=== PATIENT | female | born 1950 | race Caucasian/White ===

== ENCOUNTER 2020-12-05 05:53 | Emergency (ER) | payer OTHER, SELFPAY ==
[2020-12-05] VITALS (9 sets, daily range): BP systolic 111–188; BP diastolic 53–83; PULSE 81–104; RESP 21–40; TEMP 36.4; O2SAT 94–100; BMI 38.0
--- NOTE | 2020-12-05 06:01 | ED.ALLEREA ---
HPI - Allergic Reaction General Chief complaint: Allergic Reaction Stated complaint: sob, swelling tongue, itching/burning Time Seen by Provider: 12/05/20 05:59 History of Present Illness HPI narrative: 70-year-old female nonsmoker with history of severe asthma presents with her son in the chief complaint of allergic reaction, likely to cats. She is visiting from out of town and woke up about an hour and 20 minutes ago and felt like her tongue was swelling, itching and scratchy. Additionally she has wheezing and has been using her albuterol at home. She took 4 puffs prior to her arrival with little to minimal help and 100 mg of Benadryl. She denies any rash and has had no chest pain or GI symptoms such as nausea, vomiting or diarrhea. She denies any other new medications or foods. Related Data Previous Rx's Medication Instructions Recorded prednisone 10 mg tablet See Rx Instructions .ROUTE 12/05/20 .COMPLEX #30 tab Allergies Allergy/AdvReac Type Severity Reaction Status Date / Time cat dander Allergy Wheezing Verified 12/05/20 06:34 hydrochlorothiazide Allergy Rash Verified 12/05/20 06:34 levothyroxine Allergy Vomiting Verified 12/05/20 06:34 melon Allergy ITCHING Verified 12/05/20 06:34 nitrofurantoin Allergy Vomiting Verified 12/05/20 06:34 [From Macrobid] peanut Allergy Anaphylaxis Verified 12/05/20 06:34 pravastatin Allergy Muscle Pain Verified 12/05/20 06:34 zolpidem [From Ambien] Allergy Anxiety Verified 12/05/20 06:34 Review of Systems Review of Systems Narrative: GENERAL: Denies chills, fatigue, malaise, fever, sweats. HEENT: See HPI RESPIRATORY: See HPI CARDIOVASCULAR: Denies chest pain, palpitations, orthopnea, edema, GASTROINTESTINAL: Denies nausea, vomiting, abdominal pain, diarrhea, constipation, melena. : Denies dysuria, frequency, incontinence, hematuria, urinary retention. MUSCULOSKELETAL: denies weakness, joint pain, or bony pain SKIN: Denies rash, skin lesions, or other NEUROLOGIC: Denies weakness, headache, numbness, change in speech, confusion, seizures, incoordination. PSYCHIATRIC: No concerning psychosocial issues. 12 point review of systems is negative except for those stated above Patient History Social History Smoking Status: Never smoker Exam Narrative Exam Narrative: GENERAL: 70 [] year old patient appears stated age. Well-developed patient, in mild distress. Walks in under her own power HEAD: Atraumatic. Normocephalic. EYES: Pupils equal round and reactive. Extraocular motions intact. No scleral icterus. No injection or drainage. ENT: Nose without bleeding, purulent drainage. Throat without erythema, tonsillar hypertrophy or exudate. Airway patent. No obvious tongue swelling though patient feels as if it is. NECK: Trachea midline. Non tender CARDIOVASCULAR: Regular rate and rhythm without murmurs, gallops, or rubs. RESPIRATORY: Clear to auscultation. Breath sounds equal bilaterally. No wheezes, rales, or rhonchi. GASTROINTESTINAL: Abdomen soft, non-tender, nondistended. EXTREMITIES: No edema or joint tenderness. BACK: Nontender without deformity or crepitance. No flank tenderness. NEURO: AOx3. SKIN: No rash or erythema of visible areas Initial Vital Signs Initial Vital Signs: Vital Signs Temperature 97.5 F L 12/05/20 05:54 Pulse Rate 104 H 12/05/20 05:54 Respiratory Rate 30 H 12/05/20 05:54 Blood Pressure 188/83 H 12/05/20 05:54 Pulse Oximetry 96 12/05/20 05:54 Course Orders Ordered: Discontinued Medications Albuterol/Ipratropium (Albuterol/Ipratropium 3 Ml Ampul) 3 ml INH NOW ONE Stop: 12/05/20 06:12 Last Admin: 12/05/20 06:15 Dose: 3 ml Documented by: BEST Dexamethasone (Dexamethasone 10 Mg/Ml Vial) 10 mg IV NOW ONE Stop: 12/05/20 06:00 Last Admin: 12/05/20 06:07 Dose: 10 mg Documented by: SURJIT Epinephrine HCl (Epinephrine 1 Mg/Ml) 0.5 mg IM NOW ONE Stop: 12/05/20 06:00 Last Admin: 12/05/20 06:07 Dose: 0.5 mg Documented by: SURJIT Famotidine (Famotidine 20 Mg/2 Ml Vial) 20 mg IV NOW ONE Stop: 12/05/20 06:00 Last Admin: 12/05/20 06:07 Dose: 20 mg Documented by: SURJIT Sodium Chloride (Normal Saline 0.9%) 1,000 mls @ 150 mls/hr IV CONT GEOFF Last Infusion: 12/05/20 07:22 Dose: 0 mls/hr Documented by: Admin: 12/05/20 06:07 Dose: 150 mls/hr Documented by: SURJIT Magnesium Sulfate (Magnesium Sulfate) 2 gm in 50 mls @ 150 mls/hr IV NOW ONE Stop: 12/05/20 06:44 Last Infusion: 12/05/20 07:00 Dose: 0 mls/hr Documented by: SURJIT Cosigned by: CHARLES Admin: 12/05/20 06:36 Dose: 150 mls/hr Documented by: SURJIT Cosigned by: ALEIDA Reevaluation(s) Reevaluation #1: Patient moving a bit more air and starting to feel a bit jittery. She is not having any difficulty swallowing at this point. Peak flow just prior to the initiation of bronchodilators is 220 with a predicted of 515 MDM - Allergic Reaction MDM Narrative Medical decision making narrative: Patient presents with a constellation of symptoms concerning for allergic reaction versus asthma exacerbation. She had a significant and complete resolution of symptoms with above-stated therapies. Work of breathing greatly improved. Return precautions discussed and questions answered to her apparent satisfaction Discharge Plan Departure Patient Disposition: Home Clinical Impression: Allergic reaction, Asthma Instructions: DI for Asthma -- Adult Activity Restrictions/Additional Instructions: *You have been diagnosed with [asthma exacerbation and possible allergic reaction *What to do: *Please continue to take your regular medications as directed. [x ] New medication prescriptions sent to your pharmacy: [ [facility]] [ ] New medication written as a paper prescription [ ] No new medications given *Please follow up with your primary care provider in 2-3 days, call for an appointment. Let them know you were seen in the Emergency Department and that we ask that you be seen in follow up. We will electronically transmit a record of today's note if your PCP is in our system *If you do not have a primary care provider please contact the [facility] Resource line at [phone]. They will ask some questions about your medical history and help get you set up with a doctor in the community. *Return to Emergency Department if you should have any new, worsening or concerning symptoms, such as [fever greater than 101 F, shaking chills, worsening pain, persistent vomiting or other bothersome symptoms] Prescriptions: New prednisone 10 mg tablet See Rx Instructions .ROUTE .COMPLEX Qty: 30 RF: 0
[2020-12-05] MEDS: DEXAMETHASONE 10 MG/ML VIAL IV (06:07)
[2020-12-05] MEDS: FAMOTIDINE 20 MG/2 ML VIAL IV (06:07)
[2020-12-05] MEDS: EPINEPHrine 1 MG/ML 0.5 MG IM (06:07)
[2020-12-05] MEDS: SODIUM CHLORIDE 0.9% 1,000 ML 150 ML IV (06:07)
[2020-12-05] MEDS: ALBUTEROL/IPRATROPIUM 3 ML AMPUL INH (06:15)
[2020-12-05] MEDS: MAGNESIUM SULFATE 2 GM/50 ML PIGGYBACK IV (06:36)
--- NOTE | 2020-12-05 07:20 | PC.NURSE ---
Pt appears and states that she is feeling much better after the medications. Pts respirations have slowed, able to take deeper breaths, speaking in full complete sentences. VSS, HR NSR, satting well on RA.
== END 2020-12-05 07:27 | disposition home or self-care (01) ==
PROVIDERS: Emergency Provider Emergency Medicine
DX: J45.901 Unspecified asthma with (acute) exacerbation (principal); J30.89 Other allergic rhinitis
CPT/HCPCS: 94150; 94640; 96360; 96365; 96372; 96374; 99284; J0171; J1100; J3475

== ENCOUNTER → 2021-08-08 11:52 | Outpatient (CLI) | payer OTHER, MEDICARE, SELFPAY ==
[2021-08-08 13:34] LABS: Add Manual Diff / Slide Review NO; Basophils Absolute Auto 100 /uL (0-100); Basophils Percent Auto 0.9 % (0-2); Eosinophils Absolute Auto 1000 /uL (0-450); Eosinophils Percent Auto 11.3 % (2-4); Hematocrit 39.1 % (36-46); Hemoglobin 12.8 g/dL (12.0-16.0); Lymphocytes Absolute Auto 2400 /uL (1100-4500); Lymphocytes Percent Auto 26.8 % (25-40); Mean Corpuscular HGB Conc 32.8 % (30-36); Mean Corpuscular Hemoglobin 26.7 PG (26-34); Mean Corpuscular Volume 81.5 fL (80-100); Monocytes Absolute Auto 500 /uL (0-900); Monocytes Percent Auto 5.3 % (3-14); Neutrophils Absolute Auto 5000 /uL (1500-7000); Neutrophils Percent Auto 55.7 % (50-75); Platelet Count 252 X10^3/uL (150-400); Red Cell Distribution Width 14.7 % (11.6-14.8); White Blood Cell Count 9.1 X10^3/uL (4.5-11.0)
[2021-08-08 14:11] LABS: Alanine Aminotransferase 23 IU/L (<35); Albumin 4.4 g/dL (3.5-5.0); Albumin Globulin Ratio 1.5 (1.0-2.8); Alkaline Phosphatase 112 U/L (38-126); Aspartate Aminotransferase 29 IU/L (14-36); BUN Creatinine Ratio 19.3 (6-22); Bilirubin Total 0.3 mg/dL (0.2-1.3); Blood Urea Nitrogen 22 mg/dL (7-17); Calcium 9.2 mg/dL (8.4-10.2); Carbon Dioxide 29 mmol/L (22-32); Chloride 104 mmol/L (98-107); Estimated Glomerular Filt Rate 51 mL/min (>60); Globulin 2.9 g/dL (1.7-4.1); Glucose 106 mg/dL (80-110); HEMOLYSIS < 15 (0-50); Potassium 4.6 mmol/L (3.4-5.1); Sodium 139 mmol/L (137-145); Total Protein 7.3 g/dL (6.3-8.2)
[2021-08-08 14:49] LABS: TSH w/ Reflex to FT4 < 0.02 uIU/mL (0.47-4.68)
[2021-08-08 15:22] LABS: Folate 15.5 ng/mL (2.76-20.0); Vitamin B12 803 pg/mL (239-931)
== END ==
PROVIDERS: PCP Physician Assistant; Referring Provider Physician Assistant; Visit Provider Physician Assistant
DX: E03.9 Hypothyroidism, unspecified (principal); R26.81 Unsteadiness on feet; R41.3 Other amnesia
CPT/HCPCS: 36415; 80053; 82607; 82746; 84439; 84443; 85025

== ENCOUNTER → 2021-09-27 18:30 | Outpatient (CLI) | payer OTHER, SELFPAY ==
[2021-09-27 18:55] LABS: Appearance Urine UA CLEAR; Bilirubin Urine UA NEGATIVE (NEGATIVE); Color Urine UA YELLOW; Glucose Urine UA NEGATIVE (Negative); Ketones Urine UA NEGATIVE (NEGATIVE); Leukocyte Esterase Urine UA TRACE (NEGATIVE); Nitrite Urine UA NEGATIVE (Negative); Occult Blood Urine UA 3+ (Negative); Protein Urine UA NEGATIVE (Negative); Specific Gravity Urine UA 1.015 (1.000-1.035); Urobilinogen Urine UA 0.2 E.U./dL (0.2)
[2021-09-27 19:26] LABS: Amorphous Sediment Urine 1+; Bacteria Urine Occasional (0-1); Culture Indicated Urine Specimen Cultured; RBC Urine 10-30/HPF (0-5/HPF); Transitional Epi Cells Urine 1-5/HPF (0-5/HPF); WBC Urine 5-10/HPF (0-5/HPF)
== END ==
PROVIDERS: PCP Family Medicine; Referring Provider Family Medicine; Visit Provider Family Medicine
DX: R31.0 Gross hematuria (principal)
CPT/HCPCS: 81001; 87086

== ENCOUNTER → 2021-10-04 12:40 | Outpatient (CLI) | payer OTHER, SELFPAY ==
--- NOTE | 2021-10-04 | DI.US.S_ITS ---
PROCEDURE: US RENAL COMPLETE INDICATIONS: Gross hematuria TECHNIQUE: Real-time scanning was performed of the kidneys and bladder, with image documentation. COMPARISON: None. FINDINGS: Kidneys: Kidneys are normal in size. Right kidney measures 11.2 cm long; left kidney measures 10.5 cm long. Right renal cortical thickness is 1.4 cm; left renal cortical thickness is 1.4 cm. Renal cortical echotexture is normal. No hydronephrosis or nephrolithiasis. No suspicious solid mass lesions. Bladder: Pre-void bladder volume is 97 mL. Post-void residual is 0 mL. Pre-void images demonstrate no intraluminal masses or stones. On pre-void images, no ureteral jets are noted with color Doppler interrogation. (Of note, ureteral jets may not be detectable in up to 25% of cases due to insufficient differences in specific gravity between ureteral and bladder urine). Miscellaneous: No free pelvic fluid. IMPRESSION: No hydronephrosis or evidence of nephrolithiasis. Dictated by: Cory Gallardo M.D. on 10/04/2021 at 21:01 Approved by: Cory Gallardo M.D. on 10/04/2021 at 21:03
== END ==
PROVIDERS: PCP Family Medicine; Referring Provider Family Medicine; Visit Provider Family Medicine
DX: R31.0 Gross hematuria (principal)
CPT/HCPCS: 76770

== ENCOUNTER → 2021-10-24 11:08 | Outpatient (CLI) | payer OTHER, SELFPAY ==
[2021-10-24 12:31] LABS: Add Manual Diff / Slide Review NO; Basophils Absolute Auto 100 /uL (0-100); Basophils Percent Auto 0.6 % (0-2); Eosinophils Absolute Auto 900 /uL (0-450); Hematocrit 42.9 % (36-46); Hemoglobin 14.1 g/dL (12.0-16.0); Lymphocytes Absolute Auto 2200 /uL (1100-4500); Lymphocytes Percent Auto 21.5 % (25-40); Mean Corpuscular Hemoglobin 26.8 PG (26-34); Mean Corpuscular Volume 81.2 fL (80-100); Monocytes Absolute Auto 500 /uL (0-900); Neutrophils Absolute Auto 6600 /uL (1500-7000); Neutrophils Percent Auto 63.9 % (50-75); Platelet Count 269 X10^3/uL (150-400); Red Blood Cell Count 5.28 X10^6/uL (4.0-5.2); White Blood Cell Count 10.3 X10^3/uL (4.5-11.0)
[2021-10-24 12:55] LABS: Alanine Aminotransferase 28 IU/L (<35); Albumin 4.6 g/dL (3.5-5.0); Albumin Globulin Ratio 1.3 (1.0-2.8); Alkaline Phosphatase 141 U/L (38-126); Aspartate Aminotransferase 29 IU/L (14-36); BUN Creatinine Ratio 22.4 (6-22); Bilirubin Total 0.4 mg/dL (0.2-1.3); Blood Urea Nitrogen 24 mg/dL (7-17); Calcium 9.4 mg/dL (8.4-10.2); Carbon Dioxide 29 mmol/L (22-32); Chloride 103 mmol/L (98-107); Cholesterol 254 mg/dL (140-199); Estimated Glomerular Filt Rate 55 mL/min (>60); Globulin 3.5 g/dL (1.7-4.1); Glucose 137 mg/dL (80-110); HDL Cholesterol 49 mg/dL (40-60); HEMOLYSIS < 15 (0-50); LDL Cholesterol Calculated 158 mg/dL (<100); Potassium 4.1 mmol/L (3.4-5.1); Sodium 140 mmol/L (137-145); Total Protein 8.1 g/dL (6.3-8.2); Triglycerides 236 mg/dL (35-150)
[2021-10-24 13:11] LABS: Hemoglobin A1C% w Est Avg Glu 6.4 % (4.0-6.0)
[2021-10-24 13:25] LABS: Free T3, Triiodothyronine Free 2.82 pg/mL (2.77-5.27); Free T4, Direct Thyroxine 1.49 ng/dL (0.78-2.19)
[2021-10-24 13:39] LABS: Thyroid Stimulating Hormone 0.119 uIU/mL (0.47-4.68)
[2021-10-24 16:00] LABS: Creatinine Urine Random 123.6 mg/dL
[2021-10-24 16:06] LABS: Microalbumi Creatinin Ratio Ur 19.4 ug/mg CR (<30); Microalbumin Urine Random 2.4 mg/dL (0-1.6)
== END ==
PROVIDERS: PCP Family Medicine; Referring Provider Family Medicine; Visit Provider Family Medicine
DX: E11.22 Type 2 diabetes mellitus with diabetic chronic kidney disease (principal); E03.9 Hypothyroidism, unspecified; I10 Essential (primary) hypertension; G43.109 Migraine with aura, not intractable, without status migrainosus; N18.30 Chronic kidney disease, stage 3 unspecified; R31.0 Gross hematuria
CPT/HCPCS: 36415; 80053; 80061; 82043; 82570; 83036; 84439; 84443; 84481; 85025

== ENCOUNTER → 2021-11-14 11:22 | Outpatient (CLI) | payer OTHER, SELFPAY ==
--- NOTE | 2021-11-14 11:44 | DI.CT.S_ITS ---
PROCEDURE: CT IVP A/P W/WO INDICATIONS: hematuria TECHNIQUE: Optional 5 mm thick noncontrast images acquired from the diaphragm to the symphysis pubis. After the administration of intravenous contrast, 5 mm thick images acquired from the diaphragm to the symphysis pubis after a 10-minute delay. 2 mm thick coronal and sagittal reformats were then performed of the kidneys and ureters. For radiation dose reduction, the following was used: automated exposure control, adjustment of mA and/or kV according to patient size. COMPARISON: [facility], , RENAL COMPLETE, 10/04/2021, 12:56. FINDINGS: Image quality: Excellent. Lung bases: Lung bases are clear. Heart size is normal. Urinary system: Both kidneys are normal in size, without hydronephrosis or nephrolithiasis on pre-contrast images. No perinephric fat stranding. There is normal bilateral renal enhancement. Renal calyces appear normal in morphology when filled with contrast. The opacified portions of both ureters demonstrate normal caliber. Bladder wall thickness is normal. No calcified bladder stones. Other solid organs: Liver is normal in size and enhancement. Gallbladder wall is not thickened. Biliary system is non dilated. Pancreas enhances normally. Spleen is normal in size and enhancement. No adrenal nodules. Peritoneum and bowel: Bowel loops demonstrate normal wall thickness and caliber. No free fluid or air. Minimal distal colonic diverticulosis is seen, without findings of active diverticulitis. Nodes and vessels: No retroperitoneal or mesenteric adenopathy by size criteria. Aorta and inferior vena cava are normal in size. Abdominal wall: No ventral hernias. Pelvis: No pathologic free pelvic fluid. No inguinal hernias or adenopathy. The uterus appears normal for age. No adnexal masses are seen. Bones: No suspicious bony lesions. No vertebral body compression fractures. Moderate levoconvex lumbar scoliosis is seen. Degenerative changes are seen throughout, which are worst involving the lumbar spine. IMPRESSION: A cause of hematuria is not seen. No stones, renal masses, ureteral masses, or bladder masses are detected. Incidental note is made of: Moderate levoconvex scoliosis Lumbar spine degenerative change Diverticulosis, without active diverticulitis Dictated by: Judd Decker M.D. on 11/14/2021 at 13:21 Approved by: Judd Decker M.D. on 11/14/2021 at 13:24
== END ==
PROVIDERS: PCP Family Medicine; Referring Provider Specialist; Visit Provider Specialist
DX: R31.9 Hematuria, unspecified (principal); M41.86 Other forms of scoliosis, lumbar region; M47.816 Spondylosis without myelopathy or radiculopathy, lumbar region
CPT/HCPCS: 74178

== ENCOUNTER → 2021-12-14 15:00 | Outpatient (CLI) | payer OTHER, SELFPAY ==
--- NOTE | 2021-12-14 15:05 | DI.RAD.S_ITS ---
PROCEDURE: XR CHEST 2V INDICATIONS: Cough, unspecified TECHNIQUE: 2 views of the chest were acquired. COMPARISON: None. FINDINGS: Surgical changes and devices: None. Lungs and pleura: Mild bronchial wall thickening is seen bilaterally. No focal infiltrate. No pleural effusions or pneumothorax. Mediastinum: Mediastinal contours are normal. Heart size is normal. Bones and chest wall: No suspicious bony abnormalities. Soft tissues appear unremarkable. IMPRESSION: Finding is suggestive of mild reactive airway disease. No focal infiltrate, pleural effusion or pneumothorax. Dictated by: Kris Salcido M.D. on 12/14/2021 at 15:29 Approved by: Kris Salcido M.D. on 12/14/2021 at 15:39
== END ==
PROVIDERS: PCP Family Medicine; Referring Provider Family Medicine; Visit Provider Family Medicine
DX: R05.9 Cough, unspecified (principal)
CPT/HCPCS: 71046

== ENCOUNTER → 2021-12-25 16:59 | Outpatient (CLI) | payer OTHER, SELFPAY ==
[2021-12-25 19:40] LABS: Thyroid Stimulating Hormone 0.023 uIU/mL (0.47-4.68)
== END ==
PROVIDERS: PCP Family Medicine; Referring Provider Family Medicine; Visit Provider Family Medicine
DX: E03.9 Hypothyroidism, unspecified (principal)
CPT/HCPCS: 36415; 84443

== ENCOUNTER 2022-01-17 20:07 | Emergency (ER) | payer OTHER, SELFPAY ==
[2022-01-17 20:15] VITALS: BP 161/76; PULSE 93; RESP 22; TEMP 36.1; O2SAT 97; BMI 37.2
--- NOTE | 2022-01-17 20:21 | DI.RAD.S_ITS ---
PROCEDURE: XR CHEST 2V INDICATIONS: cough, SOB TECHNIQUE: 2 views of the chest were acquired. COMPARISON: [facility], CR, XR CHEST 2V, 12/14/2021, 15:20. FINDINGS: Surgical changes and devices: None. Lungs and pleura: A few linear opacities in the lung bases likely represent atelectasis or scarring. No acute consolidation. No pleural effusions or pneumothorax. Mediastinum: Mediastinal contours are normal. Heart size is normal. Bones and chest wall: No suspicious bony abnormalities. Soft tissues appear unremarkable. IMPRESSION: 1. Probable mild atelectasis or scarring in the lung bases redemonstrated. No definite evidence of pneumonia. Dictated by: Zheng Castillo M.D. on 01/17/2022 at 22:49 Approved by: Zheng Castillo M.D. on 01/17/2022 at 22:50 the
[2022-01-17 21:08] LABS: Influenza A - CEPHEID Flu A POSITIVE (NEGATIVE); Influenza B - CEPHEID Flu B NEGATIVE (NEGATIVE); Respiratory Syncytial Virus Negative (Negative)
[2022-01-17 21:17] VITALS: PULSE 99; RESP 18; TEMP 36.1; O2SAT 96
[2022-01-17 21:22] LABS: COVID-19 CEPHEID 4-PLEX PCR Negative (Negative)
--- NOTE | 2022-01-17 21:36 | ED_ITS ---
HPI - SOB/Dyspnea General Chief Complaint: Shortness of Breath/Dyspnea Stated Complaint: difficulty breathing Time Seen by Provider: 01/17/22 20:44 Source: patient Mode of arrival: Ambulatory Limitations: no limitations History of Present Illness HPI Narrative: 71-year-old female nonsmoker with history of hypertension, hypothyroid, severe asthma presents with her family in the chief complaint of various upper res piratory symptoms including nasal congestion, runny nose, mild headache and sore throat with a dry hacking cough. She has had minimal if any nausea and denies vomiting, abdominal pain or diarrhea. She denies any obvious known exposure to persons with similar symptoms. She denies recent travel or history of blood clot. Related Data Home Medications Medication Instructions Recorded Confirmed B-complex with vitamin C 1 cap PO DAILY 12/07/21 12/07/21 albuterol sulfate 90 mcg/actuation 2 inh inhalation Q4-6H PRN 12/07/21 12/07/21 breath activated powder inhaler amlodipine 5 mg tablet 5 mg PO DAILY 12/07/21 12/07/21 calcium 167 mg-vitamin D3 1.67 cap PO 12/07/21 12/07/21 mcg-magnesium 83 mg capsule cetirizine 10 mg capsule (Zyrtec) 10 mg PO DAILY PRN 12/07/21 12/07/21 coenzyme Q10 75 mg capsule (Ultra 150 mg PO DAILY 12/07/21 12/07/21 CoQ10) fluticasone propionate 250 1 inh inhalation BID 12/07/21 12/07/21 mcg/actuation blister powder for inhalation (Flovent Diskus) levothyroxine 175 mcg capsule 175 mcg PO DAILY 12/07/21 12/07/21 metformin 500 mg tablet 500 mg PO BID 12/07/21 12/07/21 montelukast 10 mg tablet 10 mg PO DAILY 12/07/21 12/07/21 (Singulair) sertraline 25 mg tablet (Zoloft) 25 mg PO DAILY 12/07/21 12/07/21 Previous Rx's Medication Instructions Recorded prednisone 10 mg tablet See Rx Instructions .Route 12/05/20 .COMPLEX #30 tabs benzonatate 200 mg capsule 200 mg PO BID PRN cough #20 caps 01/17/22 codeine 6.3 mg-guaifenesin 100 8 ml PO Q6H PRN flu symptoms #473 01/17/22 mg/5 mL oral liquid mL oseltamivir 75 mg capsule (Tamiflu) 75 mg PO BID 5 days #10 caps 01/17/22 Allergies Allergy/AdvReac Type Severity Reaction Status Date / Time cat dander Allergy Wheezing Verified 01/17/22 20:14 hydrochlorothiazide Allergy Rash Verified 01/17/22 20:14 levothyroxine Allergy Vomiting Verified 01/17/22 20:14 melon Allergy ITCHING Verified 01/17/22 20:14 nitrofurantoin Allergy Vomiting Verified 01/17/22 20:14 [From Macrobid] peanut Allergy Anaphylaxis Verified 01/17/22 20:14 pravastatin Allergy Muscle Pain Verified 01/17/22 20:14 zolpidem [From Ambien] Allergy Anxiety Verified 01/17/22 20:14 Review of Systems Review of Systems Narrative: GENERAL: See HPI HEENT: See HPI RESPIRATORY: See HPI CARDIOVASCULAR: See HPI GASTROINTESTINAL: Denies nausea, vomiting, abdominal pain, diarrhea, constipation, melena. : Denies dysuria, frequency, incontinence, hematuria, urinary retention. MUSCULOSKELETAL: denies weakness, joint pain, or bony pain SKIN: Denies rash, skin lesions, or other NEUROLOGIC: Denies weakness, headache, numbness, change in speech, confusion, seizures, incoordination. PSYCHIATRIC: No concerning psychosocial issues. 12 point review of systems is negative except for those stated above Patient History Medical History Asthma Chest pain Disease of thyroid gland FH: migraine headache High blood pressure Postmenopausal bleeding Surgical History H/O adenoidectomy H/O section H/O tubal ligation History of appendectomy History of carpal tunnel surgery Hx of tonsillectomy Family History Brother Family history of BPH Kidney stones Mother Hypertension Diabetes mellitus Thyroid disease Father Cancer Diabetes mellitus CAD in [place] artery Social History marital status: number of children: 2 Smoking Status: Never smoker Type(s) of exercise: walking frequency: 1-2 times per week Smoking Status: Never smoker alcohol intake frequency: 0-2 drinks per day Substance Use Type: does not use Exam Narrative Exam Narrative: GENERAL: [71] year old patient appears stated age. Well-developed patient, in mild distress. HEAD: Atraumatic. Normocephalic. EYES: Pupils equal round and reactive. Extraocular motions intact. No scleral icterus. No injection or drainage. ENT: Nose without bleeding, purulent drainage. Throat without erythema, tonsillar hypertrophy or exudate. Airway patent. NECK: Trachea midline. Non tender CARDIOVASCULAR: Regular rate and rhythm without murmurs, gallops, or rubs. RESPIRATORY: Clear to auscultation. Breath sounds equal bilaterally. No wheezes, rales, or rhonchi. Occasional harsh sounding cough, no evidence of hypoxemia, use of accessory muscles or tachypnea GASTROINTESTINAL: Abdomen soft, non-tender, nondistended. EXTREMITIES: No edema or joint tenderness. BACK: Nontender without deformity or crepitance. No flank tenderness. NEURO: AOx3. SKIN: No rash or erythema of visible areas Initial Vital Signs Initial Vital Signs: Vital Signs Temperature 97.0 F L 01/17/22 20:15 Pulse Rate 93 H 01/17/22 20:15 Respiratory Rate 22 01/17/22 20:15 Blood Pressure 161/76 H 01/17/22 20:15 Pulse Oximetry 97 01/17/22 20:15 Oxygen Delivery Method 01/17/22 20:15 Course Orders Ordered: ED Orders 01/17/22 20:21 XR chest 2V Stat 01/17/22 20:22 Covid-19 + FLU A/B + RSV - PCR Stat EKG-12 Lead Stat Discontinued Medications Acetaminophen/Codeine Phosphate (Acetaminophen/Codeine Soln 5 Ml Solution) 10 ml PO NOW ONE Stop: 01/17/22 21:58 Last Admin: 01/17/22 22:14 Dose: 5 ml Documented By: ACE Acetaminophen/Codeine Phosphate (Acetaminophen/Codeine Soln 5 Ml Solution) 5 ml PO NOW ONE Stop: 01/17/22 22:12 Last Admin: 01/17/22 22:16 Dose: 5 ml Documented By: ACE Vital Signs Vital signs: Vital Signs - 8 hr 01/17/22 20:15 01/17/22 21:17 01/17/22 22:46 Temperature 97.0 F L 96.9 F L Pulse Rate 93 H 99 H 88 Respiratory Rate 22 18 16 Blood Pressure 161/76 H 152/80 H Pulse Oximetry 97 96 97 Oxygen Delivery Method Room Air Room Air Room Air MDM - SOB/Dyspnea Lab Data Labs: Lab Results 01/17/22 Range/Units 20:22 SARS-CoV-2 (PCR) Negative (Negative) Influenza A (RT-PCR) Flu a positive H (NEGATIVE) Influenza B (RT-PCR) Flu b negative (NEGATIVE) RSV (PCR) Negative (Negative) Imaging Data Chest x-ray: Radiologist's Impression: [address] [address] XRay Report Signed Patient: Jenna Culp MR#: [id number] : 1950 Acct:[id number] Age/Sex: 71 / F Date of Service: 01/17/22 Loc: ED Accession Number: [id number] ?? Procedure: XR chest 2V Ordering Provider: Cristofer Vaughn D.O. PROCEDURE:? XR CHEST 2V ? INDICATIONS:? cough, SOB ? TECHNIQUE:? 2 views of the chest were acquired.? ? COMPARISON:? [facility], CR, XR CHEST 2V, 12/14/2021, 15:20. ? FINDINGS:? ? Surgical changes and devices:? None.? ? Lungs and pleura:? A few linear opacities in the lung bases likely represent ate lectasis or scarring.? No acute consolidation.? No pleural effusions or pneumothorax.? ? Mediastinum:? Mediastinal contours are normal.? Heart size is normal.? ? Bones and chest wall:? No suspicious bony abnormalities.? Soft tissues appear unremarkable.? ? IMPRESSION:? ? 1. Probable mild atelectasis or scarring in the lung bases redemonstrated.? No definite evidence of pneumonia.? ? Dictated by: Zheng Castillo M.D. on 01/17/2022 at 22:49 ? ? Approved by: Zheng Castillo M.D. on 01/17/2022 at 22:50 ? Discharge Plan Departure Patient Disposition: Home Clinical Impression: Flu Instructions: DI for Influenza -- Adult Activity Restrictions/Additional Instructions: *You have been diagnosed with [influenza a] *What to do: *Please continue to take your regular medications as directed. [x ] New medication prescriptions sent to your pharmacy: [ [facility]] [x ] New medication written as a paper prescription (Tamiflu only) [ ] No new medications given *Please follow up with your primary care provider in 2-3 days, call for an appointment. Let them know you were seen in the Emergency Department and that we ask that you be seen in follow up. We will electronically transmit a record of today's note if your PCP is in our system *If you do not have a primary care provider please contact the [facility] Resource line at [phone]. They will ask some questions about your medical history and help get you set up with a doctor in the community. *Return to Emergency Department if you should have any new, worsening or concerning symptoms, such as [fever greater than 101 F, shaking chills, worsening pain, persistent vomiting or other bothersome symptoms] Radiographic study has been interpreted by an emergency physician. The official diagnosis by radiology will be performed within the next 24 hours and should there be any change in outcome we will notify you of how to proceed. Prescriptions: New benzonatate 200 mg capsule 200 mg PO BID PRN (Reason: cough) Qty: 20 0RF oseltamivir [Tamiflu] 75 mg capsule 75 mg PO BID 5 Days Qty: 10 0RF codeine-guaifenesin 6.3-100 mg/5 mL liquid 8 ml PO Q6H PRN (Reason: flu symptoms) Qty: 473 0RF No Action prednisone 10 mg tablet See Rx Instructions .ROUTE .COMPLEX Qty: 30 0RF Rx Instructions: Day 1,2,3: 40mg PO Daily Day 4,5,6: 30mg PO Daily Day 7,8,9: 20mg PO Daily Day 10,11,12: 10mg PO Daily #30 levothyroxine 175 mcg capsule 175 mcg PO DAILY metformin 500 mg tablet 500 mg PO BID sertraline [Zoloft] 25 mg tablet 25 mg PO DAILY Zyrtec 10 mg capsule 10 mg PO DAILY PRN amlodipine 5 mg tablet 5 mg PO DAILY montelukast [Singulair] 10 mg tablet 10 mg PO DAILY Flovent Diskus 250 mcg/actuation blister with device 1 inh inhalation BID albuterol sulfate 90 mcg/actuation aerosol powdr breath activated 2 inh inhalation Q4-6H PRN B-complex with vitamin C Capsule 1 cap PO DAILY Ultra CoQ10 75 mg capsule 150 mg PO DAILY calcium 26-vit D3-magnesium 15 167 mg calcium- 1.67 mcg-83 mg capsule PO Referrals: Maryuri Mtz ARNP [Primary Care Provider] - Visit Report Forms: Patient Portal/API
[2022-01-17] MEDS: ACETAMINOPHEN/CODEINE SOLN 5 ML SOLUTION 10 ML PO (22:14)
[2022-01-17] MEDS: ACETAMINOPHEN/CODEINE SOLN 5 ML SOLUTION PO (22:16)
[2022-01-17 22:46] VITALS: BP 152/80; PULSE 88; RESP 16; O2SAT 97
== END 2022-01-17 22:47 | disposition home or self-care (01) ==
PROVIDERS: Emergency Provider Emergency Medicine; PCP Family Medicine
DX: J10.1 Influenza due to other identified influenza virus with other respiratory manifestations (principal); Z20.822 Contact with and (suspected) exposure to COVID-19; Z79.899 Other long term (current) drug therapy
CPT/HCPCS: 0241U; 71046; 93005; 99283; 99284

== ENCOUNTER 2022-02-25 21:25 | Emergency (ER) | payer OTHER, SELFPAY ==
[2022-02-25] VITALS (8 sets, daily range): BP systolic 131–164; BP diastolic 60–75; PULSE 90–112; RESP 20–35; TEMP 36.6; O2SAT 93–96; BMI 37.2
--- NOTE | 2022-02-25 21:28 | ED_ITS ---
HPI - SOB/Dyspnea General Chief Complaint: Allergic Reaction Stated Complaint: ALLERGIC REACTION, DIFFICULTY BREATHING Time Seen by Provider: 02/25/22 21:28 History of Present Illness HPI Narrative: 71-year-old female nonsmoker with history of hypothyroid and multiple environmental allergies presents with family after eating [employer] [place], apple juice and some other food items and then developing symptoms consistent with allergies soon thereafter. She had a fullness and difficulty swallowing in her throat, she developed some hives on her anterior neck and felt like she could not breathe. She had no vomiting or diarrhea. She denies any facial lip or tongue swelling. She took an epinephrine pen at home as well as Benadryl 50 mg p.o. and presented here. By her arrival she felt significant improvement and no longer had trouble in her throat or the rash but did have some faint wheeze. She denies any other new medications or dietary change Related Data Home Medications Medication Instructions Recorded Confirmed B-complex with vitamin C 1 cap PO DAILY 12/07/21 12/07/21 albuterol sulfate 90 mcg/actuation 2 inh inhalation Q4-6H PRN 12/07/21 12/07/21 breath activated powder inhaler amlodipine 5 mg tablet 5 mg PO DAILY 12/07/21 12/07/21 calcium 167 mg-vitamin D3 1.67 cap PO 12/07/21 12/07/21 mcg-magnesium 83 mg capsule cetirizine 10 mg capsule (Zyrtec) 10 mg PO DAILY PRN 12/07/21 12/07/21 coenzyme Q10 75 mg capsule (Ultra 150 mg PO DAILY 12/07/21 12/07/21 CoQ10) fluticasone propionate 250 1 inh inhalation BID 12/07/21 12/07/21 mcg/actuation blister powder for inhalation (Flovent Diskus) levothyroxine 175 mcg capsule 175 mcg PO DAILY 12/07/21 12/07/21 metformin 500 mg tablet 500 mg PO BID 12/07/21 12/07/21 montelukast 10 mg tablet 10 mg PO DAILY 12/07/21 12/07/21 (Singulair) sertraline 25 mg tablet (Zoloft) 25 mg PO DAILY 12/07/21 12/07/21 Previous Rx's Medication Instructions Recorded prednisone 10 mg tablet See Rx Instructions .Route 12/05/20 .COMPLEX #30 tabs benzonatate 200 mg capsule 200 mg PO BID PRN cough #20 caps 01/17/22 codeine 6.3 mg-guaifenesin 100 8 ml PO Q6H PRN flu symptoms #473 01/17/22 mg/5 mL oral liquid mL epinephrine 0.3 mg/0.3 mL 0.3 mg (0.3 mL) IM Q5-15M PRN 02/26/22 injection, auto-injector (EpiPen anaphylaxis #2 ea 2-Rivera) prednisone 20 mg tablet 20 mg PO DAILY #5 tabs 02/26/22 Allergies Allergy/AdvReac Type Severity Reaction Status Date / Time cat dander Allergy Wheezing Verified 01/17/22 20:14 hydrochlorothiazide Allergy Rash Verified 01/17/22 20:14 levothyroxine Allergy Vomiting Verified 01/17/22 20:14 melon Allergy ITCHING Verified 01/17/22 20:14 nitrofurantoin Allergy Vomiting Verified 01/17/22 20:14 [From Macrobid] peanut Allergy Anaphylaxis Verified 01/17/22 20:14 pravastatin Allergy Muscle Pain Verified 01/17/22 20:14 zolpidem [From Ambien] Allergy Anxiety Verified 01/17/22 20:14 Review of Systems Review of Systems Narrative: GENERAL: See HPI HEENT: See HPI RESPIRATORY: See HPI CARDIOVASCULAR: Denies chest pain, palpitations, orthopnea, edema, GASTROINTESTINAL: Denies nausea, vomiting, abdominal pain, diarrhea, constipation, melena. : Denies dysuria, frequency, incontinence, hematuria, urinary retention. MUSCULOSKELETAL: denies weakness, joint pain, or bony pain SKIN: See HPI NEUROLOGIC: Denies weakness, headache, numbness, change in speech, confusion, seizures, incoordination. PSYCHIATRIC: No concerning psychosocial issues. 12 point review of systems is negative except for those stated above Patient History Medical History Asthma Chest pain Disease of thyroid gland FH: migraine headache High blood pressure Postmenopausal bleeding Surgical History H/O adenoidectomy H/O section H/O tubal ligation History of appendectomy History of carpal tunnel surgery Hx of tonsillectomy Family History Brother Family history of BPH Kidney stones Mother Hypertension Diabetes mellitus Thyroid disease Father Cancer Diabetes mellitus CAD in [place] artery Social History marital status: number of children: 2 Smoking Status: Never smoker Type(s) of exercise: walking frequency: 1-2 times per week Smoking Status: Never smoker alcohol intake frequency: 0-2 drinks per day Substance Use Type: does not use Exam Narrative Exam Narrative: GENERAL: [71] year old patient appears stated age. Well-developed patient, in mild distress. HEAD: Atraumatic. Normocephalic. EYES: Pupils equal round and reactive. Extraocular motions intact. No scleral icterus. No injection or drainage. ENT: No face, tongue, lip or throat swelling Nose without bleeding, purulent drainage. Throat without erythema, tonsillar hypertrophy or exudate. Airway patent. NECK: Trachea midline. Non tender CARDIOVASCULAR: Regular rate and rhythm without murmurs, gallops, or rubs. RESPIRATORY: No increased work of breathing or use of accessory muscles very faint end expiratory wheeze in apices GASTROINTESTINAL: Abdomen soft, non-tender, nondistended. EXTREMITIES: No edema or joint tenderness. BACK: Nontender without deformity or crepitance. No flank tenderness. NEURO: AOx3. SKIN: No rash or erythema of visible areas Initial Vital Signs Initial Vital Signs: Vital Signs Temperature 97.8 F 02/25/22 21:34 Pulse Rate 108 H 02/25/22 21:34 Respiratory Rate 22 02/25/22 21:34 Blood Pressure 164/75 H 02/25/22 21:34 Pulse Oximetry 94 02/25/22 21:34 Oxygen Delivery Method 02/25/22 21:34 Course Orders Ordered: Famotidine (Famotidine 20 Mg/2 Ml Vial) 20 mg IV NOW GEOFF Last Admin: 02/25/22 21:47 Dose: 20 mg Documented By: CHUN Discontinued Medications Dexamethasone (Dexamethasone 10 Mg/Ml Vial) 10 mg IV NOW ONE Stop: 02/25/22 21:32 Last Admin: 02/25/22 21:47 Dose: 10 mg Documented By: CHUN Diphenhydramine HCl (Diphenhydramine 50 Mg/Ml Vial) 25 mg IV NOW ONE Stop: 02/25/22 23:49 Last Admin: 02/26/22 00:02 Dose: 25 mg Documented By: QUINTON Vital Signs Vital signs: Vital Signs - 8 hr 02/25/22 21:34 02/25/22 21:36 02/25/22 21:40 Temperature 97.8 F Pulse Rate 108 H 112 H 108 H Respiratory Rate 22 27 H Blood Pressure 164/75 H Pulse Oximetry 94 93 93 Oxygen Delivery Method Room Air Room Air Room Air 02/25/22 21:40 02/25/22 21:57 02/25/22 21:57 Temperature Pulse Rate 101 H Respiratory Rate 20 Blood Pressure 156/60 H 148/68 H Pulse Oximetry 96 Oxygen Delivery Method Room Air 02/25/22 22:00 02/25/22 22:00 Temperature Pulse Rate 100 H Respiratory Rate 24 Blood Pressure 148/69 H Pulse Oximetry 95 Oxygen Delivery Method Room Air MDM - SOB/Dyspnea MDM Narrative Medical decision making narrative: CC: Allergic reaction, possibly to food. Urticaria was present prior to arrival, wheeze on arrival and patient did report some odd sensation in her throat after taking Benadryl describing scratchy but not full. Complicating co-morbidities: BMI greater than 37, extensive history of allergies and asthma Data collected from: Patient and family Medical records reviewed: Prior ER visits for similar complaints Differential considered: Allergic reaction versus other Exam documented above, pertinent findings include: Faint end expiratory wheeze noted, urticaria had resolved, airway patent, no facial, tongue, lip or throat swelling Treatments: Pepcid, Decadron, diphenhydramine Re-evaluations: Patient had significant, complete resolution of symptoms and was observed for 4 hours without any recurrence of symptoms Discussion: Patient with extensive allergic history and exposure to multiple food items developed sudden-onset allergic-type complaints including wheezing, scratchy sensation in her throat and urticaria. She self-treated with diphenhydramine and epinephrine and had significant improvement prior to her arrival. She was given steroids and H2 blockers here as well as a repeat dose of diphenhydramine observed for 4 hours with no return of symptoms Diagnosis: Allergic reaction Disposition: see below, along with detailed discharge instructions that have been reviewed with patient as well as indications for ED re-evaluation and additional outpatient follow up Discharge Plan Departure Patient Disposition: Home Clinical Impression: Allergic reaction Instructions: DI for General Allergic Reactions Activity Restrictions/Additional Instructions: *You have been diagnosed with [allergic reaction] *What to do: *Please continue to take your regular medications as directed. [x ] New medication prescriptions sent to your pharmacy: [ [facility]] [ ] New medication written as a paper prescription [ ] No new medications given *Please consider the routine use of over the counter antihistamines over the next few days 1. H1 blockers: Benadryl (Diphenhydramine), Zyrtec (Cetirizine), Chanel (Fexofenadine) or Claritin (Loratadine) along with, 2. H2 blockers: Famotidine or Cimetidine *If you can please avoid what triggered your reaction today *Please follow up with your primary care provider in 2-3 days, call for an appoi ntment. Let them know you were seen in the Emergency Department and that we ask that you be seen in follow up. We will electronically transmit a record of today's note if your PCP is in our system *If you do not have a primary care provider please contact the [facility] Resource line at [phone]. They will ask some questions about your medical history and help get you set up with a doctor in the community. *Return to Emergency Department if you should have any new, worsening or concerning symptoms, such as swelling of tongue, throat, trouble breathing, or other concerning symptoms Prescriptions: New prednisone 20 mg tablet 20 mg PO DAILY Qty: 5 0RF Rx Instructions: administer with food or milk epinephrine [EpiPen 2-Rivera] 0.3 mg/0.3 mL auto-injector 0.3 mg IM Q5-15M PRN (Reason: anaphylaxis) Qty: 2 0RF Rx Instructions: do not exceed 3 doses per episode No Action benzonatate 200 mg capsule 200 mg PO BID PRN (Reason: cough) Qty: 20 0RF codeine-guaifenesin 6.3-100 mg/5 mL liquid 8 ml PO Q6H PRN (Reason: flu symptoms) Qty: 473 0RF prednisone 10 mg tablet See Rx Instructions .ROUTE .COMPLEX Qty: 30 0RF Rx Instructions: Day 1,2,3: 40mg PO Daily Day 4,5,6: 30mg PO Daily Day 7,8,9: 20mg PO Daily Day 10,11,12: 10mg PO Daily #30 levothyroxine 175 mcg capsule 175 mcg PO DAILY metformin 500 mg tablet 500 mg PO BID sertraline [Zoloft] 25 mg tablet 25 mg PO DAILY Zyrtec 10 mg capsule 10 mg PO DAILY PRN amlodipine 5 mg tablet 5 mg PO DAILY montelukast [Singulair] 10 mg tablet 10 mg PO DAILY Flovent Diskus 250 mcg/actuation blister with device 1 inh inhalation BID albuterol sulfate 90 mcg/actuation aerosol powdr breath activated 2 inh inhalation Q4-6H PRN B-complex with vitamin C Capsule 1 cap PO DAILY Ultra CoQ10 75 mg capsule 150 mg PO DAILY calcium 26-vit D3-magnesium 15 167 mg calcium- 1.67 mcg-83 mg capsule PO Referrals: Maryuri Mtz ARNP [Primary Care Provider] - Stand Alone Forms: Patient Portal/API
[2022-02-25] MEDS: DEXAMETHASONE 10 MG/ML VIAL IV (21:47)
[2022-02-25] MEDS: FAMOTIDINE 20 MG/2 ML VIAL IV (21:47)
[2022-02-26] VITALS: BP 145/69; PULSE 91; RESP 16; O2SAT 95
[2022-02-26] MEDS: diphenhydrAMINE 50 MG/ML VIAL 25 MG IV (00:02)
[2022-02-26 00:30] VITALS: BP 132/63; PULSE 82; RESP 17; O2SAT 92
[2022-02-26 01:00] VITALS: BP 147/73; PULSE 81; RESP 20; O2SAT 93
[2022-02-26 01:30] VITALS: BP 169/78; PULSE 79; RESP 19; O2SAT 96
[2022-02-26 01:45] VITALS: BP 169/78; PULSE 84; RESP 18; TEMP 36.3
== END 2022-02-26 01:45 | disposition home or self-care (01) ==
PROVIDERS: Emergency Provider Emergency Medicine; PCP Family Medicine
DX: T78.40XA Allergy, unspecified, initial encounter (principal); L50.9 Urticaria, unspecified; R06.00 Dyspnea, unspecified
CPT/HCPCS: 36415; 96374; 96375; 99284; J1100; J1200

== ENCOUNTER → 2022-03-01 12:51 | Outpatient (CLI) | payer OTHER, SELFPAY ==
[2022-03-01 14:06] LABS: Alanine Aminotransferase 23 IU/L (<35); Albumin 4.3 g/dL (3.5-5.0); Albumin Globulin Ratio 1.3 (1.0-2.8); Alkaline Phosphatase 120 U/L (38-126); Aspartate Aminotransferase 20 IU/L (14-36); BUN Creatinine Ratio 31.6 (6-22); Bilirubin Total 0.4 mg/dL (0.2-1.3); Blood Urea Nitrogen 25 mg/dL (7-17); Calcium 9.1 mg/dL (8.4-10.2); Carbon Dioxide 31 mmol/L (22-32); Chloride 100 mmol/L (98-107); Cholesterol 263 mg/dL (140-199); Estimated Glomerular Filt Rate > 60 mL/min (>60); Globulin 3.3 g/dL (1.7-4.1); Glucose 126 mg/dL (80-110); HDL Cholesterol 53 mg/dL (40-60); HEMOLYSIS < 15 (0-50); LDL Cholesterol Calculated 161 mg/dL (<100); Potassium 4.2 mmol/L (3.4-5.1); Sodium 139 mmol/L (137-145); Total Protein 7.6 g/dL (6.3-8.2); Triglycerides 247 mg/dL (35-150)
[2022-03-01 14:10] LABS: Hemoglobin A1C% w Est Avg Glu 7.1 % (4.0-6.0)
[2022-03-01 18:51] LABS: Creatinine Urine Random 97.3 mg/dL
[2022-03-01 18:56] LABS: Microalbumi Creatinin Ratio Ur 11.3 ug/mg CR (<30); Microalbumin Urine Random 1.1 mg/dL (0-1.6)
[2022-03-03 07:35] LABS: Triiodothyronine T3 Total 61 ng/dL (71-180)
== END ==
PROVIDERS: PCP Family Medicine; Referring Provider Family Medicine; Visit Provider Family Medicine
DX: E11.22 Type 2 diabetes mellitus with diabetic chronic kidney disease (principal); E03.9 Hypothyroidism, unspecified; I10 Essential (primary) hypertension; N18.30 Chronic kidney disease, stage 3 unspecified; E78.2 Mixed hyperlipidemia; R74.8 Abnormal levels of other serum enzymes
CPT/HCPCS: 36415; 80053; 80061; 82043; 82570; 83036; 84443; 84480

== ENCOUNTER → 2022-04-05 09:55 | Outpatient (CLI) | payer OTHER, SELFPAY ==
[2022-04-05 10:29] LABS: Hemoglobin A1C% w Est Avg Glu 6.9 % (4.0-6.0)
[2022-04-05 10:36] LABS: BUN Creatinine Ratio 24.2 (6-22); Blood Urea Nitrogen 22 mg/dL (7-17); Calcium 9.3 mg/dL (8.4-10.2); Carbon Dioxide 30 mmol/L (22-32); Chloride 100 mmol/L (98-107); Estimated Glomerular Filt Rate > 60 mL/min (>60); Glucose 126 mg/dL (80-110); HEMOLYSIS < 15 (0-50); Potassium 4.2 mmol/L (3.4-5.1); Sodium 139 mmol/L (137-145)
[2022-04-05 10:37] LABS: Alanine Aminotransferase 24 IU/L (<35); Albumin 4.4 g/dL (3.5-5.0); Albumin Globulin Ratio 1.3 (1.0-2.8); Alkaline Phosphatase 133 U/L (38-126); Aspartate Aminotransferase 27 IU/L (14-36); BUN Creatinine Ratio 24.7 (6-22); Bilirubin Total 0.5 mg/dL (0.2-1.3); Blood Urea Nitrogen 22 mg/dL (7-17); Calcium 9.2 mg/dL (8.4-10.2); Carbon Dioxide 30 mmol/L (22-32); Chloride 100 mmol/L (98-107); Cholesterol 257 mg/dL (140-199); Estimated Glomerular Filt Rate > 60 mL/min (>60); Globulin 3.3 g/dL (1.7-4.1); Glucose 126 mg/dL (80-110); HDL Cholesterol 48 mg/dL (40-60); HEMOLYSIS < 15 (0-50); LDL Cholesterol Calculated 160 mg/dL (<100); Potassium 4.3 mmol/L (3.4-5.1); Sodium 139 mmol/L (137-145); Total Protein 7.7 g/dL (6.3-8.2); Triglycerides 245 mg/dL (35-150)
[2022-04-05 11:28] LABS: Creatinine Urine Random 77.7 mg/dL
[2022-04-05 11:33] LABS: Microalbumi Creatinin Ratio Ur 122.2 ug/mg CR (<30); Microalbumin Urine Random 9.5 mg/dL (0-1.6)
[2022-04-05 12:36] LABS: TSH w/ Reflex to FT4 6.39 uIU/mL (0.47-4.68)
== END ==
PROVIDERS: Specialist; PCP Family Medicine; Referring Provider Family Medicine; Visit Provider Family Medicine
DX: E11.22 Type 2 diabetes mellitus with diabetic chronic kidney disease (principal); E03.9 Hypothyroidism, unspecified; N18.30 Chronic kidney disease, stage 3 unspecified; I10 Essential (primary) hypertension; E78.2 Mixed hyperlipidemia; R31.9 Hematuria, unspecified
CPT/HCPCS: 36415; 80048; 80053; 80061; 82043; 82570; 83036; 84439; 84443

== ENCOUNTER 2022-05-06 15:53 | Emergency (ER) | payer OTHER, SELFPAY ==
[2022-05-06 16:10] VITALS: BP 156/75; PULSE 85; RESP 16; TEMP 36.7; O2SAT 93; BMI 37.4
[2022-05-06 16:19] VITALS: O2SAT 96
[2022-05-06] MEDS: predniSONE 20 MG TABLET 60 MG PO (16:54)
--- NOTE | 2022-05-06 17:35 | ED.ALLEREA ---
HPI - Allergic Reaction General Chief complaint: Allergic Reaction Stated complaint: itchy face/mouth/throat sob Time Seen by Provider: 05/06/22 16:19 Source: patient Mode of arrival: Ambulatory Related Data Home Medications Medication Instructions Recorded Confirmed B-complex with vitamin C 1 cap PO DAILY 12/07/21 12/07/21 albuterol sulfate 90 mcg/actuation 2 inh inhalation Q4-6H PRN 12/07/21 12/07/21 breath activated powder inhaler amlodipine 5 mg tablet 5 mg PO DAILY 12/07/21 12/07/21 calcium 167 mg-vitamin D3 1.67 cap PO 12/07/21 12/07/21 mcg-magnesium 83 mg capsule cetirizine 10 mg capsule (Zyrtec) 10 mg PO DAILY PRN 12/07/21 12/07/21 coenzyme Q10 75 mg capsule (Ultra 150 mg PO DAILY 12/07/21 12/07/21 CoQ10) fluticasone propionate 250 1 inh inhalation BID 12/07/21 12/07/21 mcg/actuation blister powder for inhalation (Flovent Diskus) levothyroxine 175 mcg capsule 175 mcg PO DAILY 12/07/21 12/07/21 metformin 500 mg tablet 500 mg PO BID 12/07/21 12/07/21 montelukast 10 mg tablet 10 mg PO DAILY 12/07/21 12/07/21 (Singulair) sertraline 25 mg tablet (Zoloft) 25 mg PO DAILY 12/07/21 12/07/21 Previous Rx's Medication Instructions Recorded prednisone 10 mg tablet See Rx Instructions .Route 12/05/20 .COMPLEX #30 tabs benzonatate 200 mg capsule 200 mg PO BID PRN cough #20 caps 01/17/22 codeine 6.3 mg-guaifenesin 100 8 ml PO Q6H PRN flu symptoms #473 01/17/22 mg/5 mL oral liquid mL epinephrine 0.3 mg/0.3 mL 0.3 mg (0.3 mL) IM Q5-15M PRN 02/26/22 injection, auto-injector (EpiPen anaphylaxis #2 ea 2-Rivera) prednisone 20 mg tablet 20 mg PO DAILY #5 tabs 02/26/22 prednisone 20 mg tablet 40 mg PO DAILY #8 tabs 05/06/22 Allergies Allergy/AdvReac Type Severity Reaction Status Date / Time cat dander Allergy Wheezing Verified 01/17/22 20:14 hydrochlorothiazide Allergy Rash Verified 01/17/22 20:14 levothyroxine Allergy Vomiting Verified 01/17/22 20:14 melon Allergy ITCHING Verified 01/17/22 20:14 nitrofurantoin Allergy Vomiting Verified 01/17/22 20:14 [From Macrobid] peanut Allergy Anaphylaxis Verified 01/17/22 20:14 pravastatin Allergy Muscle Pain Verified 01/17/22 20:14 zolpidem [From Ambien] Allergy Anxiety Verified 01/17/22 20:14 Patient History Medical History Asthma Chest pain Disease of thyroid gland FH: migraine headache High blood pressure Postmenopausal bleeding Surgical History H/O adenoidectomy H/O section H/O tubal ligation History of appendectomy History of carpal tunnel surgery Hx of tonsillectomy Family History Brother Family history of BPH Kidney stones Mother Hypertension Diabetes mellitus Thyroid disease Father Cancer Diabetes mellitus CAD in [place] artery Social History marital status: number of children: 2 Smoking Status: Never smoker Type(s) of exercise: walking frequency: 1-2 times per week Smoking Status: Never smoker alcohol intake frequency: 0-2 drinks per day Substance Use Type: does not use Exam Initial Vital Signs Initial Vital Signs: Vital Signs Temperature 98.1 F 05/06/22 16:10 Pulse Rate 85 05/06/22 16:10 Respiratory Rate 16 05/06/22 16:10 Blood Pressure 156/75 H 05/06/22 16:10 Pulse Oximetry 93 05/06/22 16:10 Oxygen Delivery Method Room Air 05/06/22 16:10 Course Course Course Narrative: Patient appears to be having some sort of an allergic reaction but no wheezing. No angioedema identified. No significant rash. She has a blotchy erythematous patchy rash at the back of her soft palate but the palate is widely patent. She reports mainly itching in the eyes and ears and in the mouth. I do not think further treatment is required. We did give her prednisone here orally she says she feels no worse after about an hour. I think prednisone at home is a reasonable course of action see discharge instructions for further details. Orders Ordered: Discontinued Medications Prednisone (Prednisone 20 Mg Tablet) 60 mg PO NOW ONE Stop: 05/06/22 16:21 Last Admin: 05/06/22 16:54 Dose: 60 mg Documented By: CTS Vital Signs Vital signs: Vital Signs - 8 hr 05/06/22 16:10 05/06/22 16:19 Temperature 98.1 F Pulse Rate 85 Respiratory Rate 16 Blood Pressure 156/75 H Pulse Oximetry 93 96 Oxygen Delivery Method Room Air Room Air Discharge Plan Departure Patient Disposition: Home Clinical Impression: Allergic reaction Activity Restrictions/Additional Instructions: I think her symptoms can be attributed to an allergic reaction but I do not suspect anaphylaxis or life-threatening allergic reaction. I think it is safe to continue taking Benadryl 50 mg every 6 hours, famotidine 20 mg daily, prednisone 40 mg daily. Follow-up with your doctor later this week. Return to the ER for worsening symptoms especially if he can not swallow or breathe properly. Prescriptions: New prednisone 20 mg tablet 40 mg PO DAILY Qty: 8 0RF No Action benzonatate 200 mg capsule 200 mg PO BID PRN (Reason: cough) Qty: 20 0RF codeine-guaifenesin 6.3-100 mg/5 mL liquid 8 ml PO Q6H PRN (Reason: flu symptoms) Qty: 473 0RF prednisone 20 mg tablet 20 mg PO DAILY Qty: 5 0RF Rx Instructions: administer with food or milk epinephrine [EpiPen 2-Rivera] 0.3 mg/0.3 mL auto-injector 0.3 mg IM Q5-15M PRN (Reason: anaphylaxis) Qty: 2 0RF Rx Instructions: do not exceed 3 doses per episode prednisone 10 mg tablet See Rx Instructions .ROUTE .COMPLEX Qty: 30 0RF Rx Instructions: Day 1,2,3: 40mg PO Daily Day 4,5,6: 30mg PO Daily Day 7,8,9: 20mg PO Daily Day 10,11,12: 10mg PO Daily #30 levothyroxine 175 mcg capsule 175 mcg PO DAILY metformin 500 mg tablet 500 mg PO BID sertraline [Zoloft] 25 mg tablet 25 mg PO DAILY Zyrtec 10 mg capsule 10 mg PO DAILY PRN amlodipine 5 mg tablet 5 mg PO DAILY montelukast [Singulair] 10 mg tablet 10 mg PO DAILY Flovent Diskus 250 mcg/actuation blister with device 1 inh inhalation BID albuterol sulfate 90 mcg/actuation aerosol powdr breath activated 2 inh inhalation Q4-6H PRN B-complex with vitamin C Capsule 1 cap PO DAILY Ultra CoQ10 75 mg capsule 150 mg PO DAILY calcium 26-vit D3-magnesium 15 167 mg calcium- 1.67 mcg-83 mg capsule PO Referrals: Maryuri Mtz ARNP [Primary Care Provider] - Stand Alone Forms: Patient Portal/API
[2022-05-06 17:42] VITALS: O2SAT 96
== END 2022-05-06 17:42 | disposition home or self-care (01) ==
PROVIDERS: Emergency Provider Family Medicine Addiction Medicine; PCP Family Medicine
DX: T78.40XA Allergy, unspecified, initial encounter (principal)
CPT/HCPCS: 99283

== ENCOUNTER → 2022-06-11 11:40 | Outpatient (CLI) | payer OTHER, SELFPAY ==
[2022-06-11 13:07] LABS: TSH w/ Reflex to FT4 1.35 uIU/mL (0.47-4.68)
== END ==
PROVIDERS: PCP Nurse Practitioner Family; Referring Provider Nurse Practitioner Family; Visit Provider Nurse Practitioner Family
DX: E03.9 Hypothyroidism, unspecified (principal)
CPT/HCPCS: 36415; 84443

== ENCOUNTER 2022-07-01 00:58 | Observation (INO) | payer OTHER, SELFPAY ==
[2022-07-01] VITALS (31 sets, daily range): BP systolic 103–147; BP diastolic 53–69; PULSE 84–107; RESP 17–44; TEMP 35.9–36.8; O2SAT 77–96; BMI 38.0; BMI 40.2
[2022-07-01] MEDS: ALBUTEROL 2.5 MG/3 ML NEB (ADULT) INH ×3 (01:07→23:04)
[2022-07-01] MEDS: ALBUTEROL 1.25 MG/3 ML NEB (PEDIATRIC) INH (01:07)
[2022-07-01] MEDS: methylPREDNISolone 125 MG/2 ML VIAL IV (01:11)
--- NOTE | 2022-07-01 01:15 | DI.RAD.S_ITS ---
PROCEDURE: XR CHEST 1V INDICATIONS: Shortness of breath TECHNIQUE: One view of the chest was acquired. COMPARISON: [facility], CR, XR CHEST 2V, 01/17/2022, 20:51. FINDINGS: Surgical changes and devices: None. Lungs and pleura: Mild bibasilar airspace opacity. No pleural effusions or pneumothorax. Mediastinum: Mediastinal contours appear normal. Heart size is normal. Bones and chest wall: No suspicious bony lesions. Overlying soft tissues appear unremarkable. IMPRESSION: Bibasilar atelectasis versus pneumonia. Dictated by: Savannah Vaughn M.D. on 07/01/2022 at 7:44 Approved by: Savannah Vaughn M.D. on 07/01/2022 at 7:45
--- NOTE | 2022-07-01 01:19 | ED_ITS ---
HPI - SOB/Dyspnea General Chief Complaint: Shortness of Breath/Dyspnea Stated Complaint: SOB, Dyspnea Time Seen by Provider: 07/01/22 01:19 History of Present Illness HPI Narrative: Patient is 72-year-old female history of asthma multiple environmental allergies presenting today with sudden onset shortness of breath. She reports that her asthma has been acting up somewhat over the last 1 week. No fever chills or cough. Tonight she had significant difficulty in breathing. She is noted to be hypoxic at 77% on room air. She denies any chest pain. No history of congestive heart failure.. She reports that she took a home COVID test that was negative. Related Data Home Medications Medication Instructions Recorded Confirmed B-complex with vitamin C 1 cap PO DAILY 12/07/21 12/07/21 albuterol sulfate 90 mcg/actuation 2 inh inhalation Q4-6H PRN 12/07/21 12/07/21 breath activated powder inhaler amlodipine 5 mg tablet 5 mg PO DAILY 12/07/21 12/07/21 calcium 167 mg-vitamin D3 1.67 cap PO 12/07/21 12/07/21 mcg-magnesium 83 mg capsule cetirizine 10 mg capsule (Zyrtec) 10 mg PO DAILY PRN 12/07/21 12/07/21 coenzyme Q10 75 mg capsule (Ultra 150 mg PO DAILY 12/07/21 12/07/21 CoQ10) fluticasone propionate 250 1 inh inhalation BID 12/07/21 12/07/21 mcg/actuation blister powder for inhalation (Flovent Diskus) levothyroxine 175 mcg capsule 175 mcg PO DAILY 12/07/21 12/07/21 metformin 500 mg tablet 500 mg PO BID 12/07/21 12/07/21 montelukast 10 mg tablet 10 mg PO DAILY 12/07/21 12/07/21 (Singulair) sertraline 25 mg tablet (Zoloft) 25 mg PO DAILY 12/07/21 12/07/21 Previous Rx's Medication Instructions Recorded prednisone 10 mg tablet See Rx Instructions .Route 12/05/20 .COMPLEX #30 tabs benzonatate 200 mg capsule 200 mg PO BID PRN cough #20 caps 01/17/22 codeine 6.3 mg-guaifenesin 100 8 ml PO Q6H PRN flu symptoms #473 01/17/22 mg/5 mL oral liquid mL epinephrine 0.3 mg/0.3 mL 0.3 mg (0.3 mL) IM Q5-15M PRN 02/26/22 injection, auto-injector (EpiPen anaphylaxis #2 ea 2-Rivera) prednisone 20 mg tablet 20 mg PO DAILY #5 tabs 02/26/22 prednisone 20 mg tablet 40 mg PO DAILY #8 tabs 05/06/22 Allergies Allergy/AdvReac Type Severity Reaction Status Date / Time cat dander Allergy Wheezing Verified 01/17/22 20:14 hydrochlorothiazide Allergy Rash Verified 01/17/22 20:14 levothyroxine Allergy Vomiting Verified 01/17/22 20:14 melon Allergy ITCHING Verified 01/17/22 20:14 nitrofurantoin Allergy Vomiting Verified 01/17/22 20:14 [From Macrobid] peanut Allergy Anaphylaxis Verified 01/17/22 20:14 pravastatin Allergy Muscle Pain Verified 01/17/22 20:14 zolpidem [From Ambien] Allergy Anxiety Verified 01/17/22 20:14 Review of Systems Review of Systems ROS Unobtainable: All systems reviewed & are unremarkable except as noted in HPI and below Patient History Medical History Asthma Chest pain Disease of thyroid gland FH: migraine headache High blood pressure Postmenopausal bleeding Surgical History H/O adenoidectomy H/O section H/O tubal ligation History of appendectomy History of carpal tunnel surgery Hx of tonsillectomy Family History Brother Family history of BPH Kidney stones Mother Hypertension Diabetes mellitus Thyroid disease Father Cancer Diabetes mellitus CAD in [place] artery Social History marital status: number of children: 2 Smoking Status: Never smoker Type(s) of exercise: walking frequency: 1-2 times per week Smoking Status: Never smoker alcohol intake frequency: 0-2 drinks per day Substance Use Type: does not use Exam Initial Vital Signs Initial Vital Signs: Vital Signs Temperature 97.0 F L 07/01/22 00:59 Pulse Rate 104 H 07/01/22 00:59 Respiratory Rate 44 H 07/01/22 00:59 Blood Pressure 145/67 H 07/01/22 00:59 Pulse Oximetry 77 L 07/01/22 00:59 Oxygen Delivery Method Room Air 07/01/22 00:59 GENERAL: Alert 72-year-old female in respiratory distress and in no acute d istress. HEENT: Head atraumatic,EOMI, pupils reactive, face symmetric, moist mucous membranes CARDIOVASCULAR: Regular rate and rhythm without murmurs, rubs or gallops. RESPIRATORY: Decreased breath sounds bilaterally wheezing decreased air movement ABDOMEN: Soft, nontender. Normoactive bowel sounds all 4 quadrants. No guarding or rebound. EXTREMITIES: Normal range of motion, no clubbing or edema. Neurovascularly intact NEUROLOGICAL: Alert and oriented x4. SKIN: Warm, dry, no laceration, no petechiae, no rashes or lesions. Course Orders Ordered: ED Orders 07/01/22 01:10 Complete Blood Count AUTO DIFF Stat Comprehensive Metabolic Panel Stat Lactate (Lactic Acid) Stat Lipase Stat NT-proBNP (BNP-Adult 18+) Stat PTT Partial Thromboplastin Godfrey Stat Procalcitonin Stat Prothrombin Time INR Stat Troponin I Stat 07/01/22 01:15 XR chest 1V Stat EKG-12 Lead Stat Measure peak expiratory flow ONCE RT Consult Eval and Treat NOW 07/01/22 01:18 COVID19 -Nasal RAPID Stat 07/01/22 02:20 Blood Culture Stat Ondansetron HCl (Ondansetron 4 Mg/2 Ml Inj) 4 mg IV NOW PRN PRN Reason: Nausea And Vomiting Ondansetron HCl (Ondansetron 4 Mg Odt) 4 mg SL NOW PRN PRN Reason: Nausea And Vomiting Discontinued Medications Albuterol (Albuterol 1.25 Mg/3 Ml Neb (Pediatric)) 1.25 mg INH NOW ONE Stop: 07/01/22 01:58 Last Admin: 07/01/22 01:07 Dose: 1.25 mg Documented By: MONSERRAT Albuterol (Albuterol 2.5 Mg/3 Ml Neb (Adult)) 2.5 mg INH NOW ONE Stop: 07/01/22 01:58 Last Admin: 07/01/22 01:07 Dose: 2.5 mg Documented By: MONSERRAT Albuterol/Ipratropium (Albuterol/Ipratropium 3 Ml Ampul) 3 ml INH NOW ONE Stop: 07/01/22 03:01 Last Admin: 07/01/22 03:11 Dose: 3 ml Documented By: Sodium Chloride (Normal Saline 0.9%) 1,000 mls @ 1,000 mls/hr IV BOLUS ONE Stop: 07/01/22 02:29 Last Infusion: 07/01/22 03:18 Dose: 0 mls/hr Documented By: Admin: 07/01/22 02:28 Dose: 1,000 mls/hr Documented By: MONSERRAT Sodium Chloride (Normal Saline 0.9%) 1,000 mls @ 1,000 mls/hr IV BOLUS ONE Stop: 07/01/22 03:07 Last Infusion: 07/01/22 04:14 Dose: 0 mls/hr Documented By: Admin: 07/01/22 03:18 Dose: 1,000 mls/hr Documented By: MONSERRAT Methylprednisolone (Methylprednisolone 125 Mg/2 Ml Vial) 125 mg IV NOW ONE Stop: 07/01/22 02:00 Last Admin: 07/01/22 01:11 Dose: 125 mg Documented By: MONSERRAT Vital Signs Vital signs: Vital Signs - 8 hr 07/01/22 00:59 07/01/22 01:09 07/01/22 01:09 Temperature 97.0 F L Pulse Rate 104 H 107 H Respiratory Rate 44 H 28 H Blood Pressure 145/67 H 147/69 H Pulse Oximetry 77 L 95 Oxygen Delivery Method Room Air 07/01/22 01:30 07/01/22 01:30 07/01/22 02:00 Temperature Pulse Rate 102 H Respiratory Rate 27 H Blood Pressure 110/54 L 103/55 L Pulse Oximetry 93 Oxygen Delivery Method 07/01/22 02:00 07/01/22 02:30 07/01/22 02:30 Temperature Pulse Rate 99 H 93 H Respiratory Rate 29 H 22 Blood Pressure 106/54 L Pulse Oximetry 92 93 Oxygen Delivery Method 07/01/22 03:00 07/01/22 03:00 07/01/22 03:30 Temperature Pulse Rate 100 H Respiratory Rate 24 Blood Pressure 119/57 L 112/53 L Pulse Oximetry 95 Oxygen Delivery Method 07/01/22 03:30 07/01/22 04:00 07/01/22 04:30 Temperature Pulse Rate 94 H 90 86 Respiratory Rate 25 H 22 24 Blood Pressure Pulse Oximetry 91 92 92 Oxygen Delivery Method 07/01/22 05:00 07/01/22 05:30 Temperature Pulse Rate 86 84 Respiratory Rate 25 H 17 Blood Pressure 112/53 L Pulse Oximetry 87 L 90 L Oxygen Delivery Method MDM - SOB/Dyspnea Lab Data 07/01/22 01:10 07/01/22 01:10 Labs: Lab Results 07/01/22 07/01/22 07/01/22 Range/Units 01:10 01:10 01:10 WBC 18.7 H (4.5-11.0) X10^3/uL RBC 5.14 (4.0-5.2) X10^6/uL Hgb 14.1 (12.0-16.0) g/dL Hct 42.4 (36-46) % MCV 82.5 (80-100) fL MCH 27.4 (26-34) PG MCHC 33.3 (30-36) % RDW 15.3 H (11.6-14.8) % Plt Count 352 (150-400) X10^3/uL Neut % (Auto) 54.1 (50-75) % Lymph % (Auto) 30.2 (25-40) % [place] % (Auto) 6.6 (3-14) % Eos % (Auto) 8.5 H (2-4) % Baso % (Auto) 0.6 (0-2) % Neut # (Auto) 65070 H (1236-9002) /uL Lymph # (Auto) 5700 H (7669-5708) /uL [place] # (Auto) 1200 H (0-900) /uL Eos # (Auto) 1600 H (0-450) /uL Baso # (Auto) 100 (0-100) /uL PT 12.1 (10.1-12.7) SECONDS INR 1.1 (0.9-1.3) APTT (26-36) SECONDS Sodium 137 (137-145) mmol/L Potassium 4.1 (3.4-5.1) mmol/L Chloride 99 (98-107) mmol/L Carbon Dioxide 23 (22-32) mmol/L BUN 20 H (7-17) mg/dL Creatinine 1.01 (0.52-1.04) mg/dL Estimated GFR 59 L (>60) mL/min BUN/Creatinine Ratio 19.8 (6-22) Glucose 194 H (80-110) mg/dL Lactate (0.7-2.1) mmol/L Calcium 9.8 (8.4-10.2) mg/dL Total Bilirubin 0.3 (0.2-1.3) mg/dL AST 28 (14-36) IU/L ALT 25 (<35) IU/L Alkaline Phosphatase 128 H (38-126) U/L Troponin I < 0.012 (0.01-0.034) ng/mL NT-Pro-B Natriuret Pep < 11 (<125) pg/mL Total Protein 7.7 (6.3-8.2) g/dL Albumin 4.5 (3.5-5.0) g/dL Globulin 3.2 (1.7-4.1) g/dL Albumin/Globulin Ratio 1.4 (1.0-2.8) Lipase (23-300) U/L Procalcitonin (<0.5) ng/mL SARS-CoV-2 (PCR) (Negative) 07/01/22 07/01/22 07/01/22 Range/Units 01:10 01:10 01:10 WBC (4.5-11.0) X10^3/uL RBC (4.0-5.2) X10^6/uL Hgb (12.0-16.0) g/dL Hct (36-46) % MCV (80-100) fL MCH (26-34) PG MCHC (30-36) % RDW (11.6-14.8) % Plt Count (150-400) X10^3/uL Neut % (Auto) (50-75) % Lymph % (Auto) (25-40) % [place] % (Auto) (3-14) % Eos % (Auto) (2-4) % Baso % (Auto) (0-2) % Neut # (Auto) (8254-5294) /uL Lymph # (Auto) (2727-3884) /uL [place] # (Auto) (0-900) /uL Eos # (Auto) (0-450) /uL Baso # (Auto) (0-100) /uL PT (10.1-12.7) SECONDS INR (0.9-1.3) APTT 29 (26-36) SECONDS Sodium (137-145) mmol/L Potassium (3.4-5.1) mmol/L Chloride (98-107) mmol/L Carbon Dioxide (22-32) mmol/L BUN (7-17) mg/dL Creatinine (0.52-1.04) mg/dL Estimated GFR (>60) mL/min BUN/Creatinine Ratio (6-22) Glucose (80-110) mg/dL Lactate 3.4 H (0.7-2.1) mmol/L Calcium (8.4-10.2) mg/dL Total Bilirubin (0.2-1.3) mg/dL AST (14-36) IU/L ALT (<35) IU/L Alkaline Phosphatase (38-126) U/L Troponin I (0.01-0.034) ng/mL NT-Pro-B Natriuret Pep (<125) pg/mL Total Protein (6.3-8.2) g/dL Albumin (3.5-5.0) g/dL Globulin (1.7-4.1) g/dL Albumin/Globulin Ratio (1.0-2.8) Lipase 125 (23-300) U/L Procalcitonin 0.06 (<0.5) ng/mL SARS-CoV-2 (PCR) (Negative) 07/01/22 07/01/22 Range/Units 01:18 03:35 WBC (4.5-11.0) X10^3/uL RBC (4.0-5.2) X10^6/uL Hgb (12.0-16.0) g/dL Hct (36-46) % MCV (80-100) fL MCH (26-34) PG MCHC (30-36) % RDW (11.6-14.8) % Plt Count (150-400) X10^3/uL Neut % (Auto) (50-75) % Lymph % (Auto) (25-40) % [place] % (Auto) (3-14) % Eos % (Auto) (2-4) % Baso % (Auto) (0-2) % Neut # (Auto) (7281-0752) /uL Lymph # (Auto) (4854-8541) /uL [place] # (Auto) (0-900) /uL Eos # (Auto) (0-450) /uL Baso # (Auto) (0-100) /uL PT (10.1-12.7) SECONDS INR (0.9-1.3) APTT (26-36) SECONDS Sodium (137-145) mmol/L Potassium (3.4-5.1) mmol/L Chloride (98-107) mmol/L Carbon Dioxide (22-32) mmol/L BUN (7-17) mg/dL Creatinine (0.52-1.04) mg/dL Estimated GFR (>60) mL/min BUN/Creatinine Ratio (6-22) Glucose (80-110) mg/dL Lactate 3.4 H (0.7-2.1) mmol/L Calcium (8.4-10.2) mg/dL Total Bilirubin (0.2-1.3) mg/dL AST (14-36) IU/L ALT (<35) IU/L Alkaline Phosphatase (38-126) U/L Troponin I (0.01-0.034) ng/mL NT-Pro-B Natriuret Pep (<125) pg/mL Total Protein (6.3-8.2) g/dL Albumin (3.5-5.0) g/dL Globulin (1.7-4.1) g/dL Albumin/Globulin Ratio (1.0-2.8) Lipase (23-300) U/L Procalcitonin (<0.5) ng/mL SARS-CoV-2 (PCR) Negative (Negative) Imaging Data Chest x-ray: Radiologist's Impression: No consolidation minor bibasilar some segmental atelectasis ECG Data Interpretation: Normal sinus rhythm rate 100 RI interval 170 QRS 150 QTC 505 left bundle-branch block noted new from previous EKGs MDM Narrative Medical decision making narrative: Patient is a 72-year-old female presenting today with shortness of breath. She is a history of small. It has been progressively getting worse over last couple days. X-ray does not show consolidation. She does have leukocytosis of 18, with a negative procalcitonin however her lactate is 3.4 x 2. Concern for possible underlying infection. Initially she was very hypoxic requiring albuterol. She improved pretty quickly. She is still requiring a couple L of oxygen. This is a trial off oxygen and ambulation trial she did happened O2 greater than 90. However while sleeping and resting O2 is 88%. He is had a few albuterol treatments which do seem to help. She has bronchitic asthmatic like cough which she says she is had for awhile hurts when she coughs. He is given Rocephin azithromycin. Discharge Plan Departure Patient Disposition: Admitted as Observation Clinical Impression: Asthma with exacerbation, Acidosis, lactic Prescriptions: No Action benzonatate 200 mg capsule 200 mg PO BID PRN (Reason: cough) Qty: 20 0RF codeine-guaifenesin 6.3-100 mg/5 mL liquid 8 ml PO Q6H PRN (Reason: flu symptoms) Qty: 473 0RF prednisone 20 mg tablet 20 mg PO DAILY Qty: 5 0RF Rx Instructions: administer with food or milk epinephrine [EpiPen 2-Rivera] 0.3 mg/0.3 mL auto-injector 0.3 mg IM Q5-15M PRN (Reason: anaphylaxis) Qty: 2 0RF Rx Instructions: do not exceed 3 doses per episode prednisone 10 mg tablet See Rx Instructions .ROUTE .COMPLEX Qty: 30 0RF Rx Instructions: Day 1,2,3: 40mg PO Daily Day 4,5,6: 30mg PO Daily Day 7,8,9: 20mg PO Daily Day 10,11,12: 10mg PO Daily #30 prednisone 20 mg tablet 40 mg PO DAILY Qty: 8 0RF levothyroxine 175 mcg capsule 175 mcg PO DAILY metformin 500 mg tablet 500 mg PO BID sertraline [Zoloft] 25 mg tablet 25 mg PO DAILY Zyrtec 10 mg capsule 10 mg PO DAILY PRN amlodipine 5 mg tablet 5 mg PO DAILY montelukast [Singulair] 10 mg tablet 10 mg PO DAILY Flovent Diskus 250 mcg/actuation blister with device 1 inh inhalation BID albuterol sulfate 90 mcg/actuation aerosol powdr breath activated 2 inh inhalation Q4-6H PRN B-complex with vitamin C Capsule 1 cap PO DAILY Ultra CoQ10 75 mg capsule 150 mg PO DAILY calcium 26-vit D3-magnesium 15 167 mg calcium- 1.67 mcg-83 mg capsule PO Referrals: Blanca Nichols RN [Primary Care Provider] -
[2022-07-01 01:26] LABS: Add Manual Diff / Slide Review NO; Basophils Absolute Auto 100 /uL (0-100); Basophils Percent Auto 0.6 % (0-2); Eosinophils Absolute Auto 1600 /uL (0-450); Eosinophils Percent Auto 8.5 % (2-4); Hematocrit 42.4 % (36-46); Hemoglobin 14.1 g/dL (12.0-16.0); INR 1.1 (0.9-1.3); Lymphocytes Absolute Auto 5700 /uL (1100-4500); Lymphocytes Percent Auto 30.2 % (25-40); Mean Corpuscular HGB Conc 33.3 % (30-36); Mean Corpuscular Hemoglobin 27.4 PG (26-34); Mean Corpuscular Volume 82.5 fL (80-100); Monocytes Absolute Auto 1200 /uL (0-900); Monocytes Percent Auto 6.6 % (3-14); Neutrophils Absolute Auto 10100 /uL (1500-7000); Neutrophils Percent Auto 54.1 % (50-75); Platelet Count 352 X10^3/uL (150-400); Prothrombin Time 12.1 SECONDS (10.1-12.7); Red Blood Cell Count 5.14 X10^6/uL (4.0-5.2); Red Cell Distribution Width 15.3 % (11.6-14.8); White Blood Cell Count 18.7 X10^3/uL (4.5-11.0)
[2022-07-01 01:30] LABS: Alanine Aminotransferase 25 IU/L (<35); Albumin 4.5 g/dL (3.5-5.0); Albumin Globulin Ratio 1.4 (1.0-2.8); Alkaline Phosphatase 128 U/L (38-126); Aspartate Aminotransferase 28 IU/L (14-36); BUN Creatinine Ratio 19.8 (6-22); Bilirubin Total 0.3 mg/dL (0.2-1.3); Blood Urea Nitrogen 20 mg/dL (7-17); Calcium 9.8 mg/dL (8.4-10.2); Carbon Dioxide 23 mmol/L (22-32); Chloride 99 mmol/L (98-107); Estimated Glomerular Filt Rate 59 mL/min (>60); Globulin 3.2 g/dL (1.7-4.1); Glucose 194 mg/dL (80-110); HEMOLYSIS < 15 (0-50); Potassium 4.1 mmol/L (3.4-5.1); Sodium 137 mmol/L (137-145); Total Protein 7.7 g/dL (6.3-8.2)
[2022-07-01 01:31] LABS: Lactate (Lactic Acid) 3.4 mmol/L (0.7-2.1)
[2022-07-01 01:43] LABS: NT-proBNP (BNP-Adult 18+) < 11 pg/mL (<125); Troponin I < 0.012 ng/mL (0.01-0.034)
[2022-07-01 01:46] LABS: PTT Partial Thromboplastin Tim 29 SECONDS (26-36)
[2022-07-01 01:54] LABS: COVID19 -Nasal RAPID Negative (Negative)
[2022-07-01 01:54] LABS: Lipase 125 U/L (23-300)
[2022-07-01 02:12] LABS: Procalcitonin 0.06 ng/mL (<0.5)
[2022-07-01] MEDS: SODIUM CHLORIDE 0.9% 1,000 ML 1000 ML IV ×2 (02:28→03:18)
[2022-07-01] MEDS: ALBUTEROL/IPRATROPIUM 3 ML AMPUL INH ×3 (03:11→11:18)
[2022-07-01 03:21] LABS: Reflexed Lactate in 2 Hours Y
--- NOTE | 2022-07-01 03:46 | PC.NURSE ---
Patient walked with oxygen saturation monitor on and saturation was at 95%
[2022-07-01 04:02] LABS: Lactate 2HR (Lactic Acid Rflx) 3.4 mmol/L (0.7-2.1)
[2022-07-01] MEDS: SODIUM CHLORIDE 0.9% 1,000 ML 125 ML IV (06:42)
[2022-07-01] MEDS: cefTRIAXone 2,000 MG in SODIUM CHLORIDE 0.9% 100 ML 200 MG IV (06:42)
[2022-07-01 07:17] LABS: Magnesium 1.8 mg/dL (1.6-2.3)
[2022-07-01 07:21] LABS: C-Reactive Protein Quant 0.7 mg/dL (<1.0)
[2022-07-01] MEDS: hydrOXYzine pamoate 25 MG CAPSULE PO (07:29)
[2022-07-01 07:35] LABS: Lactate (Lactic Acid) 4.4 mmol/L (0.7-2.1)
--- NOTE | 2022-07-01 07:43 | PC.NURSE ---
Per report from overnight RN patient had new onset itching after receiving ceftriaxone infusion. Previous RN received an order to give patient hydroxyzine as verbal order. Interaction with Azithromycin came up that both it and hydroxyzine are both prolonged QT agents. RN recieved verbal okay to proceed from Dr. Velazquez with administration of hydroxyzine as Azithromycin had yet to be infused. Order entered by previous RN. This RN heard verbal order and is accepting these patients from overnight RN. This RN administered hydroxyzine. This RN then called admitting provider Dr. Patel and informed her of the issue of both medications being prolong QT medications. Dr. Patel gave verbal order to retime the Azithromycin to 9am. This RN called pharmacist Hasmukh to request that this medication be retimed. Pharmacist unable to move the timing of this infusion but moved subsequent infusions. Pharmacist asked this RN to use orignal order and just scan the med at 9am.
[2022-07-01 07:48] LABS: TSH w/ Reflex to FT4 0.57 uIU/mL (0.47-4.68)
[2022-07-01] MEDS: SODIUM CHLORIDE 0.9% 1,000 ML 150 ML IV ×3 (08:03→22:47)
[2022-07-01] MEDS: predniSONE 20 MG TABLET 50 MG PO (08:26)
[2022-07-01] MEDS: ENOXAPARIN 40 MG/0.4 ML SYRINGE SUBCUT (08:26)
[2022-07-01] MEDS: AMOXICILLIN/CLAV 500/125 MG 1 TAB PO ×3 (08:28→21:33)
[2022-07-01 08:35] LABS: Adenovirus Not Detected (Not Detect); Coronavirus 229E Not Detected (Not Detect); Coronavirus HKU1 Not Detected (Not Detect); Coronavirus NL 63 Not Detected (Not Detect); Coronavirus OC43 Not Detected (Not Detect); Human Metapneumovirus Not Detected (Not Detect); Human Rhinovirus/Enterovirus Not Detected (Not Detect); Influenza A Not Detected (Not Detect); Influenza B Not Detected (Not Detect); Parainfluenza Virus 1 Not Detected (Not Detect); Parainfluenza Virus 2 Not Detected (Not Detect); SARS- CoV-2 Not Detected (Not Detecte)
[2022-07-01 08:36] LABS: B. parapertussis Not Detected (Not Detecte); Bordetella pertussis Not Detected (Not Detecte); Chlamydophila pneumoniae Not Detected (Not Detect); Mycoplasma pneumoniae Not Detected (Not Detect); Parainfluenza Virus 3 Not Detected (Not Detect); Parainfluenza Virus 4 Not Detected (Not Detect); Respiratory Syncytial Virus Not Detected (Not Detect)
[2022-07-01] MEDS: AZITHROMYCIN 500 MG in DEXTROSE 5% IN WATER 250 ML 250 MG IV (09:00)
[2022-07-01 09:07] LABS: Reflexed Lactate in 2 Hours Y
[2022-07-01 09:38] LABS: Appearance Urine UA CLEAR; Bilirubin Urine UA NEGATIVE (NEGATIVE); Color Urine UA YELLOW; Glucose Urine UA 1+ g/dL (Negative); Ketones Urine UA TRACE (NEGATIVE); Leukocyte Esterase Urine UA NEGATIVE (NEGATIVE); Nitrite Urine UA NEGATIVE (Negative); Occult Blood Urine UA NEGATIVE (Negative); Protein Urine UA NEGATIVE (Negative); Urobilinogen Urine UA 0.2 E.U./dL (0.2)
[2022-07-01 09:45] LABS: Bacteria Urine None Seen; Culture Indicated Urine Cult Not Indicated; RBC Urine None Seen (0-5/HPF); Urine Comments Microscopic Normal; WBC Urine None Seen (0-5/HPF)
[2022-07-01 12:38] LABS: Add Manual Diff / Slide Review NO; Basophils Absolute Auto 0 /uL (0-100); Basophils Percent Auto 0.2 % (0-2); Eosinophils Absolute Auto 0 /uL (0-450); Eosinophils Percent Auto 0.1 % (2-4); Hematocrit 34.6 % (36-46); Hemoglobin 11.7 g/dL (12.0-16.0); Lymphocytes Absolute Auto 600 /uL (1100-4500); Lymphocytes Percent Auto 6.8 % (25-40); Mean Corpuscular HGB Conc 33.9 % (30-36); Mean Corpuscular Hemoglobin 27.9 PG (26-34); Mean Corpuscular Volume 82.2 fL (80-100); Monocytes Absolute Auto 100 /uL (0-900); Neutrophils Absolute Auto 8600 /uL (1500-7000); Neutrophils Percent Auto 91.9 % (50-75); Platelet Count 186 X10^3/uL (150-400); Red Blood Cell Count 4.21 X10^6/uL (4.0-5.2); Red Cell Distribution Width 15.2 % (11.6-14.8); White Blood Cell Count 9.4 X10^3/uL (4.5-11.0)
[2022-07-01] MEDS: ACETAMINOPHEN 325 MG TABLET 650 MG PO (15:20)
[2022-07-01] MEDS: INSULIN LISPRO 100 UNIT/ML 3ML VIAL SUBCUT (18:01)
[2022-07-01] MEDS: NYSTATIN POWDER 15GM 1 APPLIC TOP (18:02)
--- NOTE | 2022-07-01 18:36 | P.HP_ITS ---
History of Present Illness History of Present Illness Chief complaint: SOB, Dyspnea Narrative: Patient is 72-year-old female history of asthma multiple environmental allergies, hypothyroidism on replacement and diabetes on metformin presenting with sudden onset shortness of breath.? She reports that her asthma has been acting up somewhat over the last 1 week.? No fever chills or cough.? Tonight she had significant difficulty in breathing.? She is noted to be hypoxic at 77% on room air.? She denies any chest pain.? No history of congestive heart failure..? She reports that she took a home COVID test that was negative. Not feeling fever chills nausea vomiting or diaphoresis. No chest pain or palpitations. No abdominal pain, diarrhea or constipation. No dysuria or hematuria. Able to move all extremities volitionally. No neurological symptoms in the extremities. However had significant shortness of breath at home and tried to look for EpiPen but could not get it working so came to the ER. Chest x-ray is concerning for early bilateral lower pneumonia. [facility] Medical History Asthma Chest pain Disease of thyroid gland FH: migraine headache High blood pressure Postmenopausal bleeding Surgical History H/O adenoidectomy H/O section H/O tubal ligation History of appendectomy History of carpal tunnel surgery Hx of tonsillectomy Family History Brother Family history of BPH Kidney stones Mother Hypertension Diabetes mellitus Thyroid disease Father Cancer Diabetes mellitus CAD in [place] artery Social History marital status: number of children: 2 household members: friend(s) Smoking Status: Never smoker Type(s) of exercise: walking frequency: 1-2 times per week Meds Home Medications and Allergies Home Medications Medication Instructions Recorded Confirmed Type albuterol sulfate 90 mcg/actuation 2 inh inhalation Q4-6H PRN 12/07/21 07/01/22 History breath activated powder inhaler Shortness Of Breath amlodipine 5 mg tablet 10 mg PO DAILY 12/07/21 07/01/22 History calcium 167 mg-vitamin D3 1.67 1 cap PO QAM 12/07/21 07/01/22 History mcg-magnesium 83 mg capsule cetirizine 10 mg capsule (Zyrtec) 10 mg PO DAILY 12/07/21 07/01/22 History fluticasone propionate 250 1 inh inhalation BID 12/07/21 07/01/22 History mcg/actuation blister powder for inhalation (Flovent Diskus) metformin 500 mg tablet 1,000 mg PO BID 12/07/21 07/01/22 History montelukast 10 mg tablet 10 mg PO QPM 12/07/21 07/01/22 History (Singulair) sertraline 25 mg tablet (Zoloft) 100 mg PO QPM 12/07/21 07/01/22 History benzonatate 200 mg capsule 200 mg PO BID PRN cough #20 caps 01/17/22 07/01/22 Rx epinephrine 0.3 mg/0.3 mL 0.3 mg (0.3 mL) IM Q5-15M PRN 02/26/22 07/01/22 Rx injection, auto-injector (EpiPen anaphylaxis #2 ea 2-[place]) calcium [id number] 3 tab PO QAM 07/01/22 07/01/22 History levothyroxine 137 mcg tablet 137 mcg PO AC 07/01/22 07/01/22 History Allergies Allergy/AdvReac Type Severity Reaction Status Date / Time cat dander Allergy Wheezing Verified 01/17/22 20:14 hydrochlorothiazide Allergy Rash Verified 01/17/22 20:14 melon Allergy ITCHING Verified 01/17/22 20:14 nitrofurantoin Allergy Vomiting Verified 01/17/22 20:14 [From Macrobid] peanut Allergy Anaphylaxis Verified 01/17/22 20:14 pravastatin Allergy Muscle Pain Verified 01/17/22 20:14 zolpidem [From Ambien] Allergy Anxiety Verified 01/17/22 20:14 ceftriaxone AdvReac ITCHING Verified 07/01/22 07:52 levofloxacin [From Levaquin] AdvReac Vomiting Verified 07/01/22 13:09 Review of Systems Review of Systems Narrative: Fourteen system was reviewed and pertinent findings in the history of chief complaint. Exam Vital Signs (past 8 hours): - 07/01/22 11:00 07/01/22 11:00 07/01/22 11:30 Temperature Pulse Rate 87 Respiratory Rate 25 H Blood Pressure 116/66 125/66 Pulse Oximetry 96 Oxygen Delivery Method Oxygen Flow Rate 07/01/22 11:30 07/01/22 12:00 07/01/22 12:00 Temperature Pulse Rate 91 H 90 Respiratory Rate 25 H Blood Pressure 125/68 Pulse Oximetry 95 95 Oxygen Delivery Method Oxygen Flow Rate 07/01/22 12:30 07/01/22 13:41 Temperature 96.7 F L Pulse Rate 90 93 H Respiratory Rate 18 Blood Pressure 127/62 Pulse Oximetry 96 96 Oxygen Delivery Method Nasal Cannula Oxygen Flow Rate 1 0 Oxygen Delivery Method Nasal Cannula Oxygen Flow Rate 0 Narrative Exam Narrative: GENERAL:? Alert 72-year-old female in respiratory distress and in no acute distress. HEENT: Head atraumatic,EOMI, pupils reactive, face symmetric, moist mucous membranes CARDIOVASCULAR: Regular rate and rhythm without murmurs, rubs or gallops. RESPIRATORY:? Decreased breath sounds somewhat bilaterally with decreased air movement. At the time of my examination, only occasional intermittent expiratory wheeze. ABDOMEN: Soft, nontender.? Normoactive bowel sounds all 4 quadrants.? No guarding or rebound. EXTREMITIES: Normal range of motion, no clubbing or edema.? Neurovascularly intact NEUROLOGICAL: Alert and oriented x4. SKIN: Warm, dry, no laceration, no petechiae, no rashes or lesions. Objective Labs 07/02/22 05:25 07/02/22 05:25 Labs: Laboratory Results - last 24 hr 07/01/22 07/01/22 07/01/22 01:10 01:10 01:10 WBC 18.7 H RBC 5.14 Hgb 14.1 Hct 42.4 MCV 82.5 MCH 27.4 MCHC 33.3 RDW 15.3 H Plt Count 352 Neut % (Auto) 54.1 Lymph % (Auto) 30.2 [place] % (Auto) 6.6 Eos % (Auto) 8.5 H Baso % (Auto) 0.6 Neut # (Auto) 41262 H Lymph # (Auto) 5700 H [place] # (Auto) 1200 H Eos # (Auto) 1600 H Baso # (Auto) 100 PT 12.1 INR 1.1 APTT Sodium 137 Potassium 4.1 Chloride 99 Carbon Dioxide 23 BUN 20 H Creatinine 1.01 Estimated GFR 59 L BUN/Creatinine Ratio 19.8 Glucose 194 H Lactate Calcium 9.8 Magnesium Total Bilirubin 0.3 AST 28 ALT 25 Alkaline Phosphatase 128 H Troponin I < 0.012 C-Reactive Protein NT-Pro-B Natriuret Pep < 11 Total Protein 7.7 Albumin 4.5 Globulin 3.2 Albumin/Globulin Ratio 1.4 Lipase Procalcitonin TSH Urine Color Urine Appearance Urine pH Ur Specific [place] Urine Protein Urine Glucose (UA) Urine Ketones Urine Occult Blood Urine Nitrate Urine Bilirubin Urine Urobilinogen Ur Leukocyte Esterase Urine RBC Urine WBC Urine Bacteria Ur Culture Indicated? Micro UA Comment Chlamy pneumoniae PCR Adenovirus (PCR) B. pertussis DNA (PCR) B.parapertussis DNA PCR Coronavirus OC43 (PCR) Coronavirus HKU1 (PCR) Coronavirus 229E (PCR) SARS-CoV-2 (PCR) Coronavirus NL63 (PCR) Human Metapneumovir PCR Influenza Type A (PCR) Influenza Type B (PCR) M. pneumoniae (PCR) Parainfluenza 1 (PCR) Parainfluenza 2 (PCR) Parainfluenza 3 (PCR) Parainfluenza 4 (PCR) RSV (PCR) Entero/Rhino (PCR) 07/01/22 07/01/22 07/01/22 01:10 01:10 01:10 WBC RBC Hgb Hct MCV MCH MCHC RDW Plt Count Neut % (Auto) Lymph % (Auto) [place] % (Auto) Eos % (Auto) Baso % (Auto) Neut # (Auto) Lymph # (Auto) [place] # (Auto) Eos # (Auto) Baso # (Auto) PT INR APTT 29 Sodium Potassium Chloride Carbon Dioxide BUN Creatinine Estimated GFR BUN/Creatinine Ratio Glucose Lactate 3.4 H Calcium Magnesium Total Bilirubin AST ALT Alkaline Phosphatase Troponin I C-Reactive Protein NT-Pro-B Natriuret Pep Total Protein Albumin Globulin Albumin/Globulin Ratio Lipase 125 Procalcitonin 0.06 TSH Urine Color Urine Appearance Urine pH Ur Specific [place] Urine Protein Urine Glucose (UA) Urine Ketones Urine Occult Blood Urine Nitrate Urine Bilirubin Urine Urobilinogen Ur Leukocyte Esterase Urine RBC Urine WBC Urine Bacteria Ur Culture Indicated? Micro UA Comment Chlamy pneumoniae PCR Adenovirus (PCR) B. pertussis DNA (PCR) B.parapertussis DNA PCR Coronavirus OC43 (PCR) Coronavirus HKU1 (PCR) Coronavirus 229E (PCR) SARS-CoV-2 (PCR) Coronavirus NL63 (PCR) Human Metapneumovir PCR Influenza Type A (PCR) Influenza Type B (PCR) M. pneumoniae (PCR) Parainfluenza 1 (PCR) Parainfluenza 2 (PCR) Parainfluenza 3 (PCR) Parainfluenza 4 (PCR) RSV (PCR) Entero/Rhino (PCR) 07/01/22 07/01/22 07/01/22 01:10 01:10 01:10 WBC RBC Hgb Hct MCV MCH MCHC RDW Plt Count Neut % (Auto) Lymph % (Auto) [place] % (Auto) Eos % (Auto) Baso % (Auto) Neut # (Auto) Lymph # (Auto) [place] # (Auto) Eos # (Auto) Baso # (Auto) PT INR APTT Sodium Potassium Chloride Carbon Dioxide BUN Creatinine Estimated GFR BUN/Creatinine Ratio Glucose Lactate Calcium Magnesium 1.8 Total Bilirubin AST ALT Alkaline Phosphatase Troponin I C-Reactive Protein 0.7 NT-Pro-B Natriuret Pep Total Protein Albumin Globulin Albumin/Globulin Ratio Lipase Procalcitonin TSH 0.57 D Urine Color Urine Appearance Urine pH Ur Specific [place] Urine Protein Urine Glucose (UA) Urine Ketones Urine Occult Blood Urine Nitrate Urine Bilirubin Urine Urobilinogen Ur Leukocyte Esterase Urine RBC Urine WBC Urine Bacteria Ur Culture Indicated? Micro UA Comment Chlamy pneumoniae PCR Adenovirus (PCR) B. pertussis DNA (PCR) B.parapertussis DNA PCR Coronavirus OC43 (PCR) Coronavirus HKU1 (PCR) Coronavirus 229E (PCR) SARS-CoV-2 (PCR) Coronavirus NL63 (PCR) Human Metapneumovir PCR Influenza Type A (PCR) Influenza Type B (PCR) M. pneumoniae (PCR) Parainfluenza 1 (PCR) Parainfluenza 2 (PCR) Parainfluenza 3 (PCR) Parainfluenza 4 (PCR) RSV (PCR) Entero/Rhino (PCR) 07/01/22 07/01/22 07/01/22 01:18 03:35 07:00 WBC RBC Hgb Hct MCV MCH MCHC RDW Plt Count Neut % (Auto) Lymph % (Auto) [place] % (Auto) Eos % (Auto) Baso % (Auto) Neut # (Auto) Lymph # (Auto) [place] # (Auto) Eos # (Auto) Baso # (Auto) PT INR APTT Sodium Potassium Chloride Carbon Dioxide BUN Creatinine Estimated GFR BUN/Creatinine Ratio Glucose Lactate 3.4 H 4.4 H* Calcium Magnesium Total Bilirubin AST ALT Alkaline Phosphatase Troponin I C-Reactive Protein NT-Pro-B Natriuret Pep Total Protein Albumin Globulin Albumin/Globulin Ratio Lipase Procalcitonin TSH Urine Color Urine Appearance Urine pH Ur Specific [place] Urine Protein Urine Glucose (UA) Urine Ketones Urine Occult Blood Urine Nitrate Urine Bilirubin Urine Urobilinogen Ur Leukocyte Esterase Urine RBC Urine WBC Urine Bacteria Ur Culture Indicated? Micro UA Comment Chlamy pneumoniae PCR Adenovirus (PCR) B. pertussis DNA (PCR) B.parapertussis DNA PCR Coronavirus OC43 (PCR) Coronavirus HKU1 (PCR) Coronavirus 229E (PCR) SARS-CoV-2 (PCR) Negative Coronavirus NL63 (PCR) Human Metapneumovir PCR Influenza Type A (PCR) Influenza Type B (PCR) M. pneumoniae (PCR) Parainfluenza 1 (PCR) Parainfluenza 2 (PCR) Parainfluenza 3 (PCR) Parainfluenza 4 (PCR) RSV (PCR) Entero/Rhino (PCR) 07/01/22 07/01/22 07/01/22 07:00 09:03 09:40 WBC RBC Hgb Hct MCV MCH MCHC RDW Plt Count Neut % (Auto) Lymph % (Auto) [place] % (Auto) Eos % (Auto) Baso % (Auto) Neut # (Auto) Lymph # (Auto) [place] # (Auto) Eos # (Auto) Baso # (Auto) PT INR APTT Sodium Potassium Chloride Carbon Dioxide BUN Creatinine Estimated GFR BUN/Creatinine Ratio Glucose Lactate 3.0 H Calcium Magnesium Total Bilirubin AST ALT Alkaline Phosphatase Troponin I C-Reactive Protein NT-Pro-B Natriuret Pep Total Protein Albumin Globulin Albumin/Globulin Ratio Lipase Procalcitonin TSH Urine Color Yellow Urine Appearance Clear Urine pH 6.0 Ur Specific [place] 1.010 Urine Protein Negative Urine Glucose (UA) 1+ H Urine Ketones Trace H Urine Occult Blood Negative Urine Nitrate Negative Urine Bilirubin Negative Urine Urobilinogen 0.2 Ur Leukocyte Esterase Negative Urine RBC None seen Urine WBC None seen Urine Bacteria None seen Ur Culture Indicated? Cult not indicated Micro UA Comment Microscopic normal Chlamy pneumoniae PCR Not detected Adenovirus (PCR) Not detected B. pertussis DNA (PCR) Not detected B.parapertussis DNA PCR Not detected Coronavirus OC43 (PCR) Not detected Coronavirus HKU1 (PCR) Not detected Coronavirus 229E (PCR) Not detected SARS-CoV-2 (PCR) Not detected Coronavirus NL63 (PCR) Not detected Human Metapneumovir PCR Not detected Influenza Type A (PCR) Not detected Influenza Type B (PCR) Not detected M. pneumoniae (PCR) Not detected Parainfluenza 1 (PCR) Not detected Parainfluenza 2 (PCR) Not detected Parainfluenza 3 (PCR) Not detected Parainfluenza 4 (PCR) Not detected RSV (PCR) Not detected Entero/Rhino (PCR) Not detected 07/01/22 12:00 WBC 9.4 RBC 4.21 Hgb 11.7 L Hct 34.6 L MCV 82.2 MCH 27.9 MCHC 33.9 RDW 15.2 H Plt Count 186 Neut % (Auto) 91.9 H D Lymph % (Auto) 6.8 L D [place] % (Auto) 1.0 L Eos % (Auto) 0.1 L Baso % (Auto) 0.2 Neut # (Auto) 8600 H Lymph # (Auto) 600 L [place] # (Auto) 100 Eos # (Auto) 0 Baso # (Auto) 0 PT INR APTT Sodium Potassium Chloride Carbon Dioxide BUN Creatinine Estimated GFR BUN/Creatinine Ratio Glucose Lactate Calcium Magnesium Total Bilirubin AST ALT Alkaline Phosphatase Troponin I C-Reactive Protein NT-Pro-B Natriuret Pep Total Protein Albumin Globulin Albumin/Globulin Ratio Lipase Procalcitonin TSH Urine Color Urine Appearance Urine pH Ur Specific [place] Urine Protein Urine Glucose (UA) Urine Ketones Urine Occult Blood Urine Nitrate Urine Bilirubin Urine Urobilinogen Ur Leukocyte Esterase Urine RBC Urine WBC Urine Bacteria Ur Culture Indicated? Micro UA Comment Chlamy pneumoniae PCR Adenovirus (PCR) B. pertussis DNA (PCR) B.parapertussis DNA PCR Coronavirus OC43 (PCR) Coronavirus HKU1 (PCR) Coronavirus 229E (PCR) SARS-CoV-2 (PCR) Coronavirus NL63 (PCR) Human Metapneumovir PCR Influenza Type A (PCR) Influenza Type B (PCR) M. pneumoniae (PCR) Parainfluenza 1 (PCR) Parainfluenza 2 (PCR) Parainfluenza 3 (PCR) Parainfluenza 4 (PCR) RSV (PCR) Entero/Rhino (PCR) Assessment & Plan Assessment & Plan narrative: 1. History of severe asthma. Increased shortness of breath and presentation to the ER. Received Solu-Medrol in the ER. Continue patient's regular asthma medications. Continue with oral prednisone for a total of 5 days. All viral swabs negative. 2. Diabetes. Usually takes metformin -continue. However with corticosteroids she had we will need sliding scale insulin. Ordered. 3. Early signs of pneumonia on chest x-ray. Reaction from ceftriaxone and concern with azithromycin possibly lengthening QT, patient was initiated on Augmentin 500/125 mg 1 tablet t.i.d. 4. Hypothyroidism. Assess TSH and continue replacement. 5. Concern for adverse reaction to ceftriaxone. This was discontinued in the ER and due to the of long QT with azithromycin this was also discontinued. Patient given Solu-Medrol in the ER. Continuing with oral prednisone. Code status: Full code DVT prophylaxis: Enoxaparin 40 mg subQ daily GI prophylaxis: Pantoprazole 40 mg daily Substitute decision maker: Matthew Arrington COVID-19 COVID-19 status: Negative
[2022-07-01] MEDS: BUDESONIDE 0.5 MG/2 ML NEB INH (19:58)
[2022-07-01] MEDS: SENNOSIDES 8.6 MG TABLET 17.2 MG PO (21:33)
[2022-07-01] MEDS: METFORMIN HCL 500 MG TABLET 1000 MG PO (21:33)
[2022-07-01] MEDS: SERTRALINE 50 MG TABLET 100 MG PO (21:34)
[2022-07-02] VITALS (7 sets, daily range): BP systolic 127–143; BP diastolic 44–71; PULSE 90–99; RESP 17–20; TEMP 36–36.7; O2SAT 95–98
[2022-07-02] MEDS: MELATONIN 3 MG TABLET 9 MG PO (01:09)
[2022-07-02] MEDS: ACETAMINOPHEN 325 MG TABLET 650 MG PO ×2 (02:24→22:28)
[2022-07-02 05:43] LABS: Add Manual Diff / Slide Review NO; Basophils Absolute Auto 0 /uL (0-100); Basophils Percent Auto 0.1 % (0-2); Eosinophils Absolute Auto 0 /uL (0-450); Eosinophils Percent Auto 0.1 % (2-4); Hematocrit 34.6 % (36-46); Hemoglobin 11.6 g/dL (12.0-16.0); Lymphocytes Absolute Auto 1500 /uL (1100-4500); Lymphocytes Percent Auto 9.5 % (25-40); Mean Corpuscular HGB Conc 33.4 % (30-36); Mean Corpuscular Hemoglobin 27.4 PG (26-34); Mean Corpuscular Volume 81.9 fL (80-100); Monocytes Absolute Auto 900 /uL (0-900); Monocytes Percent Auto 5.9 % (3-14); Neutrophils Absolute Auto 13100 /uL (1500-7000); Neutrophils Percent Auto 84.4 % (50-75); Platelet Count 227 X10^3/uL (150-400); Red Blood Cell Count 4.23 X10^6/uL (4.0-5.2); Red Cell Distribution Width 15.2 % (11.6-14.8); White Blood Cell Count 15.5 X10^3/uL (4.5-11.0)
[2022-07-02 05:56] LABS: Lactate (Lactic Acid) 1.5 mmol/L (0.7-2.1)
[2022-07-02] MEDS: SODIUM CHLORIDE 0.9% 1,000 ML 150 ML IV ×2 (05:59→12:22)
[2022-07-02 06:02] LABS: Alanine Aminotransferase 22 IU/L (<35); Albumin 3.7 g/dL (3.5-5.0); Albumin Globulin Ratio 1.4 (1.0-2.8); Alkaline Phosphatase 92 U/L (38-126); Aspartate Aminotransferase 27 IU/L (14-36); Bilirubin Total 0.1 mg/dL (0.2-1.3); Blood Urea Nitrogen 17 mg/dL (7-17); C-Reactive Protein Quant 1.4 mg/dL (<1.0); Calcium 8.6 mg/dL (8.4-10.2); Carbon Dioxide 23 mmol/L (22-32); Chloride 108 mmol/L (98-107); Estimated Glomerular Filt Rate > 60 mL/min (>60); Globulin 2.6 g/dL (1.7-4.1); Glucose 167 mg/dL (80-110); HEMOLYSIS < 15 (0-50); Sodium 139 mmol/L (137-145); Total Protein 6.3 g/dL (6.3-8.2)
[2022-07-02] MEDS: ALBUTEROL 2.5 MG/3 ML NEB (ADULT) INH ×5 (07:22→22:39)
[2022-07-02] MEDS: BUDESONIDE 0.5 MG/2 ML NEB INH ×2 (07:22→20:09)
[2022-07-02] MEDS: AMOXICILLIN/CLAV 500/125 MG 1 TAB PO ×3 (08:59→21:33)
[2022-07-02] MEDS: METFORMIN HCL 500 MG TABLET 1000 MG PO ×2 (08:59→17:24)
[2022-07-02] MEDS: AMLODIPINE 5 MG TABLET 10 MG PO (09:00)
[2022-07-02] MEDS: predniSONE 20 MG TABLET 50 MG PO (09:00)
[2022-07-02] MEDS: LEVOTHYROXINE 137 MCG TABLET PO (09:00)
[2022-07-02] MEDS: LORATADINE 10 MG TABLET PO (09:02)
[2022-07-02] MEDS: ENOXAPARIN 40 MG/0.4 ML SYRINGE SUBCUT (09:02)
--- NOTE | 2022-07-02 10:38 | PT.IIE ---
Surgical History (Last Reviewed 07/01/22 @ 18:50 by Lupis Mantilla MD) H/O adenoidectomy H/O section H/O tubal ligation History of appendectomy History of carpal tunnel surgery Hx of tonsillectomy Medical History (Last Reviewed 07/01/22 @ 18:50 by Lupis Mantilla MD) Asthma Chest pain Disease of thyroid gland FH: migraine headache High blood pressure Postmenopausal bleeding Physical Therapy Inpatient Evaluation/Re-Eval M1 PT/OT-IP Prior Functional Status Start: 07/02/22 08:41 Freq: NEEDED Status: Active Protocol: Document 07/02/22 10:38 AW (Rec: 07/02/22 11:47 AW [id number]) Medical Review Prior Functional Status Medical History Reviewed Yes Communication WNL. Pt is an effective verbal communicator Mobility and Gait Independent for household and short distance community mobility. Activities of Daily Living and IADL's Independent with all ADL's. Pt does her own cooking, cleaning, shopping, driving. Prior Functional Level (Other details) Pt reports decrease in overall activity over the past several months due to worsening asthma. Social History Household Members friend(s) Living Arrangements Apartment/Condo Number of Floors (Floors) One Floor Number of Stairs To Enter/Railing? 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 She lives in a MIL apartment attached to her friend's house. Her son and daughter in law live nearby and are very supportive. M2 PT-IP Current Condition Start: 07/02/22 08:41 Freq: NEEDED Status: Active Protocol: Document 07/02/22 10:38 AW (Rec: 07/02/22 11:47 AW [id number]) Physical Therapy Current Condition Current Condition Evaluation Date 07/02/22 Treatment Diagnosis SOB, hypoxia, impaired mobility and gait Onset Date months M3 PT-IP Subjective Start: 07/02/22 08:41 Freq: NEEDED Status: Active Protocol: Document 07/02/22 10:38 AW (Rec: 07/02/22 11:47 AW [id number]) Subjective Physical Therapy Visit Type Type Initial Evaluation Visit Start Time 10:09 Visit Stop Time 10:38 Total Visit Minutes 29 Physical Therapy Visit Comments Patient Comments I can almost feel myself getting weaker the longer I stay in this bed. Patient Goals Improve stamina Therapy Pain Assessment Pain When Pain Assessed During Mobility Pain Present Pain Present Denied Pain M4 PT-IP Mobility and Gait Start: 07/02/22 08:41 Freq: NEEDED Status: Active Protocol: Document 07/02/22 10:38 AW (Rec: 07/02/22 11:47 AW [id number]) PT-Bed Mobility Assessment Supine to Sit Supine to Sit Independent Sit to Supine Sit to Supine Independent Scooting Scooting to Edge of Bed Independent PT-Transfer Assessment Sit to and From Stand Sit to and from Stand Independent Equipment Transfer Assistive Device None Transfers Transfer Destination Chair Transfer Technique Stand Step Pivot Transfer Ability Level of Assist Independent Comments Mobility Comments Pt was lying in bed as PT arrived. BP 137/63 HR 92 SpO2 97% RA. Pt sat up EOB and stood without assist. She walked around the bed and transferred to the chair. She stood and walked 150 feet in the halls without device. Gait assessment noted independent gait with wide ANGELIC but good step lengths and no overt LOB. Pt returned to the room with mild SOB. BP was stable. HR was 103 and SpO2 99% RA. Gait Assessment Gait Gait Assistance Required: Independent Distance (Feet) 150 Assistive Devices Assistive Device None Orthotic/Prosthetic Devices or Brace: No Gait Deviations General Gait Pattern Wide Based Gait Factors Limiting Gait Function Factors Limiting Gait Function Respiratory Distress Comments Gait Comments See mobility comments Stair Climbing Assessment Comments Stair Climbing Comments Not assessed. Pt has no stairs at home. PT-Balance Assessment Sitting Balance and Reactions Static Sitting Balance Ability Normal Dynamic Sitting Balance Ability Normal Standing Balance and Reactions Static Standing Balance Ability Good Dynamic Standing Balance Ability Good Device Used none Functional Assessments Other Functional Tests Performed Short Physical Performance Battery: Total score 11/29 Balance - 2 Gait - 4 Sit to Stand - 4 M5 PT-IP Objective Assessments Start: 07/02/22 08:41 Freq: NEEDED Status: Active Protocol: Document 07/02/22 10:38 AW (Rec: 07/02/22 11:47 AW [id number]) Orientation Orientation/Cognition Level of Alertness Alert Orientation Name,Day of Week,Place, Situation Language Function Ability No Deficits Noted Safety Awareness Understands Safety Issues Memory Description No Deficits Noted Gross Range of Motion Lower Extremity ROM Assessment Within Functional Limits Strength Lower Extremity Strength Assessment Within Functional Limits Hip 4+/5 Knee 5/5 Ankle 5/5 Sensation Assessment Sensation Gross Sensation Right LE Impaired,Left LE Impaired Light Touch Impaired Comments Sensation Comments Slightly dull sensation noted in bilateral feet M6 PT-IP Treatment Start: 07/02/22 08:41 Freq: NEEDED Status: Active Protocol: Document 07/02/22 10:38 AW (Rec: 07/02/22 11:47 AW [id number]) Physical Therapy Treatment Education Education Provided Safety Other Treatments Other Treatment Performed Education on the role of PT in acute care and outpatient settings. Recommended outpatient PT to address balance and endurance. M7 PT-IP Assessment and Plan Start: 07/02/22 08:41 Freq: NEEDED Status: Active Protocol: Document 07/02/22 10:38 AW (Rec: 07/02/22 11:47 AW [id number]) PT Summary Assessment and Plan Potential Rehabilitation Potential Good Status of Condition at Evaluation Evolving Summary Impairments Strength,Balance,Sensation Assessment Summary Jenna is a 72 yo woman admitted with concern for SOB and hypoxia. She is independent in all regards at baseline. She reports declining activity levels over the past few months due to worsening asthma and SOB. She is a retired [employer] who worked [employer] in the acute rehab setting. CLOF: Pt was found resting in bed and willing to participate with PT. She completed all mobility independently including transfers and gait. She did have some SOB with longer distance ambulation but VS were stable. Pt scored 10/12 on the Short Physical Performace Battery which typically indicates robustness in elders but pt does appear to be at a possible inflection point and could drift into frailty if no action is taken. PT recommends outpatient physical therapy to improve pt 's balance and strength in order to build resilience for long-term independent mobility . No acute PT needs are identified. Pt will be discharged from acute PT caseload. Frequency of Treatment Frequency Of Treatment Discharge Recommendations To Nursing Amount of Assist Needed Independent Discharge Recommendations PT Discharge Recommendations Home with Assistance, Outpatient PT Transportation Needs at Discharge Private Vehicle
--- NOTE | 2022-07-02 12:08 | OT.IP.EVAL ---
Past Medical History (Last Reviewed 07/01/22 @ 18:50 by Lupis Mantilla MD) Asthma Chest pain Disease of thyroid gland FH: migraine headache High blood pressure Postmenopausal bleeding Surgical History (Last Reviewed 07/01/22 @ 18:50 by Lupis Mantilla MD) H/O adenoidectomy H/O section H/O tubal ligation History of appendectomy History of carpal tunnel surgery Hx of tonsillectomy Occupational Therapy Inpatient Evaluation/Re-Eval M1 PT/OT-IP Prior Functional Status Start: 07/02/22 08:41 Freq: NEEDED Status: Active Protocol: Document 07/02/22 12:27 CGR (Rec: 07/02/22 12:32 CGR [id number]) Medical Review Prior Functional Status Medical History Reviewed Yes Communication WNL. Pt is an effective verbal communicator Mobility and Gait Independent for household and short distance community mobility. Activities of Daily Living and IADL's Independent with all ADL's. Pt does her own cooking, cleaning, shopping, driving. Prior Functional Level (Other details) Pt reports decrease in overall activity over the past several months due to worsening asthma. Social History Household Members friend(s) Living Arrangements Apartment/Condo Number of Floors (Floors) One Floor Number of Stairs To Enter/Railing? 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 She lives in a MIL apartment attached to her friend's house. Her son and daughter in law live nearby and are very supportive. M2 OT-IP Current Condition Start: 07/02/22 12:27 Freq: Status: Active Protocol: Document 07/02/22 12:27 CGR (Rec: 07/02/22 12:32 CGR [id number]) Occupational Therapy Current Condition Current Condition Evaluation Date 07/02/22 Treatment Diagnosis SOB, asthma, allergies Diagnosis Onset Date 07/01/22 M3 OT- IP Subjective and Pain Start: 07/02/22 12:27 Freq: Status: Active Protocol: Document 07/02/22 12:27 CGR (Rec: 07/02/22 12:32 CGR [id number]) OT- Subjective Occupational Therapy Visit Type Type Initial Evaluation Visit Start Time 11:49 Visit Stop Time 12:08 Total Visit Minutes 19 OT Pain Assessment Pain When Pain Assessed At Rest Pain Present Pain Present Denied Pain M4 OT- IP ADL's Start: 07/02/22 12:27 Freq: Status: Active Protocol: Document 07/02/22 12:27 CGR (Rec: 07/02/22 12:32 CGR [id number]) OT [id number] Comments OT Self-Feeding Comments not meal time OT ADL-Grooming General Evaluation Grooming Ability Independent Areas Needing Assistance Retrieving/Set-up of Grooming Items,Combing/Brushing Hair, Face Washing Comments OT Grooming Comments standing at sink OT ADL-Oral Care General Eval Oral Care Ability Independent Areas of Assistance Brushing Teeth,Retrieving/Set- Up of Items Comments Oral Care Comments standing at sink OT ADL-Dressing General Eval Upper Body Dressing Ability Independent Lower Body Dressing Ability Independent Comments OT Dressing Comments seated EOB OT ADL-Toileting General Evaluation Toileting Ability Independent OT ADL-Bathing Comments OT Bathing Comments not performed M5 OT- IP IADL's Start: 07/02/22 12:27 Freq: Status: Active Protocol: Document 07/02/22 12:27 CGR (Rec: 07/02/22 12:32 CGR [id number]) OT-Instrumental Activities of Daily Living Deficits IADL Deficits Identified No Deficits Home Safety Awareness Awareness of Need for Assistance at Home Good Awareness Ability to Problem Solve Emergency Able to Problem Solve Situations Medication Management Medication Management No Deficits Identified Money Management Money Management No Deficits Identified Meal Preparation Meal Preparation No Deficits Identified Hat Block Bench Hand Hat Block Bench Hand No Deficits Identified Driving Driving Comments Pt is an active concrete mixer truck driver M6 OT- IP Functional Cognition Start: 07/02/22 12:27 Freq: Status: Active Protocol: Document 07/02/22 12:27 CGR (Rec: 07/02/22 12:32 CGR [id number]) Cognitive Factors Limiting Selfcare Function Cognitive Ability Level of Alertness Alert Patient Orientation Name,Age,Birthday,Month,Date, Year,Day of Week,Place, Situation Attention Span Ability Capable of Focused Attention, Capable of Sustained Attention Ability to Follow Commands Able to Follow Multi-Step Commands OT- Vision and Hearing OT- Hearing Assessment OT- Hearing Assessment WFL OT- Vision Assessment Visual Acuity Glasses All The Time Visual Attentiveness WFL Occular Pursuits WFL Visual Convergence WFL M7 OT- IP Mobility and Balance Start: 07/02/22 12:27 Freq: Status: Active Protocol: Document 07/02/22 12:27 CGR (Rec: 07/02/22 12:32 CGR [id number]) OT- Bed Mobility Assessment Supine to Sit Supine to Sit Assist Independent Scooting Scooting to Edge of Bed Independent OT-Transfer Assessment Sit to and From Stand Sit to and from Stand Independent Transfers Transfer Ability Independent Technique Transfer Destination Bed,Chair,Toilet Transfer Technique Stand Step Pivot Devices Transfer Assistive Devices None Comments Mobility Comments mobility around the room OT- Balance Assessment Sitting Balance and Reactions Static Sitting Balance Ability Normal Dynamic Sitting Balance Ability Normal M8 OT- IP Objective Assessments Start: 07/02/22 12:27 Freq: Status: Active Protocol: Document 07/02/22 12:27 CGR (Rec: 07/02/22 12:32 CGR [id number]) OT Gross Range of Motion Upper Extremity Range of Motion Assessment Within Functional Limits OT Strength Upper Extremity Strength Assessment Within Functional Limits Comments Strength Comments 5/5, except R shld 4/5 OT- Coordination Assessment Upper Extremity Finger to Nose Test Within Functional Limits Finger Tapping Test Within Functional Limits OT-Muscle Tone Assessment Muscle Tone WNL Yes OT Sensation Assessment Edema Edema Absent M9 OT- IP Assessment and Plan Start: 07/02/22 12:27 Freq: Status: Active Protocol: Document 07/02/22 12:27 CGR (Rec: 07/02/22 12:32 CGR [id number]) OT Summary Assessment and Plan Potential Rehabilitation Potential Excellent Analytic Complexity at Evaluation Low Summary Progress Towards Goals Goals Met Assessment Summary Pt presents as a low complexity evaluation s/p admit for SOB. Pt appear to be at her baseline of IND at this time. No further OT needs . Frequency of Treatment Frequency Of Treatment Discharge Discharge Recommendations OT Discharge Recommendations Home Transportation Needs at Discharge Private Vehicle
[2022-07-02] MEDS: INSULIN LISPRO 100 UNIT/ML 3ML VIAL SUBCUT ×3 (12:38→21:41)
--- NOTE | 2022-07-02 15:33 | PM.PN.1 ---
Subjective Subjective Interval history: Feeling better but still has a sense not feeling right hand her right lung boucher. Has not been sleeping well likely secondary to steroids. No new complaints. She reported that physical therapy is recommending outpatient therapy for her on discharge Exam Vital Signs (past 8 hours): - 07/02/22 08:00 07/02/22 08:00 07/02/22 12:00 Temperature 96.8 F L 97.9 F Pulse Rate 91 H 90 Respiratory Rate 19 17 Blood Pressure 137/61 137/63 Pulse Oximetry 98 96 Oxygen Delivery Method Room Air Oxygen Flow Rate 0 0 Fraction of Inspired Oxygen 07/02/22 14:52 Temperature Pulse Rate 96 H Respiratory Rate 18 Blood Pressure Pulse Oximetry 96 Oxygen Delivery Method Room Air Oxygen Flow Rate 0 Fraction of Inspired Oxygen 21 Fraction of Inspired Oxygen 21 SaO2/FiO2 Ratio 457 Oxygen Delivery Method Room Air Oxygen Flow Rate 0 Narrative Exam Narrative: GENERAL:? Alert 72-year-old female in respiratory distress and in no acute distress. HEENT: Head atraumatic,EOMI, pupils reactive, face symmetric, moist mucous membranes CARDIOVASCULAR: Regular rate and rhythm without murmurs, rubs or gallops. RESPIRATORY:? Decreased breath sounds somewhat bilaterally with decreased air movement.? At the time of my examination, only rare intermittent wheeze right lung boucher. ABDOMEN: Soft, nontender.? Normoactive bowel sounds all 4 quadrants.? No guarding or rebound. EXTREMITIES: Normal range of motion, no clubbing or edema.? Neurovascularly intact NEUROLOGICAL: Alert and oriented x4. SKIN: Warm, dry, no laceration, no petechiae, no rashes or lesions. Objective Labs 07/02/22 05:25 07/02/22 05:25 Labs: Laboratory Results - last 24 hr 07/02/22 07/02/22 07/02/22 05:25 05:25 05:25 WBC 15.5 H D RBC 4.23 Hgb 11.6 L Hct 34.6 L MCV 81.9 MCH 27.4 MCHC 33.4 RDW 15.2 H Plt Count 227 Neut % (Auto) 84.4 H Lymph % (Auto) 9.5 L [place] % (Auto) 5.9 Eos % (Auto) 0.1 L Baso % (Auto) 0.1 Neut # (Auto) 92971 H Lymph # (Auto) 1500 [place] # (Auto) 900 Eos # (Auto) 0 Baso # (Auto) 0 Sodium 139 Potassium 4.0 Chloride 108 H Carbon Dioxide 23 BUN 17 Creatinine 0.68 Estimated GFR > 60 BUN/Creatinine Ratio 25.0 H Glucose 167 H Lactate Calcium 8.6 Total Bilirubin 0.1 L AST 27 ALT 22 Alkaline Phosphatase 92 C-Reactive Protein 1.4 H Total Protein 6.3 Albumin 3.7 Globulin 2.6 Albumin/Globulin Ratio 1.4 Procalcitonin 0.30 07/02/22 05:25 WBC RBC Hgb Hct MCV MCH MCHC RDW Plt Count Neut % (Auto) Lymph % (Auto) [place] % (Auto) Eos % (Auto) Baso % (Auto) Neut # (Auto) Lymph # (Auto) [place] # (Auto) Eos # (Auto) Baso # (Auto) Sodium Potassium Chloride Carbon Dioxide BUN Creatinine Estimated GFR BUN/Creatinine Ratio Glucose Lactate 1.5 Calcium Total Bilirubin AST ALT Alkaline Phosphatase C-Reactive Protein Total Protein Albumin Globulin Albumin/Globulin Ratio Procalcitonin PFSH Medical History Asthma Chest pain Disease of thyroid gland FH: migraine headache High blood pressure Postmenopausal bleeding Surgical History H/O adenoidectomy H/O section H/O tubal ligation History of appendectomy History of carpal tunnel surgery Hx of tonsillectomy Family History Brother Family history of BPH Kidney stones Mother Hypertension Diabetes mellitus Thyroid disease Father Cancer Diabetes mellitus CAD in [place] artery Social History marital status: number of children: 2 household members: friend(s) Smoking Status: Never smoker Type(s) of exercise: walking frequency: 1-2 times per week Assessment & Plan Assessment & Plan narrative: 1. History of severe asthma.? Increased shortness of breath and presentation to the ER.? Received Solu-Medrol in the ER.? Continue patient's regular asthma medications.? Continue with oral prednisone for a total of 5 days.? All viral swabs negative. Is improving. 2. Diabetes.? Usually takes metformin -continue.? However with corticosteroids she? had we will need sliding scale insulin.? Ordered.? Continue current treatment. 3. Early signs of pneumonia on chest x-ray.? Reaction from ceftriaxone and concern with azithromycin possibly lengthening QT, patient was initiated on Augmentin 500/125 mg? 1 tablet t.i.d. continue the Augmentin for full pneumonia treatment. 4. Hypothyroidism.? TSH normal and continue replacement. 5. Concern for adverse reaction to ceftriaxone.? This was discontinued in the ER and due to the of long QT with azithromycin this was also discontinued.? Patient given Solu-Medrol in the ER.? Continuing with oral prednisone for total of 5 days to help with this reaction and also for treatment of asthma. Follow labs and clinically. Code status: Full code DVT prophylaxis:? Enoxaparin 40 mg subQ daily GI prophylaxis:? Pantoprazole 40 mg daily Substitute decision maker:? Son, Matthew Culp
[2022-07-02] MEDS: MONTELUKAST 10 MG TABLET PO (17:24)
[2022-07-02] MEDS: SENNOSIDES 8.6 MG TABLET 17.2 MG PO (21:33)
[2022-07-02] MEDS: SERTRALINE 50 MG TABLET 100 MG PO (21:33)
[2022-07-02] MEDS: MELATONIN 3 MG TABLET 6 MG PO (22:28)
[2022-07-03] VITALS: BP 132/72; PULSE 61; RESP 18; TEMP 37.3; O2SAT 97
[2022-07-03 01:35] LABS: Labcorp Hemoglobin (Hb) A1c 7.5 % (4.8-5.6)
[2022-07-03 04:00] VITALS: BP 154/70; PULSE 85; RESP 18; TEMP 36.2; O2SAT 96
[2022-07-03] MEDS: ACETAMINOPHEN 325 MG TABLET 650 MG PO ×2 (04:17→07:31)
[2022-07-03 05:23] LABS: Add Manual Diff / Slide Review NO; Basophils Absolute Auto 0 /uL (0-100); Basophils Percent Auto 0.1 % (0-2); Eosinophils Absolute Auto 0 /uL (0-450); Eosinophils Percent Auto 0.1 % (2-4); Hematocrit 37.1 % (36-46); Hemoglobin 12.7 g/dL (12.0-16.0); Lymphocytes Absolute Auto 1500 /uL (1100-4500); Lymphocytes Percent Auto 9.9 % (25-40); Mean Corpuscular HGB Conc 34.2 % (30-36); Mean Corpuscular Hemoglobin 28.1 PG (26-34); Mean Corpuscular Volume 82.1 fL (80-100); Monocytes Absolute Auto 600 /uL (0-900); Monocytes Percent Auto 3.7 % (3-14); Neutrophils Absolute Auto 13200 /uL (1500-7000); Neutrophils Percent Auto 86.2 % (50-75); Platelet Count 242 X10^3/uL (150-400); Red Blood Cell Count 4.51 X10^6/uL (4.0-5.2); Red Cell Distribution Width 15.4 % (11.6-14.8); White Blood Cell Count 15.3 X10^3/uL (4.5-11.0)
[2022-07-03 05:36] LABS: BUN Creatinine Ratio 27.3 (6-22); Blood Urea Nitrogen 18 mg/dL (7-17); Calcium 9.2 mg/dL (8.4-10.2); Carbon Dioxide 26 mmol/L (22-32); Chloride 101 mmol/L (98-107); Estimated Glomerular Filt Rate > 60 mL/min (>60); Glucose 218 mg/dL (80-110); HEMOLYSIS < 15 (0-50); Potassium 3.9 mmol/L (3.4-5.1); Sodium 138 mmol/L (137-145)
[2022-07-03] MEDS: LEVOTHYROXINE 137 MCG TABLET PO (06:31)
[2022-07-03] MEDS: BUDESONIDE 0.5 MG/2 ML NEB INH (07:32)
[2022-07-03] MEDS: ALBUTEROL 2.5 MG/3 ML NEB (ADULT) INH (07:32)
[2022-07-03 08:00] VITALS: BP 139/65; PULSE 70; RESP 17; TEMP 35.9; O2SAT 96
[2022-07-03] MEDS: METFORMIN HCL 500 MG TABLET 1000 MG PO (08:15)
[2022-07-03] MEDS: PANTOPRAZOLE DR 40 MG TABLET PO (08:16)
[2022-07-03] MEDS: predniSONE 20 MG TABLET 50 MG PO (08:16)
[2022-07-03] MEDS: LORATADINE 10 MG TABLET PO (08:16)
[2022-07-03] MEDS: AMLODIPINE 5 MG TABLET 10 MG PO (08:17)
[2022-07-03] MEDS: SODIUM CHLORIDE 0.9% FLUSH 10 ML IV (08:20)
[2022-07-03] MEDS: INSULIN LISPRO 100 UNIT/ML 3ML VIAL SUBCUT ×2 (08:31→13:38)
[2022-07-03] MEDS: AMOXICILLIN/CLAV 500/125 MG 1 TAB PO (08:56)
[2022-07-03] MEDS: MAGNESIUM OXIDE 400 MG TABLET PO (08:56)
--- NOTE | 2022-07-03 14:28 | P.DS_ITS ---
History of Present Illness History of Present Illness Chief complaint: SOB, Dyspnea Narrative: Patient is 72-year-old female history of asthma multiple environmental allergies, hypothyroidism on replacement and diabetes on metformin presenting with sudden onset shortness of breath.? She reports that her asthma has been acting up somewhat over the last 1 week.? No fever chills or cough.? Tonight she had significant difficulty in breathing.? She is noted to be hypoxic at 77% on room air.? She denies any chest pain.? No history of congestive heart failure..? She reports that she took a home COVID test that was negative. Not feeling fever chills nausea vomiting or diaphoresis. No chest pain or palpitations. No abdominal pain, diarrhea or constipation. No dysuria or hematuria. Able to move all extremities volitionally. No neurological symptoms in the extremities. However had significant shortness of breath at home and tried to look for EpiPen but could not get it working so came to the ER. Chest x-ray is concerning for early bilateral lower pneumonia. Discharge Providers Provider Date of admission: 07/01/22 06:57 Discharge Date: 07/03/22 Primary care physician: Blanca Nichols RN Consults: 07/01/22 06:48 Consult to Dietitian, Adult Routine Comment: Reason For Exam: bmi 38 07/01/22 06:49 Consult to Occupational Therapy Evaluate & Treat Comment: Physician Instructions: Evaluate and treat Consult to Physical Therapy Evaluate & Treat Comment: Physician Instructions: Evaluate and Treat Discharge provider: Ivan Scott, DO Summary Hospital Course Discharge Diagnosis: 1. Asthma exacerbation with possible pneumonia.? Increased shortness of breath and presentation to the ER.? Received Solu-Medrol in the ER.? Continue patient's regular asthma medications.? Continue with oral prednisone for a total of 5 days plus augmentin for possible pneumonia.? All viral swabs negative.? Is?improving. 2. Diabetes.? Usually takes metformin -continue.? However with corticosteroids she? had we will need sliding scale insulin.? Ordered.? Continue current treatment. 3. Early signs of pneumonia on chest x-ray.? Reaction from ceftriaxone and concern with azithromycin possibly lengthening QT, patient was initiated on Augmentin 500/125 mg? 1 tablet t.i.d. continue the Augmentin for full pneumonia treatment. 4. Hypothyroidism.?? TSH normal and continue replacement. 5. Concern for adverse reaction to ceftriaxone.? This was discontinued in the ER and due to the of long QT with azithromycin this was also discontinued.? Patient given Solu-Medrol in the ER.? Continuing with oral prednisone for total of 5 days to help with this reaction and also for treatment of asthma. Hospital Course: Admitted for asthma exacerbation which improved with po steroids and nebs. Also given augmentin x5 days for possible pneumonia seen on CXR. Patient discharged home to finish po prednisone and augmentin x5 days. Time Spent with Patient Time spent: Greater than 30 minutes Exam Vital Signs (past 8 hours): - 07/03/22 08:00 07/03/22 07:00 Temperature 96.6 F L Pulse Rate 70 Respiratory Rate 17 Blood Pressure 139/65 Pulse Oximetry 96 Oxygen Delivery Method Room Air Oxygen Flow Rate 0 Fraction of Inspired Oxygen 21 SaO2/FiO2 Ratio 457 Oxygen Delivery Method Room Air Oxygen Flow Rate 0 Narrative Exam Narrative: GENERAL:? Alert 72-year-old female in NAD. HEENT: Head atraumatic,EOMI, pupils reactive, face symmetric, moist mucous membranes CARDIOVASCULAR: Regular rate and rhythm without murmurs, rubs or gallops. RESPIRATORY:? Decreased breath sounds somewhat bilaterally with decreased air movement.? Wheezes improved. ABDOMEN: Soft, nontender.? Normoactive bowel sounds all 4 quadrants.? No guarding or rebound. EXTREMITIES: Normal range of motion, no clubbing or edema.? Neurovascularly intact NEUROLOGICAL: Alert and oriented x4. SKIN: Warm, dry, no laceration, no petechiae, no rashes or lesions. Objective Labs 07/03/22 04:35 07/03/22 04:35 Labs: Laboratory Results - last 24 hr 07/01/22 07/03/22 07/03/22 01:10 04:35 04:35 WBC 15.3 H RBC 4.51 Hgb 12.7 Hct 37.1 MCV 82.1 MCH 28.1 MCHC 34.2 RDW 15.4 H Plt Count 242 Neut % (Auto) 86.2 H Lymph % (Auto) 9.9 L [place] % (Auto) 3.7 Eos % (Auto) 0.1 L Baso % (Auto) 0.1 Neut # (Auto) 39920 H Lymph # (Auto) 1500 [place] # (Auto) 600 Eos # (Auto) 0 Baso # (Auto) 0 Sodium 138 Potassium 3.9 Chloride 101 Carbon Dioxide 26 BUN 18 H Creatinine 0.66 Estimated GFR > 60 BUN/Creatinine Ratio 27.3 H Glucose 218 H Hgb A1c (Ref Lab) 7.5 H Calcium 9.2 PFSH Medical History Asthma Chest pain Disease of thyroid gland FH: migraine headache High blood pressure Postmenopausal bleeding Surgical History H/O adenoidectomy H/O section H/O tubal ligation History of appendectomy History of carpal tunnel surgery Hx of tonsillectomy Family History Brother Family history of BPH Kidney stones Mother Hypertension Diabetes mellitus Thyroid disease Father Cancer Diabetes mellitus CAD in [place] artery Social History marital status: number of children: 2 household members: friend(s) Smoking Status: Never smoker Type(s) of exercise: walking frequency: 1-2 times per week Discharge Plan Discharge Plan Patient Disposition: Home Provider Discharge Comment: You were admitted for an asthma exacerbation and possible pneumonia. You received IV antibiotics while in the hospital and your infection improved. You will now need to finish a course of oral antibiotics at home. You also improved with oral steroids and will finish 4 more days at home of prednisone. Nursing Discharge Comment: take the medications as ordered by Dr Scott. As you know prednisone can increase your blood sugar; continue to check your glucose as we did in the hospital. call your PCP for the following: increase in shortness of breath, or painful respirations; not relieved by rest or medications. it is good to have an SPO2 monitor to check your saturations while at home. follow up w/ your PUBLIC ADDRESS TECHNICIAN w/in 7-10 days of discharging home today. please take it easy when youre home, and rest when you need it. it was a pleasure to be your nurse today, and i hope you have a wonderful rest of your week! Discharge orders & Medications Prescriptions: New amoxicillin-pot clavulanate [Augmentin] 500-125 mg Tablet 1 tab PO TID 4 Days Qty: 12 0RF prednisone 50 mg tablet 50 mg PO DAILY 4 Days Qty: 4 0RF Continued benzonatate 200 mg capsule 200 mg PO BID PRN (Reason: cough) Qty: 20 0RF epinephrine [EpiPen 2-[place]iver[place]] 0.3 mg/0.3 mL auto-injector 0.3 mg IM Q5-15M PRN (Reason: anaphylaxis) Qty: 2 0RF Rx Instructions: do not exceed 3 doses per episode calcium nzcl-[id number] 3 tab PO QAM levothyroxine 137 mcg tablet 137 mcg PO AC Patient Comments: TAKE 1 TABLET BY MOUTH EVERY DAY IN THE MORNING ON AN EMPTY STOMACH metformin 500 mg tablet 1,000 mg PO BID sertraline [Zoloft] 25 mg tablet 100 mg PO QPM Zyrtec 10 mg capsule 10 mg PO DAILY amlodipine 5 mg tablet 10 mg PO DAILY montelukast [Singulair] 10 mg tablet 10 mg PO QPM Flovent Diskus 250 mcg/actuation blister with device 1 inh inhalation BID albuterol sulfate 90 mcg/actuation aerosol powdr breath activated 2 inh inhalation Q4-6H PRN (Reason: Shortness Of Breath) calcium 26-vit D3-magnesium 15 167 mg calcium- 1.67 mcg-83 mg capsule 1 cap PO QAM Follow up/Referrals: Blanca Nichols, RN [Primary Care Provider] - 2 Weeks (office message stated clinic was closed, i have left a message for them to call you with a appointment date & time.If you have not heard from them in the next day or two pleasse call them to schedule a 2 week follow up from the time of discharge.) Visit Report/Discharge Packet Instructions: DI for Sepsis -- Adult, Prednisone, Amoxicillin and Clavulanic Acid Stand Alone Forms: Patient Portal/API, Stroke Signs & Symptoms Discharge Data Primary Care Provider: Blanca Nichols Attending Provider: Alma Rosa Jorgensen Admit Date/Time: 07/01/22 06:57
--- NOTE | 2022-07-03 14:34 | CM.DPC ---
DCP Discharge Home Per MD, pt medically stable to d/c home today and no identified discharge planning needs. Per RN, provided d/c instructions and no concerns at this time. Plan: Patient to d/c home today via family POV and outpt f/u and no further SW needs at this time. PETE Sanches
--- NOTE | 2022-07-03 15:31 | PC.NURSE ---
patient doing well. LS are diminished at bases, CTA upper. patient reports slight moist cough, none heard on auscultation or while sitting outside of room for most of the day. tolerating RA, no SOB w/ exertion noted. no desat. tolerating PO abx. anticipate d/c home today. see d/c summary.
== END 2022-07-03 14:35 | disposition home or self-care (01) ==
LOC: ED 06:33 → AC 06:58
PROVIDERS: Neuromusculoskeletal Medicine, Sports Medicine; Admitting Provider Nurse Practitioner Family; Emergency Provider Emergency Medicine; PCP Nurse Practitioner Family; Referring Provider Emergency Medicine; Visit Provider Nurse Practitioner Family
DX: J45.901 Unspecified asthma with (acute) exacerbation (principal); E11.9 Type 2 diabetes mellitus without complications; Z79.84 Long term (current) use of oral hypoglycemic drugs; E03.9 Hypothyroidism, unspecified; Z20.822 Contact with and (suspected) exposure to COVID-19
CPT/HCPCS: 36415; 71045; 80048; 80053; 81001; 81003; 82962; 83036; 83605; 83690; 83735; 83880; 84145; 84443; 84484; 85025; 85610; 85730; 86140; 87040; 87070; 87205; 87633; 87635; 93005; 94640; 96361; 96365; 96367; 96372; 96375; 97161; 97165; 97535; 99285; C9803; G0378; A9270; J0696; J1650; J1815; J2930; J7613

== ENCOUNTER → 2022-08-07 19:21 | Outpatient (CLI) | payer OTHER, SELFPAY ==
[2022-07-01 13:16] VITALS: BMI 40.2
--- NOTE | 2022-08-07 19:21 | DI.RAD.S_ITS ---
PROCEDURE: XR CHEST 2V INDICATIONS: productive cough, short of breath TECHNIQUE: 2 views of the chest were acquired. COMPARISON: [facility], CR, XR CHEST 2V, 12/14/2021, 15:20. [facility], CR, XR CHEST 1V, 07/01/2022, 1:55. FINDINGS: Surgical changes and devices: None. Lungs and pleura: There are indistinct reticular opacities within the lung bases. On the lateral projection, there is an oval mass or masslike consolidation posteriorly projecting over the posterior lung. No pleural effusions or pneumothorax. Mediastinum: Mediastinal contours are normal. Heart size is normal. Bones and chest wall: No suspicious bony abnormalities. Soft tissues appear unremarkable. IMPRESSION: 1. Oval region of masslike consolidation or mass in the posterior lung on the lateral projection. The findings may represent pneumonia given clinical history but short-term follow-up is recommended to demonstrate resolution. Dictated by: Zheng Castillo M.D. on 08/07/2022 at 20:22 Approved by: Zheng Castillo M.D. on 08/07/2022 at 20:24
== END ==
PROVIDERS: PCP Nurse Practitioner Family; Referring Provider Student in an Organized Health Care Education/Training Program; Visit Provider Student in an Organized Health Care Education/Training Program
DX: J45.901 Unspecified asthma with (acute) exacerbation (principal); R05.8 Other specified cough
CPT/HCPCS: 71046

== ENCOUNTER → 2022-08-16 12:51 | Outpatient (CLI) | payer OTHER, SELFPAY ==
[2022-07-01 13:16] VITALS: BMI 40.2
[2022-08-16 13:57] LABS: Alanine Aminotransferase 24 IU/L (<35); Albumin 4.3 g/dL (3.5-5.0); Albumin Globulin Ratio 1.5 (1.0-2.8); Alkaline Phosphatase 122 U/L (38-126); Aspartate Aminotransferase 23 IU/L (14-36); BUN Creatinine Ratio 27.1 (6-22); Bilirubin Total 0.2 mg/dL (0.2-1.3); Blood Urea Nitrogen 23 mg/dL (7-17); Calcium 9.7 mg/dL (8.4-10.2); Carbon Dioxide 27 mmol/L (22-32); Chloride 102 mmol/L (98-107); Cholesterol 142 mg/dL (140-199); Estimated Glomerular Filt Rate > 60 mL/min (>60); Globulin 2.8 g/dL (1.7-4.1); Glucose 172 mg/dL (80-110); HDL Cholesterol 45 mg/dL (40-60); HEMOLYSIS < 15 (0-50); LDL Cholesterol Calculated 52 mg/dL (<100); Sodium 138 mmol/L (137-145); Total Protein 7.1 g/dL (6.3-8.2); Triglycerides 224 mg/dL (35-150)
[2022-08-16 14:01] LABS: Potassium 4.4 mmol/L (3.4-5.1)
[2022-08-16 14:27] LABS: TSH w/ Reflex to FT4 0.23 uIU/mL (0.47-4.68)
[2022-08-16 14:51] LABS: Free T4, Direct Thyroxine 1.66 ng/dL (0.78-2.19)
[2022-08-17 05:54] LABS: Labcorp Hemoglobin (Hb) A1c 7.4 % (4.8-5.6)
[2022-08-17 14:41] LABS: Creatinine Urine Random 114.4 mg/dL
[2022-08-17 14:50] LABS: Microalbumi Creatinin Ratio Ur 68.1 ug/mg CR (<30); Microalbumin Urine Random 7.8 mg/dL (0-1.6)
== END ==
PROVIDERS: PCP Nurse Practitioner Family; Referring Provider Family Medicine; Visit Provider Family Medicine
DX: E03.9 Hypothyroidism, unspecified (principal); E11.22 Type 2 diabetes mellitus with diabetic chronic kidney disease; N18.30 Chronic kidney disease, stage 3 unspecified; I10 Essential (primary) hypertension; E78.2 Mixed hyperlipidemia
CPT/HCPCS: 36415; 80053; 80061; 82043; 82570; 83036; 84439; 84443

== ENCOUNTER → 2022-10-02 12:23 | Outpatient (CLI) | payer OTHER, SELFPAY ==
[2022-07-01 13:16] VITALS: BMI 40.2
--- NOTE | 2022-10-02 12:24 | DI.RAD.S_ITS ---
PROCEDURE: XR CHEST 2V INDICATIONS: productive cough x 7 days TECHNIQUE: 2 views of the chest were acquired. COMPARISON: [facility], CR, XR CHEST 2V, 08/07/2022, 19:19. [facility], CR, XR CHEST 1V, 07/01/2022, 1:55. FINDINGS: Surgical changes and devices: None. Lungs and pleura: Lungs are clear. No pleural effusions or pneumothorax. Peribronchial cuffing. Mediastinum: Mediastinal contours are normal. Heart size is normal. Bones and chest wall: No suspicious bony abnormalities. Soft tissues appear unremarkable. IMPRESSION: Peribronchial cuffing, typically indicating infectious or inflammatory bronchitis. Dictated by: Stalin Fuller M.D. on 10/02/2022 at 12:49 Approved by: Stalin Fuller M.D. on 10/02/2022 at 12:49
== END ==
PROVIDERS: PCP Nurse Practitioner; Referring Provider Student in an Organized Health Care Education/Training Program; Visit Provider Student in an Organized Health Care Education/Training Program
DX: R05.9 Cough, unspecified (principal)
CPT/HCPCS: 71046

== ENCOUNTER 2022-10-06 18:10 | Emergency (ER) | payer OTHER, SELFPAY ==
[2022-07-01 13:16] VITALS: BMI 40.2
[2022-10-06] VITALS (12 sets, daily range): BP systolic 119–153; BP diastolic 56–72; PULSE 86–108; RESP 15–26; TEMP 36.6; O2SAT 95–97; BMI 36.6
--- NOTE | 2022-10-06 18:25 | DI.RAD.S_ITS ---
PROCEDURE: XR CHEST 1V INDICATIONS: Shortness of breath TECHNIQUE: One view of the chest was acquired. COMPARISON: [facility], CR, XR CHEST 2V, 10/02/2022, 12:28. FINDINGS: Surgical changes and devices: None. Lungs and pleura: Small focal right basilar infiltrate. No pleural effusions or pneumothorax. Mediastinum: Mediastinal contours appear normal. Heart size is normal. Bones and chest wall: No suspicious bony lesions. Overlying soft tissues appear unremarkable. IMPRESSION: Small focal right basilar infiltrate. Comment: Progress films are recommended until clear. Dictated by: Tony Reid M.D. on 10/06/2022 at 18:50 Approved by: Tony Reid M.D. on 10/06/2022 at 18:52
--- NOTE | 2022-10-06 18:44 | ED_ITS ---
HPI - SOB/Dyspnea General Chief Complaint: Shortness of Breath/Dyspnea Stated Complaint: MSC SOB/ coughing and wheezing Time Seen by Provider: 10/06/22 18:39 Source: patient Mode of arrival: Wheelchair Limitations: no limitations History of Present Illness HPI Narrative: 72-year-old female nonsmoker with history of asthma presents at the request of the walk-in clinic for evaluation of ongoing if not worsening wheeze and shortness of breath. She states she is been sick for about a month and denies any fever or chills, denies sputum production, chest pain, nausea, vomiting or other. She is been using her medications as directed and most recently finished a steroid course a few days ago. She denies recent travel, history of blood clot, known cancer or pain, swelling or redness of 1 extremity or the other. She states deep breath worsens her cough. She denies orthopnea or obvious weight gain Related Data Home Medications Medication Instructions Recorded Confirmed albuterol sulfate 90 mcg/actuation 2 inh inhalation Q4-6H PRN 12/07/21 10/02/22 breath activated powder inhaler Shortness Of Breath amlodipine 5 mg tablet 10 mg PO DAILY 12/07/21 10/02/22 calcium 167 mg-vitamin D3 1.67 1 cap PO QAM 12/07/21 10/02/22 mcg-magnesium 83 mg capsule cetirizine 10 mg capsule (Zyrtec) 10 mg PO DAILY 12/07/21 10/02/22 metformin 500 mg tablet 1,000 mg PO BID 12/07/21 10/02/22 montelukast 10 mg tablet 10 mg PO QPM 12/07/21 10/02/22 (Singulair) calcium [id number] 3 tab PO QAM 07/01/22 10/02/22 Z Sleep Patches See Rx Instructions .Route .COMPLEX 09/04/22 10/02/22 acetaminophen 500 mg capsule 1,000 mg PO TID PRN 09/04/22 10/02/22 albuterol sulfate 2.5 mg/3 mL 2.5 mg inhalation Q4-6H PRN 09/04/22 10/02/22 (0.083 %) solution for nebulization azelastine 205.5 mcg (0.15 %) 2 spray intranasal DAILY 09/04/22 10/02/22 nasal spray budesonide-formoterol HFA 160 2 puff inhalation BID 09/04/22 10/02/22 mcg-4.5 mcg/actuation aerosol inhaler (Symbicort) cholecalciferol (vitamin D3) 25 25 mcg PO DAILY 09/04/22 10/02/22 mcg (1,000 unit) capsule diphenhydramine HCl 25 mg capsule 25 mg PO BEDTIME PRN 09/04/22 10/02/22 (Benadryl) doxylamine succinate 25 mg tablet 25 mg PO BEDTIME PRN 09/04/22 10/02/22 (Unisom (doxylamine)) famotidine 20 mg tablet 20 mg PO BID 09/04/22 10/02/22 fluticasone propionate 50 2 spray intranasal DAILY 09/04/22 10/02/22 mcg/actuation nasal spray,suspension (Flonase Allergy Relief) levothyroxine 125 mcg tablet 125 mcg PO DAILY 09/04/22 10/02/22 lidocaine 4 % topical patch 1 patch topical DAILY PRN 09/04/22 10/02/22 (Salonpas (lidocaine)) lidocaine 4 % topical spray spray topical 09/04/22 10/02/22 (Aspercreme (lidocaine)) metformin 500 mg tablet,extended 2,000 mg PO DAILY 09/04/22 10/02/22 release 24 hr montelukast 10 mg tablet 10 mg PO QPM 09/04/22 10/02/22 (Singulair) nystatin 100,000 unit/gram topical 1 applic topical BID 09/04/22 10/02/22 powder onabotulinumtoxinA 200 unit 200 unit IM .every 12 weeks 09/04/22 10/02/22 solution for injection (Botox) riboflavin (vitamin B2) 100 mg 100 mg PO DAILY 09/04/22 10/02/22 tablet rosuvastatin 10 mg tablet 10 mg PO DAILY 09/04/22 10/02/22 Previous Rx's Medication Instructions Recorded benzonatate 200 mg capsule 200 mg PO BID PRN cough #20 caps 01/17/22 epinephrine 0.3 mg/0.3 mL 0.3 mg (0.3 mL) IM Q5-15M PRN 02/26/22 injection, auto-injector (EpiPen anaphylaxis #2 ea 2-Rivera) nortriptyline 75 mg capsule 150 mg PO BEDTIME #180 caps 09/04/22 omega-3 acid ethyl esters 1 gram 1 cap PO BID #180 caps 09/04/22 capsule riboflavin (vitamin B2) 400 mg 400 mg PO DAILY #90 tabs 09/04/22 tablet rimegepant 75 mg disintegrating 75 mg PO ONCE PRN migraine 09/04/22 tablet headache #30 tabs sitagliptin phosphate 25 mg tablet 25 mg PO DAILY #90 tabs 09/04/22 (Januvia) terbinafine HCl 250 mg tablet 250 mg PO DAILY #90 tabs 09/04/22 lisinopril 20 mg tablet 20 mg PO DAILY #90 tabs 09/24/22 sertraline 100 mg tablet (Zoloft) 100 mg PO DAILY #90 tabs 09/24/22 sertraline 50 mg tablet 50 mg PO DAILY #90 tabs 09/24/22 amoxicillin 875 mg-potassium 1 tab PO BID multiple 10/02/22 clavulanate 125 mg tablet allergies/infectious bronchitis 7 days #14 tabs amoxicillin 875 mg-potassium 1 tab PO Q12H #20 tabs 10/06/22 clavulanate 125 mg tablet prednisone 10 mg tablet See Rx Instructions .Route 10/06/22 .COMPLEX #30 tabs Allergies Allergy/AdvReac Type Severity Reaction Status Date / Time cat dander Allergy Wheezing Verified 10/02/22 11:30 hydrochlorothiazide Allergy Rash Verified 10/02/22 11:30 melon Allergy ITCHING Verified 10/02/22 11:30 nitrofurantoin Allergy Vomiting Verified 10/02/22 11:30 [From Macrobid] peanut Allergy Anaphylaxis Verified 10/02/22 11:30 pravastatin Allergy Muscle Pain Verified 10/02/22 11:30 zolpidem [From Ambien] Allergy Anxiety Verified 10/02/22 11:30 ceftriaxone AdvReac ITCHING Verified 10/02/22 11:30 levofloxacin [From Levaquin] AdvReac Vomiting Verified 10/02/22 11:30 banana Allergy Severe Anaphylaxis Uncoded 10/02/22 11:30 Review of Systems Review of Systems Narrative: GENERAL: See HPI HEENT: Denies sinus pain, ear pain, sore throat, difficulty swallowing, dizziness. RESPIRATORY: See HPI CARDIOVASCULAR: Denies chest pain, palpitations, orthopnea, edema, GASTROINTESTINAL: Denies nausea, vomiting, abdominal pain, diarrhea, constipation, melena. : Denies dysuria, frequency, incontinence, hematuria, urinary retention. MUSCULOSKELETAL: denies weakness, joint pain, or bony pain SKIN: Denies rash, skin lesions, or other NEUROLOGIC: Denies weakness, headache, numbness, change in speech, confusion, seizures, incoordination. PSYCHIATRIC: No concerning psychosocial issues. 12 point review of systems is negative except for those stated above Patient History Medical History Asthma Chest pain Depression Disease of thyroid gland FH: migraine headache High blood pressure Hypertriglyceridemia Migraine Multiple allergies Postmenopausal bleeding Type 2 diabetes mellitus Surgical History H/O adenoidectomy H/O section H/O tubal ligation History of appendectomy History of carpal tunnel surgery Hx of tonsillectomy Family History Brother Family history of BPH Kidney stones Mother Hypertension Diabetes mellitus Thyroid disease Father Cancer Diabetes mellitus CAD in [place] artery Social History marital status: number of children: 2 household members: friend(s) Smoking Status: Never smoker Type(s) of exercise: walking frequency: 1-2 times per week Smoking Status: Never smoker alcohol intake frequency: holidays/special occasions only Substance Use Type: does not use Exam Narrative Exam Narrative: GENERAL: [72] year old patient appears stated age. Well-developed patient, in mi ld distress. HEAD: Atraumatic. Normocephalic. EYES: Pupils equal round and reactive. Extraocular motions intact. No scleral icterus. No injection or drainage. ENT: Nose without bleeding, purulent drainage. Throat without erythema, tonsillar hypertrophy or exudate. Airway patent. NECK: Trachea midline. Non tender CARDIOVASCULAR: Regular rate and rhythm without murmurs, gallops, or rubs. RESPIRATORY: Prolonged expiratory phase, fine crackles in bilateral bases GASTROINTESTINAL: Abdomen soft, non-tender, nondistended. EXTREMITIES: No edema or joint tenderness. BACK: Nontender without deformity or crepitance. No flank tenderness. NEURO: AOx3. SKIN: No rash or erythema of visible areas Initial Vital Signs Initial Vital Signs: Vital Signs Temperature 97.8 F 10/06/22 18:17 Pulse Rate 102 H 10/06/22 18:17 Respiratory Rate 22 10/06/22 18:17 Blood Pressure 153/72 H 10/06/22 18:17 Pulse Oximetry 97 10/06/22 18:17 Oxygen Delivery Method Room Air 10/06/22 18:17 Course Orders Ordered: ED Orders 10/06/22 18:24 Respiratory Panel (Film Array) Stat 10/06/22 18:25 XR chest 1V Stat EKG-12 Lead Stat Measure peak expiratory flow ONCE RT Consult Eval and Treat NOW 10/06/22 19:06 Complete Blood Count AUTO DIFF Stat Comprehensive Metabolic Panel Stat D Dimer Stat Lactate (Lactic Acid) Stat NT-proBNP (BNP-Adult 18+) Stat Procalcitonin Stat Prothrombin Time INR Stat Troponin I Stat Discontinued Medications Albuterol/Ipratropium (Albuterol/Ipratropium 3 Ml Ampul) 3 ml INH Q1H PRN PRN Reason: Shortness Of Breath Last Admin: 10/06/22 18:53 Dose: 3 ml Documented By: URIEL Amoxicillin/Clavulanate Potassium (Amoxicillin/Clav 875/125 Mg) 1 tab PO NOW ONE Stop: 10/06/22 19:24 Last Admin: 10/06/22 19:51 Dose: 1 tab Documented By: ARTURO Sodium Chloride (Normal Saline 0.9%) 1,434 mls @ 478 mls/hr 30 ml/kg infuse over 3 hr (1434 ml) IV NOW ONE Stop: 10/06/22 21:47 Last Infusion: 10/06/22 21:27 Dose: 0 mls/hr Documented By: Admin: 10/06/22 19:50 Dose: 478 mls/hr Documented By: ARTURO Methylprednisolone (Methylprednisolone 125 Mg/2 Ml Vial) 125 mg IV NOW ONE Stop: 10/06/22 18:53 Last Admin: 10/06/22 19:51 Dose: 125 mg Documented By: ARTURO Vital Signs Vital signs: Vital Signs - 8 hr 10/06/22 19:30 10/06/22 19:30 10/06/22 19:45 Pulse Rate 93 H 90 Respiratory Rate 19 15 Blood Pressure 128/56 L Pulse Oximetry 95 95 10/06/22 19:45 10/06/22 20:00 10/06/22 20:00 Pulse Rate 91 H Respiratory Rate 19 Blood Pressure 119/60 126/60 Pulse Oximetry 96 10/06/22 20:15 10/06/22 20:15 10/06/22 20:30 Pulse Rate 89 Respiratory Rate 19 Blood Pressure 133/62 140/66 Pulse Oximetry 96 10/06/22 20:30 10/06/22 20:45 10/06/22 20:45 Pulse Rate 92 H 96 H Respiratory Rate 19 25 H Blood Pressure 138/64 Pulse Oximetry 97 96 10/06/22 21:00 10/06/22 21:00 10/06/22 21:15 Pulse Rate 86 87 Respiratory Rate 16 24 Blood Pressure 150/63 H Pulse Oximetry 95 96 10/06/22 21:15 Pulse Rate Respiratory Rate Blood Pressure 131/61 Pulse Oximetry MDM - SOB/Dyspnea Lab Data 10/06/22 19:06 10/06/22 19:06 Labs: Lab Results 10/06/22 10/06/22 10/06/22 Range/Units 18:24 19:06 19:06 WBC 16.2 H (4.5-11.0) X10^3/uL RBC 4.94 (4.0-5.2) X10^6/uL Hgb 13.8 (12.0-16.0) g/dL Hct 41.1 (36-46) % MCV 83.2 (80-100) fL MCH 28.0 (26-34) PG MCHC 33.7 (30-36) % RDW 14.6 (11.6-14.8) % Plt Count 237 (150-400) X10^3/uL Neut % (Auto) Not Reportable Lymph % (Auto) Not Reportable Banner % (Auto) Not Reportable Eos % (Auto) Not Reportable Baso % (Auto) Not Reportable Lymph # (Auto) Not Reportable Banner # (Auto) Not Reportable Baso # (Auto) Not Reportable Total Counted 100 Seg Neutrophils % 71.0 H (38-70) % Band Neutrophils % 2.0 L (3-7) % Lymphocytes % (Manual) 25.0 (25-45) % Monocytes % (Manual) 1.0 L (2-11) % Metamyelocytes % 1.0 H (-0) % Neutrophils # (Manual) 62573 H (5790-3191) /uL RBC Morphology Normal morphology PT 11.0 (10.1-12.7) SECONDS INR 1.0 (0.9-1.3) D-Dimer (<500) ng/ml Sodium (137-145) mmol/L Potassium (3.4-5.1) mmol/L Chloride (98-107) mmol/L Carbon Dioxide (22-32) mmol/L BUN (7-17) mg/dL Creatinine (0.52-1.04) mg/dL Estimated GFR (>60) mL/min BUN/Creatinine Ratio (6-22) Glucose (80-110) mg/dL Lactate (0.7-2.1) mmol/L Calcium (8.4-10.2) mg/dL Total Bilirubin (0.2-1.3) mg/dL AST (14-36) IU/L ALT (<35) IU/L Alkaline Phosphatase (38-126) U/L Troponin I (0.01-0.034) ng/mL NT-Pro-B Natriuret Pep (<125) pg/mL Total Protein (6.3-8.2) g/dL Albumin (3.5-5.0) g/dL Globulin (1.7-4.1) g/dL Albumin/Globulin Ratio (1.0-2.8) Procalcitonin (<0.5) ng/mL Chlamy pneumoniae PCR Not detected (Not Detect) Adenovirus (PCR) Not detected (Not Detect) B. pertussis DNA (PCR) Not detected (Not Detecte) B.parapertussis DNA PCR Not detected (Not Detecte) Coronavirus OC43 (PCR) Not detected (Not Detect) Coronavirus HKU1 (PCR) Not detected (Not Detect) Coronavirus 229E (PCR) Not detected (Not Detect) SARS-CoV-2 (PCR) Not detected (Not Detecte) Coronavirus NL63 (PCR) Not detected (Not Detect) Human Metapneumovir PCR Not detected (Not Detect) Influenza Type A (PCR) Not detected (Not Detect) Influenza Type B (PCR) Not detected (Not Detect) M. pneumoniae (PCR) Not detected (Not Detect) Parainfluenza 1 (PCR) Not detected (Not Detect) Parainfluenza 2 (PCR) Not detected (Not Detect) Parainfluenza 3 (PCR) Not detected (Not Detect) Parainfluenza 4 (PCR) Not detected (Not Detect) RSV (PCR) Not detected (Not Detect) Entero/Rhino (PCR) Not detected (Not Detect) 10/06/22 10/06/22 10/06/22 Range/Units 19:06 19:06 19:06 WBC (4.5-11.0) X10^3/uL RBC (4.0-5.2) X10^6/uL Hgb (12.0-16.0) g/dL Hct (36-46) % MCV (80-100) fL MCH (26-34) PG MCHC (30-36) % RDW (11.6-14.8) % Plt Count (150-400) X10^3/uL Neut % (Auto) Lymph % (Auto) Banner % (Auto) Eos % (Auto) Baso % (Auto) Lymph # (Auto) Banner # (Auto) Baso # (Auto) Total Counted Seg Neutrophils % (38-70) % Band Neutrophils % (3-7) % Lymphocytes % (Manual) (25-45) % Monocytes % (Manual) (2-11) % Metamyelocytes % (-0) % Neutrophils # (Manual) (1867-1833) /uL RBC Morphology PT (10.1-12.7) SECONDS INR (0.9-1.3) D-Dimer 422 (<500) ng/ml Sodium 139 (137-145) mmol/L Potassium 4.2 (3.4-5.1) mmol/L Chloride 102 (98-107) mmol/L Carbon Dioxide 28 (22-32) mmol/L BUN 26 H (7-17) mg/dL Creatinine 0.97 (0.52-1.04) mg/dL Estimated GFR > 60 (>60) mL/min BUN/Creatinine Ratio 26.8 H (6-22) Glucose 147 H (80-110) mg/dL Lactate 1.7 (0.7-2.1) mmol/L Calcium 9.5 (8.4-10.2) mg/dL Total Bilirubin 0.3 (0.2-1.3) mg/dL AST 23 (14-36) IU/L ALT 26 (<35) IU/L Alkaline Phosphatase 100 (38-126) U/L Troponin I < 0.012 (0.01-0.034) ng/mL NT-Pro-B Natriuret Pep 165 H (<125) pg/mL Total Protein 7.8 (6.3-8.2) g/dL Albumin 4.5 (3.5-5.0) g/dL Globulin 3.3 (1.7-4.1) g/dL Albumin/Globulin Ratio 1.4 (1.0-2.8) Procalcitonin (<0.5) ng/mL Chlamy pneumoniae PCR (Not Detect) Adenovirus (PCR) (Not Detect) B. pertussis DNA (PCR) (Not Detecte) B.parapertussis DNA PCR (Not Detecte) Coronavirus OC43 (PCR) (Not Detect) Coronavirus HKU1 (PCR) (Not Detect) Coronavirus 229E (PCR) (Not Detect) SARS-CoV-2 (PCR) (Not Detecte) Coronavirus NL63 (PCR) (Not Detect) Human Metapneumovir PCR (Not Detect) Influenza Type A (PCR) (Not Detect) Influenza Type B (PCR) (Not Detect) M. pneumoniae (PCR) (Not Detect) Parainfluenza 1 (PCR) (Not Detect) Parainfluenza 2 (PCR) (Not Detect) Parainfluenza 3 (PCR) (Not Detect) Parainfluenza 4 (PCR) (Not Detect) RSV (PCR) (Not Detect) Entero/Rhino (PCR) (Not Detect) 10/06/22 Range/Units 19:06 WBC (4.5-11.0) X10^3/uL RBC (4.0-5.2) X10^6/uL Hgb (12.0-16.0) g/dL Hct (36-46) % MCV (80-100) fL MCH (26-34) PG MCHC (30-36) % RDW (11.6-14.8) % Plt Count (150-400) X10^3/uL Neut % (Auto) Lymph % (Auto) Banner % (Auto) Eos % (Auto) Baso % (Auto) Lymph # (Auto) Banner # (Auto) Baso # (Auto) Total Counted Seg Neutrophils % (38-70) % Band Neutrophils % (3-7) % Lymphocytes % (Manual) (25-45) % Monocytes % (Manual) (2-11) % Metamyelocytes % (-0) % Neutrophils # (Manual) (8675-5298) /uL RBC Morphology PT (10.1-12.7) SECONDS INR (0.9-1.3) D-Dimer (<500) ng/ml Sodium (137-145) mmol/L Potassium (3.4-5.1) mmol/L Chloride (98-107) mmol/L Carbon Dioxide (22-32) mmol/L BUN (7-17) mg/dL Creatinine (0.52-1.04) mg/dL Estimated GFR (>60) mL/min BUN/Creatinine Ratio (6-22) Glucose (80-110) mg/dL Lactate (0.7-2.1) mmol/L Calcium (8.4-10.2) mg/dL Total Bilirubin (0.2-1.3) mg/dL AST (14-36) IU/L ALT (<35) IU/L Alkaline Phosphatase (38-126) U/L Troponin I (0.01-0.034) ng/mL NT-Pro-B Natriuret Pep (<125) pg/mL Total Protein (6.3-8.2) g/dL Albumin (3.5-5.0) g/dL Globulin (1.7-4.1) g/dL Albumin/Globulin Ratio (1.0-2.8) Procalcitonin 0.05 (<0.5) ng/mL Chlamy pneumoniae PCR (Not Detect) Adenovirus (PCR) (Not Detect) B. pertussis DNA (PCR) (Not Detecte) B.parapertussis DNA PCR (Not Detecte) Coronavirus OC43 (PCR) (Not Detect) Coronavirus HKU1 (PCR) (Not Detect) Coronavirus 229E (PCR) (Not Detect) SARS-CoV-2 (PCR) (Not Detecte) Coronavirus NL63 (PCR) (Not Detect) Human Metapneumovir PCR (Not Detect) Influenza Type A (PCR) (Not Detect) Influenza Type B (PCR) (Not Detect) M. pneumoniae (PCR) (Not Detect) Parainfluenza 1 (PCR) (Not Detect) Parainfluenza 2 (PCR) (Not Detect) Parainfluenza 3 (PCR) (Not Detect) Parainfluenza 4 (PCR) (Not Detect) RSV (PCR) (Not Detect) Entero/Rhino (PCR) (Not Detect) MDM Narrative Medical decision making narrative: [72] year old patient presents with cough, shortness of breath and wheeze Multiple etiologies for patient's symptoms considered including, but not limited to: [Pneumonia versus fluid overload versus viral etiology versus pulmonary embolism versus other] Prior Charts reviewed in our EMR Primary Historian: patient Labs reviewed and interpreted by myself: Slight leukocytosis with no significant left shift, no signs of anemia, electrolytes and troponin within Imaging reviewed: Normal, D-dimer below age corrected cutoff right lower lobe pneumonia History and physical exam are reassuring, patient with no significant work of breathing, no use of accessory muscles or hypoxemia. Faint crackles on exam, imaging consistent with right lower lobe pneumonia. Pulmonary embolus considered as noted above, however D-dimer is below age corrected cutoff therefore no indication for CT angiogram. Likely a component of COPD exacerbation as well. Patient better after above-stated therapies, no sunita cation for hospitalization, transfer or further intervention at this time Patient's symptoms improved over duration of stay with above-stated therapies. Findings and discharge diagnosis discussed with patient/family followed by verbalization of understanding Return precautions discussed with patient/family whom verbalize understanding of diagnosis and plan Discharge Plan Departure Patient Disposition: Home Clinical Impression: Right lower lobe pneumonia Instructions: DI for Pneumonia -- Adult Activity Restrictions/Additional Instructions: *You have been diagnosed with [right lower lobe pneumonia] *What to do: *Please continue to take your regular medications as directed. [ x] New medication prescriptions sent to your pharmacy: [[facility] ] [ ] New medication written as a paper prescription [ ] No new medications given *Please follow up with your primary care provider in 2-3 days, call for an appointment. Let them know you were seen in the Emergency Department and that we ask that you be seen in follow up. We will electronically transmit a record of today's note if your PCP is in our system *If you do not have a primary care provider please contact the [facility] Resource line at [phone]. They will ask some questions about your medical history and help get you set up with a doctor in the community. *Return to Emergency Department if you should have any new, worsening or concerning symptoms, such as [fever greater than 101 F, shaking chills, worsening pain, persistent vomiting or other bothersome symptoms] Prescriptions: New prednisone 10 mg tablet See Rx Instructions .ROUTE .COMPLEX Qty: 30 0RF Rx Instructions: Day 1,2,3: 40mg PO Daily Day 4,5,6: 30mg PO Daily Day 7,8,9: 20mg PO Daily Day 10,11,12: 10mg PO Daily #30 amoxicillin-pot clavulanate 875-125 mg tablet 1 tab PO Q12H Qty: 20 0RF No Action amoxicillin-pot clavulanate 875-125 mg tablet 1 tab PO BID 7 Days Qty: 14 0RF lisinopril 20 mg tablet 20 mg PO DAILY Qty: 90 3RF sertraline [Zoloft] 100 mg tablet 100 mg PO DAILY Qty: 90 3RF Rx Instructions: Take one 100mg tablet by mouth in addition to 50mg tablet for a total of 150mg daily sertraline 50 mg tablet 50 mg PO DAILY Qty: 90 3RF Rx Instructions: Take 1 tab daily along with 100mg tab for total of 150mg/day levothyroxine 125 mcg tablet 125 mcg PO DAILY nortriptyline 75 mg capsule 150 mg PO BEDTIME Qty: 180 3RF Rx Instructions: Take 2 tabs at bedtime daily albuterol sulfate 2.5 mg /3 mL (0.083 %) solution for nebulization 2.5 mg inhalation Q4-6H PRN azelastine 205.5 mcg (0.15 %) spray,non-aerosol 2 spray intranasal DAILY Rx Instructions: administer into each nostril Botox 200 unit recon soln 200 unit IM .every 12 weeks Rx Instructions: as a single dose for migraine headaches famotidine 20 mg tablet 20 mg PO BID Rx Instructions: Take 10-30 mins prior to meals as needed fluticasone propionate [Flonase Allergy Relief] 50 mcg/actuation spray,suspension 2 spray intranasal DAILY Rx Instructions: administer into each nostril 2 sprays daily metformin 500 mg tablet extended release 24 hr 2,000 mg PO DAILY budesonide-formoterol [Symbicort] 160-4.5 mcg/actuation HFA aerosol inhaler 2 puff inhalation BID montelukast [Singulair] 10 mg tablet 10 mg PO QPM riboflavin (vitamin B2) 100 mg tablet 100 mg PO DAILY riboflavin (vitamin B2) 400 mg tablet 400 mg PO DAILY Qty: 90 3RF cholecalciferol (vitamin D3) 25 mcg (1,000 unit) capsule 25 mcg PO DAILY nystatin 100,000 unit/gram powder 1 applic topical BID rosuvastatin 10 mg tablet 10 mg PO DAILY rimegepant 75 mg tablet,disintegrating 75 mg PO ONCE PRN (Reason: migraine headache) Qty: 30 4RF Rx Instructions: as a single dose diphenhydramine HCl [Benadryl] 25 mg capsule 25 mg PO BEDTIME PRN Unisom (doxylamine) 25 mg tablet 25 mg PO BEDTIME PRN Z Sleep Patches See Rx Instructions .ROUTE .COMPLEX Rx Instructions: 1 patch applied at bedtime daily for insomnia as needed; lidocaine [Salonpas (lidocaine)] 4 % adhesive patch,medicated 1 patch topical DAILY PRN Aspercreme (lidocaine) 4 % aerosol,spray topical acetaminophen 500 mg capsule 1,000 mg PO TID PRN Januvia 25 mg tablet 25 mg PO DAILY Qty: 90 3RF Rx Instructions: Take 1 tab daily with breakfast or first meal of the day. omega-3 acid ethyl esters 1 gram capsule 1 cap PO BID Qty: 180 3RF Rx Instructions: Take 1 capsule by mouth twice daily for elevated triglycerides terbinafine HCl 250 mg tablet 250 mg PO DAILY Qty: 90 1RF Rx Instructions: Take 1 tab by mouth daily x6 months for toenail fungus benzonatate 200 mg capsule 200 mg PO BID PRN (Reason: cough) Qty: 20 0RF epinephrine [EpiPen 2-Rivera] 0.3 mg/0.3 mL auto-injector 0.3 mg IM Q5-15M PRN (Reason: anaphylaxis) Qty: 2 0RF Rx Instructions: do not exceed 3 doses per episode calcium [id number] 3 tab PO QAM metformin 500 mg tablet 1,000 mg PO BID Zyrtec 10 mg capsule 10 mg PO DAILY amlodipine 5 mg tablet 10 mg PO DAILY montelukast [Singulair] 10 mg tablet 10 mg PO QPM albuterol sulfate 90 mcg/actuation aerosol powdr breath activated 2 inh inhalation Q4-6H PRN (Reason: Shortness Of Breath) calcium 26-vit D3-magnesium 15 167 mg calcium- 1.67 mcg-83 mg capsule 1 cap PO QAM Referrals: Tata Acevedo ARNP [Primary Care Provider] - Stand Alone Forms: Patient Portal/API
[2022-10-06] MEDS: ALBUTEROL/IPRATROPIUM 3 ML AMPUL INH (18:53)
[2022-10-06 19:27] LABS: Alanine Aminotransferase 26 IU/L (<35); Albumin 4.5 g/dL (3.5-5.0); Albumin Globulin Ratio 1.4 (1.0-2.8); Alkaline Phosphatase 100 U/L (38-126); Aspartate Aminotransferase 23 IU/L (14-36); BUN Creatinine Ratio 26.8 (6-22); Bilirubin Total 0.3 mg/dL (0.2-1.3); Blood Urea Nitrogen 26 mg/dL (7-17); Calcium 9.5 mg/dL (8.4-10.2); Carbon Dioxide 28 mmol/L (22-32); Chloride 102 mmol/L (98-107); Estimated Glomerular Filt Rate > 60 mL/min (>60); Globulin 3.3 g/dL (1.7-4.1); Glucose 147 mg/dL (80-110); HEMOLYSIS 25 (0-50); Potassium 4.2 mmol/L (3.4-5.1); Sodium 139 mmol/L (137-145); Total Protein 7.8 g/dL (6.3-8.2)
[2022-10-06 19:28] LABS: Lactate (Lactic Acid) 1.7 mmol/L (0.7-2.1)
[2022-10-06 19:33] LABS: Hematocrit 41.1 % (36-46); Hemoglobin 13.8 g/dL (12.0-16.0); Mean Corpuscular HGB Conc 33.7 % (30-36); Mean Corpuscular Volume 83.2 fL (80-100); Platelet Count 237 X10^3/uL (150-400); Red Blood Cell Count 4.94 X10^6/uL (4.0-5.2); Red Cell Distribution Width 14.6 % (11.6-14.8); White Blood Cell Count 16.2 X10^3/uL (4.5-11.0)
[2022-10-06 19:37] LABS: D Dimer 422 ng/ml (<500)
[2022-10-06 19:39] LABS: NT-proBNP (BNP-Adult 18+) 165 pg/mL (<125); Troponin I < 0.012 ng/mL (0.01-0.034)
[2022-10-06] MEDS: SODIUM CHLORIDE 0.9% 1,434 ML 478 ML IV (19:50)
[2022-10-06] MEDS: AMOXICILLIN/CLAV 875/125 MG 1 TAB PO (19:51)
[2022-10-06] MEDS: methylPREDNISolone 125 MG/2 ML VIAL IV (19:51)
[2022-10-06 19:56] LABS: Add Manual Diff / Slide Review YES
[2022-10-06 19:58] LABS: Neutrophils Absolute Manual 11826 /uL (3000-5900); Total Cells Counted 100
[2022-10-06 20:00] LABS: RBC Morphology Normal Morphology
[2022-10-06 20:07] LABS: Procalcitonin 0.05 ng/mL (<0.5)
[2022-10-06 20:34] LABS: Adenovirus Not Detected (Not Detect); B. parapertussis Not Detected (Not Detecte); Bordetella pertussis Not Detected (Not Detecte); Chlamydophila pneumoniae Not Detected (Not Detect); Coronavirus 229E Not Detected (Not Detect); Coronavirus HKU1 Not Detected (Not Detect); Coronavirus NL 63 Not Detected (Not Detect); Coronavirus OC43 Not Detected (Not Detect); Human Metapneumovirus Not Detected (Not Detect); Human Rhinovirus/Enterovirus Not Detected (Not Detect); Influenza A Not Detected (Not Detect); Influenza B Not Detected (Not Detect); Mycoplasma pneumoniae Not Detected (Not Detect); Parainfluenza Virus 1 Not Detected (Not Detect); Parainfluenza Virus 2 Not Detected (Not Detect); Parainfluenza Virus 3 Not Detected (Not Detect); Parainfluenza Virus 4 Not Detected (Not Detect); Respiratory Syncytial Virus Not Detected (Not Detect); SARS- CoV-2 Not Detected (Not Detecte)
== END 2022-10-06 21:31 | disposition home or self-care (01) ==
PROVIDERS: Emergency Medicine; Emergency Provider Emergency Medicine; PCP Nurse Practitioner
DX: J18.9 Pneumonia, unspecified organism (principal); Z79.899 Other long term (current) drug therapy; Z20.822 Contact with and (suspected) exposure to COVID-19
CPT/HCPCS: 36415; 71045; 80053; 83605; 83880; 84145; 84484; 85007; 85025; 85379; 85610; 87633; 93005; 94640; 96361; 96374; 99284; J2930

== ENCOUNTER → 2022-11-05 11:49 | Outpatient (CLI) | payer OTHER, SELFPAY ==
[2022-10-23 14:48] VITALS: BMI 40.2
--- NOTE | 2022-11-05 11:51 | DI.RAD.S_ITS ---
PROCEDURE: XR CHEST 2V INDICATIONS: pneumonia folow up TECHNIQUE: 2 views of the chest were acquired. COMPARISON: [facility], CR, XR CHEST 1V, 10/06/2022, 18:26. FINDINGS: Surgical changes and devices: None. Lungs and pleura: Lungs are clear. No pleural effusions or pneumothorax. Mediastinum: Mediastinal contours are normal. Heart size is normal. Bones and chest wall: No suspicious bony abnormalities. Soft tissues appear unremarkable. IMPRESSION: No acute cardiopulmonary abnormality is seen. Dictated by: Teresa Hirsch M.D. on 11/05/2022 at 17:09 Approved by: Teresa Hirsch M.D. on 11/05/2022 at 17:10
== END ==
PROVIDERS: PCP Nurse Practitioner; Referring Provider Family Medicine; Visit Provider Family Medicine
DX: J18.9 Pneumonia, unspecified organism (principal)
CPT/HCPCS: 71046

== ENCOUNTER → 2022-11-06 08:25 | Outpatient (CLI) | payer OTHER, SELFPAY ==
[2022-10-23 14:48] VITALS: BMI 40.2
[2022-11-06 10:50] LABS: Add Manual Diff / Slide Review YES; Hematocrit 37.4 % (36-46); Hemoglobin 12.5 g/dL (12.0-16.0); Mean Corpuscular HGB Conc 33.6 % (30-36); Mean Corpuscular Hemoglobin 28.2 PG (26-34); Mean Corpuscular Volume 83.9 fL (80-100); Platelet Count 236 X10^3/uL (150-400); Red Blood Cell Count 4.45 X10^6/uL (4.0-5.2); Red Cell Distribution Width 15.9 % (11.6-14.8); White Blood Cell Count 9.2 X10^3/uL (4.5-11.0)
[2022-11-06 10:57] LABS: Alanine Aminotransferase 20 IU/L (<35); Albumin 4.2 g/dL (3.5-5.0); Albumin Globulin Ratio 1.6 (1.0-2.8); Alkaline Phosphatase 98 U/L (38-126); Aspartate Aminotransferase 22 IU/L (14-36); BUN Creatinine Ratio 18.2 (6-22); Bilirubin Total 0.3 mg/dL (0.2-1.3); Blood Urea Nitrogen 20 mg/dL (7-17); Calcium 9.6 mg/dL (8.4-10.2); Carbon Dioxide 28 mmol/L (22-32); Chloride 102 mmol/L (98-107); Cholesterol 160 mg/dL (140-199); Estimated Glomerular Filt Rate 53 mL/min (>60); Globulin 2.6 g/dL (1.7-4.1); Glucose 140 mg/dL (80-110); HDL Cholesterol 52 mg/dL (40-60); HEMOLYSIS < 15 (0-50); LDL Cholesterol Calculated 70 mg/dL (<100); Potassium 4.3 mmol/L (3.4-5.1); Sodium 139 mmol/L (137-145); Total Protein 6.8 g/dL (6.3-8.2); Triglycerides 191 mg/dL (35-150)
[2022-11-06 11:25] LABS: Thyroid Stimulating Hormone 3.88 uIU/mL (0.47-4.68)
[2022-11-06 11:59] LABS: Neutrophils Absolute Manual 6164 /uL (3000-5900); Total Cells Counted 100
[2022-11-06 12:01] LABS: RBC Morphology Normal Morphology
[2022-11-08 17:13] LABS: Hep C Virus Ab w/Reflex Quant NEGATIVE s/c (NEGATIVE)
== END ==
PROVIDERS: PCP Nurse Practitioner; Referring Provider Nurse Practitioner; Visit Provider Nurse Practitioner
DX: D72.829 Elevated white blood cell count, unspecified (principal); E11.9 Type 2 diabetes mellitus without complications; E78.1 Pure hyperglyceridemia; F32.A Depression, unspecified; I10 Essential (primary) hypertension; Z79.899 Other long term (current) drug therapy; Z11.59 Encounter for screening for other viral diseases
CPT/HCPCS: 36415; 80053; 80061; 83036; 84443; 85007; 85025; 86803

== ENCOUNTER → 2023-01-04 | Outpatient (CLI) | payer OTHER, SELFPAY ==
[2022-10-23 14:48] VITALS: BMI 40.2
--- NOTE | 2023-01-04 14:10 | DI.RAD.S_ITS ---
Bone Density Report Name: ML MANN Age: 72 Sex: Female Ethnicity: White Date of : 1950 Indication: postmenopausal; screening for osteoporosis; Referring Provider: LAURE TANNER Study: Bone densitometry was performed. Exam Date: January 04, 2023 Accession number: [id number] Bone Density: Region BMD T-score Z-score Classification AP Spine(L2, L3, L4) 1.155 0.7 3.1 Normal Femoral Neck (Left) 0.604 -2.2 -0.2 Osteopenia Total Hip (Left) 0.898 -0.4 1.3 Normal Femoral Neck (Right) 0.606 -2.2 -0.2 Osteopenia Total Hip (Right) 0.892 -0.4 1.3 Normal Total Hip Mean 0.895 -0.4 1.3 Normal World Health Organization criteria for BMD impression classify patients as: Normal (T-score at or above -1.0), Osteopenia (T-score between -1.0 and -2.5), or Osteoporosis (T-score at or below -2.5). 10-year Fracture Risk(1): Major Osteoporotic Fracture 12% Hip Fracture 2.9% Reported Risk Factors: [place] (), Neck BMD=0.604, BMI=35.9 (1) FRAX(R) Version 3.08. Fracture probability calculated for an untreated patient. Fracture probability may be lower if the patient has received treatment. Impression: The patient has low bone mass, based on the Left Femoral Neck T-score. The patient has an estimated ten-year risk of hip fracture of 2.9% and an estimated ten-year risk of major fracture of 12%, based on the WHO FRAX algorithm. Discussion: BONE DENSITY IS LOW AT ONE OR MORE SKELETAL SITES. This patient's lowest T-score is low at one or more skeletal sites. It meets the World Health Organization's (WHO) criteria for low bone mass (T-score between -1.0 and -2.5). The patient's 10-year risk of fracture as calculated by FRAX is less than the threshold where pharmacological therapy is recommended by the National Osteoporosis Foundation (NOF). However, all treatment decisions require clinical judgment and consideration of individual patient factors, including patient preferences, comorbidities, previous drug use, risk factors not captured in the FRAX model (e.g., frailty, falls, vitamin D deficiency, increased bone turnover, interval significant decline in bone density) and possible under or overestimation of fracture risk by FRAX. The patient should follow a healthful lifestyle (good nutrition with adequate calcium and vitamin D, and appropriate weight-bearing exercise). Follow-Up: Consider repeating this study in 2 to 3 years to reassess this patient's status, or sooner if there is some new clinical indication. Reported by: XIOMARA ANGUIANO M.D. on 01/04/2023 4:17:00 PM.
--- NOTE | 2023-01-04 14:10 | DI.MG.S_ITS ---
BILATERAL DIGITAL SCREENING MAMMOGRAM 3D/2D WITH CAD: 01/04/2023 CLINICAL: Routine screening. Routine screening. Family history of breast cancer. Comparison is made to exams dated: 08/14/2018 mammogram, 06/10/2012 mammogram, and 05/15/2011 mammogram - Outside facility. There are scattered areas of fibroglandular density in both breasts (category b / 25%-50% glandular tissue). Current study was also evaluated with a Computer Aided Detection (CAD) system. There are benign calcifications in both breasts. No significant masses, calcifications, or other findings are seen in either breast. There has been no significant interval change. IMPRESSION: BENIGN There is no mammographic evidence of malignancy. A 1 year screening mammogram is recommended. Based on the Tyrer Cuzick model (a risk assessment model) the patient's lifetime risk is 4.5% and her 10 year risk is 3.7%. According to the ACR, ACS, and NCCN guidelines, an annual breast MRI exam along with mammogram is recommended if the patient's lifetime risk is 20% or greater. This exam was interpreted at Station ID: [id number]. NOTE: For mammograms, a report in lay terms will be sent to the patient. Approximately 15% of breast malignancies will not be visualized mammographically. In the management of a palpable breast mass, a negative mammogram must not discourage biopsy of a clinically suspicious lesion. Electronically Signed By: Blair bird/familia:01/04/2023 19:58:59 letter sent: Normal Exam ACR BI-RADS Category 2: Benign Finding(s) 3342F
== END ==
LOC: MAMMO 14:10
PROVIDERS: PCP Nurse Practitioner; Referring Provider Nurse Practitioner; Visit Provider Nurse Practitioner
DX: Z12.31 Encounter for screening mammogram for malignant neoplasm of breast (principal); M81.0 Age-related osteoporosis without current pathological fracture; Z80.3 Family history of malignant neoplasm of breast
CPT/HCPCS: 77063; 77067; 77080

== ENCOUNTER → 2023-01-09 14:56 | Outpatient (CLI) | payer OTHER, SELFPAY ==
[2022-10-23 14:48] VITALS: BMI 40.2
--- NOTE | 2023-01-09 14:59 | DI.RAD.S_ITS ---
PROCEDURE: XR LUMBAR SPINE 2-3V INDICATIONS: Low back pain TECHNIQUE: 3 views of the lumbar spine were acquired. COMPARISON: None. FINDINGS: Bones: 5 ofl-ame-cqmofzb vertebrae are present. Levocurvature of the thoracic spine centered at L3. Straightening the normal lumbar lordosis. Mild anterolisthesis of L2 on L3, retrolisthesis of L3 on L4 and grade 1 anterolisthesis of L4 on L5. There is multilevel facet arthropathy, worse at L4-5 and L5-S1. Multilevel disc height loss with degenerative endplate changes and spurring is present. Diffusely decreased osseous mineralization. No vertebral body compression fractures. No suspicious bony lesions. Soft tissues: Overlying bowel gas pattern is normal. No suspicious soft tissue calcifications. IMPRESSION: Multilevel degenerative changes of the lumbar spine with levocurvature. Dictated by: Saji Montemayor M.D. on 01/09/2023 at 15:10 Approved by: Saji Montemayor M.D. on 01/09/2023 at 15:11
[2023-01-09 15:54] LABS: Hemoglobin A1C% w Est Avg Glu 6.4 % (4.0-6.0)
[2023-01-09 16:07] LABS: BUN Creatinine Ratio 17.4 (6-22); Blood Urea Nitrogen 19 mg/dL (7-17); Carbon Dioxide 28 mmol/L (22-32); Chloride 102 mmol/L (98-107); Estimated Glomerular Filt Rate 54 mL/min (>60); Glucose 118 mg/dL (80-110); HEMOLYSIS < 15 (0-50); Sodium 141 mmol/L (137-145)
[2023-01-09 16:55] LABS: Vitamin B12 636 pg/mL (239-931)
== END ==
PROVIDERS: PCP Nurse Practitioner; Referring Provider Physician Assistant; Visit Provider Physician Assistant
DX: I10 Essential (primary) hypertension (principal); E11.9 Type 2 diabetes mellitus without complications; R26.89 Other abnormalities of gait and mobility
CPT/HCPCS: 36415; 72100; 80048; 82607; 83036

== ENCOUNTER → 2023-01-22 12:25 | Outpatient (CLI) | payer OTHER, SELFPAY ==
[2022-10-23 14:48] VITALS: BMI 40.2
--- NOTE | 2023-01-22 12:27 | DI.RAD.S_ITS ---
PROCEDURE: XR HIP W PEL IF DONE ZACK MIN 4V INDICATIONS: bilateral hip pain TECHNIQUE: AP pelvis with lateral view(s) of the bilateral hip(s). COMPARISON: None. FINDINGS: Bones: No fractures or dislocations. Pelvic ring appears intact. No suspicious bony lesions. Moderate bilateral hip joint space narrowing. Degenerative changes noted in lower lumbar spine Soft tissues: The visualized bowel gas pattern is normal. No suspicious soft tissue calcifications. IMPRESSION: Moderate bilateral hip joint space narrowing without marginal osteophyte. Lower lumbar spine degenerative changes Approved by: Drew Snider M.D. on 01/22/2023 at 19:06
== END ==
PROVIDERS: PCP Nurse Practitioner; Referring Provider Nurse Practitioner; Visit Provider Nurse Practitioner
DX: M47.816 Spondylosis without myelopathy or radiculopathy, lumbar region (principal); M25.551 Pain in right hip; M25.552 Pain in left hip
CPT/HCPCS: 73522

== ENCOUNTER → 2023-05-01 09:48 | Outpatient (CLI) | payer MEDICARE, SELFPAY ==
[2022-10-23 14:48] VITALS: BMI 40.2
[2023-05-01 11:31] LABS: Alanine Aminotransferase 14 IU/L (<35); Albumin 4.1 g/dL (3.5-5.0); Albumin Globulin Ratio 1.3 (1.0-2.8); Alkaline Phosphatase 90 U/L (38-126); Aspartate Aminotransferase 23 IU/L (14-36); BUN Creatinine Ratio 22.6 (6-22); Bilirubin Total 0.3 mg/dL (0.2-1.3); Blood Urea Nitrogen 21 mg/dL (7-17); Carbon Dioxide 29 mmol/L (22-32); Chloride 108 mmol/L (98-107); Cholesterol 128 mg/dL (140-199); Estimated Glomerular Filt Rate > 60 mL/min (>60); Globulin 3.1 g/dL (1.7-4.1); Glucose 114 mg/dL (80-110); HDL Cholesterol 42 mg/dL (40-60); HEMOLYSIS 20 (0-50); LDL Cholesterol Calculated 53 mg/dL (<100); Potassium 4.3 mmol/L (3.4-5.1); Sodium 142 mmol/L (137-145); Total Protein 7.2 g/dL (6.3-8.2); Triglycerides 164 mg/dL (35-150)
== END ==
PROVIDERS: PCP Nurse Practitioner; Referring Provider Nurse Practitioner; Visit Provider Nurse Practitioner
DX: E11.9 Type 2 diabetes mellitus without complications (principal); I10 Essential (primary) hypertension; E78.1 Pure hyperglyceridemia
CPT/HCPCS: 36415; 80053; 80061; 83036

== ENCOUNTER → 2023-05-04 08:51 | Outpatient (CLI) | payer MEDICARE, SELFPAY ==
[2022-10-23 14:48] VITALS: BMI 40.2
[2023-05-04 10:21] LABS: Creatinine Urine Random 117.4 mg/dL
[2023-05-04 10:25] LABS: Microalbumi Creatinin Ratio Ur 14.4 ug/mg CR (<30); Microalbumin Urine Random 1.7 mg/dL (0-1.6)
== END ==
PROVIDERS: PCP Nurse Practitioner; Referring Provider Nurse Practitioner; Visit Provider Nurse Practitioner
DX: I10 Essential (primary) hypertension (principal); E11.9 Type 2 diabetes mellitus without complications; E78.1 Pure hyperglyceridemia
CPT/HCPCS: 82043; 82570

== ENCOUNTER → 2023-05-07 13:36 | Outpatient (CLI) | payer MEDICARE, SELFPAY ==
[2022-10-23 14:48] VITALS: BMI 40.2
[2023-05-07 14:12] LABS: Add Manual Diff / Slide Review NO; Basophils Absolute Auto 0 /uL (0-100); Basophils Percent Auto 0.2 % (0-2); Eosinophils Absolute Auto 0 /uL (0-450); Hematocrit 39.3 % (36-46); Hemoglobin 13.1 g/dL (12.0-16.0); Lymphocytes Absolute Auto 2500 /uL (1100-4500); Lymphocytes Percent Auto 20.4 % (25-40); Mean Corpuscular HGB Conc 33.3 % (30-36); Mean Corpuscular Volume 83.9 fL (80-100); Monocytes Absolute Auto 600 /uL (0-900); Monocytes Percent Auto 5.2 % (3-14); Neutrophils Absolute Auto 9000 /uL (1500-7000); Neutrophils Percent Auto 74.2 % (50-75); Platelet Count 314 X10^3/uL (150-400); Red Blood Cell Count 4.68 X10^6/uL (4.0-5.2); Red Cell Distribution Width 15.3 % (11.6-14.8); White Blood Cell Count 12.1 X10^3/uL (4.5-11.0)
[2023-05-07 14:24] LABS: HEMOLYSIS < 15 (0-50); Iron 57 ug/dL (37-170)
[2023-05-07 14:35] LABS: Percent Iron Saturation 17 % (15-50); Total Iron Binding Capacity 344 ug/dL (265-497); Transferrin 297 mg/dL (206-381)
[2023-05-07 14:44] LABS: Free T3, Triiodothyronine Free 3.11 pg/mL (2.77-5.27); Free T4, Direct Thyroxine 1.38 ng/dL (0.78-2.19)
[2023-05-07 14:58] LABS: Thyroid Stimulating Hormone 0.876 uIU/mL (0.47-4.68)
[2023-05-07 15:13] LABS: Vitamin B12 387 pg/mL (239-931)
== END ==
PROVIDERS: PCP Nurse Practitioner; Referring Provider Nurse Practitioner; Visit Provider Nurse Practitioner
DX: R53.83 Other fatigue (principal)
CPT/HCPCS: 36415; 82607; 83540; 83550; 84439; 84443; 84481; 85025

== ENCOUNTER → 2023-05-10 16:11 | Outpatient (CLI) | payer MEDICARE, SELFPAY ==
[2022-10-23 14:48] VITALS: BMI 40.2
[2023-05-10 18:03] LABS: Appearance Urine UA SL CLOUDY; Bilirubin Urine UA NEGATIVE (NEGATIVE); Color Urine UA YELLOW; Glucose Urine UA NEGATIVE (Negative); Ketones Urine UA NEGATIVE (NEGATIVE); Leukocyte Esterase Urine UA TRACE (NEGATIVE); Nitrite Urine UA NEGATIVE (Negative); Occult Blood Urine UA NEGATIVE (Negative); Protein Urine UA NEGATIVE (Negative); Urobilinogen Urine UA 0.2 E.U./dL (0.2)
[2023-05-10 18:13] LABS: Amorphous Sediment Urine 2+; Bacteria Urine Occasional (0-1); RBC Urine None Seen (0-5/HPF); Squamous Epithelial Cell Urine 1-5 /HPF (0-5/HPF); Urine Volume 10mL (spun); WBC Urine 0-1/HPF (0-5/HPF)
[2023-05-10 18:14] LABS: Culture Indicated Urine Specimen Cultured
== END ==
PROVIDERS: PCP Nurse Practitioner; Referring Provider Nurse Practitioner; Visit Provider Nurse Practitioner
DX: R30.0 Dysuria (principal)
CPT/HCPCS: 81001; 87086

== ENCOUNTER → 2023-05-30 06:53 | Outpatient (CLI) | payer MEDICARE, SELFPAY ==
[2022-10-23 14:48] VITALS: BMI 40.2
[2023-05-30 07:46] LABS: Add Manual Diff / Slide Review NO; Basophils Absolute Auto 0 /uL (0-100); Basophils Percent Auto 0.1 % (0-2); Eosinophils Absolute Auto 0 /uL (0-450); Hematocrit 40.5 % (36-46); Lymphocytes Absolute Auto 3400 /uL (1100-4500); Lymphocytes Percent Auto 30.2 % (25-40); Mean Corpuscular HGB Conc 32.1 % (30-36); Mean Corpuscular Volume 83.9 fL (80-100); Monocytes Absolute Auto 700 /uL (0-900); Neutrophils Absolute Auto 7100 /uL (1500-7000); Neutrophils Percent Auto 63.7 % (50-75); Platelet Count 270 X10^3/uL (150-400); Red Blood Cell Count 4.83 X10^6/uL (4.0-5.2); Red Cell Distribution Width 15.4 % (11.6-14.8); White Blood Cell Count 11.2 X10^3/uL (4.5-11.0)
[2023-05-30 09:02] LABS: Alanine Aminotransferase 15 IU/L (<35); Albumin 4.4 g/dL (3.5-5.0); Albumin Globulin Ratio 1.4 (1.0-2.8); Alkaline Phosphatase 87 U/L (38-126); Aspartate Aminotransferase 22 IU/L (14-36); BUN Creatinine Ratio 22.9 (6-22); Bilirubin Total 0.4 mg/dL (0.2-1.3); Blood Urea Nitrogen 25 mg/dL (7-17); Calcium 9.8 mg/dL (8.4-10.2); Carbon Dioxide 28 mmol/L (22-32); Chloride 104 mmol/L (98-107); Estimated Glomerular Filt Rate 54 mL/min (>60); Globulin 3.1 g/dL (1.7-4.1); Glucose 126 mg/dL (80-110); HEMOLYSIS < 15 (0-50); Potassium 4.5 mmol/L (3.4-5.1); Sodium 140 mmol/L (137-145); Total Protein 7.5 g/dL (6.3-8.2)
== END ==
LOC: LAB 06:54
PROVIDERS: PCP Nurse Practitioner; Referring Provider Nurse Practitioner; Visit Provider Nurse Practitioner
DX: Z01.818 Encounter for other preprocedural examination (principal); Z01.812 Encounter for preprocedural laboratory examination; I10 Essential (primary) hypertension; E11.9 Type 2 diabetes mellitus without complications
CPT/HCPCS: 36415; 80053; 85025; 93005; 93010

== ENCOUNTER 2023-07-25 07:39 | Day surgery (SDC) | payer MEDICARE, SELFPAY ==
[2022-10-23 14:48] VITALS: BMI 40.2
--- NOTE | 2023-07-25 | PATH_ITS ---
[facility] Accession Number: [id number] No. of containers..01 Tissue . 01 Material submitted: . stomach - ANTRUM . 01 Diagnosis: ANTRUM: Gastric mucosa with mild chronic inflammation and features of reactive gastropathy. No Helicobacter organisms identified. No intestinal metaplasia, dysplasia, or malignancy identified. [facility] 08/01/20231835 Local . 01 Electronically signed: . Zheng Wild MD, Pathologist NPI- [id number] . 01 Gross description: . Received in formalin with two patient identifiers and designated antrum, and consists of four dasilva semi-translucent friable tissue fragments averaging 0.3 x 0.2 x 0.1 cm. The specimens are entirely submitted in cassette A1. ([id number]) /MRV 08/01/20231835 Local . 01 Microscopic: . ANTRUM: An immunohistochemical stain was performed to evaluate for Helicobacter organisms and is negative. The control stains appropriately. * This test was developed and its performance characteristics determined by [facility]. It has not been cleared or approved by the U.S. Food and Drug Administration. The FDA has determined that such clearance or approval is not necessary. This test is used for clinical purposes. It should not be regarded as investigational or for research. . 01 Pathologist provided ICD-10: K29.60 . 01 CPT . 301713, R92881 Specimen Comment: A courtesy copy of this report has been sent to [phone] Performed at: [address] [facility], [place], [place] [id number] MD Zheng Wild MD Phone: [phone]
[2023-07-25] MEDS: FLEETS ENEMA 1 EACH PR (08:00)
--- NOTE | 2023-07-25 08:05 | PM.HP.1 ---
History of Present Illness History of Present Illness Date Patient Seen: 07/25/23 Time Patient Seen: 08:05 Chief complaint: SDC Narrative: Jenna is a 73-year-old woman who is here for an EGD and colonoscopy for dysphagia and colon cancer screening. See the prior office note for more details. It sounds as if her prep quite do the job. She received an enema in preop this morning. [facility] Medical History Fatigue Cataract Chronic lower back pain Loss of balance Near sighted Headache (~1986) Mumps Measles Chicken pox (~1953) Vertigo Cataracts, bilateral Hypothyroidism Hypertension Hypertriglyceridemia Type 2 diabetes mellitus Depression (~1986) Migraine (~1986) Multiple allergies Acidosis, lactic Postmenopausal bleeding Disease of thyroid gland FH: migraine headache Chest pain Asthma Surgical History Anesthesia H/O tubal ligation (~1973) H/O adenoidectomy (~1961) H/O section Hx of tonsillectomy (~1961) History of carpal tunnel surgery (~1986) History of appendectomy (~1967) Family History Brother Family history of BPH Kidney stones COPD (chronic obstructive pulmonary disease) Mother Hypertension Diabetes mellitus Thyroid disease Father Cancer Diabetes mellitus CAD in [place] artery History of heart disease Mental health problem Alzheimer's disease Grandfather History of heart disease Grandmother Breast cancer Grandmother Stroke TIA (transient ischemic attack) Social History marital status: number of children: 2 household members: friend(s) Smoking Status: Never smoker Type(s) of exercise: walking frequency: 1-2 times per week Meds Home Medications and Allergies Home Medications Medication Instructions Recorded Confirmed Type albuterol sulfate 90 mcg/actuation 2 inh inhalation Q4-6H PRN 12/07/21 07/25/23 History breath activated powder inhaler Shortness Of Breath calcium 167 mg-vitamin D3 1.67 1 cap PO QAM 12/07/21 05/31/23 History mcg-magnesium 83 mg capsule cetirizine 10 mg capsule (Zyrtec) 10 mg PO DAILY 12/07/21 07/25/23 History montelukast 10 mg tablet 10 mg PO QPM 12/07/21 07/25/23 History (Singulair) epinephrine 0.3 mg/0.3 mL 0.3 mg (0.3 mL) IM Q5-15M PRN 02/26/22 05/31/23 Rx injection, auto-injector (EpiPen anaphylaxis #2 ea 2-Rivera) calcium vijr-I4-qakkjnldm-zinc 3 tab PO QAM 07/01/22 05/31/23 History Z Sleep Patches See Rx Instructions .Route .COMPLEX 09/04/22 05/31/23 History acetaminophen 500 mg capsule 1,000 mg PO TID PRN asthma 09/04/22 07/25/23 History azelastine 205.5 mcg (0.15 %) 2 spray intranasal DAILY 09/04/22 07/25/23 History nasal spray budesonide-formoterol HFA 160 2 puff inhalation BID 09/04/22 07/25/23 History mcg-4.5 mcg/actuation aerosol inhaler (Symbicort) diphenhydramine HCl 25 mg capsule 25 mg PO BEDTIME PRN asthma 09/04/22 07/25/23 History (Benadryl) famotidine 20 mg tablet 20 mg PO BID 09/04/22 07/25/23 History fluticasone propionate 50 2 spray intranasal DAILY 09/04/22 07/25/23 History mcg/actuation nasal spray,suspension (Flonase Allergy Relief) lidocaine 4 % topical patch 1 patch topical DAILY PRN asthma 09/04/22 07/25/23 History (Salonpas (lidocaine)) lidocaine 4 % topical spray spray topical 09/04/22 05/31/23 History (Aspercreme (lidocaine)) nortriptyline 75 mg capsule 150 mg (2 x 75 mg) PO BEDTIME #180 09/04/22 07/25/23 Rx caps omega-3 acid ethyl esters 1 gram 1 cap PO BID #180 caps 09/04/22 05/31/23 Rx capsule riboflavin (vitamin B2) 400 mg 400 mg PO DAILY #90 tabs 09/04/22 05/31/23 Rx tablet sertraline 100 mg tablet (Zoloft) 100 mg PO DAILY #90 tabs 09/24/22 07/25/23 Rx sertraline 50 mg tablet 50 mg PO DAILY #90 tabs 09/24/22 07/25/23 Rx ipratropium 0.5 mg-albuterol 3 mg 3 ml inhalation Q4-6H PRN asthma 11/02/22 07/25/23 History (2.5 mg base)/3 mL nebulization soln omeprazole 20 mg tablet,delayed 20 mg PO .PM 11/02/22 07/25/23 History release levothyroxine 125 mcg tablet 125 mcg PO DAILY #90 tabs 11/19/22 07/25/23 Rx albuterol sulfate 2.5 mg/3 mL 2.5 mg (3 mL) inhalation Q4-6H PRN 12/17/22 07/25/23 Rx (0.083 %) solution for nebulization shortness of breath or wheezing #180 mL Disabled Parking Permit See Rx Instructions .Route 01/09/23 05/31/23 Rx .COMPLEX #1 ea cholecalciferol (vitamin D3) 25 50 mcg PO BID 01/22/23 05/31/23 History mcg (1,000 unit) capsule denosumab 60 mg/mL subcutaneous 60 mg SUBCUT [id number] #1 mL 01/22/23 07/25/23 Rx syringe (Prolia) blood sugar diagnostic (OneTouch #100 ea 03/01/23 05/31/23 Rx Verio test strips) blood-glucose meter (Blood Glucose #1 ea 03/26/23 05/31/23 Rx Monitoring kit) benralizumab 30 mg/mL subcutaneous 30 mg SUBCUT Q8W #1 mL 04/05/23 07/25/23 Rx auto-injector (Fasenra Pen) brimonidine 0.2 %-timolol 0.5 % 1 drp EYE-RIGHT BID 05/07/23 07/25/23 History eye drops galcanezumab-gnlm 120 mg/mL 120 mg SUBCUT QMONTH #1 mL 05/07/23 05/31/23 Rx subcutaneous pen injector (Emgality Pen) terbinafine HCl 250 mg tablet 250 mg PO DAILY #90 tabs 05/28/23 07/25/23 Rx rimegepant 75 mg disintegrating 75 mg PO ONCE PRN migraine 06/05/23 Rx tablet (Nurtec ODT) headache #18 tabs nystatin 100,000 unit/gram topical 1 applic topical BID rash breast 07/02/23 07/25/23 Rx powder fold and groin area #60 grams lisinopril 20 mg tablet 20 mg PO DAILY #90 tabs 07/18/23 07/25/23 Rx metformin 500 mg tablet,extended 1,000 mg (2 x 500 mg) PO BID #360 07/24/23 07/25/23 Rx release 24 hr tabs Allergies Allergy/AdvReac Type Severity Reaction Status Date / Time cat dander Allergy Wheezing Verified 07/25/23 07:56 hydrochlorothiazide Allergy Rash Verified 07/25/23 07:56 melon Allergy ITCHING Verified 07/25/23 07:56 nitrofurantoin Allergy Vomiting Verified 07/25/23 07:56 [From Macrobid] peanut Allergy Anaphylaxis Verified 07/25/23 07:56 pravastatin Allergy Muscle Pain Verified 07/25/23 07:56 zolpidem [From Ambien] Allergy Anxiety Verified 07/25/23 07:56 propranolol [From Inderal LA] AdvReac Intermediate Dizziness Verified 07/25/23 07:56 ceftriaxone AdvReac ITCHING Verified 07/25/23 07:56 levofloxacin [From Levaquin] AdvReac Vomiting Verified 07/25/23 07:56 banana Allergy Severe Anaphylaxis Uncoded 07/25/23 07:56 Exam Const General: No acute distress Resp Effort & Inspection: normal respiratory effort Assessment & Plan Assessment and plan (1) Colon cancer screening: Status: Acute (2) Dysphagia: Qualifiers: Dysphagia type: esophageal phase Qualified Code(s): R13.19 - Other dysphagia Status: Acute Plan We will proceed with EGD for dysphagia and attempt a screening colonoscopy if the prep is adequate.
[2023-07-25 08:07] VITALS: BP 124/79; PULSE 95; RESP 16; TEMP 36.1; O2SAT 94
[2023-07-25] MEDS: LACTATED RINGERS 1,000 ML 42 ML IV (08:07)
[2023-07-25 09:13] VITALS: BP 112/57; PULSE 80; RESP 15; O2SAT 95
--- NOTE | 2023-07-25 09:16 | PM.OP.EC ---
Operative Date/Time/Diagnoses Date of procedure: 07/25/23 Time of procedure: 09:16 Pre-op diagnosis: Dysphagia and colon cancer screening Post-op diagnosis: same Procedure & Clinicians Study performed: EGD with balloon dilation Colonoscopy Same procedure as scheduled: Yes Surgeon: Jomar Suresh Procedure Notes Procedure in detail: Surgeon: Jomar Suresh MD Anesthesia: Sheng Davenport Procedure in detail: A timeout was performed. A bite blocked was placed and monitors were attached to the patient. The patient was positioned in the left lateral decubitus position. Sedation was administered. Once the patient was sedated the endoscope was inserted through the bite block and passed through the esophagus and stomach and into the duodenum. No abnormalities were seen in the duodenal. We then withdrew the scope into the stomach. There was some mild antritis and random biopsies were taken from the antrum. The endoscope was retroflexed and no hiatal hernia was seen. The endoscope was straightned and withdrawn into the esophagus. The distal esophagus was somewhat tortuous with a mild stricture. Balloon dilation was performed to 11 mm Hg and 15 mmHg for 30 seconds each. There was no visible trauma to the mucosa. Rest of the esophagus was normal. The scope was withdrawn. EGD findings: Mild antritis and a slightly tortuous and narrow distal esophagus Next we repositioned the patient for a colonoscopy. A digital rectal exam was performed and was normal. The colonoscope was inserted and advanced to the cecum. The appendiceal orifice was identified and photographed. The prep was incomplete and unable to be irrigated away. The scope was slowly withdrawn over greater than 6 minutes. No o polyps or masses were found however the visualization was inadequate to completely clear the colon. There was sigmoid diverticulosis. The scope was retroflexed in the rectum and no other abnormalities were found. Colonoscopy findings: Inadequate prep, diverticulosis of the sigmoid colon Total procedural EBL: 5 mL Scope withdrawal time: 6 minutes Sedation minutes: 21 minutes Post-procedure Disposition: PACU
[2023-07-25 09:18] VITALS: BP 92/67; PULSE 77; RESP 14; O2SAT 96
[2023-07-25 09:23] VITALS: BP 93/56; PULSE 98; RESP 15; O2SAT 96
== END 2023-07-25 09:42 | disposition home or self-care (01) ==
PROVIDERS: PCP Nurse Practitioner; Referring Provider Surgery; Visit Provider Surgery
PROC: 0DJ08ZZ Inspection of Upper Intestinal Tract, Via Natural or Artificial Opening Endoscopic (ICD-10-PCS; CPT 43235; principal; 2023-07-25 08:15)
PROC: 0DJD8ZZ Inspection of Lower Intestinal Tract, Via Natural or Artificial Opening Endoscopic (ICD-10-PCS; CPT 45378; 2023-07-25 08:15)
DX: Z12.11 Encounter for screening for malignant neoplasm of colon (principal); R13.10 Dysphagia, unspecified; K57.30 Diverticulosis of large intestine without perforation or abscess without bleeding; K29.50 Unspecified chronic gastritis without bleeding; K22.2 Esophageal obstruction
CPT/HCPCS: 43249; 43239; G0121; J2704

== ENCOUNTER → 2023-08-07 12:55 | Outpatient (CLI) | payer MEDICARE, SELFPAY ==
[2022-10-23 14:48] VITALS: BMI 40.2
[2023-08-07 14:29] LABS: Add Manual Diff / Slide Review NO; Basophils Absolute Auto 0 /uL (0-100); Basophils Percent Auto 0.1 % (0-2); Eosinophils Absolute Auto 0 /uL (0-450); Hematocrit 38.2 % (36-46); Hemoglobin 12.7 g/dL (12.0-16.0); Lymphocytes Absolute Auto 2200 /uL (1100-4500); Lymphocytes Percent Auto 29.4 % (25-40); Mean Corpuscular HGB Conc 33.2 % (30-36); Mean Corpuscular Volume 84.3 fL (80-100); Monocytes Absolute Auto 500 /uL (0-900); Monocytes Percent Auto 6.6 % (3-14); Neutrophils Absolute Auto 4800 /uL (1500-7000); Neutrophils Percent Auto 63.9 % (50-75); Platelet Count 211 X10^3/uL (150-400); Red Blood Cell Count 4.53 X10^6/uL (4.0-5.2); Red Cell Distribution Width 15.1 % (11.6-14.8); White Blood Cell Count 7.5 X10^3/uL (4.5-11.0)
[2023-08-07 14:45] LABS: Hemoglobin A1C% w Est Avg Glu 6.3 % (4.0-6.0)
[2023-08-07 14:48] LABS: Alanine Aminotransferase 16 IU/L (<35); Albumin 4.2 g/dL (3.5-5.0); Albumin Globulin Ratio 1.5 (1.0-2.8); Alkaline Phosphatase 99 U/L (38-126); Aspartate Aminotransferase 23 IU/L (14-36); BUN Creatinine Ratio 21.8 (6-22); Bilirubin Total 0.4 mg/dL (0.2-1.3); Blood Urea Nitrogen 22 mg/dL (7-17); Carbon Dioxide 27 mmol/L (22-32); Chloride 106 mmol/L (98-107); Estimated Glomerular Filt Rate 58 mL/min (>60); Globulin 2.8 g/dL (1.7-4.1); Glucose 139 mg/dL (80-110); HEMOLYSIS < 15 (0-50); Potassium 4.7 mmol/L (3.4-5.1); Sodium 140 mmol/L (137-145)
== END ==
PROVIDERS: PCP Nurse Practitioner; Referring Provider Nurse Practitioner; Visit Provider Nurse Practitioner
DX: Z00.8 Encounter for other general examination (principal); E11.9 Type 2 diabetes mellitus without complications; J45.909 Unspecified asthma, uncomplicated; J44.9 Chronic obstructive pulmonary disease, unspecified
CPT/HCPCS: 36415; 80053; 83036; 85025

== ENCOUNTER → 2023-08-13 11:20 | Outpatient (CLI) | payer MEDICARE, SELFPAY ==
[2022-10-23 14:48] VITALS: BMI 40.2
== END ==
LOC: RESP 11:20
PROVIDERS: PCP Nurse Practitioner; Referring Provider Nurse Practitioner; Visit Provider Nurse Practitioner
DX: Z00.8 Encounter for other general examination (principal); J44.9 Chronic obstructive pulmonary disease, unspecified; R94.2 Abnormal results of pulmonary function studies
CPT/HCPCS: 94060; 94070; 94726; 94729

== ENCOUNTER → 2023-10-24 07:53 | Outpatient (CLI) | payer MEDICARE, SELFPAY ==
[2022-10-23 14:48] VITALS: BMI 40.2
[2023-10-24 08:40] LABS: Add Manual Diff / Slide Review NO; Basophils Absolute Auto 0 /uL (0-100); Basophils Percent Auto 0.2 % (0-2); Eosinophils Absolute Auto 0 /uL (0-450); Hemoglobin 13.3 g/dL (12.0-16.0); Lymphocytes Absolute Auto 2300 /uL (1100-4500); Lymphocytes Percent Auto 24.2 % (25-40); Mean Corpuscular HGB Conc 33.4 % (30-36); Mean Corpuscular Hemoglobin 28.3 PG (26-34); Monocytes Absolute Auto 700 /uL (0-900); Monocytes Percent Auto 7.5 % (3-14); Neutrophils Absolute Auto 6500 /uL (1500-7000); Neutrophils Percent Auto 68.1 % (50-75); Platelet Count 222 X10^3/uL (150-400); Red Cell Distribution Width 14.8 % (11.6-14.8); White Blood Cell Count 9.5 X10^3/uL (4.5-11.0)
[2023-10-24 09:06] LABS: Alanine Aminotransferase 51 IU/L (<35); Albumin 4.6 g/dL (3.5-5.0); Albumin Globulin Ratio 1.8 (1.0-2.8); Alkaline Phosphatase 127 U/L (38-126); Aspartate Aminotransferase 75 IU/L (14-36); Bilirubin Total 0.3 mg/dL (0.2-1.3); Blood Urea Nitrogen 21 mg/dL (7-17); Calcium 9.8 mg/dL (8.4-10.2); Carbon Dioxide 27 mmol/L (22-32); Chloride 102 mmol/L (98-107); Cholesterol 167 mg/dL (140-199); Estimated Glomerular Filt Rate 59 mL/min (>60); Globulin 2.6 g/dL (1.7-4.1); Glucose 135 mg/dL (80-110); HDL Cholesterol 66 mg/dL (40-60); HEMOLYSIS < 15 (0-50); LDL Cholesterol Calculated 74 mg/dL (<100); Potassium 4.7 mmol/L (3.4-5.1); Sodium 140 mmol/L (137-145); Total Protein 7.2 g/dL (6.3-8.2); Triglycerides 137 mg/dL (35-150)
[2023-10-24 10:15] LABS: Free T3, Triiodothyronine Free 2.25 pg/mL (2.77-5.27); Free T4, Direct Thyroxine 0.78 ng/dL (0.78-2.19)
[2023-10-24 10:29] LABS: Thyroid Stimulating Hormone 1.14 uIU/mL (0.47-4.68)
== END ==
LOC: LAB 07:54
PROVIDERS: PCP Nurse Practitioner; Referring Provider Nurse Practitioner; Visit Provider Nurse Practitioner
DX: E11.69 Type 2 diabetes mellitus with other specified complication (principal); E78.5 Hyperlipidemia, unspecified; E03.9 Hypothyroidism, unspecified; I10 Essential (primary) hypertension; F33.1 Major depressive disorder, recurrent, moderate; D64.9 Anemia, unspecified
CPT/HCPCS: 36415; 80053; 80061; 83036; 84439; 84443; 84481; 85025

== ENCOUNTER 2023-12-12 10:23 | Day surgery (SDC) | payer MEDICARE, SELFPAY ==
[2022-10-23 14:48] VITALS: BMI 40.2
[2023-12-12 10:43] VITALS: BP 131/81; PULSE 98; RESP 16; TEMP 36.2; O2SAT 98
--- NOTE | 2023-12-12 12:05 | PM.HP.1 ---
History of Present Illness History of Present Illness Date Patient Seen: 12/12/23 Time Patient Seen: 12:05 Chief complaint: SDC Narrative: Jenna is a 73-year-old woman is here for a retry of her colonoscopy. Her prep was inadequate the last time she tried to have a colonoscopy a few months ago. See the prior notes for more details. [facility] Medical History (Updated 10/28/23 @ 14:01 by ELOISE Nixon) History of immunocompromised state Fatigue Dyslipidemia associated with type 2 diabetes mellitus Diabetic retinopathy associated with controlled type 2 diabetes mellitus Cataract Chronic lower back pain Loss of balance Mumps Measles Chicken pox (~1953) Cataracts, bilateral Hypothyroidism Hypertension Type 2 diabetes mellitus Depression (~1986) Migraine (~1986) Multiple allergies Acidosis, lactic Postmenopausal bleeding Disease of thyroid gland FH: migraine headache Chest pain Surgical History Anesthesia H/O tubal ligation (~1973) H/O adenoidectomy (~1961) H/O section Hx of tonsillectomy (~1961) History of carpal tunnel surgery (~1986) History of appendectomy (~1967) Family History Brother Family history of BPH Kidney stones COPD (chronic obstructive pulmonary disease) Mother Hypertension Diabetes mellitus Thyroid disease Father Cancer Diabetes mellitus CAD in [place] artery History of heart disease Mental health problem Alzheimer's disease Grandfather History of heart disease Grandmother Breast cancer Grandmother Stroke TIA (transient ischemic attack) Social History marital status: number of children: 2 household members: friend(s) Smoking Status: Never smoker alcohol intake: never Type(s) of exercise: walking frequency: 1-2 times per week Meds Home Medications and Allergies Home Medications Medication Instructions Recorded Confirmed Type calcium 167 mg-vitamin D3 1.67 1 cap PO QAM 12/07/21 12/12/23 History mcg-magnesium 83 mg capsule cetirizine 10 mg capsule (Zyrtec) 10 mg PO DAILY 12/07/21 10/31/23 History montelukast 10 mg tablet 10 mg PO QPM 12/07/21 10/31/23 History (Singulair) calcium jcja-E7-tfjbexfzs-zinc 3 tab PO QAM 07/01/22 10/31/23 History Z Sleep Patches See Rx Instructions .Route .COMPLEX 09/04/22 10/31/23 History acetaminophen 500 mg capsule 1,000 mg PO TID PRN asthma 09/04/22 10/31/23 History azelastine 205.5 mcg (0.15 %) 2 spray intranasal DAILY 09/04/22 10/31/23 History nasal spray diphenhydramine HCl 25 mg capsule 25 mg PO BEDTIME PRN asthma 09/04/22 10/31/23 History (Benadryl) famotidine 20 mg tablet 20 mg PO BID 09/04/22 12/12/23 History fluticasone propionate 50 2 spray intranasal DAILY 09/04/22 10/31/23 History mcg/actuation nasal spray,suspension (Flonase Allergy Relief) lidocaine 4 % topical patch 1 patch topical DAILY PRN asthma 09/04/22 10/31/23 History (Salonpas (lidocaine)) lidocaine 4 % topical spray spray topical 09/04/22 10/31/23 History (Aspercreme (lidocaine)) omega-3 acid ethyl esters 1 gram 1 cap PO BID #180 caps 09/04/22 12/12/23 Rx capsule riboflavin (vitamin B2) 400 mg 400 mg PO DAILY #90 tabs 09/04/22 12/12/23 Rx tablet sertraline 50 mg tablet 50 mg PO DAILY #90 tabs 09/24/22 10/31/23 Rx ipratropium 0.5 mg-albuterol 3 mg 3 ml inhalation Q4-6H PRN asthma 11/02/22 10/31/23 History (2.5 mg base)/3 mL nebulization soln omeprazole 20 mg tablet,delayed 20 mg PO .PM 11/02/22 10/31/23 History release albuterol sulfate 2.5 mg/3 mL 2.5 mg (3 mL) inhalation Q4-6H PRN 12/17/22 10/31/23 Rx (0.083 %) solution for nebulization shortness of breath or wheezing #180 mL Disabled Parking Permit See Rx Instructions .Route 01/09/23 10/31/23 Rx .COMPLEX #1 ea cholecalciferol (vitamin D3) 25 50 mcg PO BID 01/22/23 10/31/23 History mcg (1,000 unit) capsule denosumab 60 mg/mL subcutaneous 60 mg SUBCUT [id number] #1 mL 01/22/23 12/12/23 Rx syringe (Prolia) blood sugar diagnostic (OneTouch #100 ea 03/01/23 10/31/23 Rx Verio test strips) blood-glucose meter (Blood Glucose #1 ea 03/26/23 10/31/23 Rx Monitoring kit) nystatin 100,000 unit/gram topical 1 applic topical BID rash breast 07/02/23 10/31/23 Rx powder fold and groin area #60 grams lisinopril 20 mg tablet 20 mg PO DAILY #90 tabs 07/18/23 12/12/23 Rx meloxicam 7.5 mg tablet 7.5 mg PO DAILY #90 tabs 08/07/23 12/12/23 Rx nortriptyline 75 mg capsule 150 mg (2 x 75 mg) PO BEDTIME #180 08/27/23 10/31/23 Rx caps epinephrine 0.3 mg/0.3 mL 0.3 mg (0.3 mL) IM Q5-15M PRN 09/04/23 10/31/23 Rx injection, auto-injector (EpiPen anaphylaxis #2 ea 2-Rivera) sertraline 100 mg tablet (Zoloft) 100 mg PO DAILY #90 tabs 09/10/23 10/31/23 Rx rosuvastatin 10 mg tablet 10 mg PO DAILY #90 tabs 09/11/23 10/31/23 Rx liothyronine 5 mcg tablet 5 mcg PO DAILY #90 tabs 10/28/23 12/12/23 Rx metformin 500 mg tablet,extended 1,500 mg (3 x 500 mg) PO DAILY 10/28/23 12/12/23 Rx release 24 hr #270 tabs rimegepant 75 mg disintegrating 75 mg PO ONCE PRN migraine 10/28/23 10/31/23 Rx tablet (Nurtec ODT) headache #18 tabs sodium,potassium,mag sulfates 17.5 See Rx Instructions PO .COMPLEX 10/29/23 10/31/23 Rx gram-3.13 gram-1.6 gram oral soln #354 mL (Suprep Bowel Prep Kit) budesonide-formoterol HFA 160 2 puff PO BID #10.2 grams 11/06/23 Rx mcg-4.5 mcg/actuation aerosol inhaler (Symbicort) benralizumab 30 mg/mL subcutaneous 30 mg SUBCUT Q8W #1 mL 11/07/23 Rx auto-injector (Fasenra Pen) levothyroxine 125 mcg tablet 125 mcg PO DAILY #90 tabs 12/02/23 12/12/23 Rx Allergies Allergy/AdvReac Type Severity Reaction Status Date / Time cat dander Allergy Wheezing Verified 10/31/23 14:06 hydrochlorothiazide Allergy Rash Verified 10/31/23 14:06 melon Allergy ITCHING Verified 10/31/23 14:06 nitrofurantoin Allergy Vomiting Verified 10/31/23 14:06 [From Macrobid] peanut Allergy Anaphylaxis Verified 10/31/23 14:06 pravastatin Allergy Muscle Pain Verified 10/31/23 14:06 zolpidem [From Ambien] Allergy Anxiety Verified 10/31/23 14:06 propranolol [From Inderal LA] AdvReac Intermediate Dizziness Verified 10/31/23 14:06 ceftriaxone AdvReac ITCHING Verified 10/31/23 14:06 levofloxacin [From Levaquin] AdvReac Vomiting Verified 10/31/23 14:06 banana Allergy Severe Anaphylaxis Uncoded 10/31/23 14:06 Exam Vital Signs (past 8 hours): - 12/12/23 10:43 Temperature 97.2 F L Pulse Rate 98 H Respiratory Rate 16 Blood Pressure 131/81 Pulse Oximetry 98 Oxygen Delivery Method Room Air Oxygen Delivery Method Room Air Const General: No acute distress Resp Effort & Inspection: normal respiratory effort Assessment & Plan Assessment and plan (1) Colon cancer screening: Status: Inactive Plan Colonoscopy Time-Based Coding :: [TOTAL MINUTES] spent with patient and on the chart (including review of chart, obtaining history, exam, reviewing outside data, placing orders, documenting exam and treatment plan, and counseling patient) on [DATE].
--- NOTE | 2023-12-12 12:52 | PM.OP.COLON ---
Operative Date/Time/Diagnoses Date of procedure: 12/12/23 Time of procedure: 12:52 Pre-op diagnosis: Colon cancer screening Post-op diagnosis: same Procedure & Clinicians Study performed: Colonoscopy Same procedure as scheduled: Yes Surgeon: Jomar uSresh Procedure Notes Procedure in detail: Surgeon: Jomar Suresh MD Anesthesia: Madeline Andrew CRNA Procedure: The patient was brought to the endoscopy suite, placed in left lateral decubitus position. The patient was connected to monitoring devices. A time-out was performed. Sedation was administered. Once the patient was adequately sedated, a digital rectal exam was performed and was normal. The scope was then inserted and advanced to the cecum where the appendiceal orifice was identified and photographed. The scope was then slowly withdrawn over greater than 6 minutes. The mucosa was thoroughly inspected. No abnormalities were found. The scope was retroflexed in the rectum. The scope was straightened and removed. The patient was awakened and brought to recovery. Scope withdrawal time: 7 minutes Sedation time: 21 minutes EBL: 0 Findings: Normal colon Post-procedure Disposition: PACU
[2023-12-12 12:53] VITALS: BP 93/49; PULSE 85; RESP 16; TEMP 36.7; O2SAT 98
[2023-12-12 12:58] VITALS: BP 94/58; PULSE 93; RESP 18; O2SAT 98
[2023-12-12 13:04] VITALS: BP 152/59; PULSE 97; RESP 20; TEMP 36.6; O2SAT 97
[2023-12-12 13:09] VITALS: BP 126/63; PULSE 92; RESP 16; O2SAT 98
== END 2023-12-12 13:51 | disposition home or self-care (01) ==
PROVIDERS: PCP Family Medicine; Referring Provider Surgery; Visit Provider Surgery
PROC: 0DJD8ZZ Inspection of Lower Intestinal Tract, Via Natural or Artificial Opening Endoscopic (ICD-10-PCS; CPT 45378; principal; 2023-12-12 11:30)
DX: Z12.11 Encounter for screening for malignant neoplasm of colon (principal)
CPT/HCPCS: G0121; 82962; J1815; J2405; J2704

== ENCOUNTER → 2024-01-27 13:34 | Outpatient (CLI) | payer MEDICARE, SELFPAY ==
[2022-10-23 14:48] VITALS: BMI 40.2
--- NOTE | 2024-01-27 13:34 | DI.MG.S_ITS ---
BILATERAL DIGITAL SCREENING MAMMOGRAM 3D/2D WITH CAD: 01/27/2024 CLINICAL: Routine screening. Family history of breast cancer. Comparison is made to exams dated: 01/04/2023 mammogram - [facility], 08/14/2018 mammogram, and 06/10/2012 mammogram - Outside facility. There are scattered areas of fibroglandular density (category b / 25%-50% glandular tissue). Current study was also evaluated with a Computer Aided Detection (CAD) system. There are benign calcifications in both breasts. No significant masses, calcifications, or other findings are seen in either breast. There has been no significant interval change. IMPRESSION: BENIGN There is no mammographic evidence of malignancy. A 1 year screening mammogram is recommended. Based on the Tyrer Cuzick model (a risk assessment model) the patient's lifetime risk is 4.2% and her 10 year risk is 3.8%. According to the ACR, ACS, and NCCN guidelines, an annual breast MRI exam along with mammogram is recommended if the patient's lifetime risk is 20% or greater. This exam was interpreted at Station ID: [id number]. NOTE: For mammograms, a report in lay terms will be sent to the patient. Approximately 15% of breast malignancies will not be visualized mammographically. In the management of a palpable breast mass, a negative mammogram must not discourage biopsy of a clinically suspicious lesion. Electronically Signed By: Blair bird/familia:01/27/2024 16:40:05 letter sent: Normal Exam ACR BI-RADS Category 2: Benign
== END ==
LOC: MAMMO 13:34
PROVIDERS: PCP Family Medicine; Referring Provider Family Medicine; Visit Provider Family Medicine
DX: Z12.31 Encounter for screening mammogram for malignant neoplasm of breast (principal); Z80.3 Family history of malignant neoplasm of breast
CPT/HCPCS: 77063; 77067

== ENCOUNTER → 2024-08-05 10:17 | Outpatient (CLI) | payer MEDICARE, SELFPAY ==
[2024-05-29 09:50] VITALS: BMI 40.2
[2024-08-05 11:05] LABS: Add Manual Diff / Slide Review NO; Basophils Absolute Auto 0 /uL (0-100); Basophils Percent Auto 0.5 % (0-2); Eosinophils Absolute Auto 100 /uL (0-450); Eosinophils Percent Auto 1.7 % (2-4); Hematocrit 40.5 % (36-46); Hemoglobin 13.3 g/dL (12.0-16.0); Lymphocytes Absolute Auto 1900 /uL (1100-4500); Lymphocytes Percent Auto 25.7 % (25-40); Mean Corpuscular Hemoglobin 27.2 PG (26-34); Mean Corpuscular Volume 82.6 fL (80-100); Monocytes Absolute Auto 400 /uL (0-900); Monocytes Percent Auto 5.9 % (3-14); Neutrophils Absolute Auto 4900 /uL (1500-7000); Neutrophils Percent Auto 66.2 % (50-75); Platelet Count 248 X10^3/uL (150-400); Red Cell Distribution Width 14.9 % (11.6-14.8); White Blood Cell Count 7.4 X10^3/uL (4.5-11.0)
[2024-08-05 11:16] LABS: Hemoglobin A1C% w Est Avg Glu 6.2 % (4.0-6.0)
[2024-08-05 11:26] LABS: Alanine Aminotransferase 16 IU/L (<35); Albumin 4.4 g/dL (3.5-5.0); Albumin Globulin Ratio 1.8 (1.0-2.8); Alkaline Phosphatase 111 U/L (38-126); Aspartate Aminotransferase 24 IU/L (14-36); BUN Creatinine Ratio 22.4 (6-22); Bilirubin Total 0.4 mg/dL (0.2-1.3); Blood Urea Nitrogen 24 mg/dL (7-17); Calcium 9.4 mg/dL (8.4-10.2); Carbon Dioxide 28 mmol/L (22-32); Chloride 103 mmol/L (98-107); Cholesterol 128 mg/dL (140-199); Estimated Glomerular Filt Rate 54 mL/min (>60); Globulin 2.5 g/dL (1.7-4.1); Glucose 116 mg/dL (70-99); HDL Cholesterol 59 mg/dL (40-60); HEMOLYSIS < 15 (0-50); LDL Cholesterol Calculated 47 mg/dL (<100); Potassium 4.3 mmol/L (3.4-5.1); Sodium 140 mmol/L (137-145); Total Protein 6.9 g/dL (6.3-8.2); Triglycerides 111 mg/dL (35-150)
[2024-08-05 11:42] LABS: Free T3, Triiodothyronine Free 3.36 pg/mL (2.77-5.27); Free T4, Direct Thyroxine 0.85 ng/dL (0.78-2.19)
[2024-08-05 11:55] LABS: Thyroid Stimulating Hormone 1.78 uIU/mL (0.47-4.68)
== END ==
PROVIDERS: PCP Family Medicine; Referring Provider Family Medicine; Visit Provider Family Medicine
DX: E11.69 Type 2 diabetes mellitus with other specified complication (principal); E78.5 Hyperlipidemia, unspecified; E11.319 Type 2 diabetes mellitus with unspecified diabetic retinopathy without macular edema; I10 Essential (primary) hypertension; E03.9 Hypothyroidism, unspecified
CPT/HCPCS: 36415; 80053; 80061; 83036; 84439; 84443; 84481; 85025; 86140

== ENCOUNTER → 2024-11-26 11:08 | Outpatient (CLI) | payer MEDICARE, SELFPAY ==
[2024-11-10 14:00] VITALS: BMI 40.2
--- NOTE | 2024-11-26 11:10 | DI.MRI.S_ITS ---
PROCEDURE: MR ANGIO HEAD WO CON INDICATIONS: VISION ISSUE TECHNIQUE: Noncontrast axial 3-D [id number] MR angiogram, with 3-dimensional maximum intensity projection (MIP) reformats of the internal carotid arteries and posterior circulation then performed. COMPARISON: [facility], MR, MR OPTIC NRV WWO CON, 11/26/2024, 11:21. FINDINGS: Image quality: Excellent. Anterior circulation: Intracranial internal carotid arteries demonstrate normal size and intraluminal flow signal. The flow within the paired anterior cerebral arteries is normal and symmetric. The flow within the middle cerebral arteries is normal and symmetric. The anterior communicating artery is seen. No stenoses, occlusions, or aneurysms. Posterior circulation: Visualized portions of the vertebral arteries demonstrate normal caliber, and join to form a normal appearing basilar artery. The flow within the posterior cerebral arteries is normal and symmetric. No stenoses, occlusions, or aneurysms. IMPRESSION: No areas of hemodynamically significant stenosis, vascular occlusion or aneurysmal dilation within the anterior circulation. No areas of hemodynamically significant stenosis, vascular occlusion or aneurysmal dilation within the posterior circulation. Dictated by: Teresa Hirsch M.D. on 11/27/2024 at 14:54 Approved by: Teresa Hirsch M.D. on 11/27/2024 at 14:55
--- NOTE | 2024-11-26 11:10 | DI.MRI.S_ITS ---
PROCEDURE: MR OPTIC NRV WWO CON INDICATIONS: VISION ISSUE TECHNIQUE: Noncontrast sagittal T1 spin echo, axial FLAIR, axial gradient echo, axial diffusion and ADC acquired through the brain. Coronal STIR, thin-slice axial T1 spin echo through the orbits. After the administration of contrast, thin-slice axial and coronal T1 spin echo with fat saturation through the orbits, axial and coronal and sagittal T1 spin echo with fat saturation through the brain. COMPARISON: None. FINDINGS: Image quality: Excellent. Orbits: Globes are symmetrical. Bilateral lens replacements. The optic nerves are normal in size, without abnormal enhancement. Possible mild edema within the right optic nerve. No retrobulbar masses or fat abnormalities. The extra-ocular muscles are normal and symmetric in appearance. Lacrimal glands are normal. Optic chiasm is normal. Periorbital soft tissues appear normal. CSF spaces: Ventricles are normal in size and shape. Basal cisterns are patent. No extra-axial fluid collections. Brain: No intracranial bleeds or mass effects. No abnormal intracranial enhancement. Age-related global volume loss and chronic microvascular ischemic changes are present. Mejía-white matter interface is intact. Diffusion weighted images demonstrate no acute ischemic insults. Pituitary gland appears normal, without sellar or suprasellar masses. Brainstem appears normal. Normal intravascular flow voids are present. Skull and face: Calvarial marrow is normal in signal. Sinuses: Paranasal sinus mucosal thickening and air-fluid levels, most pronounced within the ethmoid air cells. The mastoids are clear. IMPRESSION: Possible mild edema within the right optic nerve, correlate with symptoms. No abnormal enhancement. Otherwise, the orbits are normal in appearance. No acute intracranial abnormalities or abnormal intracranial enhancement. Age-related global volume loss and chronic microvascular ischemic changes are present. Pansinusitis. Dictated by: Saji Montemayor M.D. on 11/27/2024 at 10:03 Approved by: Saji Montemayor M.D. on 11/27/2024 at 10:09
== END ==
LOC: MRI 11:08
PROVIDERS: PCP Family Medicine; Referring Provider Family Medicine; Visit Provider Psychiatry & Neurology Neurology
DX: H54.7 Unspecified visual loss (principal); H53.40 Unspecified visual field defects; J32.4 Chronic pansinusitis; Z96.1 Presence of intraocular lens
CPT/HCPCS: 70543; 70544; 70553; A9579

== ENCOUNTER 2025-02-10 04:56 | Inpatient (IN) | payer MEDICARE, SELFPAY ==
[2024-11-10 14:00] VITALS: BMI 40.2
[2025-02-10] VITALS (121 sets, daily range): BP systolic 67–145; BP diastolic 32–87; PULSE 75–188; RESP 16–39; TEMP 36.3–36.6; O2SAT 86–99; BMI 38.0; BMI 34.9
--- NOTE | 2025-02-10 | PATH_ITS ---
[facility] Accession Number: [id number] No. of containers..01 Tissue . 01 Material submitted: . colon - COLON, TOTAL COLECTOMY . 01 Diagnosis: COLON, TOTAL COLECTOMY: 1. Colon with gangrenous necrosis, consistent with clinical history of toxic megacolon. 2. No perforation identified. 3. No dysplasia or malignancy identified. 4. Proximal ileal mucosal margin appears histologically viable. 5. Distal colonic mucosal margin shows degenerative changes. See comment. 6. Four lymph nodes with no diagnostic alterations. . Specimen Comments: Moderate degenerative changes are seen at the distal mucosal margin. It is uncertain whether these represent autolysis or partial necrosis. No significant inflammation is seen among the underlying submucosa and muscularis, and mucosal autolytic changes appear likely. [facility] 02/15/2025 1648 Local . 01 Electronically signed: . Zheng Wild MD, Pathologist NPI- [id number] . 01 Gross description: . Received in formalin with two patient identifiers, and colon per the requisition, is a focally dilated total colectomy resection with stapled resection margins and abundant attached soft tissue. It consists of an 11.5 cm long by 3 cm in diameter dilated segment of terminal ileum continuous to 179 cm long by 5-13 cm in diameter segment of large bowel. The appendix is not identified. It is differentially inked: proximal blue, distal black. The serosa is dasilva, pink to couch, dusky with adhesions and multiple patches of couch-brown necrotic appearing discoloration, pronounced at the midportion of the large bowel. The terminal ileum mucosa is dasilva-pink and velvety. The lumen is dilated, and the surrounding well is thin and attenuated with minimal loss of plications. The ileocecal valve is grossly unremarkable. The 120 cm segment of the large bowel is markedly dilated filled with abundant fecal material. The large bowel mucosa is remarkable for an area of couch-brown dusky hemorrhagic and necrotic-appearing discoloration involving 70 cm of the midportion, 20 cm from the nearest distal resection margin. The remaining uninvolved mucosa is dasilva-pink and smooth with moderate loss of mucosal folds. No discrete mass is grossly identified. No perforation is grossly identified. The attached soft issue shows yellow lobulated adipose cut surfaces with focal congested vessels. There are three dasilva-brown firm lymph node candidates identified, ranging from 0.4-0.9 cm. C[employer]arette [employer] sections are submitted as follows: A1: Proximal and distal resection margins, perpendicular. A2. Ileocecal valve. A3-A4: Hemorrhagic and necrotic appearing mucosa at the midportion. A5: Soft tissue with vessels. A6: Three intact lymph node candidates. ([id number]) /MRV 02/15/2025 1648 Local . 01 Pathologist provided ICD-10: K59.31 . 01 CPT . 678173 Specimen Comment: A courtesy copy of this report has been sent to [facility]ology Performed at: [address] [address], [place], [place] [id number] MD Zheng Wild MD Phone: [phone]
--- NOTE | 2025-02-10 05:37 | DI.CT.S_ITS ---
PROCEDURE: CT CHEST ABD PEL W CON INDICATIONS: abdominal pain TECHNIQUE: After the administration of intravenous contrast, 5 mm thick sections acquired from the lung apices to the symphysis. 5 mm coronal and sagittal reformats were performed, with additional 7 mm MIP reformats through the lungs. For radiation dose reduction, the following was used: automated exposure control, adjustment of mA and/or kV according to patient size. COMPARISON: Merged With [facility], CT, CT IVP A/P W/WO, 11/14/2021, 11:36. FINDINGS: Image quality: Excellent. CHEST: Lower Neck: No enlarged lymph nodes. Thyroid: Not well seen. Axillae: No enlarged lymph nodes. Chest Wall: Unremarkable. Lungs and Pleura: No pneumothorax or pleural effusions. No consolidation. Mild peripheral reticular thickening or interlobular septal thickening. Streaky opacity at the lingula. The central airways are clear. Heart: Heart size is normal. Coronary artery calcifications. No pericardial effusion. Thoracic Vessels: The aorta and pulmonary arteries demonstrate normal size. No central pulmonary embolism. Mediastinum and [place]: No enlarged lymph nodes. Esophagus: No wall thickening. Air in the esophagus. No definite hiatal hernia. ABDOMEN: Liver: No solid mass. Gallbladder: Prominent size. Biliary ducts: No biliary dilation. Pancreas: Atrophic. Pancreatic duct is not seen. No peripancreatic fluid collection. Spleen: Size is within normal limits. Trace free fluid adjacent to the spleen. Adrenal Glands: No adrenal nodules. Kidneys and Ureters: No hydronephrosis. No solid mass. No complex renal cystic lesion which requires follow up. Stomach and Bowel: Mild thickening of the sigmoid colonic wall, (2/175). There is mild free fluid near the sigmoid colon and descending colon. There is somewhat prominent fecal residue in the rectum and distal sigmoid colon. There is diffuse increased fecal residue in the remaining portions of the colon particularly the proximal colon. No mass identified. Trace free fluid in the right pericolic gutter. The appendix is not identified. No small bowel obstruction. The stomach is not distended. Peritoneum: No gross ascites. No pneumoperitoneum. Ventral Wall: No significant ventral hernia. Abdominal Nodes: No retroperitoneal or mesenteric adenopathy by size criteria. Vessels: Aorta and inferior vena cava are normal in size. Mesenteric arteries are patent. No filling defect in the portal vein or SMV. No portal venous gas. PELVIS: Pelvic Organs: Anteverted uterus. No presacral edema seen. Bladder: Decompressed. No stone. Pelvic Nodes: No enlarged lymph nodes. Miscellaneous: No inguinal hernias are seen. Bones: No aggressive osseous abnormality. Minimal height loss at L2, new in the interval compared to 2021. Multilevel DDD. IMPRESSION: 1. Sigmoid/descending colon wall thickening with surrounding edema. Most consistent with a colitis. Favor infectious/inflammatory etiology. 2. Increased stool throughout the colon, particularly in the proximal colon. 3. No pneumoperitoneum. Mild free fluid. Dictated by: Juan Jones M.D. on 02/10/2025 at 10:37 Approved by: Juan Jones M.D. on 02/10/2025 at 10:50
[2025-02-10] MEDS: SODIUM CHLORIDE 0.9% 1,000 ML 1000 ML IV ×3 (06:45→12:42)
--- NOTE | 2025-02-10 06:50 | PC.NURSE ---
Patient's BP dropped 67/32. Retook BP 3 times on R arm, took it twice on the L arm, did manual BP on the R arm twice and got 64/42. Patient describes pain in abdomen as aching and intense. Patient stated that they are experiencing slight dizziness and lightheadedness. Patient placed trendelenburg and BP improved to 76/41. Charge nurse and doctor notified of low BP.
[2025-02-10 06:51] LABS: Add Manual Diff / Slide Review NO; Hematocrit 43.0 % (36-46); Hemoglobin 13.5 g/dL (12.0-16.0); Lymphocytes Absolute Auto 800 /uL (1100-4500); Mean Corpuscular HGB Conc 31.5 % (30-36); Mean Corpuscular Hemoglobin 25.6 PG (26-34); Mean Corpuscular Volume 81.0 fL (80-100); Platelet Count 323 X10^3/uL (150-400)
--- NOTE | 2025-02-10 06:51 | EKG_ITS ---
[facility] [address] [place] [address] Test Date: 2025-02-10 Pat Name: Jenna Culp Department: [facility] Room: 90A Gender: Female [employer]: RUSTAM : 1950 Requested By: Order Number: [id number] Reading MD: Feng Willard MD Measurements Intervals [place] Rate: 111 P: 47 NE: 188 QRS: -1 QRSD: 158 T: 116 QT: 384 QTc: 522 Interpretive Statements Sinus tachycardia with occasional premature ventricular complexes Left bundle branch block (seen off/on previously) Electronically Signed On 02-12-2025 8:11:46 PST by Feng Willard MD
--- NOTE | 2025-02-10 06:52 | ED_ITS ---
HPI - Abdominal Pain <Kendy Rockwell MD - Last Filed: 02/13/25 15:33> General Chief Complaint: Abdominal Pain Stated Complaint: Abd Pain Time Seen by Provider: 02/10/25 05:04 Source: patient Mode of arrival: EMS History of Present Illness HPI narrative: A 77-year-old female presents with abdominal pain and no bowel movement since last Saturday. Her past medical history includes asthma, COPD, hypothyroidism, hypertension, diabetes, dyslipidemia, and obesity. Surgical history is significant for an appendectomy and two sections. She reports no passage of flatus for approximately three days and feels increasingly distended. She developed nausea and vomiting tonight. She denies fevers, chills, chest pain, or shortness of breath. She describes rectal discomfort in addition to generalized abdominal pain. The pain has progressively worsened, prompting her visit to the ED. She also reports some difficulty walking today. Her primary care physician is Dr. Lowe. Code status was discussed, and the patient confirms she is full code. Related Data Home Medications ?Medication ?Instructions ?Recorded ?Confirmed cetirizine 10 mg capsule (Zyrtec) 10 mg PO DAILY 12/0711/10/24 acetaminophen 500 mg capsule 1,000 mg PO TID PRN asthm a 09/04/22 11/10/24 fluticasone propionate 50 2 spray intranasal DAILY 11/10/24 mcg/actuation nasal spray,suspension (Flonase Allergy Relief) lidocaine 4 % topical patch 1 patch topical DAILY PRN asthma 09/04/22 11/10/24 (Salonpas (lidocaine)) lidocaine 4 % topical spray spray topical 09/04/22 (Aspercreme (lidocaine)) ipratropium 0.5 mg-albuterol 3 mg 3 ml inhalation Q4-6 H PRN asthma 11/02/22 11/10/24 (2.5 mg base)/3 mL nebulization soln cholecalciferol (vitamin D3) 25 50 mcg PO BID 01/22/23 11/10/24 mcg (1,000 unit) capsule diphenhydramine HCl 25 mg capsule 25 mg PO Q6-8H PRN a sthma 12/16/23 11/10/24 (Benadryl) calcium carbonate 600 mg PO DAILY 11/04/24 cyanocobalamin (vitamin B-12) 2,500 mcg PO DAILY 11/0411/10/24 2,500 mcg sublingual tablet (Vitamin B-12) Previous Rx's ?Medication ?Instructions ?Recorded Disabled Parking Permit See Rx Instructions .Route 1 03/11/22 .COMPLEX #1 ea denosumab 60 mg/mL subcutaneous 60 mg SUBCUT [id number] #1 mL 01/22/23 syringe (Prolia) blood-glucose meter (Blood Glucose #1 ea 03/26/23 Monitoring kit) riboflavin (vitamin B2) 400 mg 400 mg PO DAILY #90 tab s 12/27/23 tablet omega-3 acid ethyl esters 1 gram 1 cap PO BID #180 cap s 04/30/24 capsule epinephrine 0.3 mg/0.3 mL 0.3 mg (0.3 mL) IM Q5-15M CT N 07/02/24 injection, auto-injector (EpiPen anaphylaxis #2 ea 2-[facility]) liothyronine 5 mcg tablet 5 mcg PO DAILY #90 tabs 07/19 11/12 lisinopril 20 mg tablet 20 mg PO DAILY #90 tabs 09/11 blood sugar diagnostic (OneTouch #100 ea 09/11/24 Verio test strips) levothyroxine 125 mcg tablet 125 mcg PO DAILY #90 tabs 09/11/24 metformin 500 mg tablet,extended 1,500 mg (3 x 500 mg) PO DAILY 10/01/24 release 24 hr #270 tabs azelastine 137 mcg (0.1 %) nasal 137 mcg (0.137 mL) in tranasal BID 11/04/24 spray #30 mL benralizumab 30 mg/mL subcutaneous 30 mg SUBCUT Q8W #1 mL 11/04/24 auto-injector (Fasenra Pen) budesonide-formoterol HFA 160 2 puff PO BID #30.6 gram s 11/04/24 mcg-4.5 mcg/actuation aerosol inhaler (Symbicort) montelukast 10 mg tablet 10 mg PO QPM #90 tabs sertraline 100 mg tablet (Zoloft) 100 mg PO DAILY #90 tabs 12/15/24 sertraline 50 mg tablet 50 mg PO DAILY #90 tabs 11/19 10/12 nortriptyline 75 mg capsule 150 mg (2 x 75 mg) PO BEDT JAMEE #180 12/16/24 caps rimegepant 75 mg disintegrating 75 mg PO ONCE PRN migr brayden 12/22/24 tablet (Nurtec ODT) headache #18 tabs rosuvastatin 10 mg tablet 10 mg PO DAILY #90 tabs 12/20 07/12 nystatin 100,000 unit/gram topical 1 applic topical BI D rash breast 01/21/25 powder fold and groin area #60 gram s meloxicam 7.5 mg tablet 7.5 mg PO DAILY #30 tabs Allergies Allergy/AdvReac Type Severity Reaction Status Date / Time zolpidem (From Ambien) Allergy Severe amnesia Verified 02/10/25 05:32 cat dander Allergy Wheezing Verified 02/10/25 05:32 hydrochlorothiazide Allergy Rash Verified 02/10/25 05:32 melon Allergy ITCHING Verified 02/10/25 05:32 nitrofurantoin (From Allergy Vomiting Verified 02/10/25 05:32 Macrobid) peanut Allergy Anaphylaxis Verified 02/10/25 05:32 pravastatin Allergy Muscle Pain Verified 02/10/25 05:32 propranolol (From Inderal [place]) AdvReac Intermediate Dizziness Verified 02/10/25 05:32 ceftriaxone AdvReac ITCHING Verified 02/10/25 05:32 levofloxacin (From Levaquin) AdvReac Vomiting Verified 02/10/25 05:32 <Cristina Heard, DO - Last Filed: 02/10/25 16:37> History of Present Illness HPI narrative: 77-year-old female history of asthma, COPD, hypothyroidism, hypertension, diabetes, dyslipidemia, obesity presents with complaint of abdominal pain and no bowel movements since last Saturday. Patient states she has not passed any flatus for proximally 3 days. States she does seem distended. Started of has a nausea and vomiting tonight. Denies fevers or chills. Denies any chest pain or shortness of breath. Since states she has a pain of the rectal area but also with generalized abdominal pain. Patient states she had increasing pain and came here to be evaluated. States she did have some trouble walking today. States she has had prior appendectomy and x2, no history of bowel obstructions. She denies any interventions to her heart. Multiple medication allergies reported. No tobacco, alcohol or recreational drugs. Dr. Blunt is her primary care physician. Discussed with the patient she is full code. 0652 patient hypotensive 60s over 30s. Review of Systems <Cristina Heard DO - Last Filed: 02/10/25 16:37> Review of Systems ROS Unobtainable: All systems reviewed & are unremarkable except as noted in HPI and below Patient History <Kendy Rockwell MD - Last Filed: 02/13/25 15:33> Medical History Vision changes Fatigue Dyslipidemia associated with type 2 diabetes mellitus Diabetic retinopathy associated with controlled type 2 diabetes mellitus Cataract Chronic lower back pain Loss of balance Mumps Measles Chicken pox (~1953) Hypothyroidism Hypertension Migraine Multiple allergies Acidosis, lactic Postmenopausal bleeding Disease of thyroid gland FH: migraine headache Chest pain Surgical History Anesthesia H/O tubal ligation (~1973) H/O adenoidectomy (~1961) H/O section Hx of tonsillectomy (~1961) History of carpal tunnel surgery (~1986) History of appendectomy (~1967) Family History Brother Family history of BPH Kidney stones COPD (chronic obstructive pulmonary disease) Mother Hypertension Diabetes mellitus Thyroid disease Father Cancer Diabetes mellitus CAD in [place] artery History of heart disease Mental health problem Alzheimer's disease Grandfather History of heart disease Grandmother Breast cancer Grandmother Stroke TIA (transient ischemic attack) Social History marital status: number of children: 2 household members: friend(s) Smoking Status: Never smoker alcohol intake: never Type(s) of exercise: walking frequency: 1-2 times per week Smoking Status: Never smoker alcohol intake frequency: holidays/special occasions only Exam <Kendy Rockwell MD - Last Filed: 02/13/25 15:33> Initial Vital Signs Initial Vital Signs: Vital Signs Pulse Rate 88 02/10/25 05:14 Pulse Oximetry 97 02/10/25 05:14 <Cristina Heard DO - Last Filed: 02/10/25 16:37> Narrative Exam Narrative: GENERAL: Alert and oriented x three, moderate distress HEENT: Head normocephalic, atraumatic, EOMI, pupils reactive, face symmetric, moist mucous membranes NECK: Supple, full range of motion CARDIOVASCULAR: Regular rate and rhythm without murmurs, rubs or gallops. No JVD no edema bilateral lower extremities. RESPIRATORY: Breath sounds equal bilaterally, no wheezes rales or rhonchi. No tachypnea accessory muscle use. ABDOMEN: Soft, obese female, mildly distended, soft, tender throughout but more in the right. Normoactive bowel sounds all 4 quadrants. No guarding or rebound, rigidity, no mass : No CVA tenderness EXTREMITIES: Normal range of motion, no clubbing or edema. Neurovascularly intact NEUROLOGICAL: Cranial nerves II through XII grossly intact. Moving all extremities SKIN: Warm, dry, no petechiae, no rashes or lesions. Initial Vital Signs Initial Vital Signs: Vital Signs Pulse Rate 88 02/10/25 05:14 Pulse Oximetry 97 02/10/25 05:14 Course <Kendy Rockwell MD - Last Filed: 02/13/25 15:33> Orders Ordered: Discontinued Medications Chlorhexidine Gluconate (Chlorhexidine Gluconate 15 Ml Cup) 15 ml PO Q6HR [facility] Dextrose (Dextrose 50 % In Water 25 Gm/50 Ml Syringe) 25 gm IV NOW ONE Stop: 02/10/25 14:59 Last Admin: 02/10/25 14:59 Dose: 25 gm Documented By: TYLER Dextrose (Dextrose 50 % In Water 25 Gm/50 Ml Syringe) 25 gm IV PRN PRN PRN Reason: Hypoglycemia Famotidine (Famotidine 20 Mg/2 Ml Vial) 20 mg IV BID [facility] Last Admin: 02/10/25 21:32 Dose: 20 mg Documented By: Fentanyl (Fentanyl 100 Mcg/2 Ml Inj) 50 mcg IV Q1H PRN PRN Reason: Pain, Severe (7-10) Last Admin: 02/10/25 09:11 Dose: 50 mcg Documented By: ANJANA Fentanyl (Fentanyl 100 Mcg/2 Ml Inj) 50 mcg IV NOW ONE Stop: 02/10/25 11:08 Last Admin: 02/10/25 13:19 Dose: 50 mcg Documented By: ANJANA Fentanyl (Fentanyl 100 Mcg/2 Ml Inj) 28 mcg 0.35 mcg/kg (28 mcg) IV Q1HR PRN PRN Reason: Pain, Severe (7-10) Hydromorphone HCl (Hydromorphone Hcl 0.5 Mg/0.5 Ml Syringe) 0.5 mg IV Q2H PRN PRN Reason: Breakthrough Pain Sodium Chloride (Normal Saline 0.9%) 1,000 mls @ 1,000 mls/hr IV BOLUS ONE Stop: 02/10/25 06:36 Last Infusion: 02/10/25 07:45 Dose: Infused Documented By: Admin: 02/10/25 06:45 Dose: 1,000 mls/hr Documented By: JACK Sodium Chloride (Normal Saline 0.9%) 1,000 mls @ 1,000 mls/hr IV BOLUS ONE Stop: 02/10/25 07:50 Last Infusion: 02/10/25 08:56 Dose: Infused Documented By: Admin: 02/10/25 07:00 Dose: 1,000 mls/hr Documented By: ANJANA Piperacillin Sod/Tazobactam (Sod 4.5 gm/ Sodium Chloride) 100 mls @ 200 mls/hr IV NOW ONE Stop: 02/10/25 07:11 Last Admin: 02/10/25 08:20 Dose: Not Given Documented By: ANJANA Sodium Chloride (Normal Saline 0.9%) 2,653.53 mls @ 1,769.02 mls/hr 30 ml/kg infuse over 90 min (2653.53 ml) IV NOW ONE Stop: 02/10/25 09:19 Last Infusion: 02/10/25 11:30 Dose: Infused Documented By: Admin: 02/10/25 08:56 Dose: 1,769.02 mls/hr Documented By: ANJANA Piperacillin Sod/Tazobactam (Sod 4.5 gm/ Sodium Chloride) 100 mls @ 200 mls/hr IV NOW ONE Stop: 02/10/25 07:52 Last Infusion: 02/10/25 09:40 Dose: Infused Documented By: Admin: 02/10/25 09:00 Dose: 200 mls/hr Documented By: ANJANA Sodium Chloride (Normal Saline 0.9%) 500 mls @ 1,000 mls/hr IV BOLUS ONE Stop: 02/10/25 11:36 Last Infusion: 02/10/25 11:50 Dose: Infused Documented By: Admin: 02/10/25 11:10 Dose: 1,000 mls/hr Documented By: ANJANA NOREPINEPHRINE BIT/0.9 % NACL (Norepinephr 4 Mg/250-0.9% Nacl) 4 mg in 250 mls @ 33.169 mls/hr IV TITRATE GEOFF; Protocol Last Admin: 02/10/25 12:46 Dose: Not Given Documented By: ANJANA Sodium Chloride (Normal Saline 0.9%) 1,000 mls @ 1,000 mls/hr IV BOLUS ONE Stop: 02/10/25 13:39 Last Infusion: 02/10/25 13:23 Dose: Infused Documented By: Admin: 02/10/25 12:42 Dose: 1,000 mls/hr Documented By: ANJANA NOREPINEPHRINE BIT/0.9 % NACL (Norepinephr 4 Mg/250-0.9% Nacl) 4 mg in 250 mls @ 30.488 mls/hr IV TITRATE GEOFF; Protocol Last Admin: 02/10/25 23:42 Dose: 0.8 mcg/kg/min, 243.9 mls/hr Documented By: Titration: 02/10/25 23:42 Dose: Infused Documented By: Admin: 02/10/25 22:31 Dose: 0.6 mcg/kg/min, 182.925 mls/hr Documented By: Titration: 02/10/25 22:16 Dose: Infused Documented By: Titration: 02/10/25 22:02 Dose: 0.6 mcg/kg/min, 182.925 mls/hr Documented By: Admin: 02/10/25 21:03 Dose: 0.7 mcg/kg/min, 213.413 mls/hr Documented By: Titration: 02/10/25 20:51 Dose: Infused Documented By: Titration: 02/10/25 20:25 Dose: 0.7 mcg/kg/min, 213.413 mls/hr Documented By: Admin: 02/10/25 19:46 Dose: 0.8 mcg/kg/min, 243.9 mls/hr Documented By: Titration: 02/10/25 19:46 Dose: Infused Documented By: Admin: 02/10/25 18:57 Dose: 0.08 mcg/kg/min, 24.39 mls/hr Documented By: Titration: 02/10/25 18:57 Dose: Infused Documented By: Titration: 02/10/25 14:20 Dose: 0.05 mcg/kg/min, 15.244 mls/hr Documented By: Admin: 02/10/25 13:56 Dose: 0.05 mcg/kg/min, 15.244 mls/hr Documented By: ANJANA Piperacillin Sod/Tazobactam (Sod 4.5 gm/ Sodium Chloride) 100 mls @ 25 mls/hr IV Q8H [facility] Last Infusion: 02/10/25 14:57 Dose: Infused Documented By: Admin: 02/10/25 14:34 Dose: 25 mls/hr Documented By: TYLER Lactated Ringer's (Lactated Ringers) 1,000 mls @ 42 mls/hr IV CONT GEOFF Last Admin: 02/10/25 16:02 Dose: 42 mls/hr Documented By: Infusion: 02/10/25 16:02 Dose: Infused Documented By: Admin: 02/10/25 15:04 Dose: 42 mls/hr Documented By: TYLER Piperacillin Sod/Tazobactam (Sod 4.5 gm/ Sodium Chloride) 100 mls @ 200 mls/hr IV NOW ONE Stop: 02/10/25 16:13 Last Admin: 02/10/25 16:41 Dose: 200 mls/hr Documented By: TAYE Acetaminophen (Ofirmev) 1,000 mg in 100 mls @ 400 mls/hr IV NOW ONE Stop: 02/10/25 16:31 Last Admin: 02/10/25 16:14 Dose: 400 mls/hr Documented By: ANAI Piperacillin Sod/Tazobactam (Sod 4.5 gm/ Sodium Chloride) 100 mls @ 25 mls/hr IV Q8H [facility] Propofol (Diprivan) 1,000 mg in 100 mls @ 24.39 mls/hr IV TITRATE GEOFF; Protocol Last Admin: 02/10/25 18:56 Dose: 40 mcg/kg/min, 19.512 mls/hr Documented By: NOREPINEPHRINE BITARTRATE/D5W (Levophed) 4 mg in 250 mls @ 30.488 mls/hr IV TITRATE GEOFF; Protocol Fentanyl 1,000 mcg/ Dextrose 250 mls @ 1,016.25 mls/hr IV TITRATE PRN; Protocol PRN Reason: Pain, Moderate (4-6) Propofol (Diprivan) 1,000 mg in 100 mls @ 2.439 mls/hr IV TITRATE GEOFF; Protocol Last Titration: 02/10/25 23:07 Dose: 0 mcg/kg/min, 0 mls/hr Documented By: Titration: 02/10/25 22:02 Dose: 5 mcg/kg/min, 2.439 mls/hr Documented By: Titration: 02/10/25 20:25 Dose: 15 mcg/kg/min, 7.317 mls/hr Documented By: Admin: 02/10/25 19:46 Dose: 10 mcg/kg/min, 4.878 mls/hr Documented By: Sodium Bicarbonate 150 meq/ (Sterile Water) 1,150 mls @ 150 mls/hr IV CONT GEOFF Meropenem 1 gm/ Sodium (Chloride) 100 mls @ 200 mls/hr IV Q12H [facility] Last Infusion: 02/10/25 20:39 Dose: Infused Documented By: Admin: 02/10/25 20:09 Dose: 200 mls/hr Documented By: Metronidazole (Flagyl) 500 mg in 100 mls @ 100 mls/hr IV Q8H [facility] Last Infusion: 02/10/25 21:47 Dose: Infused Documented By: Admin: 02/10/25 20:47 Dose: 100 mls/hr Documented By: dexmedeTOMIDine in 0.9 % NaCL (Precedex) 400 mcg in 100 mls @ 4.065 mls/hr IV TITRATE GEOFF; Protocol Last Titration: 02/10/25 23:07 Dose: 0.4 mcg/kg/hr, 8.13 mls/hr Documented By: Titration: 02/10/25 22:32 Dose: 0.3 mcg/kg/hr, 6.098 mls/hr Documented By: Admin: 02/10/25 21:59 Dose: 0.2 mcg/kg/hr, 4.065 mls/hr Documented By: Fentanyl 1,000 mcg/ Dextrose 250 mls @ 14.228 mls/hr IV TITRATE GEOFF; Protocol Last Titration: 02/10/25 23:07 Dose: 0.9 mcg/kg/hr, 18.293 mls/hr Documented By: Titration: 02/10/25 22:02 Dose: 0.8 mcg/kg/hr, 16.26 mls/hr Documented By: Admin: 02/10/25 20:32 Dose: 0.7 mcg/kg/hr, 14.228 mls/hr Documented By: Sodium Bicarbonate 150 meq/ (Dextrose) 1,000 mls @ 150 mls/hr IV CONT GEOFF Last Admin: 02/10/25 21:05 Dose: 150 mls/hr Documented By: Vasopressin 40 unit/ Sodium (Chloride) 102 mls @ 4.5 mls/hr IV CONT GEOFF Last Admin: 02/10/25 23:25 Dose: 4.5 mls/hr Documented By: Lidocaine HCl (Lidocaine 2% (Glydo) 6 Ml Gel) 6 ml TOP NOW ONE Stop: 02/10/25 09:40 Last Admin: 02/10/25 11:22 Dose: 6 ml Documented By: RICHARD Morphine Sulfate (Morphine 2 Mg/Ml Inj) 2 mg IV NOW ONE Stop: 02/10/25 05:38 Last Admin: 02/10/25 08:19 Dose: Not Given Documented By: ANJANA Morphine Sulfate (Morphine 2 Mg/Ml Inj) 2 mg IV Q2HR PRN PRN Reason: Pain, Moderate (4-6) Ondansetron HCl (Ondansetron 4 Mg/2 Ml Inj) 4 mg IV Q4HR PRN PRN Reason: Nausea And Vomiting Ondansetron HCl (Ondansetron 4 Mg/2 Ml Inj) 4 mg IV NOW ONE Stop: 02/10/25 07:21 Last Admin: 02/10/25 07:30 Dose: 4 mg Documented By: JACK Sodium Bicarbonate (Sodium Bicarb 8.4% Syringe) 50 meq IV NOW ONE Stop: 02/10/25 16:00 Last Admin: 02/10/25 16:07 Dose: 50 meq Documented By: Admin: 02/10/25 15:55 Dose: 50 meq Documented By: ANAI Vital Signs Vital signs: Vital Signs - 8 hr 02/10/25 08:40 02/10/25 08:40 02/10/25 08:42 Temperature Pulse Rate 84 Respiratory Rate Blood Pressure 126/60 105/53 L Pulse Oximetry 02/10/25 08:42 02/10/25 08:45 02/10/25 08:45 Temperature Pulse Rate 84 84 Respiratory Rate Blood Pressure 120/60 Pulse Oximetry 02/10/25 09:00 02/10/25 09:00 02/10/25 09:15 Temperature Pulse Rate 87 Respiratory Rate Blood Pressure 118/64 117/59 L Pulse Oximetry 98 02/10/25 09:15 02/10/25 09:30 02/10/25 09:30 Temperature Pulse Rate 85 81 Respiratory Rate Blood Pressure 113/55 L Pulse Oximetry 97 96 02/10/25 09:46 02/10/25 09:46 02/10/25 10:00 Temperature Pulse Rate 80 79 Respiratory Rate Blood Pressure 96/52 L Pulse Oximetry 97 96 02/10/25 10:00 02/10/25 10:05 02/10/25 10:05 Temperature Pulse Rate 81 Respiratory Rate Blood Pressure 98/50 L 100/49 L Pulse Oximetry 97 02/10/25 10:15 02/10/25 10:15 02/10/25 10:20 Temperature 97.7 F Pulse Rate 82 Respiratory Rate Blood Pressure 101/52 L Pulse Oximetry 97 02/10/25 10:30 02/10/25 10:31 02/10/25 10:31 Temperature Pulse Rate 83 83 Respiratory Rate Blood Pressure 139/87 Pulse Oximetry 94 96 02/10/25 10:46 02/10/25 10:46 02/10/25 11:00 Temperature Pulse Rate 81 83 Respiratory Rate 27 H Blood Pressure 93/46 L Pulse Oximetry 96 94 02/10/25 11:30 02/10/25 11:30 02/10/25 11:45 Temperature Pulse Rate 86 Respiratory Rate 27 H Blood Pressure 90/54 L 89/53 L Pulse Oximetry 91 02/10/25 11:45 02/10/25 11:51 02/10/25 11:51 Temperature Pulse Rate 91 H 91 H Respiratory Rate 25 H 28 H Blood Pressure 123/59 L Pulse Oximetry 93 96 02/10/25 11:56 02/10/25 11:56 02/10/25 12:00 Temperature Pulse Rate 91 H 90 Respiratory Rate 27 H 30 H Blood Pressure 89/53 L Pulse Oximetry 91 94 02/10/25 12:01 02/10/25 12:01 02/10/25 12:06 Temperature Pulse Rate 92 H 91 H Respiratory Rate 39 H 28 H Blood Pressure 107/51 L Pulse Oximetry 96 95 02/10/25 12:06 02/10/25 12:11 02/10/25 12:11 Temperature Pulse Rate 96 H Respiratory Rate 35 H Blood Pressure 108/54 L 71/34 L Pulse Oximetry 91 02/10/25 12:15 02/10/25 12:15 02/10/25 12:20 Temperature Pulse Rate 133 H 188 H Respiratory Rate 31 H 31 H Blood Pressure 76/52 L Pulse Oximetry 95 95 02/10/25 12:20 02/10/25 12:28 02/10/25 12:28 Temperature Pulse Rate 98 H Respiratory Rate 30 H Blood Pressure 134/62 134/59 L Pulse Oximetry 95 02/10/25 12:30 02/10/25 12:30 02/10/25 12:35 Temperature Pulse Rate 100 H Respiratory Rate 32 H Blood Pressure 132/63 138/60 Pulse Oximetry 94 02/10/25 12:35 02/10/25 12:40 02/10/25 12:40 Temperature Pulse Rate 96 H 95 H Respiratory Rate 29 H 30 H Blood Pressure 131/60 Pulse Oximetry 95 95 02/10/25 12:45 02/10/25 12:45 02/10/25 12:50 Temperature Pulse Rate 95 H Respiratory Rate 29 H Blood Pressure 133/64 128/58 L Pulse Oximetry 96 02/10/25 12:50 02/10/25 12:55 02/10/25 12:55 Temperature Pulse Rate 95 H 96 H Respiratory Rate 24 24 Blood Pressure 139/63 Pulse Oximetry 95 95 02/10/25 13:00 02/10/25 13:00 02/10/25 13:05 Temperature Pulse Rate 96 H 96 H Respiratory Rate 24 31 H Blood Pressure 145/65 H Pulse Oximetry 96 95 02/10/25 13:05 02/10/25 13:10 02/10/25 13:10 Temperature Pulse Rate 96 H Respiratory Rate 28 H Blood Pressure 133/60 135/60 Pulse Oximetry 94 02/10/25 13:15 02/10/25 13:15 02/10/25 13:20 Temperature Pulse Rate 97 H Respiratory Rate 22 Blood Pressure 110/57 L 126/57 L Pulse Oximetry 97 02/10/25 13:20 02/10/25 13:25 02/10/25 13:25 Temperature Pulse Rate 97 H 95 H Respiratory Rate 29 H 30 H Blood Pressure 119/58 L Pulse Oximetry 95 92 02/10/25 13:30 Temperature Pulse Rate 96 H Respiratory Rate 29 H Blood Pressure Pulse Oximetry 92 <Cristina Heard DO - Last Filed: 02/10/25 16:37> Orders Ordered: Discontinued Medications Chlorhexidine Gluconate (Chlorhexidine Gluconate 15 Ml Cup) 15 ml PO Q6HR [facility] Dextrose (Dextrose 50 % In Water 25 Gm/50 Ml Syringe) 25 gm IV NOW ONE Stop: 02/10/25 14:59 Last Admin: 02/10/25 14:59 Dose: 25 gm Documented By: TYLER Dextrose (Dextrose 50 % In Water 25 Gm/50 Ml Syringe) 25 gm IV PRN PRN PRN Reason: Hypoglycemia Famotidine (Famotidine 20 Mg/2 Ml Vial) 20 mg IV BID [facility] Last Admin: 02/10/25 21:32 Dose: 20 mg Documented By: Fentanyl (Fentanyl 100 Mcg/2 Ml Inj) 50 mcg IV Q1H PRN PRN Reason: Pain, Severe (7-10) Last Admin: 02/10/25 09:11 Dose: 50 mcg Documented By: ANJANA Fentanyl (Fentanyl 100 Mcg/2 Ml Inj) 50 mcg IV NOW ONE Stop: 02/10/25 11:08 Last Admin: 02/10/25 13:19 Dose: 50 mcg Documented By: ANJANA Fentanyl (Fentanyl 100 Mcg/2 Ml Inj) 28 mcg 0.35 mcg/kg (28 mcg) IV Q1HR PRN PRN Reason: Pain, Severe (7-10) Hydromorphone HCl (Hydromorphone Hcl 0.5 Mg/0.5 Ml Syringe) 0.5 mg IV Q2H PRN PRN Reason: Breakthrough Pain Sodium Chloride (Normal Saline 0.9%) 1,000 mls @ 1,000 mls/hr IV BOLUS ONE Stop: 02/10/25 06:36 Last Infusion: 02/10/25 07:45 Dose: Infused Documented By: Admin: 02/10/25 06:45 Dose: 1,000 mls/hr Documented By: JACK Sodium Chloride (Normal Saline 0.9%) 1,000 mls @ 1,000 mls/hr IV BOLUS ONE Stop: 02/10/25 07:50 Last Infusion: 02/10/25 08:56 Dose: Infused Documented By: Admin: 02/10/25 07:00 Dose: 1,000 mls/hr Documented By: ANJANA Piperacillin Sod/Tazobactam (Sod 4.5 gm/ Sodium Chloride) 100 mls @ 200 mls/hr IV NOW ONE Stop: 02/10/25 07:11 Last Admin: 02/10/25 08:20 Dose: Not Given Documented By: ANJANA Sodium Chloride (Normal Saline 0.9%) 2,653.53 mls @ 1,769.02 mls/hr 30 ml/kg infuse over 90 min (2653.53 ml) IV NOW ONE Stop: 02/10/25 09:19 Last Infusion: 02/10/25 11:30 Dose: Infused Documented By: Admin: 02/10/25 08:56 Dose: 1,769.02 mls/hr Documented By: ANJANA Piperacillin Sod/Tazobactam (Sod 4.5 gm/ Sodium Chloride) 100 mls @ 200 mls/hr IV NOW ONE Stop: 02/10/25 07:52 Last Infusion: 02/10/25 09:40 Dose: Infused Documented By: Admin: 02/10/25 09:00 Dose: 200 mls/hr Documented By: ANJANA Sodium Chloride (Normal Saline 0.9%) 500 mls @ 1,000 mls/hr IV BOLUS ONE Stop: 02/10/25 11:36 Last Infusion: 02/10/25 11:50 Dose: Infused Documented By: Admin: 02/10/25 11:10 Dose: 1,000 mls/hr Documented By: ANJANA NOREPINEPHRINE BIT/0.9 % NACL (Norepinephr 4 Mg/250-0.9% Nacl) 4 mg in 250 mls @ 33.169 mls/hr IV TITRATE GEOFF; Protocol Last Admin: 02/10/25 12:46 Dose: Not Given Documented By: ANJANA Sodium Chloride (Normal Saline 0.9%) 1,000 mls @ 1,000 mls/hr IV BOLUS ONE Stop: 02/10/25 13:39 Last Infusion: 02/10/25 13:23 Dose: Infused Documented By: Admin: 02/10/25 12:42 Dose: 1,000 mls/hr Documented By: ANJANA NOREPINEPHRINE BIT/0.9 % NACL (Norepinephr 4 Mg/250-0.9% Nacl) 4 mg in 250 mls @ 30.488 mls/hr IV TITRATE GEOFF; Protocol Last Admin: 02/10/25 23:42 Dose: 0.8 mcg/kg/min, 243.9 mls/hr Documented By: Titration: 02/10/25 23:42 Dose: Infused Documented By: Admin: 02/10/25 22:31 Dose: 0.6 mcg/kg/min, 182.925 mls/hr Documented By: Titration: 02/10/25 22:16 Dose: Infused Documented By: Titration: 02/10/25 22:02 Dose: 0.6 mcg/kg/min, 182.925 mls/hr Documented By: Admin: 02/10/25 21:03 Dose: 0.7 mcg/kg/min, 213.413 mls/hr Documented By: Titration: 02/10/25 20:51 Dose: Infused Documented By: Titration: 02/10/25 20:25 Dose: 0.7 mcg/kg/min, 213.413 mls/hr Documented By: Admin: 02/10/25 19:46 Dose: 0.8 mcg/kg/min, 243.9 mls/hr Documented By: Titration: 02/10/25 19:46 Dose: Infused Documented By: Admin: 02/10/25 18:57 Dose: 0.08 mcg/kg/min, 24.39 mls/hr Documented By: Titration: 02/10/25 18:57 Dose: Infused Documented By: Titration: 02/10/25 14:20 Dose: 0.05 mcg/kg/min, 15.244 mls/hr Documented By: Admin: 02/10/25 13:56 Dose: 0.05 mcg/kg/min, 15.244 mls/hr Documented By: ANJANA Piperacillin Sod/Tazobactam (Sod 4.5 gm/ Sodium Chloride) 100 mls @ 25 mls/hr IV Q8H GEOFF Last Infusion: 02/10/25 14:57 Dose: Infused Documented By: Admin: 02/10/25 14:34 Dose: 25 mls/hr Documented By: TYLER Lactated Ringer's (Lactated Ringers) 1,000 mls @ 42 mls/hr IV CONT GEOFF Last Admin: 02/10/25 16:02 Dose: 42 mls/hr Documented By: Infusion: 02/10/25 16:02 Dose: Infused Documented By: Admin: 02/10/25 15:04 Dose: 42 mls/hr Documented By: TYLER Piperacillin Sod/Tazobactam (Sod 4.5 gm/ Sodium Chloride) 100 mls @ 200 mls/hr IV NOW ONE Stop: 02/10/25 16:13 Last Admin: 02/10/25 16:41 Dose: 200 mls/hr Documented By: TAYE Acetaminophen (Ofirmev) 1,000 mg in 100 mls @ 400 mls/hr IV NOW ONE Stop: 02/10/25 16:31 Last Admin: 02/10/25 16:14 Dose: 400 mls/hr Documented By: ANAI Piperacillin Sod/Tazobactam (Sod 4.5 gm/ Sodium Chloride) 100 mls @ 25 mls/hr IV Q8H GEOFF Propofol (Diprivan) 1,000 mg in 100 mls @ 24.39 mls/hr IV TITRATE GEOFF; Protocol Last Admin: 02/10/25 18:56 Dose: 40 mcg/kg/min, 19.512 mls/hr Documented By: NOREPINEPHRINE BITARTRATE/D5W (Levophed) 4 mg in 250 mls @ 30.488 mls/hr IV TITRATE GEOFF; Protocol Fentanyl 1,000 mcg/ Dextrose 250 mls @ 1,016.25 mls/hr IV TITRATE PRN; Protocol PRN Reason: Pain, Moderate (4-6) Propofol (Diprivan) 1,000 mg in 100 mls @ 2.439 mls/hr IV TITRATE GEOFF; Protocol Last Titration: 02/10/25 23:07 Dose: 0 mcg/kg/min, 0 mls/hr Documented By: Titration: 02/10/25 22:02 Dose: 5 mcg/kg/min, 2.439 mls/hr Documented By: Titration: 02/10/25 20:25 Dose: 15 mcg/kg/min, 7.317 mls/hr Documented By: Admin: 02/10/25 19:46 Dose: 10 mcg/kg/min, 4.878 mls/hr Documented By: Sodium Bicarbonate 150 meq/ (Sterile Water) 1,150 mls @ 150 mls/hr IV CONT GEOFF Meropenem 1 gm/ Sodium (Chloride) 100 mls @ 200 mls/hr IV Q12H GEOFF Last Infusion: 02/10/25 20:39 Dose: Infused Documented By: Admin: 02/10/25 20:09 Dose: 200 mls/hr Documented By: Metronidazole (Flagyl) 500 mg in 100 mls @ 100 mls/hr IV Q8H GEOFF Last Infusion: 02/10/25 21:47 Dose: Infused Documented By: Admin: 02/10/25 20:47 Dose: 100 mls/hr Documented By: dexmedeTOMIDine in 0.9 % NaCL (Precedex) 400 mcg in 100 mls @ 4.065 mls/hr IV TITRATE GEOFF; Protocol Last Titration: 02/10/25 23:07 Dose: 0.4 mcg/kg/hr, 8.13 mls/hr Documented By: Titration: 02/10/25 22:32 Dose: 0.3 mcg/kg/hr, 6.098 mls/hr Documented By: Admin: 02/10/25 21:59 Dose: 0.2 mcg/kg/hr, 4.065 mls/hr Documented By: Fentanyl 1,000 mcg/ Dextrose 250 mls @ 14.228 mls/hr IV TITRATE GEOFF; Protocol Last Titration: 02/10/25 23:07 Dose: 0.9 mcg/kg/hr, 18.293 mls/hr Documented By: Titration: 02/10/25 22:02 Dose: 0.8 mcg/kg/hr, 16.26 mls/hr Documented By: Admin: 02/10/25 20:32 Dose: 0.7 mcg/kg/hr, 14.228 mls/hr Documented By: Sodium Bicarbonate 150 meq/ (Dextrose) 1,000 mls @ 150 mls/hr IV CONT GEOFF Last Admin: 02/10/25 21:05 Dose: 150 mls/hr Documented By: Vasopressin 40 unit/ Sodium (Chloride) 102 mls @ 4.5 mls/hr IV CONT GEOFF Last Admin: 02/10/25 23:25 Dose: 4.5 mls/hr Documented By: Lidocaine HCl (Lidocaine 2% (Glydo) 6 Ml Gel) 6 ml TOP NOW ONE Stop: 02/10/25 09:40 Last Admin: 02/10/25 11:22 Dose: 6 ml Documented By: RB Morphine Sulfate (Morphine 2 Mg/Ml Inj) 2 mg IV NOW ONE Stop: 02/10/25 05:38 Last Admin: 02/10/25 08:19 Dose: Not Given Documented By: ANJANA Morphine Sulfate (Morphine 2 Mg/Ml Inj) 2 mg IV Q2HR PRN PRN Reason: Pain, Moderate (4-6) Ondansetron HCl (Ondansetron 4 Mg/2 Ml Inj) 4 mg IV Q4HR PRN PRN Reason: Nausea And Vomiting Ondansetron HCl (Ondansetron 4 Mg/2 Ml Inj) 4 mg IV NOW ONE Stop: 02/10/25 07:21 Last Admin: 02/10/25 07:30 Dose: 4 mg Documented By: JACK Sodium Bicarbonate (Sodium Bicarb 8.4% Syringe) 50 meq IV NOW ONE Stop: 02/10/25 16:00 Last Admin: 02/10/25 16:07 Dose: 50 meq Documented By: Admin: 02/10/25 15:55 Dose: 50 meq Documented By: ANAI Vital Signs Vital signs: Vital Signs - 8 hr 02/10/25 08:40 02/10/25 08:40 02/10/25 08:42 Temperature Pulse Rate 84 Respiratory Rate Blood Pressure 126/60 105/53 L Pulse Oximetry 02/10/25 08:42 02/10/25 08:45 02/10/25 08:45 Temperature Pulse Rate 84 84 Respiratory Rate Blood Pressure 120/60 Pulse Oximetry 02/10/25 09:00 02/10/25 09:00 02/10/25 09:15 Temperature Pulse Rate 87 Respiratory Rate Blood Pressure 118/64 117/59 L Pulse Oximetry 98 02/10/25 09:15 02/10/25 09:30 02/10/25 09:30 Temperature Pulse Rate 85 81 Respiratory Rate Blood Pressure 113/55 L Pulse Oximetry 97 96 02/10/25 09:46 02/10/25 09:46 02/10/25 10:00 Temperature Pulse Rate 80 79 Respiratory Rate Blood Pressure 96/52 L Pulse Oximetry 97 96 02/10/25 10:00 02/10/25 10:05 02/10/25 10:05 Temperature Pulse Rate 81 Respiratory Rate Blood Pressure 98/50 L 100/49 L Pulse Oximetry 97 02/10/25 10:15 02/10/25 10:15 02/10/25 10:20 Temperature 97.7 F Pulse Rate 82 Respiratory Rate Blood Pressure 101/52 L Pulse Oximetry 97 02/10/25 10:30 02/10/25 10:31 02/10/25 10:31 Temperature Pulse Rate 83 83 Respiratory Rate Blood Pressure 139/87 Pulse Oximetry 94 96 02/10/25 10:46 02/10/25 10:46 02/10/25 11:00 Temperature Pulse Rate 81 83 Respiratory Rate 27 H Blood Pressure 93/46 L Pulse Oximetry 96 94 02/10/25 11:30 02/10/25 11:30 02/10/25 11:45 Temperature Pulse Rate 86 Respiratory Rate 27 H Blood Pressure 90/54 L 89/53 L Pulse Oximetry 91 02/10/25 11:45 02/10/25 11:51 02/10/25 11:51 Temperature Pulse Rate 91 H 91 H Respiratory Rate 25 H 28 H Blood Pressure 123/59 L Pulse Oximetry 93 96 02/10/25 11:56 02/10/25 11:56 02/10/25 12:00 Temperature Pulse Rate 91 H 90 Respiratory Rate 27 H 30 H Blood Pressure 89/53 L Pulse Oximetry 91 94 02/10/25 12:01 02/10/25 12:01 02/10/25 12:06 Temperature Pulse Rate 92 H 91 H Respiratory Rate 39 H 28 H Blood Pressure 107/51 L Pulse Oximetry 96 95 02/10/25 12:06 02/10/25 12:11 02/10/25 12:11 Temperature Pulse Rate 96 H Respiratory Rate 35 H Blood Pressure 108/54 L 71/34 L Pulse Oximetry 91 02/10/25 12:15 02/10/25 12:15 02/10/25 12:20 Temperature Pulse Rate 133 H 188 H Respiratory Rate 31 H 31 H Blood Pressure 76/52 L Pulse Oximetry 95 95 02/10/25 12:20 02/10/25 12:28 02/10/25 12:28 Temperature Pulse Rate 98 H Respiratory Rate 30 H Blood Pressure 134/62 134/59 L Pulse Oximetry 95 02/10/25 12:30 02/10/25 12:30 02/10/25 12:35 Temperature Pulse Rate 100 H Respiratory Rate 32 H Blood Pressure 132/63 138/60 Pulse Oximetry 94 02/10/25 12:35 02/10/25 12:40 02/10/25 12:40 Temperature Pulse Rate 96 H 95 H Respiratory Rate 29 H 30 H Blood Pressure 131/60 Pulse Oximetry 95 95 02/10/25 12:45 02/10/25 12:45 02/10/25 12:50 Temperature Pulse Rate 95 H Respiratory Rate 29 H Blood Pressure 133/64 128/58 L Pulse Oximetry 96 02/10/25 12:50 02/10/25 12:55 02/10/25 12:55 Temperature Pulse Rate 95 H 96 H Respiratory Rate 24 24 Blood Pressure 139/63 Pulse Oximetry 95 95 02/10/25 13:00 02/10/25 13:00 02/10/25 13:05 Temperature Pulse Rate 96 H 96 H Respiratory Rate 24 31 H Blood Pressure 145/65 H Pulse Oximetry 96 95 02/10/25 13:05 02/10/25 13:10 02/10/25 13:10 Temperature Pulse Rate 96 H Respiratory Rate 28 H Blood Pressure 133/60 135/60 Pulse Oximetry 94 02/10/25 13:15 02/10/25 13:15 02/10/25 13:20 Temperature Pulse Rate 97 H Respiratory Rate 22 Blood Pressure 110/57 L 126/57 L Pulse Oximetry 97 02/10/25 13:20 02/10/25 13:25 02/10/25 13:25 Temperature Pulse Rate 97 H 95 H Respiratory Rate 29 H 30 H Blood Pressure 119/58 L Pulse Oximetry 95 92 02/10/25 13:30 Temperature Pulse Rate 96 H Respiratory Rate 29 H Blood Pressure Pulse Oximetry 92 MDM - Abdominal Pain <Kendy Rockwell MD - Last Filed: 02/13/25 15:33> Lab Data 02/10/25 22:20 02/10/25 22:20 Labs: Lab Results 02/10/25 02/10/25 02/10/25 Range/Units 06:20 06:26 07:50 WBC 20.8 H (4.5-11.0) X10^3/uL RBC 5.30 H (4.0-5.2) X10^6/uL Hgb 13.5 (12.0-16.0) g/dL Hct 43.0 (36-46) % MCV 81.0 (80-100) fL MCH 25.6 L (26-34) PG MCHC 31.5 (30-36) % RDW 15.4 H (11.6-14.8) % Plt Count 323 (150-400) X10^3/uL Neut % (Auto) 92.2 H (50-75) % Lymph % (Auto) 3.8 L (25-40) % [place] % (Auto) 3.7 (3-14) % Eos % (Auto) 0.0 L (2-4) % Baso % (Auto) 0.3 (0-2) % Neut # (Auto) 53752 H (3099-8940) /uL Lymph # (Auto) 800 L (9051-1576) /uL [place] # (Auto) 800 (0-900) /uL Eos # (Auto) 0 (0-450) /uL Baso # (Auto) 100 (0-100) /uL ABG Sample Site ABG pH (7.35-7.45) ABG pCO2 (35-45) mmHg ABG pO2 (80-100) mmHg ABG HCO3 (23-27) mmol/L ABG Total CO2 (23-27) mmol/L ABG O2 Saturation (95-100) % ABG Base Excess (-2-3) mmol/L Vamshi Test Sodium 140 (137-145) mmol/L Potassium 4.1 (3.4-5.1) mmol/L Chloride 104 (98-107) mmol/L Carbon Dioxide 15 L (22-32) mmol/L BUN 22 H (7-17) mg/dL Creatinine 1.59 H (0.52-1.04) mg/dL Estimated GFR 34 L (>60) mL/min BUN/Creatinine Ratio 13.8 (6-22) Glucose 215 H (70-99) mg/dL Lactate 9.5 H* 10.6 H* (0.7-2.1) mmol/L Calcium 9.5 (8.4-10.2) mg/dL Total Bilirubin 0.8 (0.2-1.3) mg/dL AST 36 (14-36) IU/L ALT 22 (<35) IU/L Alkaline Phosphatase 108 (38-126) U/L Total Protein 7.3 (6.3-8.2) g/dL Albumin 4.6 (3.5-5.0) g/dL Globulin 2.7 (1.7-4.1) g/dL Albumin/Globulin Ratio 1.7 (1.0-2.8) Procalcitonin 2.78 H (<0.5) ng/mL Urine Color Urine Appearance Urine pH (4.5-8.0) Ur Specific Crystal (1.000-1.035) Urine Protein (Negative) Urine Glucose (UA) (Negative) g/dL Urine Ketones (NEGATIVE) Urine Occult Blood (Negative) Urine Nitrate (Negative) Urine Bilirubin (NEGATIVE) Urine Urobilinogen (0.2) E.U./dL Ur Leukocyte Esterase (NEGATIVE) Urine RBC (0-5/HPF) Urine WBC (0-5/HPF) Ur Squamous Epith Cells (0-5/HPF) Urine Bacteria (None) Hyaline Casts (None) Ur Culture Indicated? Vol Urine Centrifuged Blood Type O Negative Antibody Screen Positive A Antibody Identification Anti-C 02/10/25 02/10/25 02/10/25 Range/Units 09:24 09:46 13:35 WBC (4.5-11.0) X10^3/uL RBC (4.0-5.2) X10^6/uL Hgb (12.0-16.0) g/dL Hct (36-46) % MCV (80-100) fL MCH (26-34) PG MCHC (30-36) % RDW (11.6-14.8) % Plt Count (150-400) X10^3/uL Neut % (Auto) (50-75) % Lymph % (Auto) (25-40) % [place] % (Auto) (3-14) % Eos % (Auto) (2-4) % Baso % (Auto) (0-2) % Neut # (Auto) (6608-6837) /uL Lymph # (Auto) (4709-6164) /uL [place] # (Auto) (0-900) /uL Eos # (Auto) (0-450) /uL Baso # (Auto) (0-100) /uL ABG Sample Site ABG pH (7.35-7.45) ABG pCO2 (35-45) mmHg ABG pO2 (80-100) mmHg ABG HCO3 (23-27) mmol/L ABG Total CO2 (23-27) mmol/L ABG O2 Saturation (95-100) % ABG Base Excess (-2-3) mmol/L Vamshi Test Sodium (137-145) mmol/L Potassium (3.4-5.1) mmol/L Chloride (98-107) mmol/L Carbon Dioxide (22-32) mmol/L BUN (7-17) mg/dL Creatinine (0.52-1.04) mg/dL Estimated GFR (>60) mL/min BUN/Creatinine Ratio (6-22) Glucose (70-99) mg/dL Lactate 11.5 H* 14.7 H* (0.7-2.1) mmol/L Calcium (8.4-10.2) mg/dL Total Bilirubin (0.2-1.3) mg/dL AST (14-36) IU/L ALT (<35) IU/L Alkaline Phosphatase (38-126) U/L Total Protein (6.3-8.2) g/dL Albumin (3.5-5.0) g/dL Globulin (1.7-4.1) g/dL Albumin/Globulin Ratio (1.0-2.8) Procalcitonin (<0.5) ng/mL Urine Color Yellow Urine Appearance Clear Urine pH 5.0 (4.5-8.0) Ur Specific Crystal 1.020 (1.000-1.035) Urine Protein 1+ H (Negative) Urine Glucose (UA) Negative (Negative) g/dL Urine Ketones Trace H (NEGATIVE) Urine Occult Blood Trace-intact (Negative) Urine Nitrate Negative (Negative) Urine Bilirubin Negative (NEGATIVE) Urine Urobilinogen 1.0 (0.2) E.U./dL Ur Leukocyte Esterase Negative (NEGATIVE) Urine RBC 0-1/hpf (0-5/HPF) Urine WBC None seen (0-5/HPF) Ur Squamous Epith Cells 5-10 /hpf H (0-5/HPF) Urine Bacteria None seen (None) Hyaline Casts 1-5/lpf (None) Ur Culture Indicated? Cult not indicated Vol Urine Centrifuged 10ml (spun) Blood Type Antibody Screen Antibody Identification 02/10/25 Range/Units 13:38 WBC (4.5-11.0) X10^3/uL RBC (4.0-5.2) X10^6/uL Hgb (12.0-16.0) g/dL Hct (36-46) % MCV (80-100) fL MCH (26-34) PG MCHC (30-36) % RDW (11.6-14.8) % Plt Count (150-400) X10^3/uL Neut % (Auto) (50-75) % Lymph % (Auto) (25-40) % [place] % (Auto) (3-14) % Eos % (Auto) (2-4) % Baso % (Auto) (0-2) % Neut # (Auto) (5358-7567) /uL Lymph # (Auto) (8250-7765) /uL [place] # (Auto) (0-900) /uL Eos # (Auto) (0-450) /uL Baso # (Auto) (0-100) /uL ABG Sample Site Not Reportable ABG pH 7.02 L* (7.35-7.45) ABG pCO2 27.8 L (35-45) mmHg ABG pO2 79 L (80-100) mmHg ABG HCO3 7 L (23-27) mmol/L ABG Total CO2 7 L (23-27) mmol/L ABG O2 Saturation 88 L (95-100) % ABG Base Excess -22.6 L (-2-3) mmol/L Vamshi Test Not Reportable Sodium (137-145) mmol/L Potassium (3.4-5.1) mmol/L Chloride (98-107) mmol/L Carbon Dioxide (22-32) mmol/L BUN (7-17) mg/dL Creatinine (0.52-1.04) mg/dL Estimated GFR (>60) mL/min BUN/Creatinine Ratio (6-22) Glucose (70-99) mg/dL Lactate (0.7-2.1) mmol/L Calcium (8.4-10.2) mg/dL Total Bilirubin (0.2-1.3) mg/dL AST (14-36) IU/L ALT (<35) IU/L Alkaline Phosphatase (38-126) U/L Total Protein (6.3-8.2) g/dL Albumin (3.5-5.0) g/dL Globulin (1.7-4.1) g/dL Albumin/Globulin Ratio (1.0-2.8) Procalcitonin (<0.5) ng/mL Urine Color Urine Appearance Urine pH (4.5-8.0) Ur Specific Crystal (1.000-1.035) Urine Protein (Negative) Urine Glucose (UA) (Negative) g/dL Urine Ketones (NEGATIVE) Urine Occult Blood (Negative) Urine Nitrate (Negative) Urine Bilirubin (NEGATIVE) Urine Urobilinogen (0.2) E.U./dL Ur Leukocyte Esterase (NEGATIVE) Urine RBC (0-5/HPF) Urine WBC (0-5/HPF) Ur Squamous Epith Cells (0-5/HPF) Urine Bacteria (None) Hyaline Casts (None) Ur Culture Indicated? Vol Urine Centrifuged Blood Type Antibody Screen Antibody Identification Imaging Data CT scan - abdomen/pelvis: Radiologist's Impression: PROCEDURE: CT CHEST ABD PEL W CON INDICATIONS: abdominal pain TECHNIQUE: After the administration of intravenous contrast, 5 mm thick sections acquired from the lung apices to the symphysis. 5 mm coronal and sagittal reformats were performed, with additional 7 mm MIP reformats through the lungs. For radiation dose reduction, the following was used: automated exposure control, adjustment of mA and/or kV according to patient size. COMPARISON: [facility], CT, CT IVP A/P W/WO, 11/14/2021, 11:36. FINDINGS: Image quality: Excellent. CHEST: Lower Neck: No enlarged lymph nodes. Thyroid: Not well seen. Axillae: No enlarged lymph nodes. Chest Wall: Unremarkable. Lungs and Pleura: No pneumothorax or pleural effusions. No consolidation. Mild peripheral reticular thickening or interlobular septal thickening. Streaky opacity at the lingula. The central airways are clear. Heart: Heart size is normal. Coronary artery calcifications. No pericardial effusion. Thoracic Vessels: The aorta and pulmonary arteries demonstrate normal size. No central pulmonary embolism. Mediastinum and L[place]a: No enlarged lymph nodes. Esophagus: No wall thickening. Air in the esophagus. No definite hiatal hernia. ABDOMEN: Liver: No solid mass. Gallbladder: Prominent size. Biliary ducts: No biliary dilation. Pancreas: Atrophic. Pancreatic duct is not seen. No peripancreatic fluid collection. Spleen: Size is within normal limits. Trace free fluid adjacent to the spleen. Adrenal Glands: No adrenal nodules. Kidneys and Ureters: No hydronephrosis. No solid mass. No complex renal cystic lesion which requires follow up. Stomach and Bowel: Mild thickening of the sigmoid colonic wall, (2/175). There is mild free fluid near the sigmoid colon and descending colon. There is somewhat prominent fecal residue in the rectum and distal sigmoid colon. There is diffuse increased fecal residue in the remaining portions of the colon particularly the proximal colon. No mass identified. Trace free fluid in the right pericolic gutter. The appendix is not identified. No small bowel obstruction. The stomach is not distended.Peritoneum: No gross ascites. No pneumoperitoneum. Ventral Wall: No significant ventral hernia. Abdominal Nodes: No retroperitoneal or mesenteric adenopathy by size criteria. Vessels: Aorta and inferior vena cava are normal in size. Mesenteric arteries are patent. No filling defect in the portal vein or SMV. No portal venous gas. PELVIS: Pelvic Organs: Anteverted uterus. No presacral edema seen. Bladder: Decompressed. No stone. Pelvic Nodes: No enlarged lymph nodes. Miscellaneous: No inguinal hernias are seen. Bones: No aggressive osseous abnormality. Minimal height loss at L2, new in the interval compared to 2021. Multilevel DDD. IMPRESSION: 1. Sigmoid/descending colon wall thickening with surrounding edema. Most consistent with a colitis. Favor infectious/inflammatory etiology. 2. Increased stool throughout the colon, particularly in the proximal colon. 3. No pneumoperitoneum. Mild free fluid. MDM Narrative Medical decision making narrative: Patient is a 74 year old female with a history of abdominal surgeries who presents with 1 week history of contipation, progressive abdominal pain and decreased flatus. Differential diagnosis: Small bowel obstruction, [place]'s syndrome, malignant bowel obstruction, bowel performation, mesenteric ischemia, appendicitis, pancreatitis, cholecystitis, fecal impaction, other. EMR review: Briefly reviewed. Labs: CBC with leukocytosis (WBC 20.8) with left shift (neut % 92.2) no anemia, normal platelets. CMP with anion gap 21, YUNIEL (Cr 1.59), lactate elevated 11.5. Procal 2.78. Urine not consistent with urinary tract infection. Imaging: CT cap with large stool burden, loss of colonic haustra. Awaiting radiology read. EKG: Sinus tachycardia with HR 111, CT 188, QT 384, QTc 522, occasional PVCs, LBBB without meeting Scarbossa criteria for ishemia. Consults: CT completed, awaiting final read. ED course: Patient presents to ED with BP 100/55, T 97.5F all other vitals normal. States she is constipated and requesting manual bowel disimpaction. She had diffuse tenderness to minimal palpation to her abdominal and therefore I opted for CT scan prior to enema and disimpaction. In the ER patient was given pain management. She was signed out to Dr. Heard pending CT read. Kendy Rockwell MD Labs white count of 20 hemoglobin of 13.5 platelets are 323 predominance of neutrophils. Chemistries show a creatinine of 1.59 slight elevation from prior was 1.07 on last, CO2 is 15 BUN 22 electrolytes are otherwise appropriate glucose is 215 initial lactate is 9.5 repeat is 10.6, patient's LFTs are appropriate, procalcitonin 2.78. Patient had CT of chest abdomen and pelvis sigmoid descending colon thickening with surrounding edema most consistent with a colitis favor infectious/inflammatory etiology increased stool throughout colon, particularly proximal colon. No pneumoperitoneum, mild free fluid. EKG shows sinus tachycardia occasional PVCs left bundle-branch block rate of 111 CT 188 QRS of 158 QTC 522. Patient signed out to myself by Dr. Rockwell, patient initially was complaining of constipation and then dropped her pressure while here in the department. Spoke with radiology to move but patient's CT in the que @ [address] Howell general surgery, paged @ 0900. Spoke with Dr. Howell @ 0931, he reviewed imaging formal report has not resulted. Asked that we admit to medicine, NG tube to be placed he will evaluate patient. Dr. Guerrero @ 0944 paged. Patient received L bolus, Zosyn pt evaluation and a 30 cc/kilos bolus to subtract 1 L. patient had Zofran. Fentanyl PRN. On rechecked at 0932 patient is receiving your 30 cc/kilos bolus blood pressure is 118 she has not been tachycardic. She is still has some discomfort. Repeat lactate still trending upwards. Called to DI has not received radiology report. 1100 re-contacted Dr. Howell lactate continues to trend upwards, concern for ischemic gut. Found an old colonoscopy report from November 2023 was not negative at that time for cancer screening. Spoke with patient's family about her critical status could decompensate at any time. They are aware. Patient has been alert part of conversations she is aware of plan and consents for surgery. Spoke with Dr. Guerrero @ 1310.? Accepts for admission we will contact Dr. Howell.?? Dr. Guerrero, 1295. We would like for us to transfer to outside facility. Spoke with the coordinator at [facility], images has been pushed. Dr. Howell in the department at 1242. Discussed he may need to discuss with surgery at [facility]. Spoke with Dr. Gamino at [facility], general surgery as well as hat checker and comforts call. They would like for patient to go straight to the OR here and then can transfer to their facility. They feel delaying OR time would be detrimental to the patient. Updated Dr. Howell he is spoke with Dr. Gamino. in the department, plan for OR here at [facility] and then dependent on patient's progress we will likely transfer to [facility]. <Cristina Heard, DO - Last Filed: 02/10/25 16:37> Lab Data Labs: Lab Results 02/10/25 02/10/25 02/10/25 Range/Units 06:20 06:26 07:50 WBC 20.8 H (4.5-11.0) X10^3/uL RBC 5.30 H (4.0-5.2) X10^6/uL Hgb 13.5 (12.0-16.0) g/dL Hct 43.0 (36-46) % MCV 81.0 (80-100) fL MCH 25.6 L (26-34) PG MCHC 31.5 (30-36) % RDW 15.4 H (11.6-14.8) % Plt Count 323 (150-400) X10^3/uL Neut % (Auto) 92.2 H (50-75) % Lymph % (Auto) 3.8 L (25-40) % [place] % (Auto) 3.7 (3-14) % Eos % (Auto) 0.0 L (2-4) % Baso % (Auto) 0.3 (0-2) % Neut # (Auto) 84717 H (7868-1536) /uL Lymph # (Auto) 800 L (2687-6608) /uL [place] # (Auto) 800 (0-900) /uL Eos # (Auto) 0 (0-450) /uL Baso # (Auto) 100 (0-100) /uL ABG Sample Site ABG pH (7.35-7.45) ABG pCO2 (35-45) mmHg ABG pO2 (80-100) mmHg ABG HCO3 (23-27) mmol/L ABG Total CO2 (23-27) mmol/L ABG O2 Saturation (95-100) % ABG Base Excess (-2-3) mmol/L Vamshi Test Sodium 140 (137-145) mmol/L Potassium 4.1 (3.4-5.1) mmol/L Chloride 104 (98-107) mmol/L Carbon Dioxide 15 L (22-32) mmol/L BUN 22 H (7-17) mg/dL Creatinine 1.59 H (0.52-1.04) mg/dL Estimated GFR 34 L (>60) mL/min BUN/Creatinine Ratio 13.8 (6-22) Glucose 215 H (70-99) mg/dL Lactate 9.5 H* 10.6 H* (0.7-2.1) mmol/L Calcium 9.5 (8.4-10.2) mg/dL Total Bilirubin 0.8 (0.2-1.3) mg/dL AST 36 (14-36) IU/L ALT 22 (<35) IU/L Alkaline Phosphatase 108 (38-126) U/L Total Protein 7.3 (6.3-8.2) g/dL Albumin 4.6 (3.5-5.0) g/dL Globulin 2.7 (1.7-4.1) g/dL Albumin/Globulin Ratio 1.7 (1.0-2.8) Procalcitonin 2.78 H (<0.5) ng/mL Urine Color Urine Appearance Urine pH (4.5-8.0) Ur Specific Crystal (1.000-1.035) Urine Protein (Negative) Urine Glucose (UA) (Negative) g/dL Urine Ketones (NEGATIVE) Urine Occult Blood (Negative) Urine Nitrate (Negative) Urine Bilirubin (NEGATIVE) Urine Urobilinogen (0.2) E.U./dL Ur Leukocyte Esterase (NEGATIVE) Urine RBC (0-5/HPF) Urine WBC (0-5/HPF) Ur Squamous Epith Cells (0-5/HPF) Urine Bacteria (None) Hyaline Casts (None) Ur Culture Indicated? Vol Urine Centrifuged Blood Type O Negative Antibody Screen Positive A Antibody Identification Anti-C 02/10/25 02/10/25 02/10/25 Range/Units 09:24 09:46 13:35 WBC (4.5-11.0) X10^3/uL RBC (4.0-5.2) X10^6/uL Hgb (12.0-16.0) g/dL Hct (36-46) % MCV (80-100) fL MCH (26-34) PG MCHC (30-36) % RDW (11.6-14.8) % Plt Count (150-400) X10^3/uL Neut % (Auto) (50-75) % Lymph % (Auto) (25-40) % [place] % (Auto) (3-14) % Eos % (Auto) (2-4) % Baso % (Auto) (0-2) % Neut # (Auto) (9705-7489) /uL Lymph # (Auto) (6393-3459) /uL [place] # (Auto) (0-900) /uL Eos # (Auto) (0-450) /uL Baso # (Auto) (0-100) /uL ABG Sample Site ABG pH (7.35-7.45) ABG pCO2 (35-45) mmHg ABG pO2 (80-100) mmHg ABG HCO3 (23-27) mmol/L ABG Total CO2 (23-27) mmol/L ABG O2 Saturation (95-100) % ABG Base Excess (-2-3) mmol/L Vamshi Test Sodium (137-145) mmol/L Potassium (3.4-5.1) mmol/L Chloride (98-107) mmol/L Carbon Dioxide (22-32) mmol/L BUN (7-17) mg/dL Creatinine (0.52-1.04) mg/dL Estimated GFR (>60) mL/min BUN/Creatinine Ratio (6-22) Glucose (70-99) mg/dL Lactate 11.5 H* 14.7 H* (0.7-2.1) mmol/L Calcium (8.4-10.2) mg/dL Total Bilirubin (0.2-1.3) mg/dL AST (14-36) IU/L ALT (<35) IU/L Alkaline Phosphatase (38-126) U/L Total Protein (6.3-8.2) g/dL Albumin (3.5-5.0) g/dL Globulin (1.7-4.1) g/dL Albumin/Globulin Ratio (1.0-2.8) Procalcitonin (<0.5) ng/mL Urine Color Yellow Urine Appearance Clear Urine pH 5.0 (4.5-8.0) Ur Specific Crystal 1.020 (1.000-1.035) Urine Protein 1+ H (Negative) Urine Glucose (UA) Negative (Negative) g/dL Urine Ketones Trace H (NEGATIVE) Urine Occult Blood Trace-intact (Negative) Urine Nitrate Negative (Negative) Urine Bilirubin Negative (NEGATIVE) Urine Urobilinogen 1.0 (0.2) E.U./dL Ur Leukocyte Esterase Negative (NEGATIVE) Urine RBC 0-1/hpf (0-5/HPF) Urine WBC None seen (0-5/HPF) Ur Squamous Epith Cells 5-10 /hpf H (0-5/HPF) Urine Bacteria None seen (None) Hyaline Casts 1-5/lpf (None) Ur Culture Indicated? Cult not indicated Vol Urine Centrifuged 10ml (spun) Blood Type Antibody Screen Antibody Identification 02/10/25 Range/Units 13:38 WBC (4.5-11.0) X10^3/uL RBC (4.0-5.2) X10^6/uL Hgb (12.0-16.0) g/dL Hct (36-46) % MCV (80-100) fL MCH (26-34) PG MCHC (30-36) % RDW (11.6-14.8) % Plt Count (150-400) X10^3/uL Neut % (Auto) (50-75) % Lymph % (Auto) (25-40) % [place] % (Auto) (3-14) % Eos % (Auto) (2-4) % Baso % (Auto) (0-2) % Neut # (Auto) (1252-9551) /uL Lymph # (Auto) ([id number]) /uL [place] # (Auto) (0-900) /uL Eos # (Auto) (0-450) /uL Baso # (Auto) (0-100) /uL ABG Sample Site Not Reportable ABG pH 7.02 L* (7.35-7.45) ABG pCO2 27.8 L (35-45) mmHg ABG pO2 79 L (80-100) mmHg ABG HCO3 7 L (23-27) mmol/L ABG Total CO2 7 L (23-27) mmol/L ABG O2 Saturation 88 L (95-100) % ABG Base Excess -22.6 L (-2-3) mmol/L Vamshi Test Not Reportable Sodium (137-145) mmol/L Potassium (3.4-5.1) mmol/L Chloride (98-107) mmol/L Carbon Dioxide (22-32) mmol/L BUN (7-17) mg/dL Creatinine (0.52-1.04) mg/dL Estimated GFR (>60) mL/min BUN/Creatinine Ratio (6-22) Glucose (70-99) mg/dL Lactate (0.7-2.1) mmol/L Calcium (8.4-10.2) mg/dL Total Bilirubin (0.2-1.3) mg/dL AST (14-36) IU/L ALT (<35) IU/L Alkaline Phosphatase (38-126) U/L Total Protein (6.3-8.2) g/dL Albumin (3.5-5.0) g/dL Globulin (1.7-4.1) g/dL Albumin/Globulin Ratio (1.0-2.8) Procalcitonin (<0.5) ng/mL Urine Color Urine Appearance Urine pH (4.5-8.0) Ur Specific [place] (1.000-1.035) Urine Protein (Negative) Urine Glucose (UA) (Negative) g/dL Urine Ketones (NEGATIVE) Urine Occult Blood (Negative) Urine Nitrate (Negative) Urine Bilirubin (NEGATIVE) Urine Urobilinogen (0.2) E.U./dL Ur Leukocyte Esterase (NEGATIVE) Urine RBC (0-5/HPF) Urine WBC (0-5/HPF) Ur Squamous Epith Cells (0-5/HPF) Urine Bacteria (None) Hyaline Casts (None) Ur Culture Indicated? Vol Urine Centrifuged Blood Type Antibody Screen Antibody Identification MDM Narrative Medical decision making narrative: Labs white count of 20 hemoglobin of 13.5 platelets are 323 predominance of neutrophils. Chemistries show a creatinine of 1.59 slight elevation from prior was 1.07 on last, CO2 is 15 BUN 22 electrolytes are otherwise appropriate glucose is 215 initial lactate is 9.5 repeat is 10.6, patient's LFTs are appropriate, procalcitonin 2.78. Patient had CT of chest abdomen and pelvis sigmoid descending colon thickening with surrounding edema most consistent with a colitis favor infectious/inflammatory etiology increased stool throughout colon, particularly proximal colon. No pneumoperitoneum, mild free fluid. EKG shows sinus tachycardia occasional PVCs left bundle-branch block rate of 111 CT 188 QRS of 158 QTC 522. Patient signed out to myself by Dr. Rockwell, patient initially was complaining of constipation and then dropped her pressure while here in the department. Spoke with radiology to move but patient's CT in the que @ [address] Howell general surgery, paged @ 0900. Spoke with Dr. Howell @ 0931, he reviewed imaging formal report has not resulted. Asked that we admit to medicine, NG tube to be placed he will evaluate patient. Dr. Guerrero @ 0931 paged. Patient received L bolus, Zosyn pt evaluation and a 30 cc/kilos bolus to subtract 1 L. patient had Zofran. Fentanyl PRN. On rechecked at 0932 patient is receiving your 30 cc/kilos bolus blood pressure is 118 she has not been tachycardic. She is still has some discomfort. Repeat lactate still trending upwards. Called to [facility] has not received radiology report. 1100 re-contacted Dr. Howell lactate continues to trend upwards, concern for ischemic gut. Found an old colonoscopy report from November 2023 was not negative at that time for cancer screening. Spoke with patient's family about her critical status could decompensate at any time. They are aware. Patient has been alert part of conversations she is aware of plan and consents for surgery. Spoke with Dr. Guerrero @ 1859.? Accepts for admission we will contact Dr. Howell.?? Dr. Guerrero, [phone]. We would like for us to transfer to outside facility. Spoke with the coordinator at [facility], images has been pushed. Dr. Howell in the department at 1242. Discussed he may need to discuss with surgery at [facility]. Spoke with Dr. Gamino at [facility], general surgery as well as hat checker and comforts call. They would like for patient to go straight to the OR here and then can transfer to their facility. They feel delaying OR time would be detrimental to the patient. Updated Dr. Howell he is spoke with Dr. Gamino. in the department, plan for OR here at [facility] and then dependent on patient's progress we will likely transfer to [facility]. Critical Care Time <Cristina Heard DO - Last Filed: 02/10/25 16:37> Critical Care Time Critical Care Time: Yes Total Critical Care Time: 65 Attestation: The high probability of a clinically significant, sudden or life threatening deterioration of the cardiac, pulmonary system(s) required my full and direct attention, intervention and personal management. The aggregate critical care time was [--] minutes. This time is in addition to time spent performing reported procedures but includes the following: [x] Data Review and interpretation [x] Patient assessment and monitoring of vital signs [x] Documentation [x] Medication orders and management Discharge Plan Departure Patient Disposition: Admitted As Inpatient Clinical Impression: Colitis, Acidosis, lactic Sepsis Qualifiers: Sepsis type: sepsis due to unspecified organism Sepsis acute organ dysfunction status: with acute organ dysfunction Severe sepsis acute organ dysfunction type: unspecified Severe sepsis shock status: with septic shock Qualified Code(s): A 41.9 - Sepsis, unspecified organism Admit Date/Time: 02/10/25 13:41 Admit Provider: Goyo Howell Sepsis Evaluation (ED) <Cristina Heard DO - Last Filed: 02/10/25 16:37> Level 1 - Infection Sepsis Infection Criteria Present: Suspected New Infection Level 2 - SIRS Sepsis SIRS Criteria Present: Respiratory Rate > 20 bpm or PaCO2 < 32 mmHg and WBC < 4k or > 12k or Bands > 10% Level 3 - Organ Dysfunction Sepsis Organ Dysfunction Criteria Present: Lactic Acid > 2 mmol/L and SBP < 90 or MAP < 65 mmHg Response It is my opinion that this patient have a likely infectious etiology for meeting sepsis criteria: Does Fluid calculation based on 30 mL/kg within 1hr of criteria: ABW used Tissue Perfusion Reassessed within 6 hrs of infusion start time: Yes (932: Cap refill less than 2 seconds patient's blood pressure improved 118) Date of Tissue Perfusion Reassessment completed: 02/10/25 Time Tissue Perfusion Reassessment completed: 09:33
[2025-02-10 06:57] LABS: Alanine Aminotransferase 22 IU/L (<35); Albumin 4.6 g/dL (3.5-5.0); Albumin Globulin Ratio 1.7 (1.0-2.8); Alkaline Phosphatase 108 U/L (38-126); Blood Urea Nitrogen 22 mg/dL (7-17); Calcium 9.5 mg/dL (8.4-10.2); Carbon Dioxide 15 mmol/L (22-32); Chloride 104 mmol/L (98-107); Estimated Glomerular Filt Rate 34 mL/min (>60); Globulin 2.7 g/dL (1.7-4.1); Glucose 215 mg/dL (70-99); HEMOLYSIS < 15 (0-50); Potassium 4.1 mmol/L (3.4-5.1); Sodium 140 mmol/L (137-145); Total Protein 7.3 g/dL (6.3-8.2)
[2025-02-10 07:04] LABS: Lactate (Lactic Acid) 9.5 mmol/L (0.7-2.1)
[2025-02-10] MEDS: ONDANSETRON 4 MG/2 ML INJ IV (07:30)
[2025-02-10 08:02] LABS: Reflexed Lactate in 2 Hours Y
[2025-02-10 08:45] LABS: Lactate 2HR (Lactic Acid Rflx) 10.6 mmol/L (0.7-2.1)
[2025-02-10 08:48] LABS: Procalcitonin 2.78 ng/mL (<0.5)
[2025-02-10] MEDS: SODIUM CHLORIDE 0.9% 2,653.53 ML 1769.02 ML IV (08:56)
[2025-02-10] MEDS: PIPERACILLIN/TAZO 4.5 GM in SODIUM CHLORIDE 0.9% 100 ML IV ×3 (09:00→16:41)
--- NOTE | 2025-02-10 09:06 | PC.NURSE ---
Pt hypotensive at time of shift change, physician and charge aware. Pt trendelenburg. Fluids running and two iv's in place, current BP 118/64.
[2025-02-10] MEDS: fentaNYL 100 MCG/2 ML INJ 50 MCG IV ×2 (09:11→13:19)
[2025-02-10 09:57] LABS: Appearance Urine UA CLEAR; Bilirubin Urine UA NEGATIVE (NEGATIVE); Color Urine UA YELLOW; Glucose Urine UA NEGATIVE (Negative); Ketones Urine UA TRACE (NEGATIVE); Leukocyte Esterase Urine UA NEGATIVE (NEGATIVE); Nitrite Urine UA NEGATIVE (Negative); Occult Blood Urine UA TRACE-INTACT (Negative); Protein Urine UA 1+ (Negative); Specific Gravity Urine UA 1.020 (1.000-1.035); Urobilinogen Urine UA 1.0 E.U./dL (0.2)
[2025-02-10 10:08] LABS: pH Urine UA 5.0 (4.5-8.0)
[2025-02-10 10:09] LABS: Culture Indicated Urine Cult Not Indicated
[2025-02-10 10:17] LABS: Lactate (Lactic Acid) 11.5 mmol/L (0.7-2.1)
[2025-02-10] MEDS: SODIUM CHLORIDE 0.9% 500 ML 1000 ML IV (11:10)
--- NOTE | 2025-02-10 11:21 | DI.RAD.S_ITS ---
PROCEDURE: XR CHEST 1V INDICATIONS: placement of GI tube verification TECHNIQUE: One view of the chest was acquired. COMPARISON: [facility], CT, CT CHEST [facility]EL W CON[facility], [facility], 11:59. [facility], CR, XR CHEST 1V, 10/06/2022, 18:26. FINDINGS: Surgical changes and devices: Enteric tube traverses the diaphragm with tip projecting over the stomach and side hole in the region of the gastroesophageal junction. Lungs and pleura: Mild bibasilar atelectasis. Low lung volumes are seen bilaterally. No pleural effusion or pneumothorax. Mediastinum: Mediastinal contours appear normal. Heart size is normal. Bones and chest wall: No suspicious bony lesions. Overlying soft tissues appear unremarkable. IMPRESSION: Enteric tube is seen with tip projecting over the stomach and side hole in the region of the gastroesophageal junction. If the tube will be used for feeding, consider advancing 3-5 cm. Approved by: Cory Youngblood M.D. on 02/10/2025 at 11:43
[2025-02-10] MEDS: LIDOCAINE 2% (GLYDO) 6 ML GEL TOP (11:22)
[2025-02-10 11:29] LABS: Reflexed Lactate in 2 Hours Y
--- NOTE | 2025-02-10 12:02 | DI.RAD.S_ITS ---
PROCEDURE: XR CHEST 1V INDICATIONS: review advancement of ng tube TECHNIQUE: One view of the chest was acquired. COMPARISON: [facility], CR, XR CHEST 1V, 02/10/2025, 11:13. [facility], CR, XR CHEST 2V, 11/05/2022, 11:59. FINDINGS: Surgical changes and devices: Enteric tube traverses the diaphragm with tip and side hole projecting over the left upper quadrant stomach bubble. Lungs and pleura: Low lung volumes bilaterally. No focal consolidation. No pleural effusions or pneumothorax. Mediastinum: Mediastinal contours appear normal. Heart size is normal. Bones and chest wall: No suspicious bony lesions. Overlying soft tissues appear unremarkable. IMPRESSION: Enteric tube in satisfactory position. Approved by: Cory Youngblood M.D. on 02/10/2025 at 13:03
--- NOTE | 2025-02-10 13:46 | P.CONS_ITS ---
History of Present Illness Consult details Date Patient Seen: 02/10/25 Time Patient Seen: 13:46 Chief complaint: Abd Pain Reason for consult: Abdominal pain, sepsis Requesting provider: Cristina Heard Narrative: 74yo F presents to ED with abd pain. Symptoms started last night around midnight. +N/V, no blood. She had a colonoscopy several years ago that was normal per patient. CT demonstrates colitis with thickening and pericolonic fluid in descending and sigmoid colons. Stool burden throughout colon and rectum. Small bowel is distended with markedly distended stomach full of gastric contents. WBC 20.8 NLR 24. Zosyn started. Despite fluid resuscitation, lactate increased to 11. Patient c/o diffuse abd pain. SBP into 70s despite fluid resuscitation. Levo gtt started. Discussed transfer with Dr. Marc Gamino at . Recommendation that we do her surgery here and transfer postop if needed for ICU care. Meds Home Medications and Allergies Home Medications ?Medication ?Instructions ?Recorded ?Confirmed ?Type cetirizine 10 mg capsule (Zyrtec) 10 mg PO DAILY 12/0711/10/24 History acetaminophen 500 mg capsule 1,000 mg PO TID PRN asthm a 09/04/22 11/10/24 History fluticasone propionate 50 2 spray intranasal DAILY 11/10/24 History mcg/actuation nasal spray,suspension (Flonase Allergy Relief) lidocaine 4 % topical patch 1 patch topical DAILY PRN asthma 09/04/22 11/10/24 History (Salonpas (lidocaine)) lidocaine 4 % topical spray spray topical 09/04/22 History (Aspercreme (lidocaine)) ipratropium 0.5 mg-albuterol 3 mg 3 ml inhalation Q4-6 H PRN asthma 11/02/22 11/10/24 History (2.5 mg base)/3 mL nebulization soln Disabled Parking Permit See Rx Instructions .Route 1 03/11/22 11/10/24 Rx .COMPLEX #1 ea cholecalciferol (vitamin D3) 25 50 mcg PO BID 01/22/23 11/10/24 History mcg (1,000 unit) capsule denosumab 60 mg/mL subcutaneous 60 mg SUBCUT W1DRCSRD #1 mL 01/22/23 11/10/24 Rx syringe (Prolia) blood-glucose meter (Blood Glucose #1 ea 03/26/2310/20 Rx Monitoring kit) diphenhydramine HCl 25 mg capsule 25 mg PO Q6-8H PRN a sthma 12/16/23 11/10/24 History (Benadryl) riboflavin (vitamin B2) 400 mg 400 mg PO DAILY #90 tab s 12/27/23 11/10/24 Rx tablet omega-3 acid ethyl esters 1 gram 1 cap PO BID #180 cap s 04/30/24 11/10/24 Rx capsule epinephrine 0.3 mg/0.3 mL 0.3 mg (0.3 mL) IM Q5-15M IN N 07/02/24 11/10/24 Rx injection, auto-injector (EpiPen anaphylaxis #2 ea 2-Rivera) liothyronine 5 mcg tablet 5 mcg PO DAILY #90 tabs 07/1911/10/24 Rx lisinopril 20 mg tablet 20 mg PO DAILY #90 tabs 0709/1111/10/24 Rx blood sugar diagnostic (OneTouch #100 ea 09/11/2410/20 Rx Verio test strips) levothyroxine 125 mcg tablet 125 mcg PO DAILY #90 tabs 09/11/24 11/10/24 Rx metformin 500 mg tablet,extended 1,500 mg (3 x 500 mg) PO DAILY 10/01/24 11/10/24 Rx release 24 hr #270 tabs azelastine 137 mcg (0.1 %) nasal 137 mcg (0.137 mL) in tranasal BID 11/04/24 11/10/24 Rx spray #30 mL benralizumab 30 mg/mL subcutaneous 30 mg SUBCUT Q8W #1 mL 11/04/24 11/10/24 Rx auto-injector (Fasenra Pen) budesonide-formoterol HFA 160 2 puff PO BID #30.6 gram s 11/04/24 11/10/24 Rx mcg-4.5 mcg/actuation aerosol inhaler (Symbicort) calcium carbonate 600 mg PO DAILY 11/04/24 History cyanocobalamin (vitamin B-12) 2,500 mcg PO DAILY 11/0411/10/24 History 2,500 mcg sublingual tablet (Vitamin B-12) montelukast 10 mg tablet 10 mg PO QPM #90 tabs 11/10/24 Rx sertraline 100 mg tablet (Zoloft) 100 mg PO DAILY #90 tabs 12/15/24 Rx sertraline 50 mg tablet 50 mg PO DAILY #90 tabs 11/19 10/12 Rx nortriptyline 75 mg capsule 150 mg (2 x 75 mg) PO BEDT JAMEE #180 12/16/24 Rx caps rimegepant 75 mg disintegrating 75 mg PO ONCE PRN migr brayden 12/22/24 Rx tablet (Nurtec ODT) headache #18 tabs rosuvastatin 10 mg tablet 10 mg PO DAILY #90 tabs 12/20 07/12 Rx nystatin 100,000 unit/gram topical 1 applic topical BI D rash breast 01/21/25 Rx powder fold and groin area #60 gram s meloxicam 7.5 mg tablet 7.5 mg PO DAILY #30 tabs Rx Allergies Allergy/AdvReac Type Severity Reaction Status Date / Time zolpidem (From Ambien) Allergy Severe amnesia Verified 02/10/25 05:32 cat dander Allergy Wheezing Verified 02/10/25 05:32 hydrochlorothiazide Allergy Rash Verified 02/10/25 05:32 melon Allergy ITCHING Verified 02/10/25 05:32 nitrofurantoin (From Allergy Vomiting Verified 02/10/25 05:32 Macrobid) peanut Allergy Anaphylaxis Verified 02/10/25 05:32 pravastatin Allergy Muscle Pain Verified 02/10/25 05:32 propranolol (From Inderal [place]) AdvReac Intermediate Dizziness Verified 02/10/25 05:32 ceftriaxone AdvReac ITCHING Verified 02/10/25 05:32 levofloxacin (From Levaquin) AdvReac Vomiting Verified 02/10/25 05:32 Exam Vital Signs (past 8 hours): - 02/10/25 06:24 02/10/25 06:25 02/10/25 06:25 Temperature Pulse Rate 76 Respiratory Rate Blood Pressure 79/44 L Pulse Oximetry 86 L 99 02/10/25 06:29 02/10/25 06:29 02/10/25 06:30 Temperature Pulse Rate 80 Respiratory Rate Blood Pressure 73/37 L 76/41 L Pulse Oximetry 97 02/10/25 06:30 02/10/25 06:32 02/10/25 06:32 Temperature Pulse Rate 81 83 Respiratory Rate Blood Pressure 76/47 L Pulse Oximetry 98 99 02/10/25 06:35 02/10/25 06:35 02/10/25 06:43 Temperature Pulse Rate 79 Respiratory Rate Blood Pressure 69/41 L 67/32 L Pulse Oximetry 99 02/10/25 06:43 02/10/25 06:44 02/10/25 06:44 Temperature Pulse Rate 81 79 Respiratory Rate Blood Pressure 80/43 L Pulse Oximetry 95 95 02/10/25 06:45 02/10/25 06:45 02/10/25 06:46 Temperature Pulse Rate 79 79 Respiratory Rate Blood Pressure 82/47 L Pulse Oximetry 96 94 02/10/25 06:46 02/10/25 06:50 02/10/25 06:50 Temperature Pulse Rate 75 Respiratory Rate Blood Pressure 82/44 L 76/38 L Pulse Oximetry 94 02/10/25 06:54 02/10/25 06:54 02/10/25 06:55 Temperature Pulse Rate 77 Respiratory Rate 23 Blood Pressure 76/42 L 81/45 L Pulse Oximetry 94 02/10/25 06:55 02/10/25 07:00 02/10/25 07:00 Temperature Pulse Rate 77 79 Respiratory Rate 24 16 Blood Pressure 94/50 L Pulse Oximetry 94 95 02/10/25 07:05 02/10/25 07:05 02/10/25 07:06 Temperature Pulse Rate 78 Respiratory Rate 23 Blood Pressure 97/46 L 94/45 L Pulse Oximetry 96 02/10/25 07:06 02/10/25 07:10 02/10/25 07:10 Temperature Pulse Rate 78 79 Respiratory Rate 22 29 H Blood Pressure 86/43 L Pulse Oximetry 95 02/10/25 07:14 02/10/25 07:14 02/10/25 07:15 Temperature Pulse Rate 79 78 Respiratory Rate 23 23 Blood Pressure 88/44 L Pulse Oximetry 98 99 02/10/25 07:15 02/10/25 07:17 02/10/25 07:28 Temperature Pulse Rate 87 Respiratory Rate 26 H Blood Pressure 88/44 L 90/52 L Pulse Oximetry 97 02/10/25 07:33 02/10/25 07:35 02/10/25 07:40 Temperature Pulse Rate Respiratory Rate Blood Pressure 92/52 L 101/57 L 104/53 L Pulse Oximetry 02/10/25 08:34 02/10/25 08:35 02/10/25 08:35 Temperature Pulse Rate 87 86 Respiratory Rate Blood Pressure 143/62 H Pulse Oximetry 02/10/25 08:40 02/10/25 08:40 02/10/25 08:42 Temperature Pulse Rate 84 Respiratory Rate Blood Pressure 126/60 105/53 L Pulse Oximetry 02/10/25 08:42 02/10/25 08:45 02/10/25 08:45 Temperature Pulse Rate 84 84 Respiratory Rate Blood Pressure 120/60 Pulse Oximetry 02/10/25 09:00 02/10/25 09:00 02/10/25 09:15 Temperature Pulse Rate 87 Respiratory Rate Blood Pressure 118/64 117/59 L Pulse Oximetry 98 02/10/25 09:15 02/10/25 09:30 02/10/25 09:30 Temperature Pulse Rate 85 81 Respiratory Rate Blood Pressure 113/55 L Pulse Oximetry 97 96 02/10/25 09:46 02/10/25 09:46 02/10/25 10:00 Temperature Pulse Rate 80 79 Respiratory Rate Blood Pressure 96/52 L Pulse Oximetry 97 96 02/10/25 10:00 02/10/25 10:05 02/10/25 10:05 Temperature Pulse Rate 81 Respiratory Rate Blood Pressure 98/50 L 100/49 L Pulse Oximetry 97 02/10/25 10:15 02/10/25 10:15 02/10/25 10:20 Temperature 97.7 F Pulse Rate 82 Respiratory Rate Blood Pressure 101/52 L Pulse Oximetry 97 02/10/25 10:30 02/10/25 10:31 02/10/25 10:31 Temperature Pulse Rate 83 83 Respiratory Rate Blood Pressure 139/87 Pulse Oximetry 94 96 02/10/25 10:46 02/10/25 10:46 02/10/25 11:00 Temperature Pulse Rate 81 83 Respiratory Rate 27 H Blood Pressure 93/46 L Pulse Oximetry 96 94 02/10/25 11:30 02/10/25 11:30 02/10/25 11:45 Temperature Pulse Rate 86 Respiratory Rate 27 H Blood Pressure 90/54 L 89/53 L Pulse Oximetry 91 02/10/25 11:45 02/10/25 11:51 02/10/25 11:51 Temperature Pulse Rate 91 H 91 H Respiratory Rate 25 H 28 H Blood Pressure 123/59 L Pulse Oximetry 93 96 02/10/25 11:56 02/10/25 11:56 02/10/25 12:00 Temperature Pulse Rate 91 H 90 Respiratory Rate 27 H 30 H Blood Pressure 89/53 L Pulse Oximetry 91 94 02/10/25 12:01 02/10/25 12:01 02/10/25 12:06 Temperature Pulse Rate 92 H 91 H Respiratory Rate 39 H 28 H Blood Pressure 107/51 L Pulse Oximetry 96 95 02/10/25 12:06 02/10/25 12:11 02/10/25 12:11 Temperature Pulse Rate 96 H Respiratory Rate 35 H Blood Pressure 108/54 L 71/34 L Pulse Oximetry 91 02/10/25 12:15 02/10/25 12:15 02/10/25 12:20 Temperature Pulse Rate 133 H 188 H Respiratory Rate 31 H 31 H Blood Pressure 76/52 L Pulse Oximetry 95 95 02/10/25 12:20 Temperature Pulse Rate Respiratory Rate Blood Pressure 134/62 Pulse Oximetry Oxygen Delivery Method Room Air Const General: acute distress HENMT Other: NGT in place Eyes Visual Ortiz: normal visual ortiz by confrontation Resp Effort & Inspection: normal respiratory effort Auscultation: clear to auscultation bilaterally Cardio Rate: regular rate GI Other: Distended, BMI 35, diffusely tender throughout abdomen, peritoneal, healed paramedian incision to right of low midline and healed low midline incision, no hernia appreciated Neuro General: patient alert, patient awake and patient oriented x3 Extrem General: no pedal edema and no calf tenderness Objective Labs 02/10/25 06:20 02/10/25 06:20 Labs: Laboratory Results - last 24 hr 02/10/25 02/10/25 02/10/25 06:20 06:26 07:50 WBC 20.8 H RBC 5.30 H Hgb 13.5 Hct 43.0 MCV 81.0 MCH 25.6 L MCHC 31.5 RDW 15.4 H Plt Count 323 Neut % (Auto) 92.2 H Lymph % (Auto) 3.8 L [place] % (Auto) 3.7 Eos % (Auto) 0.0 L Baso % (Auto) 0.3 Neut # (Auto) 11643 H Lymph # (Auto) 800 L [place] # (Auto) 800 Eos # (Auto) 0 Baso # (Auto) 100 Sodium 140 Potassium 4.1 Chloride 104 Carbon Dioxide 15 L BUN 22 H Creatinine 1.59 H Estimated GFR 34 L BUN/Creatinine Ratio 13.8 Glucose 215 H Lactate 9.5 H* 10.6 H* Calcium 9.5 Total Bilirubin 0.8 AST 36 ALT 22 Alkaline Phosphatase 108 Total Protein 7.3 Albumin 4.6 Globulin 2.7 Albumin/Globulin Ratio 1.7 Procalcitonin 2.78 H Urine Color Urine Appearance Urine pH Ur Specific [place] Urine Protein Urine Glucose (UA) Urine Ketones Urine Occult Blood Urine Nitrate Urine Bilirubin Urine Urobilinogen Ur Leukocyte Esterase Urine RBC Urine WBC Ur Squamous Epith Cells Urine Bacteria Hyaline Casts Ur Culture Indicated? Vol Urine Centrifuged Blood Type O Negative Antibody Screen Positive 02/10/25 02/10/25 09:24 09:46 WBC RBC Hgb Hct MCV MCH MCHC RDW Plt Count Neut % (Auto) Lymph % (Auto) [place] % (Auto) Eos % (Auto) Baso % (Auto) Neut # (Auto) Lymph # (Auto) [place] # (Auto) Eos # (Auto) Baso # (Auto) Sodium Potassium Chloride Carbon Dioxide BUN Creatinine Estimated GFR BUN/Creatinine Ratio Glucose Lactate 11.5 H* Calcium Total Bilirubin AST ALT Alkaline Phosphatase Total Protein Albumin Globulin Albumin/Globulin Ratio Procalcitonin Urine Color Yellow Urine Appearance Clear Urine pH 5.0 Ur Specific [place] 1.020 Urine Protein 1+ H Urine Glucose (UA) Negative Urine Ketones Trace H Urine Occult Blood Trace-intact Urine Nitrate Negative Urine Bilirubin Negative Urine Urobilinogen 1.0 Ur Leukocyte Esterase Negative Urine RBC 0-1/hpf Urine WBC None seen Ur Squamous Epith Cells 5-10 /hpf H Urine Bacteria None seen Hyaline Casts 1-5/lpf Ur Culture Indicated? Cult not indicated Vol Urine Centrifuged 10ml (spun) Blood Type Antibody Screen PFSH Medical History Vision changes Fatigue Dyslipidemia associated with type 2 diabetes mellitus Diabetic retinopathy associated with controlled type 2 diabetes mellitus Cataract Chronic lower back pain Loss of balance Mumps Measles Chicken pox (~1954) Hypothyroidism Hypertension Migraine Multiple allergies Acidosis, lactic Postmenopausal bleeding Disease of thyroid gland FH: migraine headache Chest pain Surgical History Anesthesia H/O tubal ligation (~1973) H/O adenoidectomy (~1961) H/O section Hx of tonsillectomy (~1961) History of carpal tunnel surgery (~1986) History of appendectomy (~1967) Family History Brother Family history of BPH Kidney stones COPD (chronic obstructive pulmonary disease) Mother Hypertension Diabetes mellitus Thyroid disease Father Cancer Diabetes mellitus CAD in [place] artery History of heart disease Mental health problem Alzheimer's disease Grandfather History of heart disease Grandmother Breast cancer Grandmother Stroke TIA (transient ischemic attack) Social History marital status: number of children: 2 household members: friend(s) Tobacco & Substance Use Smoking Status: Never smoker alcohol intake: never Diet and Exercise Type(s) of exercise: walking frequency: 1-2 times per week Assessment & Plan Assessment and plan (1) Acidosis, lactic: Status: Acute (2) Colitis: Status: Acute (3) Sepsis: Qualifiers: Sepsis type: sepsis due to unspecified organism Sepsis acute organ dysfunction status: with acute organ dysfunction Severe sepsis acute organ dysfunction type: unspecified Severe sepsis shock status: with septic shock Q ualified Code(s): A41.9 - Sepsis, unspecified organism; R65.21 - Severe sepsis with septic shock Status: Acute Plan Acute abdomen, sepsis, unclear etiology. CT demonstrates colitis and small bowel obstruction. Discussed transfer with Dr. Marc Gamino at . Recommendation we do her surgery here to expedite surgical care and transfer for postop ICU care if needed. Plan exploratory laparotomy. The risks, benefits and options regarding the procedure were explained to the patient in detail. Risk discussion included but not limited to: possible colectomy, possible ostomy, possible small bowel resection, infection, bleeding, mortality, complications of sepsis. The patient was encouraged to ask questions and they were answered to their satisfaction. The patient understands and is agreeable to proceed. Patient is aware she is a high risk patient. Time-Based Coding :: [TOTAL MINUTES] spent with patient and on the chart (including review of chart, obtaining history, exam, reviewing outside data, placing orders, documenting exam and treatment plan, and counseling patient) on [DATE]. PROFEE Charge Codes Inpatient or Observation consultation: [id number]
[2025-02-10] MEDS: NOREPINEPHRINE BIT/0.9 % NACL 4 MG/250 ML PLAST..BAG 15.244 MG IV (13:56)
[2025-02-10 14:00] LABS: Lactate 2HR (Lactic Acid Rflx) 14.7 mmol/L (0.7-2.1)
[2025-02-10] MEDS: DEXTROSE 50 % IN WATER 25 GM/50 ML SYRINGE IV (14:59)
[2025-02-10] MEDS: LACTATED RINGERS 1,000 ML 42 ML IV ×2 (15:04→16:02)
--- NOTE | 2025-02-10 15:12 | PC.NURSE ---
ZHANG RUNNING AT TIME OF TRANSFER TO OR. N2N REPORT GIVEN TO AYSHA CLINICAL DOCUMENTATION CONSULTANT.
--- NOTE | 2025-02-10 15:19 | SUR.OPER ---
Supine on padded OR bed, head on pillow, arms secured on padded arm boards at <90 degrees abduction, legs uncrossed, safety belt at thigh, tape over blanket over lower legs.
[2025-02-10 15:52] LABS: HCO3 ABG 8 mmol/L (23-27); Oxygen Saturation ABG 98 % (95-100); PCO2 ABG 52.0 mmHg (35-45); PO2 ABG 210 mmHg (80-100); TCO2 ABG 8 mmol/L (23-27)
[2025-02-10] MEDS: SODIUM BICARB 8.4% SYRINGE 50 MEQ IV ×2 (15:55→16:07)
[2025-02-10] MEDS: ACETAMINOPHEN IV 1,000 MG/100 ML VIAL 400 MG IV (16:14)
[2025-02-10 16:37] LABS: INR 1.3 (0.9-1.3); Prothrombin Time 14.6 SECONDS (9.4-12.5)
--- NOTE | 2025-02-10 16:44 | DI.RAD.S_ITS ---
PROCEDURE: XR CHEST 1V INDICATIONS: Postop - Check central line and ETT placement TECHNIQUE: One view of the chest was acquired. COMPARISON: [facility], CR, XR CHEST 1V, 02/10/2025, 12:01. [facility], CR, XR CHEST 1V, 02/10/2025, 11:13. FINDINGS AND IMPRESSION: Enteric tube turns in the stomach and terminates in the gastric body. ET tube tip projects over the mid trachea. Right central line tip projects over the mid SVC. On this single view study, no dense airspace disease or pleural effusions. Low lung volumes. Unchanged cardiomediastinal contours. Degenerative osseous changes. Dictated by: Gilbert Francisco M.D. on 02/10/2025 at 18:10 Approved by: Gilbert Francisco M.D. on 02/10/2025 at 18:11
--- NOTE | 2025-02-10 17:27 | PM.OP.1 ---
Operative Date/Time/Diagnoses Date of procedure: 02/10/25 Time of procedure: 17:27 Pre-op diagnosis: Acute abdomen, sepsis, toxic megacolon Post-op diagnosis: same Procedure & Clinicians Procedure: Exploratory laparotomy, total colectomy, ileostomy Same procedure(s) as scheduled: Yes Indications: 74yo F presented to ED with sepsis, worsening lactate despite resuscitation, dilated colon on CT, WBC>20 Surgeon: Goyo Howell Assisted?: No Anesthesia Type: General Operative Notes Findings: Toxic megacolon, large, inspissated balls of stool throughout entire colon, cecum dilated to 14cm, diverticulosis noted in sigmoid colon Closure Type: primary Specimen(s): other (colon) Prosthetic devices, grafts, tissues, transplants, or devices: Joya drain in SQ Applied: drain(s) Estimated Blood Loss (mL): 50 Blood products transfused: none Procedure in detail: After informed consent and satisfactory general endotracheal anesthesia, the abdomen was prepped and draped in the usual sterile manner. The patient received IV Zosyn therapy in the emergency room. An arterial line was placed in the left wrist per anesthesia. A central line was placed at the end of the procedure. The patient required norepinephrine for systolic blood pressure in the 70s not responding to fluid resuscitation. Her lactate had increased despite fluid resuscitation in the emergency room. We contacted [facility] for possible transfer and the plan was to perform her surgery here and potentially recover her at the [facility] for her ICU care. The patient had appropriate DVT prophylaxis. Surgical time-out was performed with all team members in agreement. The skin incision was made from the xiphoid to the pubis with a 10 blade and continued through the skin and subcutaneous tissues. Hemostasis was achieved with cautery. The fascia was divided in the midline and the peritoneum entered and extended the length of the laparotomy incision. Exploration demonstrated markedly dilated colon throughout. The cecum was dilated to 14 cm. The transverse colon was ischemic but there was no perforation and no peritoneal soiling. The colon had hard balls of stool of concrete consistency and up to baseball size throughout the entire colon. She was noted to have sigmoid diverticulosis but there was no evidence for diverticulitis. The hard balls of inspissated stools continued through all the way into the rectum palpably. We proceeded with a total colectomy. The Bookwalter was used for exposure. We mobilized the white line along the ascending and descending colons. We used the LigaSure device for hemostasis. I divided the terminal ileum with a ZEINAB 75 blue load. The mesentery was taken next to the colon to minimize the risk for injury to retroperitoneal structures and specifically the ureters. The duodenum was readily identified and preserved. We started at the terminal ileum and marched up the ascending colon across the hepatic flexure across the transverse colon including the greater omentum across the splenic flexure down the descending colon and the sigmoid mesentery down to the rectum. There was good separation between the inferior pole of the spleen and the splenic flexure. The rectum was then divided with a ZEINAB stapler with a green load which controlled the rectal stump confidently. Prior to stapling, I milked the hard balls of stool in the rectum retrograde up into the sigmoid so that it would be included in the specimen. Hemostasis was excellent throughout using the LigaSure device. I irrigated the abdominal cavity with copious liters of warm sterile saline solution and this was suctioned dry. All mesentery edges were inspected for hemostasis and no bleeding was noted. The NG tube position in the stomach was palpably in a perfect position. It was irrigated per anesthesia and noted to be functioning normally. The small bowel was not dilated. The small bowel was run and normal throughout its length to the ligament of Treitz. The inspection of the anterior surface of the liver, stomach and spleen were normal. The patient had a small uterus and a small leiomyoma noted as an incidental finding. The instrument, sponge and needle counts were all correct x2. We brought out the terminal ileum as a Christina ileostomy in the right side above the umbilicus. I specifically avoided the pannus, BMI is 35. I closed the fascia using #1 looped PDS. It was started superiorly and tied inferiorly and a single long suture was able to close the entire abdomen without palpable fascial defects. There was considerable laxity to the abdomen as it went from a severely distended abdomen to decompressed after colectomy. Due to the thickened subcutaneous tissues, I irrigated this with copious amounts of sterile saline solution and then left a quarter-inch Joya drain exiting the inferior portion of the midline wound and secured it to the skin with 2-0 nylon suture. Skin clips were used to close the skin. A dry sterile dressing was applied. The ileostomy was matured in a Christina fashion using 3-0 Vicryl suture and an ostomy appliance was applied. To accommodate this I had excised a circular area of skin and subcutaneous tissue and opened the anterior rectus sheath in a vertical curvilinear manner and a similar incision on the peritoneum and posterior sheath and dilated this to 2 fingerbreadths prior to maturing the ileostomy. I was able to digitally insert my finger through the ileostomy and it traversed the anterior and posterior rectus sheaths without obstruction. The ileal contents were noted to be fecalized secondary to chronic obstruction. 4x4s were used to collect drainage from the Joya and the midline incision and Medipore tape was used as a final dressing. The estimated blood loss was 50 cc. The instrument, sponge and needle counts were all correct x2. The patient tolerated the procedure well and was transported to the recovery area intubated. She was still requiring high dosages of norepinephrine. I discuss her operative findings with Dr. Marc Gamino at the [facility] again and they kindly agreed to accept transfer and care for her in their surgical ICU. Complications: none Post-operative Condition: critical Disposition: PACU Plan for aftercare: PACU, ICU, [facility] transfer to SICU
[2025-02-10 17:29] LABS: PTT Partial Thromboplastin Tim 30 SECONDS (25.1-36.5)
[2025-02-10 17:31] LABS: PCO2 ABG 27.8 mmHg (35-45); PO2 ABG 79 mmHg (80-100)
[2025-02-10 17:32] LABS: HCO3 ABG 7 mmol/L (23-27); Oxygen Saturation ABG 88 % (95-100); TCO2 ABG 7 mmol/L (23-27)
--- NOTE | 2025-02-10 18:30 | PM.PROC.1 ---
Procedures Date/Time Date of procedure: 02/10/25 Time of procedure: 14:20 Arterial Line Time out performed: Yes Size (Gauge): 20 Technique used: guide wire technique (Ultrasound guidance to visualize needle tip, arrow) Post-Procedure: dry sterile dressing placed Patient tolerated procedure: Well Complications: none Site: left and radial Additional comments: no photo obtained
--- NOTE | 2025-02-10 18:32 | PM.PROC.1 ---
Procedures Date/Time Date of procedure: 02/10/25 Time of procedure: 17:44 Arterial Line Size (Gauge): 20 Central Line Placement Time out performed: Yes Patient placed on monitor/pulse ox: Yes MD prep: mask, gown and gloves Central line prep: Chlorhexidine scrub Local anesthesia used: other anesthetic (Under GA) Ultrasound used for placement: Yes Central line lumen inserted: triple Post procedure: sutured in place, good blood return, all ports aspirated, flushed, capped and sterile dressing applied Post procedure x-ray: tip of catheter in good position and no pneumothorax seen Patient tolerated procedure: well Complications: none Additional comments: 14cm at skin
[2025-02-10 18:34] LABS: HCO3 ABG 9 mmol/L (23-27); Oxygen Saturation ABG 87 % (95-100); PCO2 ABG 37.0 mmHg (35-45); PO2 ABG 79 mmHg (80-100); TCO2 ABG 9 mmol/L (23-27)
--- NOTE | 2025-02-10 18:54 | SUR.PHASEI ---
Patient directly to ICU room 231 due to intubation status, central line and arterial line in place. Transferred to ICU with assistance of HAND DRY CLEANER and Anesthesiologist, OR nurse. Bedside report given to Celeste Mckeon, COMEDIAN
[2025-02-10] MEDS: NOREPINEPHRINE BIT/0.9 % NACL 4 MG/250 ML PLAST..BAG 24.39 MG IV (18:57)
--- NOTE | 2025-02-10 19:00 | P.HP_ITS ---
History of Present Illness History of Present Illness Date Patient Seen: 02/10/25 Time Patient Seen: 11:30 Chief complaint: Sepsis with shock secondary to toxic megacolon Narrative: Chief complaint: Sepsis and shock secondary to toxic megacolon from severe constipation History of present illness: 02/10: 77-year-old female history of asthma, COPD, hypothyroidism, hypertension, diabetes, dyslipidemia, obesity presents with complaint of abdominal pain and no bowel movements since last Saturday. Patient states she has not passed any flatus for proximally 3 days. States she does seem distended. Started of has a nausea and vomiting tonight. Denies fevers or chills. Denies any chest pain or shortness of breath. Since states she has a pain of the rectal area but also with generalized abdominal pain. Patient states she had increasing pain and came here to be evaluated. States she did have some trouble walking today. States she has had prior appendectomy and x2, no history of bowel obstructions. She denies any interventions to her heart. Multiple medication allergies reported. No tobacco, alcohol or recreational drugs. Dr. Blunt is her primary care physician. Discussed with the patient she is full code. Findings in the emergency department significant for a rising lactic acid escalating from 9 to over 11 [place] [id number] with left shift ABG 6.98/pCO2 37/PO2 79 1. Sigmoid/descending colon wall thickening with surrounding edema. Most consistent with a colitis. Favor infectious/inflammatory etiology. 2. Increased stool throughout the colon, particularly in the proximal colon. 3. No pneumoperitoneum. Mild free fluid. On my examination the patient was able to answer questions but was somewhat confused hypotensive heart and lungs were fine however abdomen was markedly distended firm with no bowel sounds Patient was given 4 L of IV bolus in the emergency room and started on norepinephrine drip. The case was discussed with the shield runner and surgery here and our surgeon Dr. Howell discussed with [facility] who recommended going to the operating room for emergent: Colonic resection. Findings of the resection were as follows: Toxic megacolon, large, inspissated balls of stool throughout entire colon, cecum dilated to 14cm, diverticulosis noted in sigmoid colon We proceeded with a total colectomy. The Bookwalter was used for exposure. We mobilized the white line along the ascending and descending colons. We used the LigaSure device for hemostasis. I divided the terminal ileum with a ZEINAB 75 blue load. The mesentery was taken next to the colon to minimize the risk for injury to retroperitoneal structures and specifically the ureters. Patient was transported to our intensive care unit. Dr. Howell has been communicating with the shield runner at [facility]. Patient is accepted in transfer was ready to transport patient however inclement weather has delayed the stat flight helicopter Physical examination: Patient is sedated on mechanical ventilation Lungs sounds diminished Abdomen with ileostomy Extremities cool no edema there is capillary refill Assessment and plan: Sepsis septic shock with severe lactic acidosis secondary to toxic megacolon from severe obstipation with concrete like stool * IV fluids and pressors * Zosyn * Transfer to [facility] when weather permits step flight helicopter * Consult with E shield runner while here * Bicarbonate for correction of acidosis * Recheck ABG to monitor acidosis DVT prophylaxis: * SCDs or per shield runner Code status: * Full code blue Disposition: * Inpatient admission ICU and step flight helicopter to [facility] intensive care when weather permits Time based billin minutes were involved in evaluation of this patient including [id number] evaluation physical examination coordination with surgery intensive care team [facility] Medical History Vision changes Fatigue Dyslipidemia associated with type 2 diabetes mellitus Diabetic retinopathy associated with controlled type 2 diabetes mellitus Cataract Chronic lower back pain Loss of balance Mumps Measles Chicken pox (~1953) Hypothyroidism Hypertension Migraine Multiple allergies Acidosis, lactic Postmenopausal bleeding Disease of thyroid gland FH: migraine headache Chest pain Surgical History Anesthesia H/O tubal ligation (~1973) H/O adenoidectomy (~1961) H/O section Hx of tonsillectomy (~1961) History of carpal tunnel surgery (~1986) History of appendectomy (~1967) Family History Brother Family history of BPH Kidney stones COPD (chronic obstructive pulmonary disease) Mother Hypertension Diabetes mellitus Thyroid disease Father Cancer Diabetes mellitus CAD in [place] artery History of heart disease Mental health problem Alzheimer's disease Grandfather History of heart disease Grandmother Breast cancer Grandmother Stroke TIA (transient ischemic attack) Social History marital status: number of children: 2 household members: friend(s) Smoking Status: Never smoker alcohol intake: never Type(s) of exercise: walking frequency: 1-2 times per week Meds Home Medications and Allergies Home Medications ?Medication ?Instructions ?Recorded ?Confirmed ?Type cetirizine 10 mg capsule (Zyrtec) 10 mg PO DAILY 12/0711/10/24 History acetaminophen 500 mg capsule 1,000 mg PO TID PRN asthm a 09/04/22 11/10/24 History fluticasone propionate 50 2 spray intranasal DAILY 11/10/24 History mcg/actuation nasal spray,suspension (Flonase Allergy Relief) lidocaine 4 % topical patch 1 patch topical DAILY PRN asthma 09/04/22 11/10/24 History (Salonpas (lidocaine)) lidocaine 4 % topical spray spray topical 09/04/22 History (Aspercreme (lidocaine)) ipratropium 0.5 mg-albuterol 3 mg 3 ml inhalation Q4-6 H PRN asthma 11/02/22 11/10/24 History (2.5 mg base)/3 mL nebulization soln Disabled Parking Permit See Rx Instructions .Route 1 03/11/22 11/10/24 Rx .COMPLEX #1 ea cholecalciferol (vitamin D3) 25 50 mcg PO BID 01/22/23 11/10/24 History mcg (1,000 unit) capsule denosumab 60 mg/mL subcutaneous 60 mg SUBCUT [id number] #1 mL 01/22/23 11/10/24 Rx syringe (Prolia) blood-glucose meter (Blood Glucose #1 ea 03/26/2310/20 Rx Monitoring kit) diphenhydramine HCl 25 mg capsule 25 mg PO Q6-8H PRN a sthma 12/16/23 11/10/24 History (Benadryl) riboflavin (vitamin B2) 400 mg 400 mg PO DAILY #90 tab s 12/27/23 11/10/24 Rx tablet omega-3 acid ethyl esters 1 gram 1 cap PO BID #180 cap s 04/30/24 11/10/24 Rx capsule epinephrine 0.3 mg/0.3 mL 0.3 mg (0.3 mL) IM Q5-15M PA N 07/02/24 11/10/24 Rx injection, auto-injector (EpiPen anaphylaxis #2 ea 2-Rivera) liothyronine 5 mcg tablet 5 mcg PO DAILY #90 tabs 07/1911/10/24 Rx lisinopril 20 mg tablet 20 mg PO DAILY #90 tabs 09/1111/10/24 Rx blood sugar diagnostic (OneTouch #100 ea 09/11/2410/20 Rx Verio test strips) levothyroxine 125 mcg tablet 125 mcg PO DAILY #90 tabs 09/11/24 11/10/24 Rx metformin 500 mg tablet,extended 1,500 mg (3 x 500 mg) PO DAILY 10/01/24 11/10/24 Rx release 24 hr #270 tabs azelastine 137 mcg (0.1 %) nasal 137 mcg (0.137 mL) in tranasal BID 11/04/24 11/10/24 Rx spray #30 mL benralizumab 30 mg/mL subcutaneous 30 mg SUBCUT Q8W #1 mL 11/04/24 11/10/24 Rx auto-injector (Fasenra Pen) budesonide-formoterol HFA 160 2 puff PO BID #30.6 gram s 11/04/24 11/10/24 Rx mcg-4.5 mcg/actuation aerosol inhaler (Symbicort) calcium carbonate 600 mg PO DAILY 11/04/24 History cyanocobalamin (vitamin B-12) 2,500 mcg PO DAILY 11/0411/10/24 History 2,500 mcg sublingual tablet (Vitamin B-12) montelukast 10 mg tablet 10 mg PO QPM #90 tabs 11/10/24 Rx sertraline 100 mg tablet (Zoloft) 100 mg PO DAILY #90 tabs 12/15/24 Rx sertraline 50 mg tablet 50 mg PO DAILY #90 tabs 11/19 10/12 Rx nortriptyline 75 mg capsule 150 mg (2 x 75 mg) PO BEDT JAMEE #180 12/16/24 Rx caps rimegepant 75 mg disintegrating 75 mg PO ONCE PRN migr brayden 12/22/24 Rx tablet ([facility]te ODT) headache #18 tabs rosuvastatin 10 mg tablet 10 mg PO DAILY #90 tabs 12/20 07/12 Rx nystatin 100,000 unit/gram topical 1 applic topical BI D rash breast 01/21/25 Rx powder fold and groin area #60 gram s meloxicam 7.5 mg tablet 7.5 mg PO DAILY #30 tabs Rx Allergies Allergy/AdvReac Type Severity Reaction Status Date / Time zolpidem (From Ambien) Allergy Severe amnesia Verified 02/10/25 05:32 cat dander Allergy Wheezing Verified 02/10/25 05:32 hydrochlorothiazide Allergy Rash Verified 02/10/25 05:32 melon Allergy ITCHING Verified 02/10/25 05:32 nitrofurantoin (From Allergy Vomiting Verified 02/10/25 05:32 Macrobid) peanut Allergy Anaphylaxis Verified 02/10/25 05:32 pravastatin Allergy Muscle Pain Verified 02/10/25 05:32 propranolol (From Inderal [place]) AdvReac Intermediate Dizziness Verified 02/10/25 05:32 ceftriaxone AdvReac ITCHING Verified 02/10/25 05:32 levofloxacin (From Levaquin) AdvReac Vomiting Verified 02/10/25 05:32 Exam Vital Signs (past 8 hours): - 02/10/25 11:30 02/10/25 11:30 02/10/25 11:45 Temperature Pulse Rate 86 Respiratory Rate 27 H Blood Pressure 90/54 L 89/53 L Pulse Oximetry 91 Oxygen Delivery Method Fraction of Inspired Oxygen 02/10/25 11:45 02/10/25 11:51 02/10/25 11:51 Temperature Pulse Rate 91 H 91 H Respiratory Rate 25 H 28 H Blood Pressure 123/59 L Pulse Oximetry 93 96 Oxygen Delivery Method Fraction of Inspired Oxygen 02/10/25 11:56 02/10/25 11:56 02/10/25 12:00 Temperature Pulse Rate 91 H 90 Respiratory Rate 27 H 30 H Blood Pressure 89/53 L Pulse Oximetry 91 94 Oxygen Delivery Method Fraction of Inspired Oxygen 02/10/25 12:01 02/10/25 12:01 02/10/25 12:06 Temperature Pulse Rate 92 H 91 H Respiratory Rate 39 H 28 H Blood Pressure 107/51 L Pulse Oximetry 96 95 Oxygen Delivery Method Fraction of Inspired Oxygen 02/10/25 12:06 02/10/25 12:11 02/10/25 12:11 Temperature Pulse Rate 96 H Respiratory Rate 35 H Blood Pressure 108/54 L 71/34 L Pulse Oximetry 91 Oxygen Delivery Method Fraction of Inspired Oxygen 02/10/25 12:15 02/10/25 12:15 02/10/25 12:20 Temperature Pulse Rate 133 H 188 H Respiratory Rate 31 H 31 H Blood Pressure 76/52 L Pulse Oximetry 95 95 Oxygen Delivery Method Fraction of Inspired Oxygen 02/10/25 12:20 02/10/25 12:28 02/10/25 12:28 Temperature Pulse Rate 98 H Respiratory Rate 30 H Blood Pressure 134/62 134/59 L Pulse Oximetry 95 Oxygen Delivery Method Fraction of Inspired Oxygen 02/10/25 12:30 02/10/25 12:30 02/10/25 12:35 Temperature Pulse Rate 100 H Respiratory Rate 32 H Blood Pressure 132/63 138/60 Pulse Oximetry 94 Oxygen Delivery Method Fraction of Inspired Oxygen 02/10/25 12:35 02/10/25 12:40 02/10/25 12:40 Temperature Pulse Rate 96 H 95 H Respiratory Rate 29 H 30 H Blood Pressure 131/60 Pulse Oximetry 95 95 Oxygen Delivery Method Fraction of Inspired Oxygen 02/10/25 12:45 02/10/25 12:45 02/10/25 12:50 Temperature Pulse Rate 95 H Respiratory Rate 29 H Blood Pressure 133/64 128/58 L Pulse Oximetry 96 Oxygen Delivery Method Fraction of Inspired Oxygen 02/10/25 12:50 02/10/25 12:55 02/10/25 12:55 Temperature Pulse Rate 95 H 96 H Respiratory Rate 24 24 Blood Pressure 139/63 Pulse Oximetry 95 95 Oxygen Delivery Method Fraction of Inspired Oxygen 02/10/25 13:00 02/10/25 13:00 02/10/25 13:05 Temperature Pulse Rate 96 H 96 H Respiratory Rate 24 31 H Blood Pressure 145/65 H Pulse Oximetry 96 95 Oxygen Delivery Method Fraction of Inspired Oxygen 02/10/25 13:05 02/10/25 13:10 02/10/25 13:10 Temperature Pulse Rate 96 H Respiratory Rate 28 H Blood Pressure 133/60 135/60 Pulse Oximetry 94 Oxygen Delivery Method Fraction of Inspired Oxygen 02/10/25 13:15 02/10/25 13:15 02/10/25 13:20 Temperature Pulse Rate 97 H Respiratory Rate 22 Blood Pressure 110/57 L 126/57 L Pulse Oximetry 97 Oxygen Delivery Method Fraction of Inspired Oxygen 02/10/25 13:20 02/10/25 13:25 02/10/25 13:25 Temperature Pulse Rate 97 H 95 H Respiratory Rate 29 H 30 H Blood Pressure 119/58 L Pulse Oximetry 95 92 Oxygen Delivery Method Fraction of Inspired Oxygen 02/10/25 13:30 02/10/25 13:46 02/10/25 13:46 Temperature Pulse Rate 96 H 98 H Respiratory Rate 29 H 30 H Blood Pressure 124/57 L Pulse Oximetry 92 94 Oxygen Delivery Method Fraction of Inspired Oxygen 02/10/25 13:50 02/10/25 13:50 02/10/25 13:55 Temperature 97.4 F L Pulse Rate 97 H 97 H Respiratory Rate 30 H 29 H Blood Pressure 100/51 L Pulse Oximetry 93 93 Oxygen Delivery Method Fraction of Inspired Oxygen 02/10/25 13:59 02/10/25 13:59 02/10/25 14:00 Temperature Pulse Rate 97 H 98 H Respiratory Rate 23 29 H Blood Pressure 94/45 L Pulse Oximetry 92 94 Oxygen Delivery Method Fraction of Inspired Oxygen 02/10/25 14:00 02/10/25 14:05 02/10/25 14:05 Temperature Pulse Rate 100 H Respiratory Rate 19 Blood Pressure 97/50 L 109/55 L Pulse Oximetry 93 Oxygen Delivery Method Fraction of Inspired Oxygen 02/10/25 14:10 02/10/25 14:10 02/10/25 14:15 Temperature Pulse Rate 186 H Respiratory Rate 18 Blood Pressure 103/52 L 105/53 L Pulse Oximetry 94 Oxygen Delivery Method Fraction of Inspired Oxygen 02/10/25 14:15 02/10/25 14:20 02/10/25 14:20 Temperature Pulse Rate 103 H 104 H Respiratory Rate 38 H 24 Blood Pressure 104/52 L Pulse Oximetry 93 93 Oxygen Delivery Method Fraction of Inspired Oxygen 02/10/25 14:33 02/10/25 16:30 Temperature 97.9 F Pulse Rate 102 H Respiratory Rate 30 H Blood Pressure 101/49 L Pulse Oximetry 90 L Oxygen Delivery Method Room Air Fraction of Inspired Oxygen 40 Fraction of Inspired Oxygen 40 Oxygen Delivery Method Room Air Objective Labs 02/10/25 06:20 02/10/25 06:20 Labs: Laboratory Results - last 24 hr 12/24/25 12/24/25 12/24/25 06:20 06:26 07:50 WBC 20.8 H RBC 5.30 H Hgb 13.5 Hct 43.0 MCV 81.0 MCH 25.6 L MCHC 31.5 RDW 15.4 H Plt Count 323 Neut % (Auto) 92.2 H Lymph % (Auto) 3.8 L [place] % (Auto) 3.7 Eos % (Auto) 0.0 L Baso % (Auto) 0.3 Neut # (Auto) 59746 H Lymph # (Auto) 800 L [place] # (Auto) 800 Eos # (Auto) 0 Baso # (Auto) 100 PT INR APTT ABG Sample Site ABG pH ABG pCO2 ABG pO2 ABG HCO3 ABG Total CO2 ABG O2 Saturation ABG Base Excess Vamshi Test Sodium 140 Potassium 4.1 Chloride 104 Carbon Dioxide 15 L BUN 22 H Creatinine 1.59 H Estimated GFR 34 L BUN/Creatinine Ratio 13.8 Glucose 215 H POC Whole Bld Glucose Lactate 9.5 H* 10.6 H* Calcium 9.5 Total Bilirubin 0.8 AST 36 ALT 22 Alkaline Phosphatase 108 Total Protein 7.3 Albumin 4.6 Globulin 2.7 Albumin/Globulin Ratio 1.7 Procalcitonin 2.78 H Urine Color Urine Appearance Urine pH Ur Specific [place] Urine Protein Urine Glucose (UA) Urine Ketones Urine Occult Blood Urine Nitrate Urine Bilirubin Urine Urobilinogen Ur Leukocyte Esterase Urine RBC Urine WBC Ur Squamous Epith Cells Urine Bacteria Hyaline Casts Ur Culture Indicated? Vol Urine Centrifuged Blood Type O Negative Antibody Screen Positive 02/10/25 02/10/25 02/10/25 09:24 09:46 13:35 WBC RBC Hgb Hct MCV MCH MCHC RDW Plt Count Neut % (Auto) Lymph % (Auto) [place] % (Auto) Eos % (Auto) Baso % (Auto) Neut # (Auto) Lymph # (Auto) [place] # (Auto) Eos # (Auto) Baso # (Auto) PT INR APTT ABG Sample Site ABG pH ABG pCO2 ABG pO2 ABG HCO3 ABG Total CO2 ABG O2 Saturation ABG Base Excess Vamshi Test Sodium Potassium Chloride Carbon Dioxide BUN Creatinine Estimated GFR BUN/Creatinine Ratio Glucose POC Whole Bld Glucose Lactate 11.5 H* 14.7 H* Calcium Total Bilirubin AST ALT Alkaline Phosphatase Total Protein Albumin Globulin Albumin/Globulin Ratio Procalcitonin Urine Color Yellow Urine Appearance Clear Urine pH 5.0 Ur Specific [place] 1.020 Urine Protein 1+ H Urine Glucose (UA) Negative Urine Ketones Trace H Urine Occult Blood Trace-intact Urine Nitrate Negative Urine Bilirubin Negative Urine Urobilinogen 1.0 Ur Leukocyte Esterase Negative Urine RBC 0-1/hpf Urine WBC None seen Ur Squamous Epith Cells 5-10 /hpf H Urine Bacteria None seen Hyaline Casts 1-5/lpf Ur Culture Indicated? Cult not indicated Vol Urine Centrifuged 10ml (spun) Blood Type Antibody Screen 02/10/25 02/10/25 02/10/25 13:38 14:36 14:38 WBC RBC Hgb Hct MCV MCH MCHC RDW Plt Count Neut % (Auto) Lymph % (Auto) [place] % (Auto) Eos % (Auto) Baso % (Auto) Neut # (Auto) Lymph # (Auto) [place] # (Auto) Eos # (Auto) Baso # (Auto) PT INR APTT ABG Sample Site Not Reportable ABG pH 7.02 L* ABG pCO2 27.8 L ABG pO2 79 L ABG HCO3 7 L ABG Total CO2 7 L ABG O2 Saturation 88 L ABG Base Excess -22.6 L Vamshi Test Not Reportable Sodium Potassium Chloride Carbon Dioxide BUN Creatinine Estimated GFR BUN/Creatinine Ratio Glucose POC Whole Bld Glucose 33 L* 39 L* Lactate Calcium Total Bilirubin AST ALT Alkaline Phosphatase Total Protein Albumin Globulin Albumin/Globulin Ratio Procalcitonin Urine Color Urine Appearance Urine pH Ur Specific [place] Urine Protein Urine Glucose (UA) Urine Ketones Urine Occult Blood Urine Nitrate Urine Bilirubin Urine Urobilinogen Ur Leukocyte Esterase Urine RBC Urine WBC Ur Squamous Epith Cells Urine Bacteria Hyaline Casts Ur Culture Indicated? Vol Urine Centrifuged Blood Type Antibody Screen 02/10/25 02/10/25 02/10/25 15:18 15:48 15:54 WBC RBC Hgb Hct MCV MCH MCHC RDW Plt Count Neut % (Auto) Lymph % (Auto) [place] % (Auto) Eos % (Auto) Baso % (Auto) Neut # (Auto) Lymph # (Auto) [place] # (Auto) Eos # (Auto) Baso # (Auto) PT INR APTT ABG Sample Site Not Reportable ABG pH 6.79 L* ABG pCO2 52.0 H ABG pO2 210 H ABG HCO3 8 L ABG Total CO2 8 L ABG O2 Saturation 98 ABG Base Excess -27.0 L Vamshi Test Not Reportable Sodium Potassium Chloride Carbon Dioxide BUN Creatinine Estimated GFR BUN/Creatinine Ratio Glucose POC Whole Bld Glucose 77 136 H Lactate Calcium Total Bilirubin AST ALT Alkaline Phosphatase Total Protein Albumin Globulin Albumin/Globulin Ratio Procalcitonin Urine Color Urine Appearance Urine pH Ur Specific [place] Urine Protein Urine Glucose (UA) Urine Ketones Urine Occult Blood Urine Nitrate Urine Bilirubin Urine Urobilinogen Ur Leukocyte Esterase Urine RBC Urine WBC Ur Squamous Epith Cells Urine Bacteria Hyaline Casts Ur Culture Indicated? Vol Urine Centrifuged Blood Type Antibody Screen 02/10/25 02/10/25 16:19 18:29 WBC RBC Hgb Hct MCV MCH MCHC RDW Plt Count Neut % (Auto) Lymph % (Auto) [place] % (Auto) Eos % (Auto) Baso % (Auto) Neut # (Auto) Lymph # (Auto) [place] # (Auto) Eos # (Auto) Baso # (Auto) PT 14.6 H INR 1.3 APTT 30 ABG Sample Site Not Reportable ABG pH 6.98 L* ABG pCO2 37.0 ABG pO2 79 L ABG HCO3 9 L ABG Total CO2 9 L ABG O2 Saturation 87 L ABG Base Excess -22.3 L Vamshi Test Not Reportable Sodium Potassium Chloride Carbon Dioxide BUN Creatinine Estimated GFR BUN/Creatinine Ratio Glucose POC Whole Bld Glucose Lactate Calcium Total Bilirubin AST ALT Alkaline Phosphatase Total Protein Albumin Globulin Albumin/Globulin Ratio Procalcitonin Urine Color Urine Appearance Urine pH Ur Specific [place] Urine Protein Urine Glucose (UA) Urine Ketones Urine Occult Blood Urine Nitrate Urine Bilirubin Urine Urobilinogen Ur Leukocyte Esterase Urine RBC Urine WBC Ur Squamous Epith Cells Urine Bacteria Hyaline Casts Ur Culture Indicated? Vol Urine Centrifuged Blood Type Antibody Screen Assessment & Plan Time-Based Coding :: [TOTAL MINUTES] spent with patient and on the chart (including review of chart, obtaining history, exam, reviewing outside data, placing orders, documenting exam and treatment plan, and counseling patient) on [DATE].
[2025-02-10 19:14] LABS: Hematocrit 40.9 % (36-46); Hemoglobin 12.5 g/dL (12.0-16.0); Mean Corpuscular HGB Conc 30.6 % (30-36); Mean Corpuscular Hemoglobin 26.2 PG (26-34); Mean Corpuscular Volume 85.7 fL (80-100); Platelet Count 443 X10^3/uL (150-400)
[2025-02-10 19:18] LABS: Add Manual Diff / Slide Review YES
[2025-02-10 19:35] LABS: Band Neutrophils Percent 30.0 % (3-7); Lymphocytes Percent Manual 16.0 % (25-45); Metamyelocytes Percent 3.0 % (-0); Monocytes Percent Manual 2.0 % (2-11); RBC Morphology Normal Morphology; Segmented Neutrophils Percent 49.0 % (38-70); Total Cells Counted 100
[2025-02-10 19:38] LABS: Blood Gas Collection Site Arterial Line; Blood Gas Mode Assist Cont Ventilat; HCO3 ABG 8 mmol/L (23-27); Oxygen Saturation ABG 88 % (95-100); PCO2 ABG 36.2 mmHg (35-45); PEEP 5; PO2 ABG 84 mmHg (80-100); TCO2 ABG 8 mmol/L (23-27)
[2025-02-10 19:38] LABS: Toxic Vacuolation Pres
[2025-02-10] MEDS: NOREPINEPHRINE BIT/0.9 % NACL 4 MG/250 ML PLAST..BAG 243.9 MG IV ×2 (19:46→23:42)
[2025-02-10] MEDS: MEROPENEM 1 GM in SODIUM CHLORIDE 0.9% 100 ML IV (20:09)
--- NOTE | 2025-02-10 20:25 | PM.PN.EICU ---
Subjective Subjective IF CAMERA ACTIVATED, patient seen via real-time interactive audiovisual communication: Camera activated Consent obtained for tele-sign poster care: Yes Patient Location: ICU Provider location (State): [place] Other participants/roles: Bedside RN and RT Interval history: Patient is a 74-year-old female with history of COPD/severe persistent asthma on benralizumab, diabetes mellitus, severe obesity, hypothyroidism, hypertension and hyperlipidemia who presented with septic shock with severe lactic acidosis and was found to have toxic megacolon now status post colonic resection and brought to ICU for post surgical care. She is currently on Levophed drip to keep MAP greater than 65. Current Medications Current Medications Medications: Home Medications cetirizine 10 mg capsule (Zyrtec) 10 mg PO DAILY 12/07/21 [History Confirmed 11/10/24] acetaminophen 500 mg capsule 1,000 mg PO TID PRN asthma 09/04/22 [History Confirmed 11/10/24] fluticasone propionate 50 mcg/actuation nasal spray,suspension (Flonase Allergy Relief) 2 spray intranasal DAILY 09/04/22 [History Confirmed 11/10/24] lidocaine 4 % topical patch (Salonpas (lidocaine)) 1 patch topical DAILY PRN asthma 09/04/22 [History Confirmed 11/10/24] lidocaine 4 % topical spray (Aspercreme (lidocaine)) spray topical 09/04/22 [History Confirmed 11/10/24] ipratropium 0.5 mg-albuterol 3 mg (2.5 mg base)/3 mL nebulization soln 3 ml inhalation Q4-6H PRN asthma 11/02/22 [History Confirmed 11/10/24] Disabled Parking Permit See Rx Instructions .Route .COMPLEX #1 ea 01/09/23 [Rx Confirmed 11/10/24] cholecalciferol (vitamin D3) 25 mcg (1,000 unit) capsule 50 mcg PO BID 01/22/23 [History Confirmed 11/10/24] denosumab 60 mg/mL subcutaneous syringe (Prolia) 60 mg SUBCUT [id number] #1 mL 01/22/23 [Rx Confirmed 11/10/24] blood-glucose meter (Blood Glucose Monitoring kit) #1 ea 03/26/23 [Rx Confirmed 11/10/24] diphenhydramine HCl 25 mg capsule (Benadryl) 25 mg PO Q6-8H PRN asthma 12/16/23 [History Confirmed 11/10/24] riboflavin (vitamin B2) 400 mg tablet 400 mg PO DAILY #90 tabs 12/27/23 [Rx Confirmed 11/10/24] omega-3 acid ethyl esters 1 gram capsule 1 cap PO BID #180 caps 04/30/24 [Rx Confirmed 11/10/24] epinephrine 0.3 mg/0.3 mL injection, auto-injector (EpiPen 2-Rivera) 0.3 mg (0.3 mL) IM Q5-15M PRN anaphylaxis #2 ea 07/02/24 [Rx Confirmed 11/10/24] liothyronine 5 mcg tablet 5 mcg PO DAILY #90 tabs 08/06/24 [Rx Confirmed 11/10/24] lisinopril 20 mg tablet 20 mg PO DAILY #90 tabs 08/24/24 [Rx Confirmed 11/10/24] blood sugar diagnostic (OneTouch Verio test strips) #100 ea 09/11/24 [Rx Confirmed 11/10/24] levothyroxine 125 mcg tablet 125 mcg PO DAILY #90 tabs 09/11/24 [Rx Confirmed 11/10/24] metformin 500 mg tablet,extended release 24 hr 1,500 mg (3 x 500 mg) PO DAILY #270 tabs 10/01/24 [Rx Confirmed 11/10/24] azelastine 137 mcg (0.1 %) nasal spray 137 mcg (0.137 mL) intranasal BID #30 mL 11/04/24 [Rx Confirmed 11/10/24] benralizumab 30 mg/mL subcutaneous auto-injector (Fasenra Pen) 30 mg SUBCUT Q8W #1 mL 11/04/24 [Rx Confirmed 11/10/24] budesonide-formoterol HFA 160 mcg-4.5 mcg/actuation aerosol inhaler (Symbicort) 2 puff PO BID #30.6 grams 11/04/24 [Rx Confirmed 11/10/24] calcium carbonate 600 mg PO DAILY 11/04/24 [History Confirmed 11/10/24] cyanocobalamin (vitamin B-12) 2,500 mcg sublingual tablet (Vitamin B-12) 2,500 mcg PO DAILY 11/04/24 [History Confirmed 11/10/24] montelukast 10 mg tablet 10 mg PO QPM #90 tabs 11/04/24 [Rx Confirmed 11/10/24] sertraline 100 mg tablet (Zoloft) 100 mg PO DAILY #90 tabs 12/15/24 [Rx] sertraline 50 mg tablet 50 mg PO DAILY #90 tabs 12/15/24 [Rx] nortriptyline 75 mg capsule 150 mg (2 x 75 mg) PO BEDTIME #180 caps 12/16/24 [Rx] rimegepant 75 mg disintegrating tablet (Nurtec ODT) 75 mg PO ONCE PRN migraine headache #18 tabs 12/22/24 [Rx] rosuvastatin 10 mg tablet 10 mg PO DAILY #90 tabs 01/12/25 [Rx] nystatin 100,000 unit/gram topical powder 1 applic topical BID rash breast fold and groin area #60 grams 01/21/25 [Rx] meloxicam 7.5 mg tablet 7.5 mg PO DAILY #30 tabs 02/04/25 [Rx] Visit Medications (administered) Generic Name Dose Route Start Last Admin Trade Name Freq PRN Reason Stop Dose Admin NOREPINEPHRINE BIT/0.9 % NACL 4 mg in 250 mls @ 30.488 mls/hr 02/10/25 13:00 02/10/25 19:46 Norepinephr 4 Mg/250-0.9% Nacl IV 0.8 mcg/kg/min TITRATE GEOFF 243.9 mls/hr Protocol Administration 0.1 MCG/KG/MIN Lactated Ringer's 1,000 mls @ 42 mls/hr 02/10/25 06:45 02/10/25 16:02 Lactated Ringers IV 42 mls/hr CONT GEOFF Administration Propofol 1,000 mg in 100 mls @ 2.439 mls/hr 02/10/25 19:00 02/10/25 19:46 Diprivan IV 10 mcg/kg/min TITRATE GEOFF 4.878 mls/hr Protocol Administration 5 MCG/KG/MIN Meropenem 1 gm/ Sodium 100 mls @ 200 mls/hr 02/10/25 20:00 02/10/25 20:09 Chloride IV 200 mls/hr Q12H GEOFF Administration Objective Ventilator Parameters: Ventilator Settings FiO2 40 RT Vent Frequency 19 Ventilator Tidal Volume 350 Exhaled Positive End Expiratory 5 Pressure Inspiratory Phase Time 0.8 Patient Position HOB >= 30 degrees Labs 02/10/25 19:03 02/10/25 06:20 Labs: Laboratory Results - last 24 hr 02/10/25 02/10/25 02/10/25 06:20 06:26 07:50 WBC 20.8 H RBC 5.30 H Hgb 13.5 Hct 43.0 MCV 81.0 MCH 25.6 L MCHC 31.5 RDW 15.4 H Plt Count 323 Neut % (Auto) 92.2 H Lymph % (Auto) 3.8 L [place] % (Auto) 3.7 Eos % (Auto) 0.0 L Baso % (Auto) 0.3 Neut # (Auto) 84019 H Lymph # (Auto) 800 L [place] # (Auto) 800 Eos # (Auto) 0 Baso # (Auto) 100 Total Counted Seg Neutrophils % Band Neutrophils % Lymphocytes % (Manual) Monocytes % (Manual) Metamyelocytes % Neutrophils # (Manual) Toxic Vacuolation RBC Morphology PT INR APTT ABG Sample Site ABG pH ABG pCO2 ABG pO2 ABG HCO3 ABG Total CO2 ABG O2 Saturation ABG Base Excess Vamshi Test Respiration Rate Mode of Support FiO2 % PEEP or CPAP Sodium 140 Potassium 4.1 Chloride 104 Carbon Dioxide 15 L BUN 22 H Creatinine 1.59 H Estimated GFR 34 L BUN/Creatinine Ratio 13.8 Glucose 215 H POC Whole Bld Glucose Lactate 9.5 H* 10.6 H* Calcium 9.5 Total Bilirubin 0.8 AST 36 ALT 22 Alkaline Phosphatase 108 Total Protein 7.3 Albumin 4.6 Globulin 2.7 Albumin/Globulin Ratio 1.7 Procalcitonin 2.78 H Urine Color Urine Appearance Urine pH Ur Specific [place] Urine Protein Urine Glucose (UA) Urine Ketones Urine Occult Blood Urine Nitrate Urine Bilirubin Urine Urobilinogen Ur Leukocyte Esterase Urine RBC Urine WBC Ur Squamous Epith Cells Urine Bacteria Hyaline Casts Ur Culture Indicated? Vol Urine Centrifuged Blood Type O Negative Antibody Screen Positive 02/10/25 02/10/25 02/10/25 09:24 09:46 13:35 WBC RBC Hgb Hct MCV MCH MCHC RDW Plt Count Neut % (Auto) Lymph % (Auto) [place] % (Auto) Eos % (Auto) Baso % (Auto) Neut # (Auto) Lymph # (Auto) [place] # (Auto) Eos # (Auto) Baso # (Auto) Total Counted Seg Neutrophils % Band Neutrophils % Lymphocytes % (Manual) Monocytes % (Manual) Metamyelocytes % Neutrophils # (Manual) Toxic Vacuolation RBC Morphology PT INR APTT ABG Sample Site ABG pH ABG pCO2 ABG pO2 ABG HCO3 ABG Total CO2 ABG O2 Saturation ABG Base Excess Vamshi Test Respiration Rate Mode of Support FiO2 % PEEP or CPAP Sodium Potassium Chloride Carbon Dioxide BUN Creatinine Estimated GFR BUN/Creatinine Ratio Glucose POC Whole Bld Glucose Lactate 11.5 H* 14.7 H* Calcium Total Bilirubin AST ALT Alkaline Phosphatase Total Protein Albumin Globulin Albumin/Globulin Ratio Procalcitonin Urine Color Yellow Urine Appearance Clear Urine pH 5.0 Ur Specific [place] 1.020 Urine Protein 1+ H Urine Glucose (UA) Negative Urine Ketones Trace H Urine Occult Blood Trace-intact Urine Nitrate Negative Urine Bilirubin Negative Urine Urobilinogen 1.0 Ur Leukocyte Esterase Negative Urine RBC 0-1/hpf Urine WBC None seen Ur Squamous Epith Cells 5-10 /hpf H Urine Bacteria None seen Hyaline Casts 1-5/lpf Ur Culture Indicated? Cult not indicated Vol Urine Centrifuged 10ml (spun) Blood Type Antibody Screen 02/10/25 02/10/25 02/10/25 13:38 14:36 14:38 WBC RBC Hgb Hct MCV MCH MCHC RDW Plt Count Neut % (Auto) Lymph % (Auto) [place] % (Auto) Eos % (Auto) Baso % (Auto) Neut # (Auto) Lymph # (Auto) [place] # (Auto) Eos # (Auto) Baso # (Auto) Total Counted Seg Neutrophils % Band Neutrophils % Lymphocytes % (Manual) Monocytes % (Manual) Metamyelocytes % Neutrophils # (Manual) Toxic Vacuolation RBC Morphology PT INR APTT ABG Sample Site Not Reportable ABG pH 7.02 L* ABG pCO2 27.8 L ABG pO2 79 L ABG HCO3 7 L ABG Total CO2 7 L ABG O2 Saturation 88 L ABG Base Excess -22.6 L Vamshi Test Not Reportable Respiration Rate Mode of Support FiO2 % PEEP or CPAP Sodium Potassium Chloride Carbon Dioxide BUN Creatinine Estimated GFR BUN/Creatinine Ratio Glucose POC Whole Bld Glucose 33 L* 39 L* Lactate Calcium Total Bilirubin AST ALT Alkaline Phosphatase Total Protein Albumin Globulin Albumin/Globulin Ratio Procalcitonin Urine Color Urine Appearance Urine pH Ur Specific [place] Urine Protein Urine Glucose (UA) Urine Ketones Urine Occult Blood Urine Nitrate Urine Bilirubin Urine Urobilinogen Ur Leukocyte Esterase Urine RBC Urine WBC Ur Squamous Epith Cells Urine Bacteria Hyaline Casts Ur Culture Indicated? Vol Urine Centrifuged Blood Type Antibody Screen 02/10/25 02/10/25 02/10/25 15:18 15:48 15:54 WBC RBC Hgb Hct MCV MCH MCHC RDW Plt Count Neut % (Auto) Lymph % (Auto) [place] % (Auto) Eos % (Auto) Baso % (Auto) Neut # (Auto) Lymph # (Auto) [place] # (Auto) Eos # (Auto) Baso # (Auto) Total Counted Seg Neutrophils % Band Neutrophils % Lymphocytes % (Manual) Monocytes % (Manual) Metamyelocytes % Neutrophils # (Manual) Toxic Vacuolation RBC Morphology PT INR APTT ABG Sample Site Not Reportable ABG pH 6.79 L* ABG pCO2 52.0 H ABG pO2 210 H ABG HCO3 8 L ABG Total CO2 8 L ABG O2 Saturation 98 ABG Base Excess -27.0 L Vamshi Test Not Reportable Respiration Rate Mode of Support FiO2 % PEEP or CPAP Sodium Potassium Chloride Carbon Dioxide BUN Creatinine Estimated GFR BUN/Creatinine Ratio Glucose POC Whole Bld Glucose 77 136 H Lactate Calcium Total Bilirubin AST ALT Alkaline Phosphatase Total Protein Albumin Globulin Albumin/Globulin Ratio Procalcitonin Urine Color Urine Appearance Urine pH Ur Specific [place] Urine Protein Urine Glucose (UA) Urine Ketones Urine Occult Blood Urine Nitrate Urine Bilirubin Urine Urobilinogen Ur Leukocyte Esterase Urine RBC Urine WBC Ur Squamous Epith Cells Urine Bacteria Hyaline Casts Ur Culture Indicated? Vol Urine Centrifuged Blood Type Antibody Screen 02/10/25 02/10/25 02/10/25 16:19 18:29 19:03 WBC 39.2 H* D RBC 4.77 Hgb 12.5 Hct 40.9 MCV 85.7 D MCH 26.2 MCHC 30.6 RDW 16.5 H Plt Count 443 H Neut % (Auto) Not Reportable Lymph % (Auto) Not Reportable [place] % (Auto) Not Reportable Eos % (Auto) Not Reportable Baso % (Auto) Not Reportable Neut # (Auto) Lymph # (Auto) Not Reportable [place] # (Auto) Not Reportable Eos # (Auto) Baso # (Auto) Not Reportable Total Counted 100 Seg Neutrophils % 49.0 Band Neutrophils % 30.0 H Lymphocytes % (Manual) 16.0 L Monocytes % (Manual) 2.0 Metamyelocytes % 3.0 H Neutrophils # (Manual) 32798 H Toxic Vacuolation Pres RBC Morphology Normal morphology PT 14.6 H INR 1.3 APTT 30 ABG Sample Site Not Reportable ABG pH 6.98 L* ABG pCO2 37.0 ABG pO2 79 L ABG HCO3 9 L ABG Total CO2 9 L ABG O2 Saturation 87 L ABG Base Excess -22.3 L Vamshi Test Not Reportable Respiration Rate Mode of Support FiO2 % PEEP or CPAP Sodium Potassium Chloride Carbon Dioxide BUN Creatinine Estimated GFR BUN/Creatinine Ratio Glucose POC Whole Bld Glucose Lactate Calcium Total Bilirubin AST ALT Alkaline Phosphatase Total Protein Albumin Globulin Albumin/Globulin Ratio Procalcitonin Urine Color Urine Appearance Urine pH Ur Specific [place] Urine Protein Urine Glucose (UA) Urine Ketones Urine Occult Blood Urine Nitrate Urine Bilirubin Urine Urobilinogen Ur Leukocyte Esterase Urine RBC Urine WBC Ur Squamous Epith Cells Urine Bacteria Hyaline Casts Ur Culture Indicated? Vol Urine Centrifuged Blood Type Antibody Screen 02/10/25 02/10/25 19:32 20:02 WBC RBC Hgb Hct MCV MCH MCHC RDW Plt Count Neut % (Auto) Lymph % (Auto) [place] % (Auto) Eos % (Auto) Baso % (Auto) Neut # (Auto) Lymph # (Auto) [place] # (Auto) Eos # (Auto) Baso # (Auto) Total Counted Seg Neutrophils % Band Neutrophils % Lymphocytes % (Manual) Monocytes % (Manual) Metamyelocytes % Neutrophils # (Manual) Toxic Vacuolation RBC Morphology PT INR APTT ABG Sample Site Arterial line ABG pH 6.95 L* ABG pCO2 36.2 ABG pO2 84 ABG HCO3 8 L ABG Total CO2 8 L ABG O2 Saturation 88 L ABG Base Excess -23.5 L Vamshi Test N/a Respiration Rate 22 Mode of Support Assist cont ventilat FiO2 % 40.0 % PEEP or CPAP 5 Sodium Potassium Chloride Carbon Dioxide BUN Creatinine Estimated GFR BUN/Creatinine Ratio Glucose POC Whole Bld Glucose 151 H Lactate Calcium Total Bilirubin AST ALT Alkaline Phosphatase Total Protein Albumin Globulin Albumin/Globulin Ratio Procalcitonin Urine Color Urine Appearance Urine pH Ur Specific [place] Urine Protein Urine Glucose (UA) Urine Ketones Urine Occult Blood Urine Nitrate Urine Bilirubin Urine Urobilinogen Ur Leukocyte Esterase Urine RBC Urine WBC Ur Squamous Epith Cells Urine Bacteria Hyaline Casts Ur Culture Indicated? Vol Urine Centrifuged Blood Type Antibody Screen Exam Vital Signs (past 8 hours): - 02/10/25 12:28 02/10/25 12:28 02/10/25 12:30 Temperature Pulse Rate 98 H Respiratory Rate 30 H Blood Pressure 134/59 L 132/63 Pulse Oximetry 95 Oxygen Delivery Method Fraction of Inspired Oxygen 02/10/25 12:30 02/10/25 12:35 02/10/25 12:35 Temperature Pulse Rate 100 H 96 H Respiratory Rate 32 H 29 H Blood Pressure 138/60 Pulse Oximetry 94 95 Oxygen Delivery Method Fraction of Inspired Oxygen 02/10/25 12:40 02/10/25 12:40 02/10/25 12:45 Temperature Pulse Rate 95 H 95 H Respiratory Rate 30 H 29 H Blood Pressure 131/60 Pulse Oximetry 95 96 Oxygen Delivery Method Fraction of Inspired Oxygen 02/10/25 12:45 02/10/25 12:50 02/10/25 12:50 Temperature Pulse Rate 95 H Respiratory Rate 24 Blood Pressure 133/64 128/58 L Pulse Oximetry 95 Oxygen Delivery Method Fraction of Inspired Oxygen 02/10/25 12:55 02/10/25 12:55 02/10/25 13:00 Temperature Pulse Rate 96 H Respiratory Rate 24 Blood Pressure 139/63 145/65 H Pulse Oximetry 95 Oxygen Delivery Method Fraction of Inspired Oxygen 02/10/25 13:00 02/10/25 13:05 02/10/25 13:05 Temperature Pulse Rate 96 H 96 H Respiratory Rate 24 31 H Blood Pressure 133/60 Pulse Oximetry 96 95 Oxygen Delivery Method Fraction of Inspired Oxygen 02/10/25 13:10 02/10/25 13:10 02/10/25 13:15 Temperature Pulse Rate 96 H 97 H Respiratory Rate 28 H 22 Blood Pressure 135/60 Pulse Oximetry 94 97 Oxygen Delivery Method Fraction of Inspired Oxygen 02/10/25 13:15 02/10/25 13:20 02/10/25 13:20 Temperature Pulse Rate 97 H Respiratory Rate 29 H Blood Pressure 110/57 L 126/57 L Pulse Oximetry 95 Oxygen Delivery Method Fraction of Inspired Oxygen 02/10/25 13:25 02/10/25 13:25 02/10/25 13:30 Temperature Pulse Rate 95 H 96 H Respiratory Rate 30 H 29 H Blood Pressure 119/58 L Pulse Oximetry 92 92 Oxygen Delivery Method Fraction of Inspired Oxygen 02/10/25 13:46 02/10/25 13:46 02/10/25 13:50 Temperature 97.4 F L Pulse Rate 98 H Respiratory Rate 30 H Blood Pressure 124/57 L 100/51 L Pulse Oximetry 94 Oxygen Delivery Method Fraction of Inspired Oxygen 02/10/25 13:50 02/10/25 13:55 02/10/25 13:59 Temperature Pulse Rate 97 H 97 H Respiratory Rate 30 H 29 H Blood Pressure 94/45 L Pulse Oximetry 93 93 Oxygen Delivery Method Fraction of Inspired Oxygen 02/10/25 13:59 02/10/25 14:00 02/10/25 14:00 Temperature Pulse Rate 97 H 98 H Respiratory Rate 23 29 H Blood Pressure 97/50 L Pulse Oximetry 92 94 Oxygen Delivery Method Fraction of Inspired Oxygen 02/10/25 14:05 02/10/25 14:05 02/10/25 14:10 Temperature Pulse Rate 100 H Respiratory Rate 19 Blood Pressure 109/55 L 103/52 L Pulse Oximetry 93 Oxygen Delivery Method Fraction of Inspired Oxygen 02/10/25 14:10 02/10/25 14:15 02/10/25 14:15 Temperature Pulse Rate 186 H 103 H Respiratory Rate 18 38 H Blood Pressure 105/53 L Pulse Oximetry 94 93 Oxygen Delivery Method Fraction of Inspired Oxygen 02/10/25 14:20 02/10/25 14:20 02/10/25 14:33 Temperature 97.9 F Pulse Rate 104 H 102 H Respiratory Rate 24 30 H Blood Pressure 104/52 L 101/49 L Pulse Oximetry 93 90 L Oxygen Delivery Method Room Air Fraction of Inspired Oxygen 02/10/25 20:19 Temperature Pulse Rate Respiratory Rate Blood Pressure Pulse Oximetry Oxygen Delivery Method Fraction of Inspired Oxygen 40 Fraction of Inspired Oxygen 40 Oxygen Delivery Method Room Air Const Other: Intubated and sedated Chest Other: Appropriate chest rise on ventilator. Cardio Other: Regular rate and rhythm Quality TeleICU VTE Deep Vein Thrombosis/Pulmonary Embolism Present on Admission: No Stress Ulcer Stress ulcer prophylaxis: yes Assessment & Plan Assessment and plan (1) Acidosis, lactic: Status: Acute (2) Colitis: Status: Acute (3) Septic shock: Qualifiers: Sepsis type: sepsis due to unspecified organism Qualified Code(s): A41.9 - Sepsis, unspecified organism; R65.21 - Severe sepsis with septic shock Status: Acute (4) Severe obesity (BMI 35.0-39.9) with comorbidity: Status: Acute (5) COPD (chronic obstructive pulmonary disease): Qualifiers: COPD type: unspecified COPD Qualified Code(s): J44.9 - Chronic obstructive pulmonary disease, unspecified Status: Acute (6) Type 2 diabetes mellitus with other specified complication: Qualifiers: Diabetes mellitus senior living insulin use: without senior living use Qualified Code(s): E11.69 - Type 2 diabetes mellitus with other specified complication Status: Acute (7) Severe persistent asthma: Problem details: [id number] very helpful Simbicort BID Qualifiers: Asthma complication type: uncomplicated Qualified Code(s): J45.50 - Severe persistent asthma, uncomplicated Status: Acute (8) Hypothyroidism: Qualifiers: Hypothyroidism type: unspecified Qualified Code(s): E03.9 - Hypothyroidism, unspecified Status: Acute Assessment & Plan narrative: Patient with Septic shock secondary to toxic megacolon and colitis with severe lactic acidosis. - Received 4.5 L IV fluid - Levophed to keep MAP greater than 65. If needed additional pressor then will add epinephrine - Switch antibiotics to meropenem to cover ESBL and add Flagyl to cover for possible C. difficile given toxic megacolon. - Start bicarb drip 150 mEq and 1 L at 150 mL an hour for refractory acidosis - Vent settings adjusted to VC/AC 400/26/5/40% - Monitor flow on the ventilator to avoid auto PEEP as patient has severe asthma. - Blood glucose check POC every 2 hours as patient was severely hypoglycemic needing D50. D50 as needed ordered. - Trend serial lactates every 4 hours and serial ABGs every 4 hours - Switch sedation to fentanyl and Precedex and wean off propofol as this might be affecting her blood pressure. - Postoperative surgical care per surgery team. Time-Based Coding :: TOTAL 38 spent with patient and on the chart (including review of chart, obtaining history, exam, reviewing outside data, placing orders, documenting exam and treatment plan, and counseling patient) on 02/10/2025.
[2025-02-10] MEDS: fentaNYL 1,000 MCG in DEXTROSE 5% IN WATER 230 ML 14.228 MCG IV (20:32)
[2025-02-10] MEDS: metroNIDAZOLE 500 MG/100 ML PIGGYBACK 100 MG IV (20:47)
[2025-02-10 20:56] LABS: HCO3 ABG 7 mmol/L (23-27); Oxygen Saturation ABG 87 % (95-100); PCO2 ABG 30.1 mmHg (35-45); PO2 ABG 83 mmHg (80-100); TCO2 ABG 7 mmol/L (23-27)
[2025-02-10] MEDS: NOREPINEPHRINE BIT/0.9 % NACL 4 MG/250 ML PLAST..BAG 213.413 MG IV (21:03)
[2025-02-10] MEDS: FAMOTIDINE 20 MG/2 ML VIAL IV (21:32)
[2025-02-10] MEDS: dexmedeTOMIDine in 0.9 % NaCL 400 MCG/100 ML PLAST..BAG IV (21:59)
[2025-02-10] MEDS: NOREPINEPHRINE BIT/0.9 % NACL 4 MG/250 ML PLAST..BAG 182.925 MG IV (22:31)
[2025-02-10 22:42] LABS: Hematocrit 39.1 % (36-46); Hemoglobin 11.6 g/dL (12.0-16.0); Mean Corpuscular HGB Conc 29.6 % (30-36); Mean Corpuscular Hemoglobin 25.8 PG (26-34); Mean Corpuscular Volume 87.2 fL (80-100); Platelet Count 452 X10^3/uL (150-400)
[2025-02-10 22:43] LABS: Add Manual Diff / Slide Review YES
[2025-02-10 22:48] LABS: PTT Partial Thromboplastin Tim 30 SECONDS (25.1-36.5)
[2025-02-10 22:49] LABS: Alanine Aminotransferase 43 IU/L (<35); Albumin 3.1 g/dL (3.5-5.0); Albumin Globulin Ratio 1.3 (1.0-2.8); Alkaline Phosphatase 79 U/L (38-126); Blood Urea Nitrogen 28 mg/dL (7-17); Calcium 7.4 mg/dL (8.4-10.2); Chloride 110 mmol/L (98-107); Estimated Glomerular Filt Rate 22 mL/min (>60); Globulin 2.3 g/dL (1.7-4.1); Glucose 233 mg/dL (70-99); HEMOLYSIS < 15 (0-50); Potassium 4.6 mmol/L (3.4-5.1); Sodium 147 mmol/L (137-145); Total Protein 5.4 g/dL (6.3-8.2)
[2025-02-10 22:59] LABS: Carbon Dioxide < 5 mmol/L (22-32)
[2025-02-10 23:00] LABS: Lactate (Lactic Acid) 18.1 mmol/L (0.7-2.1)
[2025-02-10 23:12] LABS: Anisocytosis 1+; Band Neutrophils Percent 23.0 % (3-7); Lymphocytes Percent Manual 16.0 % (25-45); Metamyelocytes Percent 1.0 % (-0); Monocytes Percent Manual 2.0 % (2-11); Segmented Neutrophils Percent 58.0 % (38-70); Total Cells Counted 100
[2025-02-10] MEDS: VASOPRESSIN 40 UNIT in SODIUM CHLORIDE 0.9% 100 ML 4.5 UNIT IV (23:25)
[2025-02-10 23:32] LABS: Blood Gas Collection Site Arterial Line; Blood Gas Mode Assist Cont Ventilat; Delivery System Adult Ventilator; HCO3 ABG 6 mmol/L (23-27); Oxygen Saturation ABG 92 % (95-100); PCO2 ABG 27.2 mmHg (35-45); PEEP 5; PO2 ABG 99 mmHg (80-100); TCO2 ABG 6 mmol/L (23-27)
[2025-02-11] VITALS: BP 106/52; PULSE 96; RESP 26; O2SAT 98
[2025-02-11 00:04] LABS: TSH w/ Reflex to FT4 < 0.02 uIU/mL (0.47-4.68)
[2025-02-11 00:10] LABS: Reflexed Lactate in 2 Hours Y
[2025-02-11 00:15] VITALS: BP 108/54; PULSE 94; RESP 26; O2SAT 97
[2025-02-11 00:30] VITALS: BP 106/53; PULSE 101; RESP 27; O2SAT 99
[2025-02-11 00:34] LABS: Free T4, Direct Thyroxine 1.52 ng/dL (0.78-2.19)
[2025-02-11 00:44] LABS: Blood Gas Collection Site Arterial Line; Blood Gas Mode Assist Cont Ventilat; Delivery System Adult Ventilator; HCO3 ABG 6 mmol/L (23-27); Oxygen Saturation ABG 94 % (95-100); PCO2 ABG 23.8 mmHg (35-45); PEEP 5; PO2 ABG 101 mmHg (80-100); TCO2 ABG 6 mmol/L (23-27)
--- NOTE | 2025-02-11 01:20 | PC.NURSE ---
library attendant RN note pt intubated and sedated, RASS -4/-3, was able to shake head yes and no to questions when sedation lightened, restraints applied to maintain lines and pt safety, propofol titrated off, fentanyl and precedex started, hypotensive, levophed maxed, vasopressin stated, MAP 60-75, SR 90s, extrem cool, cap refill >2 sec, artline to L wrist patent with good waveform but no BP reading on monitor, #7 ETT/19 at lips, vent settings per EICU doctor, RT did multiple ABGs and results called to MD, lungs clear and decreased, O2 sats >92%, abd soft and tender, no BS, ileostomy intact, stoma flat, cool and pink, no output, L nare NGT to LIS with no output, sidhu draining clear yellow urine, output decreased throughout shift, MD notified, midline abd dsg CDI, bilat AC periph IV sites patent, RIJ triple lumen central line patent, attempted to reach DPWILDA Collins (pt's son) and left message about pt transferring to , ambulance crew left to transport pt at 0110 pt in stable condition, report called to ICU [facility] ([phone])
[2025-02-11 04:05] LABS: Blood Gas Collection Site Arterial Line
== END 2025-02-11 01:10 | disposition short-term general hospital (02) | DRG 853 ==
LOC: ED 11:32 → AC 13:38 → ED 13:40 → AC 13:42 → ICU 17:41
PROVIDERS: Internal Medicine; Nurse Anesthetist, Certified Registered; Student in an Organized Health Care Education/Training Program; Admitting Provider Surgery; Emergency Provider Emergency Medicine; PCP Family Medicine; Referring Provider Emergency Medicine; Visit Provider Surgery
PROC: 0DTE0ZZ Resection of Large Intestine, Open Approach (ICD-10-PCS; CPT 49000; principal; 2025-02-10 14:30)
DX: A41.9 Sepsis, unspecified organism (principal); R65.21 Severe sepsis with septic shock; E87.21 Acute metabolic acidosis; K56.609 Unspecified intestinal obstruction, unspecified as to partial versus complete obstruction; K59.31 Toxic megacolon; K55.9 Vascular disorder of intestine, unspecified; K59.00 Constipation, unspecified; K57.30 Diverticulosis of large intestine without perforation or abscess without bleeding; I10 Essential (primary) hypertension; E66.01 Morbid (severe) obesity due to excess calories; J44.9 Chronic obstructive pulmonary disease, unspecified; E11.69 Type 2 diabetes mellitus with other specified complication; J45.50 Severe persistent asthma, uncomplicated; E03.9 Hypothyroidism, unspecified; R10.0 Acute abdomen; Z90.49 Acquired absence of other specified parts of digestive tract; Z68.35 Body mass index [BMI] 35.0-35.9, adult
CPT/HCPCS: 36415; 36600; 71045; 71260; 74177; 80053; 81001; 82805; 82962; 83605; 84145; 84439; 84443; 85007; 85025; 85610; 85730; 86850; 86870; 86900; 86901; 86905; 87040; 93005; 94002; 96361; 96365; 96375; 96376; 99285; 99291; J0131; J0165; J2185; J2250; J2405; J2543; J2704; J3010; J7030; J7040; J7050; J7060; J7120